=== PATIENT | male | born 1955 | race American Indian/Alaskan Native ===

== ENCOUNTER 2020-09-23 10:12 | Inpatient (IN) | payer OTHER ==
--- NOTE | 2020-09-23 12:16 | Emergency Department Report ---
- General Chief complaint: Weakness Stated complaint: WEAKNESS Time Seen by Provider: 09/23/20 11:57 Source: EMS Mode of arrival: Ambulatory Limitations: No Limitations - History of Present Illness Initial comments: 65-year-old male, history of CAD, presents to ED with generalized weakness. Patient reports on yesterday he began feeling like "my whole body just gave out." Patient reports weakness in bilateral arms and legs. Patient reports history of polio and states that his left leg has been paralyzed for quite some time. Patient states he has been unable to walk since yesterday because he is now also feeling weak in his right leg. He states his arms feel weak as well. Patient denies any neck or back pain. He denies any pain to his arms or legs. He denies any fever, nausea or vomiting, headache, loss of smell or taste, loss of appetite. He reports a mild cough and mild shortness of breath. Patient reports he was last normal yesterday morning. Spoke w/ patient's daughter over the phone, who states that patient has been dropping items. Unsure if with left or right hand. Patient states he has not yet received his COVID-19 vaccine. Complaint: generalized weakness -: days(s) (1) Location: generalized Severity: moderate Consistency: constant Improves with: none Worsens with: none Associated Symptoms: shortness of breath. denies: chest pain, fever/chills, headaches, loss of appetite, nausea/vomiting - Related Data Home Medications Medication Instructions Recorded Confirmed Last Taken AtorvaSTATin [Lipitor] 40 mg PO QHS 09/23/20 09/23/20 Unknown Diclofenac Sodium 75 mg PO QDAY 09/23/20 09/23/20 Unknown HYDROcodone/ACETAMINOPHEN 1 each PO Q6HR PRN 09/23/20 09/23/20 Unknown [Hydrocodone-Acetamin 5-300 mg] Metformin HCl [metFORMIN] 1,000 mg PO QDAY 09/23/20 09/23/20 Unknown glipiZIDE [Glucotrol] 5 mg PO QDAY 09/23/20 09/23/20 Unknown Allergies Allergy/AdvReac Type Severity Reaction Status Date / Time No Known Allergies Allergy Verified 09/24/20 01:16 ED Review of Systems ROS: Stated complaint: WEAKNESS Other details as noted in HPI Comment: All other systems reviewed and negative Constitutional: denies: chills, fever Respiratory: cough, shortness of breath Gastrointestinal: denies: abdominal pain, nausea, vomiting, diarrhea Musculoskeletal: denies: back pain Neurological: weakness. denies: headache, numbness ED Past Medical Hx - Medications Home Medications: Home Medications Medication Instructions Recorded Confirmed Last Taken Type AtorvaSTATin [Lipitor] 40 mg PO QHS 09/23/20 09/23/20 Unknown History Diclofenac Sodium 75 mg PO QDAY 09/23/20 09/23/20 Unknown History HYDROcodone/ACETAMINOPHEN 1 each PO Q6HR PRN 09/23/20 09/23/20 Unknown History [Hydrocodone-Acetamin 5-300 mg] Metformin HCl [metFORMIN] 1,000 mg PO QDAY 09/23/20 09/23/20 Unknown History glipiZIDE [Glucotrol] 5 mg PO QDAY 09/23/20 09/23/20 Unknown History ED Physical Exam - General Limitations: No Limitations General appearance: alert, in no apparent distress - Head Head exam: Present: atraumatic, normocephalic - Eye Eye exam: Present: normal appearance, EOMI - ENT ENT exam: Present: mucous membranes moist - Neck Neck exam: Present: normal inspection, full ROM. Absent: tenderness - Respiratory Respiratory exam: Present: normal lung sounds bilaterally. Absent: respiratory distress - Cardiovascular Cardiovascular Exam: Present: regular rate, normal rhythm - GI/Abdominal GI/Abdominal exam: Present: soft. Absent: distended, tenderness - Extremities Exam Extremities exam: Present: normal inspection - Back Exam Back exam: Present: normal inspection. Absent: tenderness, CVA tenderness (R), CVA tenderness (L), vertebral tenderness - Neurological Exam Neurological exam: Present: alert, oriented X3, CN II-XII intact, motor sensory deficit (baseline left leg weakness; RLE strength 3/5; BUE strength 5/5 but division plant engineer strength seems diminished; sensation intact) ED Course Vital Signs 09/23/20 09/23/20 09/23/20 13:08 13:13 13:15 Temperature 98.2 F Pulse Rate 100 H 94 H Respiratory 13 16 Rate Blood Pressure 145/84 Blood Pressure 145/84 [Left] O2 Sat by Pulse 98 98 98 Oximetry 09/23/20 09/23/20 09/23/20 13:45 14:31 15:01 Temperature Pulse Rate 90 87 89 Respiratory 13 16 15 Rate Blood Pressure 145/84 123/76 147/86 Blood Pressure [Left] O2 Sat by Pulse Oximetry 09/23/20 09/23/20 09/23/20 15:45 16:01 17:01 Temperature Pulse Rate 85 82 81 Respiratory 17 12 17 Rate Blood Pressure 147/86 128/78 125/72 Blood Pressure [Left] O2 Sat by Pulse Oximetry 09/23/20 09/23/20 17:42 17:56 Temperature Pulse Rate 89 83 Respiratory 20 Rate Blood Pressure 143/81 Blood Pressure [Left] O2 Sat by Pulse 100 Oximetry ED Medical Decision Making - Lab Data Result diagrams: 09/23/20 12:11 09/23/20 12:11 - EKG Data -: EKG Interpreted by Me EKG shows normal: sinus rhythm, axis, intervals, QRS complexes Rate: normal - EKG Data Interpretation: nonspecific ST-T wave gavino - Radiology Data Radiology results: report reviewed, image reviewed - Medical Decision Making 65-year-old male presents to ED with complaint of generalized weakness. Last known well time greater than 24 hours ago. On exam patient does have some obvious weakness to the right leg. States his left leg weakness is baseline. No significant weakness of the upper extremities, however it is reported that patient has been dropping objects. He does appear to have some decreased division plant engineer strength. CT head shows possible subacute infarcts in the left basal ganglia. Patient not a candidate for TPA or interventional due to last known well time being greater than 24 hours. Remainder work-up is unremarkable. Patient will be admitted by hospitalist, Dr. Pickard, for further management. - Differential Diagnosis CVA, UTI, electrolyte abnormality Critical care attestation.: If time is entered above; I have spent that time in minutes in the direct care of this critically ill patient, excluding procedure time. ED Disposition Clinical Impression: CVA (cerebral vascular accident) Disposition: [id number] OP ADMIT IP TO THIS HOSP Is pt being admited?: Yes Condition: Stable Time of Disposition: 13:29
[2020-09-23 12:33] LABS: Basophils % (Auto) 0.5 % (0.0-1.8); Eosinophils # (Auto) 0.1 K/mm3 (0.0-0.4); Eosinophils % (Auto) 1.7 % (0.0-4.3); Hematocrit 41.2 % (35.5-45.6); Hemoglobin 13.9 gm/dl (11.8-15.2); Lymphocytes % (Auto) 15.2 % (13.4-35.0); Mean Corpuscular HGB Conc 34 % (32-34); Mean Corpuscular Volume 88 fl (84-94); Monocytes # (Auto) 0.7 K/mm3 (0.0-0.8); Platelet Count 271 K/mm3 (140-440); Red Blood Count 4.68 M/mm3 (3.65-5.03); Red Cell Distribution Width 13.9 % (13.2-15.2)
--- NOTE | 2020-09-23 12:37 | XRay Report ---
CHEST 1 VIEW INDICATION: weakness COMPARISON: FINDINGS: SUPPORT DEVICES: None. HEART / MEDIASTINUM: No significant abnormality. LUNGS / PLEURA: No significant pulmonary or pleural abnormality. No pneumothorax. ADDITIONAL FINDINGS: IMPRESSION: 1. No acute cardiopulmonary disease Signer Name: Lamonte Horan MD Signed: 09/23/2020 12:33 PM Workstation Name: [id number]
[2020-09-23 12:44] LABS: BUN/Creatinine Ratio 19; Blood Urea Nitrogen 15 mg/dL (9-20); Calcium 10.2 mg/dL (8.4-10.2); Hemolysis Index 4
--- NOTE | 2020-09-23 12:55 | Cat Scan Report ---
NONENHANCED CT SCAN OF THE HEAD: INDICATION / CLINICAL INFORMATION: 65 years Male; weakness. TECHNIQUE: Routine CT head without contrast. All CT scans at this location are performed using CT dos e reduction for ALARA by means of automated exposure control. COMPARISON: None. FINDINGS: BRAIN / INTRACRANIAL CONTENTS: No acute hemorrhage, mass effect, midline shift, hydrocephalus, or acu te, large territorial infarct. Lacunar infarction seen in the left thalamus and left globus pallidus; it is difficult to determine the age of these lacunae; since CT attenuation is slightly higher than CSF, these appear to be subacute. Low-attenuation in the left temporal; this appears to be due to vol ume loss rather than hypoplasia. No bony remodeling of the middle fossa skull base. CRANIOCERVICAL JUNCTION: No significant abnormality. ORBITS: No significant abnormality of visualized orbits. SINUSES / MASTOIDS: No significant abnormality of the visualized paranasal sinuses or mastoid air yazmin ls. ADDITIONAL FINDINGS: None. IMPRESSION: Left basal ganglia lacunae; these may be more recent Low attenuation areas in the left temporal lobe tip Encephalomalacia Signer Name: Sedrick Wall MD Signed: 09/23/2020 12:50 PM Workstation Name: [id number]
[2020-09-23 13:13] LABS: Bilirubin,Urine NEG (Negative); Blood,Urine NEG (Negative); Color,Urine Yellow (Yellow); Mucus,Urine FEW /HPF
[2020-09-23 13:49] LABS: Alanine Aminotransferase 23 units/L (7-56); Albumin 4.5 g/dL (3.9-5)
[2020-09-23] MEDS ORDERED: ASPIRIN 325 MG TAB PO ONE (13:52)
[2020-09-23 13:54] LABS: Bilirubin,Direct < 0.2 mg/dL (0-0.2)
[2020-09-24] MEDS ORDERED: HYDROcodone/ACETAMINOPHEN 5-325 MG TAB PO PRN (00:38)
--- NOTE | 2020-09-24 00:45 | History and Physical Report ---
History of Present Illness Date of examination: 09/23/20 Date of admission: 09/23/20 16:06 Chief complaint: Right lower extremity for 1 day History of present illness: 65-year-old -Thai male with history of left lower extremity weakness secondary to polio comes in for right lower extremity weakness and right upper extremity weakness of 1 day duration. Patient says there is also weak on the left upper extremity which is also new. Patient reports that his last normal was yesterday. Past History Past Medical History: diabetes, hypertension, hyperlipidemia, other (Left lower extremity weakness secondary to polio in childhood) Past Surgical History: No surgical history Social history: lives with family, full code Family history: hypertension Medications and Allergies Allergies Allergy/AdvReac Type Severity Reaction Status Date / Time No Known Allergies Allergy Unverified 09/23/20 13:39 Home Medications Medication Instructions Recorded Confirmed Last Taken Type AtorvaSTATin [Lipitor] 40 mg PO QHS 09/23/20 09/23/20 Unknown History Diclofenac Sodium 75 mg PO QDAY 09/23/20 09/23/20 Unknown History HYDROcodone/ACETAMINOPHEN 1 each PO Q6HR PRN 09/23/20 09/23/20 Unknown History [Hydrocodone-Acetamin 5-300 mg] Metformin HCl [metFORMIN] 1,000 mg PO QDAY 09/23/20 09/23/20 Unknown History glipiZIDE [Glucotrol] 5 mg PO QDAY 09/23/20 09/23/20 Unknown History Active Meds: Active Medications Atorvastatin Calcium (Atorvastatin 40 Mg Tab) 40 mg PO QHS [facility] Diclofenac Sodium (Diclofenac Dr 75 Mg Tab) 75 mg PO QDAY [facility] Glipizide (Glipizide 5 Mg Tab) 5 mg PO QDAY [facility] Miscellaneous Medication (Hydrocodone/Acetaminophen [Hydrocodone-Acetamin 5-300 Mg]) 1 each PO Q6HR PRN PRN Reason: Pain , Severe (7-10) Miscellaneous Medication (Metformin Hcl [Metformin]) 1,000 mg PO QDAY [facility] Review of Systems All systems: negative Neurological: paralysis (Mild left lower extremity weakness and new right lower extremity weakness) Exam - Constitutional Vitals: Temp Pulse Resp BP Pulse Ox 98.7 F 91 H 18 137/84 99 09/23/20 23:45 09/23/20 23:45 09/23/20 23:45 09/23/20 23:45 09/23/20 23:45 General appearance: Present: no acute distress, well-nourished - EENT Eyes: Present: PERRL ENT: hearing intact, clear oral mucosa - Neck Neck: Present: supple, normal ROM - Respiratory Respiratory effort: normal Respiratory: bilateral: CTA - Cardiovascular Heart rate: 78 Rhythm: regular Heart Sounds: Present: S1 & S2. Absent: rub, click - Extremities Extremities: pulses symmetrical, No edema Peripheral Pulses: within normal limits - Abdominal General gastrointestinal: Present: soft, non-tender, non-distended, normal bowel sounds Male genitourinary: Present: normal - Integumentary Integumentary: Present: clear, warm, dry - Musculoskeletal Musculoskeletal: right sided weakness (Right lower extremity weakness is new also has right upper extremity weakness), left sided weakness (. Left lower extremity weakness resolved from polio) - Psychiatric Psychiatric: appropriate mood/affect, intact judgment & insight - Neurologic Neurologic: CNII-XII intact, focal deficits (Right lower extremity weakness and right upper extremity weakness which is new), moves all extremities HEART Score - HEART Score Troponin: Troponin T 0.025 ng/mL (0.00-0.029) 09/23/20 12:11 Results - Labs CBC & Chem 7: 09/23/20 12:11 09/23/20 12:11 Labs: Laboratory Last Values WBC 6.8 K/mm3 (4.5-11.0) 09/23/20 12:11 RBC 4.68 M/mm3 (3.65-5.03) 09/23/20 12:11 Hgb 13.9 gm/dl (11.8-15.2) 09/23/20 12:11 Hct 41.2 % (35.5-45.6) 09/23/20 12:11 MCV 88 fl (84-94) 09/23/20 12:11 MCH 30 pg (28-32) 09/23/20 12:11 MCHC 34 % (32-34) 09/23/20 12:11 RDW 13.9 % (13.2-15.2) 09/23/20 12:11 Plt Count 271 K/mm3 (140-440) 09/23/20 12:11 Lymph % (Auto) 15.2 % (13.4-35.0) 09/23/20 12:11 [place] % (Auto) 10.0 % (0.0-7.3) H 09/23/20 12:11 Eos % (Auto) 1.7 % (0.0-4.3) 09/23/20 12:11 Baso % (Auto) 0.5 % (0.0-1.8) 09/23/20 12:11 Lymph # (Auto) 1.0 K/mm3 (1.2-5.4) L 09/23/20 12:11 [place] # (Auto) 0.7 K/mm3 (0.0-0.8) 09/23/20 12:11 Eos # (Auto) 0.1 K/mm3 (0.0-0.4) 09/23/20 12:11 Baso # (Auto) 0.0 K/mm3 (0.0-0.1) 09/23/20 12:11 Seg Neutrophils % 72.6 % (40.0-70.0) H 09/23/20 12:11 Seg Neutrophils # 4.9 K/mm3 (1.8-7.7) 09/23/20 12:11 Sodium 139 mmol/L (137-145) 09/23/20 12:11 Potassium 3.8 mmol/L (3.6-5.0) 09/23/20 12:11 Chloride 99.9 mmol/L (98-107) 09/23/20 12:11 Carbon Dioxide 24 mmol/L (22-30) 09/23/20 12:11 Anion Gap 19 mmol/L 09/23/20 12:11 BUN 15 mg/dL (9-20) 09/23/20 12:11 Creatinine 0.8 mg/dL (0.8-1.3) 09/23/20 12:11 Estimated GFR > 60 ml/min 09/23/20 12:11 BUN/Creatinine Ratio 19 % 09/23/20 12:11 Glucose 148 mg/dL (75-100) H 09/23/20 12:11 POC Glucose 132 mg/dL (70-105) H 09/23/20 17:38 Calcium 10.2 mg/dL (8.4-10.2) 09/23/20 12:11 Total Bilirubin 0.50 mg/dL (0.1-1.2) 09/23/20 12:11 Direct Bilirubin < 0.2 mg/dL (0-0.2) 09/23/20 12:11 Indirect Bilirubin 0.3 mg/dL 09/23/20 12:11 AST 21 units/L (5-40) 09/23/20 12:11 ALT 23 units/L (7-56) 09/23/20 12:11 Alkaline Phosphatase 77 units/L (35-129) 09/23/20 12:11 Troponin T 0.025 ng/mL (0.00-0.029) 09/23/20 12:11 Total Protein 7.0 g/dL (6.3-8.2) 09/23/20 12:11 Albumin 4.5 g/dL (3.9-5) 09/23/20 12:11 Albumin/Globulin Ratio 1.8 % 09/23/20 12:11 Urine Color Yellow (Yellow) 09/23/20 12:14 Urine Turbidity Clear (Clear) 09/23/20 12:14 Urine pH 6.0 (5.0-7.0) 09/23/20 12:14 Ur Specific [place] 1.020 (1.003-1.030) 09/23/20 12:14 Urine Protein 30 mg/dl mg/dL (Negative) 09/23/20 12:14 Urine Glucose (UA) Neg mg/dL (Negative) 09/23/20 12:14 Urine Ketones Neg mg/dL (Negative) 09/23/20 12:14 Urine Blood Neg (Negative) 09/23/20 12:14 Urine Nitrite Neg (Negative) 09/23/20 12:14 Urine Bilirubin Neg (Negative) 09/23/20 12:14 Urine Urobilinogen 4.0 mg/dL (<2.0) 09/23/20 12:14 Ur Leukocyte Esterase Neg (Negative) 09/23/20 12:14 Urine WBC (Auto) 1.0 /HPF (0.0-6.0) 09/23/20 12:14 Urine RBC (Auto) 3.0 /HPF (0.0-6.0) 09/23/20 12:14 U Epithel Cells (Auto) < 1.0 /HPF (0-13.0) 09/23/20 12:14 Urine Mucus Few /HPF 09/23/20 12:14 Short CBC 09/23/20 Range/Units 12:11 WBC 6.8 (4.5-11.0) K/mm3 Hgb 13.9 (11.8-15.2) gm/dl Hct 41.2 (35.5-45.6) % Plt Count 271 (140-440) K/mm3 BMP 09/23/20 12:11 Sodium 139 Potassium 3.8 Chloride 99.9 Carbon Dioxide 24 BUN 15 Creatinine 0.8 Glucose 148 H Calcium 10.2 Cardiac Enzymes 09/23/20 Range/Units 12:11 Troponin T 0.025 (0.00-0.029) ng/mL Liver Function 09/23/20 Range/Units 12:11 Total Bilirubin 0.50 (0.1-1.2) mg/dL Direct Bilirubin < 0.2 (0-0.2) mg/dL AST 21 (5-40) units/L ALT 23 (7-56) units/L Alkaline Phosphatase 77 (35-129) units/L Albumin 4.5 (3.9-5) g/dL Urine 09/23/20 Range/Units 12:14 Urine Color Yellow (Yellow) Urine pH 6.0 (5.0-7.0) Ur Specific [place] 1.020 (1.003-1.030) Urine Protein 30 mg/dl (Negative) mg/dL Urine Glucose (UA) Neg (Negative) mg/dL - Imaging and Cardiology EKG: report reviewed (Sinus rhythm no acute ST-T wave changes) CT Scan - head: report reviewed (Lack infarct on the left side) Imaging and Cardiology: CT head Left basal ganglia lacunar this may be more recent Low-attenuation areas in the left temporal area tip and encephalomalacia Riley/IV: Voiding Method Condom Catheter Assessment and Plan Advance Directives: Yes (Full code) VTE prophylaxis?: Chemical Plan of care discussed with patient/family: Yes - Patient Problems (1) Acute CVA (cerebrovascular accident) Current Visit: Yes Status: Acute Plan to address problem: Patient has right lower extremity weakness and right upper extremity weakness Neurological findings consistent with left-sided infarct which is seen on the CT head Patient to get MRI brain and carotid duplex scan and echocardiogram. Neurology consult. Aspirin and Plavix. PT OT initiated. 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
[2020-09-24] MEDS ORDERED: ONDANSETRON 4 MG/2 ML INJ IV PRN (00:53)
[2020-09-24] MEDS ORDERED: METOCLOPRAMIDE 10 MG/2 ML INJ IV PRN (00:53)
[2020-09-24] MEDS ORDERED: IBUPROFEN 600 MG TAB PO PRN (00:53)
[2020-09-24] MEDS: SODIUM CHLORIDE 0.9% 1000 ML 1,000 ML IV SCH (02:22)
--- NOTE | 2020-09-24 07:43 | Consultation ---
History of Present Illness Consult date: 09/24/20 Reason for Consult: New onset right side weakness ,Hx of Polio left LE History of present illness: Right side weakness noted since yesterday with walking difficulty History of present illness: 65-year-old -Citizen Of [place] male with history of left lower extremity weakness secondary to polio comes in for right side weakness noted since yesterday he could not walk with walker any more , denied numbness or facial weakness or speech difficulty Ct brain is suggestive of left lacunar infarct BG Past History Past Medical History: diabetes, hypertension, hyperlipidemia, other (Left lower extremity weakness secondary to polio in childhood) Past Surgical History: No surgical history Social history: lives with family, full code Family history: hypertension Medications and Allergies Allergies Allergy/AdvReac Type Severity Reaction Status Date / Time No Known Allergies Allergy Unverified 09/23/20 13:39 Home Medications Medication Instructions Recorded Confirmed Last Taken Type AtorvaSTATin [Lipitor] 40 mg PO QHS 09/23/20 09/23/20 Unknown History Diclofenac Sodium 75 mg PO QDAY 09/23/20 09/23/20 Unknown History HYDROcodone/ACETAMINOPHEN 1 each PO Q6HR PRN 09/23/20 09/23/20 Unknown History [Hydrocodone-Acetamin 5-300 mg] Metformin HCl [metFORMIN] 1,000 mg PO QDAY 09/23/20 09/23/20 Unknown History glipiZIDE [Glucotrol] 5 mg PO QDAY 09/23/20 09/23/20 Unknown History Active Meds: Active Medications Atorvastatin Calcium (Atorvastatin 40 Mg Tab) 40 mg PO QHS [facility] Diclofenac Sodium (Diclofenac Dr 75 Mg Tab) 75 mg PO QDAY [facility] Glipizide (Glipizide 5 Mg Tab) 5 mg PO QDAY [facility] Miscellaneous Medication (Hydrocodone/Acetaminophen [Hydrocodone-Acetamin 5-300 Mg]) 1 each PO Q6HR PRN PRN Reason: Pain , Severe (7-10) Miscellaneous Medication (Metformin Hcl [Metformin]) 1,000 mg PO QDAY [facility] Review of Systems All systems: negative Neurological: paralysis (Mild left lower extremity weakness and new right lower extremity weakness) Past History Past Medical History: diabetes, hypertension, hyperlipidemia, other (Left lower extremity weakness secondary to polio in childhood) Past Surgical History: No surgical history Social history: lives with family, full code Family history: hypertension Medications and Allergies Allergies Allergy/AdvReac Type Severity Reaction Status Date / Time No Known Allergies Allergy Verified 09/24/20 01:16 Home Medications Medication Instructions Recorded Confirmed Last Taken Type AtorvaSTATin [Lipitor] 40 mg PO QHS 09/23/20 09/23/20 Unknown History Diclofenac Sodium 75 mg PO QDAY 09/23/20 09/23/20 Unknown History HYDROcodone/ACETAMINOPHEN 1 each PO Q6HR PRN 09/23/20 09/23/20 Unknown History [Hydrocodone-Acetamin 5-300 mg] Metformin HCl [metFORMIN] 1,000 mg PO QDAY 09/23/20 09/23/20 Unknown History glipiZIDE [Glucotrol] 5 mg PO QDAY 09/23/20 09/23/20 Unknown History Active Meds: Active Medications Hydrocodone Bitart/Acetaminophen (Hydrocodone/Acetaminophen 5-325 Mg Tab) 1 each PO Q6HR PRN PRN Reason: Pain , Severe (7-10) Aspirin (Aspirin 325 Mg Tab) 325 mg PO QDAY [facility] Atorvastatin Calcium (Atorvastatin 40 Mg Tab) 40 mg PO QHS [facility] Diclofenac Sodium (Diclofenac Dr 75 Mg Tab) 75 mg PO QDAY [facility] Famotidine (Famotidine 20 Mg/2 Ml Inj) 20 mg IV BID [facility] Glipizide (Glipizide 5 Mg Tab) 5 mg PO QDAY [facility] Hydromorphone HCl (Hydromorphone 1 Mg/1 Ml Inj) 0.5 mg IV Q3H PRN PRN Reason: Pain , Severe (7-10) Sodium Chloride (Nacl 0.9% 1000 Ml) 1,000 mls @ 42 mls/hr IV DIRECT [facility] Last Admin: 09/24/20 02:22 Dose: 42 mls/hr Documented by: Ibuprofen (Ibuprofen 600 Mg Tab) 600 mg PO Q6H PRN PRN Reason: Pain, Mild (1-3) Metformin HCl (Metformin 500 Mg Tab) 1,000 mg PO QDAY [facility] Metoclopramide HCl (Metoclopramide 10 Mg/2 Ml Inj) 10 mg IV Q6H PRN PRN Reason: Nausea And Vomiting Ondansetron HCl (Ondansetron 4 Mg/2 Ml Inj) 4 mg IV Q8H PRN PRN Reason: Nausea And Vomiting Oxycodone/Acetaminophen (Oxycodone /Acetaminophen 5-325mg Tab) 1 tab PO Q6H PRN PRN Reason: Pain, Moderate (4-6) Pravastatin Sodium (Pravastatin 40 Mg Tab) 40 mg PO QHS [facility] Sodium Chloride (Sodium Chloride 0.9% 10 Ml Flush Syringe) 10 ml IV BID [facility] Sodium Chloride (Sodium Chloride 0.9% 10 Ml Flush Syringe) 10 ml IV PRN PRN PRN Reason: LINE FLUSH Physical Examination - Vital Signs Vital Signs: Vital Signs Pulse Ox 98 09/23/20 13:08 - Constitutional General appearance: comfortable - EENT EENT: Present: PERRL, mucous membranes moist - Respiratory Respiratory: Present: lungs clear, rhonchi - Cardiovascular Cardiovascular: Present: regular rate, normal S1, normal S2 Extremities: Present: no peripheral edema bilatateraly, no clubbing, cyanosis - Gastrointestinal Gastrointestinal: Present: normoactive bowel sounds - Integumentary Integumentary: Present: normal - Neurologic Cranial nerve examination: PERRL, EOMI, intact Speech examination: intact Sensorimotor examination: other (speech intact no facial asymmetry , he is with pronator drift right upper with right lower is 4-/5 , left side is 1-2 /5 , no sensory deficit , reflexes 1+, gait unable to do) Results - Laboratory Findings CBC and BMP: 09/23/20 12:11 09/23/20 12:11 Abnormal Lab Findings: Abnormal Labs 09/23/20 09/23/20 09/23/20 12:11 12:11 17:38 [place] % (Auto) 10.0 H Lymph # (Auto) 1.0 L Seg Neutrophils % 72.6 H Glucose 148 H POC Glucose 132 H Hemoglobin A1c 09/24/20 05:49 [place] % (Auto) Lymph # (Auto) Seg Neutrophils % Glucose POC Glucose Hemoglobin A1c 7.6 H Assessment and Plan # Acute CVA (cerebrovascular accident) -New onset righ side weakness upper and lower with no significant cranial N. abnormality - left BG infarct is seen on the CT head - MRI brain is pending - CTA brain and neck -ASA 325 mg and Lipitor # 40 mg -A1C#7.6 -LDL is pending -Echo is pending -BP control < 150/80 ,and DM control<7 -PT OT initiated. # Hypertension - allow for permissive HTN X 24 hours -then nromalize to <150/80 # T2DM (type 2 diabetes mellitus) -Continue oral hypoglycemics - hemoglobin A1c#7.6 Accu-Cheks before meals and at bedtime Insulin coverage with moderate dose sliding scale # Osteoarthritis - Left knee surgery -Weakness left side due to Polio -Patient on diclofenac -Use walker for ambulation # DVT prophylaxis -On heparin and GI prophylaxis PLAN 1- MRI brain 2- cardiac telemetry 3- LDL 4- ASA 325 mg and lipitor 40 mg 5- Echo 6- Pt/ST 7- CTA brain and neck 8- better control of BP and suger will follow as needed
--- NOTE | 2020-09-24 09:58 | Progress Note ---
Assessment and Plan Assessment and plan: Acute ischemoc stroke Patient has right lower extremity weakness and right upper extremity weakness Neurological findings consistent with left-sided infarct which is seen on the CT head Patient to get MRI brain and carotid duplex scan and echocardiogram. Neurology consult. Aspirin and Plavix. PT OT initiated. Hypertension Continue antihypertensives and adjust medications Diabetes mellitus type 2 Continue oral hypoglycemics Accu-Cheks before meals and at bedtime Insulin coverage with moderate dose sliding scale Osteoarthritis Patient on diclofenac DVT prophylaxis On heparin and GI Full code status 09/24/20 Patient is 65 yo presented with right sided weakness. CT Head revealed infarct left basal ganglia. He was admitted with acute stroke. Patient started on Aspirin, Lipitor. MRI ordered, not done yet. Neurology consulted. F/U MRI Brain, CT Angio Head, CT Angio Neck History Interval history: Right sided weakness Hospitalist Physical - Physical exam Narrative exam: Gen: Not in acute distress, obese, lying in bed HEENT: Normochephalic, atraumatic Neck:supple, No JVD Lungs:Clear to auscultation bilaterally, no rales, no wheeze Heart:S1 and S2 reg, no murmurs, rubs or gallop Abd: soft, non tender, non distended, normal bowel sounds Ext: No edema, no clubbing, no cyanosis Neuro:Awake,alert,oriented X 3, right sided weakness, left lower ext polio - Constitutional Vitals: Temp Pulse Resp BP Pulse Ox 97.4 F L 81 15 135/94 99 09/24/20 09:40 09/24/20 03:51 09/24/20 09:40 09/24/20 09:40 09/24/20 09:40 General appearance: Present: no acute distress, well-nourished HEART Score - HEART Score Troponin: Troponin T 0.025 ng/mL (0.00-0.029) 09/23/20 12:11 Results - Labs CBC & Chem 7: 09/23/20 12:11 09/23/20 12:11 Labs: Laboratory Last Values WBC 6.8 K/mm3 (4.5-11.0) 09/23/20 12:11 RBC 4.68 M/mm3 (3.65-5.03) 09/23/20 12:11 Hgb 13.9 gm/dl (11.8-15.2) 09/23/20 12:11 Hct 41.2 % (35.5-45.6) 09/23/20 12:11 MCV 88 fl (84-94) 09/23/20 12:11 MCH 30 pg (28-32) 09/23/20 12:11 MCHC 34 % (32-34) 09/23/20 12:11 RDW 13.9 % (13.2-15.2) 09/23/20 12:11 Plt Count 271 K/mm3 (140-440) 09/23/20 12:11 Lymph % (Auto) 15.2 % (13.4-35.0) 09/23/20 12:11 [place] % (Auto) 10.0 % (0.0-7.3) H 09/23/20 12:11 Eos % (Auto) 1.7 % (0.0-4.3) 09/23/20 12:11 Baso % (Auto) 0.5 % (0.0-1.8) 09/23/20 12:11 Lymph # (Auto) 1.0 K/mm3 (1.2-5.4) L 09/23/20 12:11 [place] # (Auto) 0.7 K/mm3 (0.0-0.8) 09/23/20 12:11 Eos # (Auto) 0.1 K/mm3 (0.0-0.4) 09/23/20 12:11 Baso # (Auto) 0.0 K/mm3 (0.0-0.1) 09/23/20 12:11 Seg Neutrophils % 72.6 % (40.0-70.0) H 09/23/20 12:11 Seg Neutrophils # 4.9 K/mm3 (1.8-7.7) 09/23/20 12:11 Sodium 139 mmol/L (137-145) 09/23/20 12:11 Potassium 3.8 mmol/L (3.6-5.0) 09/23/20 12:11 Chloride 99.9 mmol/L (98-107) 09/23/20 12:11 Carbon Dioxide 24 mmol/L (22-30) 09/23/20 12:11 Anion Gap 19 mmol/L 09/23/20 12:11 BUN 15 mg/dL (9-20) 09/23/20 12:11 Creatinine 0.8 mg/dL (0.8-1.3) 09/23/20 12:11 Estimated GFR > 60 ml/min 09/23/20 12:11 BUN/Creatinine Ratio 19 % 09/23/20 12:11 Glucose 148 mg/dL (75-100) H 09/23/20 12:11 POC Glucose 132 mg/dL (70-105) H 09/23/20 17:38 Hemoglobin A1c 7.6 % (4-6) H 09/24/20 05:49 Calcium 10.2 mg/dL (8.4-10.2) 09/23/20 12:11 Total Bilirubin 0.50 mg/dL (0.1-1.2) 09/23/20 12:11 Direct Bilirubin < 0.2 mg/dL (0-0.2) 09/23/20 12:11 Indirect Bilirubin 0.3 mg/dL 09/23/20 12:11 AST 21 units/L (5-40) 09/23/20 12:11 ALT 23 units/L (7-56) 09/23/20 12:11 Alkaline Phosphatase 77 units/L (35-129) 09/23/20 12:11 Troponin T 0.025 ng/mL (0.00-0.029) 09/23/20 12:11 Total Protein 7.0 g/dL (6.3-8.2) 09/23/20 12:11 Albumin 4.5 g/dL (3.9-5) 09/23/20 12:11 Albumin/Globulin Ratio 1.8 % 09/23/20 12:11 Urine Color Yellow (Yellow) 09/23/20 12:14 Urine Turbidity Clear (Clear) 09/23/20 12:14 Urine pH 6.0 (5.0-7.0) 09/23/20 12:14 Ur Specific [place] 1.020 (1.003-1.030) 09/23/20 12:14 Urine Protein 30 mg/dl mg/dL (Negative) 09/23/20 12:14 Urine Glucose (UA) Neg mg/dL (Negative) 09/23/20 12:14 Urine Ketones Neg mg/dL (Negative) 09/23/20 12:14 Urine Blood Neg (Negative) 09/23/20 12:14 Urine Nitrite Neg (Negative) 09/23/20 12:14 Urine Bilirubin Neg (Negative) 09/23/20 12:14 Urine Urobilinogen 4.0 mg/dL (<2.0) 09/23/20 12:14 Ur Leukocyte Esterase Neg (Negative) 09/23/20 12:14 Urine WBC (Auto) 1.0 /HPF (0.0-6.0) 09/23/20 12:14 Urine RBC (Auto) 3.0 /HPF (0.0-6.0) 09/23/20 12:14 U Epithel Cells (Auto) < 1.0 /HPF (0-13.0) 09/23/20 12:14 Urine Mucus Few /HPF 09/23/20 12:14 Riley/IV: Voiding Method Condom Catheter Active Medications - Current Medications Current Medications: Generic Name Dose Route Start Last Admin Trade Name Freq PRN Reason Stop Dose Admin Hydrocodone Bitart/Acetaminophen 1 each 09/24/20 00:38 Hydrocodone/Acetaminophen 5-325 Mg Tab PO Q6HR PRN Pain , Severe (7-10) Aspirin 325 mg 09/24/20 10:00 Aspirin 325 Mg Tab PO QDAY [facility] Atorvastatin Calcium 40 mg 09/24/20 22:00 Atorvastatin 40 Mg Tab PO QHS [facility] Diclofenac Sodium 75 mg 09/24/20 10:[address] 75 Mg Tab PO QDAY [facility] Famotidine 20 mg 09/24/20 10:00 Famotidine 20 Mg/2 Ml Inj IV BID [facility] Glipizide 5 mg 09/24/20 10:00 Glipizide 5 Mg Tab PO QDAY [facility] Hydromorphone HCl 0.5 mg 09/24/20 00:53 Hydromorphone 1 Mg/1 Ml Inj IV Q3H PRN Pain , Severe (7-10) Sodium Chloride 1,000 mls @ 42 mls/hr 09/24/20 01:00 09/24/20 02:22 Nacl 0.9% 1000 Ml IV 42 mls/hr DIRECT FLAQUITO Administration Ibuprofen 600 mg 09/24/20 00:53 Ibuprofen 600 Mg Tab PO Q6H PRN Pain, Mild (1-3) Metformin HCl 1,000 mg 09/24/20 10:00 Metformin 500 Mg Tab PO QDAY [facility] Metoclopramide HCl 10 mg 09/24/20 00:53 Metoclopramide 10 Mg/2 Ml Inj IV Q6H PRN Nausea And Vomiting Ondansetron HCl 4 mg 09/24/20 00:53 Ondansetron 4 Mg/2 Ml Inj IV Q8H PRN Nausea And Vomiting Oxycodone/Acetaminophen 1 tab 09/24/20 00:53 Oxycodone /Acetaminophen 5-325mg Tab PO Q6H PRN Pain, Moderate (4-6) Pravastatin Sodium 40 mg 09/24/20 22:00 Pravastatin 40 Mg Tab PO QHS [facility]O Sodium Chloride 10 ml 09/24/20 10:00 Sodium Chloride 0.9% 10 Ml Flush Syringe IV BID FLAQUITO Sodium Chloride 10 ml 09/24/20 00:53 Sodium Chloride 0.9% 10 Ml Flush Syringe IV PRN PRN LINE FLUSH
[2020-09-24] MEDS: DICLOFENAC DR 75 MG TAB PO SCH (11:04)
[2020-09-24] MEDS: glipiZIDE 5 MG TAB PO SCH (11:05)
[2020-09-24] MEDS: metFORMIN 500 MG TAB PO SCH (11:05)
[2020-09-24] MEDS: ASPIRIN 325 MG TAB PO SCH (11:05)
[2020-09-24] MEDS: FAMOTIDINE 20 MG/2 ML INJ IV SCH ×2 (11:05→21:45)
[2020-09-24] MEDS: PRAVASTATIN 40 MG TAB PO SCH (21:45)
[2020-09-25 06:02] LABS: Basophils % (Auto) 0.5 % (0.0-1.8); Eosinophils # (Auto) 0.2 K/mm3 (0.0-0.4); Eosinophils % (Auto) 3.5 % (0.0-4.3); Hematocrit 38.3 % (35.5-45.6); Hemoglobin 12.8 gm/dl (11.8-15.2); Lymphocytes # (Auto) 1.6 K/mm3 (1.2-5.4); Lymphocytes % (Auto) 31.5 % (13.4-35.0); Mean Corpuscular HGB Conc 34 % (32-34); Mean Corpuscular Volume 88 fl (84-94); Monocytes # (Auto) 0.6 K/mm3 (0.0-0.8); Monocytes % (Auto) 12.7 % (0.0-7.3); Platelet Count 241 K/mm3 (140-440); Red Blood Count 4.35 M/mm3 (3.65-5.03); Red Cell Distribution Width 14.1 % (13.2-15.2)
[2020-09-25 06:10] LABS: Alanine Aminotransferase 18 units/L (7-56); BUN/Creatinine Ratio 19; Blood Urea Nitrogen 17 mg/dL (9-20); Calcium 9.3 mg/dL (8.4-10.2); Chol/HDL Ratio 3.54 %; HDL Cholesterol 50 mg/dL (40-59); Hemolysis Index 27; LDL Cholesterol,Direct 126 mg/dL (50-130)
--- NOTE | 2020-09-25 09:12 | Progress Note ---
Assessment and Plan Assessment and plan: Acute ischemoc stroke Patient has right lower extremity weakness and right upper extremity weakness Neurological findings consistent with left-sided infarct which is seen on the CT head F/U MRI brain and carotid duplex scan and echocardiogram. Neurology following Aspirin and Plavix. PT/OT Hypertension Continue antihypertensives and adjust medications Diabetes mellitus type 2 Continue oral hypoglycemics Accu-Cheks before meals and at bedtime Insulin coverage with moderate dose sliding scale Osteoarthritis Patient on diclofenac DVT prophylaxis On heparin and GI Full code status 09/24/20 Patient is 65 yo presented with right sided weakness. CT Head revealed infarct left basal ganglia. He was admitted with acute stroke. Patient started on Aspirin, Lipitor. MRI ordered, not done yet. Neurology consulted. F/U MRI Brain, CT Angio Head, CT Angio Neck 09/25/20. F/U CTA head and neck. PT/OT History Interval history: No new issues Hospitalist Physical - Constitutional Vitals: Temp Pulse Resp BP Pulse Ox 98.1 F 80 16 144/82 100 09/25/20 03:55 09/25/20 03:55 09/25/20 03:55 09/25/20 03:55 09/25/20 03:55 General appearance: Present: no acute distress, well-nourished - EENT Eyes: Present: PERRL, EOM intact ENT: hearing intact, clear oral mucosa, dentition normal - Neck Neck: Present: supple, normal ROM - Respiratory Respiratory effort: normal Respiratory: bilateral: CTA - Cardiovascular Rhythm: regular Heart Sounds: Present: S1 & S2. Absent: gallop, rub - Extremities Extremities: no ischemia, No edema, Full ROM - Abdominal General gastrointestinal: soft, non-tender, non-distended, normal bowel sounds - Integumentary Integumentary: Present: clear, warm, dry - Neurologic Neurologic: CNII-XII intact, moves all extremities HEART Score - HEART Score Troponin: Troponin T 0.025 ng/mL (0.00-0.029) 09/23/20 12:11 Results - Labs CBC & Chem 7: 09/25/20 04:49 09/25/20 04:49 Labs: Laboratory Last Values WBC 4.9 K/mm3 (4.5-11.0) 09/25/20 04:49 RBC 4.35 M/mm3 (3.65-5.03) 09/25/20 04:49 Hgb 12.8 gm/dl (11.8-15.2) 09/25/20 04:49 Hct 38.3 % (35.5-45.6) 09/25/20 04:49 MCV 88 fl (84-94) 09/25/20 04:49 MCH 30 pg (28-32) 09/25/20 04:49 MCHC 34 % (32-34) 09/25/20 04:49 RDW 14.1 % (13.2-15.2) 09/25/20 04:49 Plt Count 241 K/mm3 (140-440) 09/25/20 04:49 Lymph % (Auto) 31.5 % (13.4-35.0) 09/25/20 04:49 [place] % (Auto) 12.7 % (0.0-7.3) H 09/25/20 04:49 Eos % (Auto) 3.5 % (0.0-4.3) 09/25/20 04:49 Baso % (Auto) 0.5 % (0.0-1.8) 09/25/20 04:49 Lymph # (Auto) 1.6 K/mm3 (1.2-5.4) 09/25/20 04:49 [place] # (Auto) 0.6 K/mm3 (0.0-0.8) 09/25/20 04:49 Eos # (Auto) 0.2 K/mm3 (0.0-0.4) 09/25/20 04:49 Baso # (Auto) 0.0 K/mm3 (0.0-0.1) 09/25/20 04:49 Seg Neutrophils % 51.8 % (40.0-70.0) 09/25/20 04:49 Seg Neutrophils # 2.6 K/mm3 (1.8-7.7) 09/25/20 04:49 Sodium 139 mmol/L (137-145) 09/25/20 04:49 Potassium 4.4 mmol/L (3.6-5.0) 09/25/20 04:49 Chloride 102.9 mmol/L (98-107) 09/25/20 04:49 Carbon Dioxide 26 mmol/L (22-30) 09/25/20 04:49 Anion Gap 15 mmol/L 09/25/20 04:49 BUN 17 mg/dL (9-20) 09/25/20 04:49 Creatinine 0.9 mg/dL (0.8-1.3) 09/25/20 04:49 Estimated GFR > 60 ml/min 09/25/20 04:49 BUN/Creatinine Ratio 19 % 09/25/20 04:49 Glucose 118 mg/dL (75-100) H 09/25/20 04:49 POC Glucose 132 mg/dL (70-105) H 09/23/20 17:38 Hemoglobin A1c 7.6 % (4-6) H 09/24/20 05:49 Calcium 9.3 mg/dL (8.4-10.2) 09/25/20 04:49 Total Bilirubin 0.50 mg/dL (0.1-1.2) 09/25/20 04:49 Direct Bilirubin < 0.2 mg/dL (0-0.2) 09/23/20 12:11 Indirect Bilirubin 0.3 mg/dL 09/23/20 12:11 AST 17 units/L (5-40) 09/25/20 04:49 ALT 18 units/L (7-56) 09/25/20 04:49 Alkaline Phosphatase 61 units/L (35-129) 09/25/20 04:49 Troponin T 0.025 ng/mL (0.00-0.029) 09/23/20 12:11 Total Protein 6.5 g/dL (6.3-8.2) 09/25/20 04:49 Albumin 4.0 g/dL (3.9-5) 09/25/20 04:49 Albumin/Globulin Ratio 1.6 % 09/25/20 04:49 Triglycerides 83 mg/dL (2-149) 09/25/20 04:49 Cholesterol 177 mg/dL (50-199) 09/25/20 04:49 LDL Cholesterol Direct 126 mg/dL (50-130) 09/25/20 04:49 HDL Cholesterol 50 mg/dL (40-59) 09/25/20 04:49 Cholesterol/HDL Ratio 3.54 % 09/25/20 04:49 Urine Color Yellow (Yellow) 09/23/20 12:14 Urine Turbidity Clear (Clear) 09/23/20 12:14 Urine pH 6.0 (5.0-7.0) 09/23/20 12:14 Ur Specific [place] 1.020 (1.003-1.030) 09/23/20 12:14 Urine Protein 30 mg/dl mg/dL (Negative) 09/23/20 12:14 Urine Glucose (UA) Neg mg/dL (Negative) 09/23/20 12:14 Urine Ketones Neg mg/dL (Negative) 09/23/20 12:14 Urine Blood Neg (Negative) 09/23/20 12:14 Urine Nitrite Neg (Negative) 09/23/20 12:14 Urine Bilirubin Neg (Negative) 09/23/20 12:14 Urine Urobilinogen 4.0 mg/dL (<2.0) 09/23/20 12:14 Ur Leukocyte Esterase Neg (Negative) 09/23/20 12:14 Urine WBC (Auto) 1.0 /HPF (0.0-6.0) 09/23/20 12:14 Urine RBC (Auto) 3.0 /HPF (0.0-6.0) 09/23/20 12:14 U Epithel Cells (Auto) < 1.0 /HPF (0-13.0) 09/23/20 12:14 Urine Mucus Few /HPF 09/23/20 12:14 Riley/IV: Voiding Method Incontinent Active Medications - Current Medications Current Medications: Generic Name Dose Route Start Last Admin Trade Name Freq PRN Reason Stop Dose Admin Hydrocodone Bitart/Acetaminophen 1 each 09/24/20 00:38 Hydrocodone/Acetaminophen 5-325 Mg Tab PO Q6HR PRN Pain , Severe (7-10) Aspirin 325 mg 09/24/20 10:00 09/24/20 11:05 Aspirin 325 Mg Tab PO 325 mg QDAY [facility]O Administration Atorvastatin Calcium 40 mg 09/24/20 22:00 09/24/20 21:45 Atorvastatin 40 Mg Tab PO 40 mg QHS [facility]O Administration Diclofenac Sodium 75 mg 09/24/20 10:00 09/24/20 11:[address] 75 Mg Tab PO 75 mg QDAY [facility] Administration Famotidine 20 mg 09/25/20 10:00 Famotidine 20 Mg Tab PO BID [facility] Glipizide 5 mg 09/24/20 10:00 09/24/20 11:05 Glipizide 5 Mg Tab PO 5 mg QDAY FLAQUTIO Administration Hydromorphone HCl 0.5 mg 09/24/20 00:53 Hydromorphone 1 Mg/1 Ml Inj IV Q3H PRN Pain , Severe (7-10) Sodium Chloride 1,000 mls @ 42 mls/hr 09/24/20 01:00 09/24/20 02:22 Nacl 0.9% 1000 Ml IV 42 mls/hr DIRECT FLAQUITO Administration Ibuprofen 600 mg 09/24/20 00:53 Ibuprofen 600 Mg Tab PO Q6H PRN Pain, Mild (1-3) Metformin HCl 1,000 mg 09/24/20 10:00 09/24/20 11:05 Metformin 500 Mg Tab PO 1,000 mg QDAY [facility] Administration Metoclopramide HCl 10 mg 09/24/20 00:53 Metoclopramide 10 Mg/2 Ml Inj IV Q6H PRN Nausea And Vomiting Ondansetron HCl 4 mg 09/24/20 00:53 Ondansetron 4 Mg/2 Ml Inj IV Q8H PRN Nausea And Vomiting Oxycodone/Acetaminophen 1 tab 09/24/20 00:53 Oxycodone /Acetaminophen 5-325mg Tab PO Q6H PRN Pain, Moderate (4-6) Pravastatin Sodium 40 mg 09/24/20 22:00 09/24/20 21:45 Pravastatin 40 Mg Tab PO 40 mg QHS [facility]O Administration Sodium Chloride 10 ml 09/24/20 10:00 09/24/20 21:46 Sodium Chloride 0.9% 10 Ml Flush Syringe IV 10 ml BID F[facility]QUITO Administration Sodium Chloride 10 ml 09/24/20 00:53 Sodium Chloride 0.9% 10 Ml Flush Syringe IV PRN PRN LINE FLUSH
--- NOTE | 2020-09-25 09:34 | Cat Scan Report ---
CTA NECK WITH CONTRAST 09/25/2020 INDICATION / CLINICAL INFORMATION: CVA OMNI 350 100 ML. COMPARISON: None. TECHNIQUE: Routine CTA of the neck is performed. 3-D/MIP reformats were postprocessed. Percentage st enosis is determined by direct quantitative measurements of diseased internal carotid artery diameter compared with normal distal internal carotid artery reference segments or by criteria similar to LASHANDA CET where applicable. All CT scans at this location are performed using CT dose reduction for ALARA b y means of automated exposure control. CONTRAST: 100 ml of Omnipaque 350 FINDINGS: Carotid bifurcations: There is no evidence of carotid bifurcation stenosis. Carotid arteries: No significant abnormality. Cervical vertebral arteries: No significant abnormality. Aortic arch: Not included on this exam. None. IMPRESSION: No significant abnormality. Signer Name: Modesto Quijano MD Signed: 09/25/2020 9:29 AM Workstation Name: [id number]
--- NOTE | 2020-09-25 09:43 | Cat Scan Report ---
CTA HEAD WITH CONTRAST 09/25/2020 HISTORY: CVA OMNI 350 100 ML. COMPARISON: None. TECHNIQUE: All CT scans at this location are performed using CT dose reduction for ALARA by means of automated exposure control.. 3-D/MIP reformats postprocessed. Percentage stenosis is determined by d irect quantitative measurements of diseased internal carotid artery diameter compared with normal dis brian internal carotid artery reference segments or by criteria similar to NASCET where applicable. CONTRAST: 100 ml of Omnipaque 350 FINDINGS: Diffuse intracranial atherosclerotic changes are present as detailed below. CTA HEAD: Intracranial vertebral arteries: There is atherosclerotic calcifications associated with the distal v ertebral arteries bilaterally, more prominently on the left. The left distal vertebral artery appears to be hypoplastic and occluded at the level of the foramen magnum. Basilar artery: Minimal atherosclerotic irregularity Posterior cerebral arteries: No significant abnormality. Intracranial internal carotid arteries: On the left, there is significant atherosclerotic atheroscler otic change and calcification associated with high-grade segmental stenoses at the level of the shayy nous sinuses. On the right, there is similar pattern, although this stenotic changes are less pronoun faisal. Anterior cerebral arteries: No significant abnormality. Middle cerebral arteries: The left M1 segment is occluded, and there appear to be cortical collateral s, with opacification of left MCA territory vessels. Partial visualization and left MCA territory sug gests these vessels are hypoplastic or slow flow because they are relatively small in size as compare d to the right. Prominent atherosclerotic irregularity is seen along the course of the right middle c erebral artery and its proximal branches. Dural venous sinuses:Not optimally opacified. No significant abnormality. Additional findings: None. IMPRESSION: 1. Occluded left MCA M1 segment, with evidence of cortical collateralization. 2. Significant atherosclerotic changes in distal internal carotid arteries, left greater than right. Signer Name: Modesto Quijano MD Signed: 09/25/2020 9:38 AM Workstation Name: [id number]
--- NOTE | 2020-09-25 10:37 | Magnetic Resonance Report ---
MRI BRAIN 09/25/2020 INDICATION / CLINICAL INFORMATION: stroke, BILAT. LEG WEAKNESS. TECHNIQUE: Multiplanar, multisequence MR images of the brain were obtained. COMPARISON: None available. FINDINGS: BRAIN / INTRACRANIAL CONTENTS: Unenhanced MR images of the brain demonstrate no evidence of acute abn ormality. Ventricles and sulci are normal in size and shape for a patient of this age. There is some chronic encephalomalacia of the anterior left temporal lobe, consistent with remote isc hemic injury. There is no evidence of acute ischemic injury, hemorrhage, or mass. Minimal chronic white matter T2 w eighted hyperintensities are present in the periventricular and deep white matter of cerebral hemisph eres. EXTRACRANIAL: Unremarkable CRANIOCERVICAL JUNCTION: No significant abnormality. VASCULAR FLOW-VOIDS: Limited flow signal in the left MCA. CT angiogram was also performed and is repo rted separately. IMPRESSION: No acute abnormality. Signer Name: Modesto Quijano MD Signed: 09/25/2020 10:32 AM Workstation Name: [id number]
--- NOTE | 2020-09-25 12:38 | Vascular Lab Report ---
DUPLEX DOPPLER ULTRASOUND CAROTID, BILATERAL INDICATION / CLINICAL INFORMATION: Stroke. COMPARISON: None available. FINDINGS: RIGHT CAROTID: Mild calcified atherosclerotic plaque is noted within the CCA, bulb, and proximal ICA. - PLAQUE ESTIMATE (%): < 50% - CCA velocity: 68 cm/sec. - ICA peak systolic velocity: 70 cm/sec. - ICA/CCA PSV Ratio: Less than 2. Right Vertebral Artery: Antegrade flow. LEFT CAROTID: Mild calcified atherosclerotic plaque is present within the CCA, bulb, and proximal ICA . - PLAQUE ESTIMATE (%): < 50% - CCA velocity: 44 cm/sec. - ICA peak systolic velocity: 53 cm/sec. - ICA/CCA PSV Ratio: Less than 2. Left Vertebral Artery: Antegrade flow. IMPRESSION: 1. Right Internal Carotid Artery: Less than 50% diameter stenosis. 2. Left Internal Carotid Artery: Less than 50% diameter stenosis. Velocity criteria are extrapolated from diameter data as defined by the Society of Radiologists in Ul trasound Consensus Conference, Radiology 2003; 229;340-346. NO STENOSIS (NORMAL) - Plaque = none; ICA PSV < 125 cm/sec; ICA/CCA PSV Ratio < 2.0 <50% STENOSIS - Plaque < 50%; ICA PSV < 125 cm/sec; ICA/CCA PSV Ratio < 2.0 50-69% STENOSIS - Plaque > 50%; ICA PSV = 125-230 cm/sec; ICA/CCA PSV Ratio = 2.0-4.0 >70% BUT <100% STENOSIS - Plaque > 50%; ICA PSV > 230 cm/sec; ICA/CCA PSV Ratio > 4.0 NEAR OCCLUSION - Plaque = visible lumen; ICA PSV = high/low/none; ICA/CCA PSV Ratio = variable TOTAL OCCLUSION - Plaque = no lumen; ICA PSV = none; ICA/CCA PSV Ratio = N/A Scribed by: Vira Crowell RDMS, RVT Scribed: 09/25/2020 10:40 AM I have reviewed the images, agree with this report, and edited this report as needed. Signer Name: Sedrick Chacko MD Signed: 09/25/2020 12:34 PM Workstation Name: [id number]
[2020-09-25] MEDS: metFORMIN 500 MG TAB PO SCH (14:24)
[2020-09-25] MEDS: DICLOFENAC DR 75 MG TAB PO SCH (14:24)
[2020-09-25] MEDS: ASPIRIN 325 MG TAB PO SCH (14:24)
[2020-09-25] MEDS: glipiZIDE 5 MG TAB PO SCH (14:25)
[2020-09-25] MEDS: FAMOTIDINE 20 MG TAB PO SCH ×2 (14:25→21:09)
[2020-09-25] MEDS: PRAVASTATIN 40 MG TAB PO SCH (21:09)
--- NOTE | 2020-09-26 14:10 | Progress Note ---
Assessment and Plan Assessment and plan: Acute ischemoc stroke Patient has right lower extremity weakness and right upper extremity weakness Neurological findings consistent with left-sided infarct which is seen on the CT head F/U MRI brain and carotid duplex scan and echocardiogram. Neurology following Aspirin and Plavix. PT/OT Hypertension Continue antihypertensives and adjust medications Diabetes mellitus type 2 Continue oral hypoglycemics Accu-Cheks before meals and at bedtime Insulin coverage with moderate dose sliding scale Osteoarthritis Patient on diclofenac DVT prophylaxis On heparin and GI Full code status 09/24/20 Patient is 65 yo presented with right sided weakness. CT Head revealed infarct left basal ganglia. He was admitted with acute stroke. Patient started on Aspirin, Lipitor. MRI ordered, not done yet. Neurology consulted. F/U MRI Brain, CT Angio Head, CT Angio Neck 09/25/20. F/U CTA head and neck. PT/OT 09/26/20. MRI of brain negative. CT head and neck reveals occluded Left MCA M1 segment with collateralization. F/U ECHO. Cont. ASA and lipitor. PT recommends acute rehab History Interval history: No new issues Hospitalist Physical - Constitutional Vitals: Temp Pulse Resp BP Pulse Ox 97.7 F 72 19 122/76 99 09/26/20 08:01 09/26/20 09:00 09/26/20 08:01 09/26/20 08:01 09/26/20 08:01 General appearance: Present: no acute distress, well-nourished - EENT Eyes: Present: PERRL, EOM intact ENT: hearing intact, clear oral mucosa, dentition normal - Neck Neck: Present: supple, normal ROM - Respiratory Respiratory effort: normal Respiratory: bilateral: CTA - Cardiovascular Rhythm: regular Heart Sounds: Present: S1 & S2. Absent: gallop, rub - Extremities Extremities: no ischemia, No edema, Full ROM - Abdominal General gastrointestinal: soft, non-tender, non-distended, normal bowel sounds - Integumentary Integumentary: Present: clear, warm, dry - Neurologic Neurologic: CNII-XII intact, moves all extremities HEART Score - HEART Score Troponin: Troponin T 0.025 ng/mL (0.00-0.029) 09/23/20 12:11 Results - Labs CBC & Chem 7: 09/25/20 04:49 09/25/20 04:49 Labs: Laboratory Last Values WBC 4.9 K/mm3 (4.5-11.0) 09/25/20 04:49 RBC 4.35 M/mm3 (3.65-5.03) 09/25/20 04:49 Hgb 12.8 gm/dl (11.8-15.2) 09/25/20 04:49 Hct 38.3 % (35.5-45.6) 09/25/20 04:49 MCV 88 fl (84-94) 09/25/20 04:49 MCH 30 pg (28-32) 09/25/20 04:49 MCHC 34 % (32-34) 09/25/20 04:49 RDW 14.1 % (13.2-15.2) 09/25/20 04:49 Plt Count 241 K/mm3 (140-440) 09/25/20 04:49 Lymph % (Auto) 31.5 % (13.4-35.0) 09/25/20 04:49 [place] % (Auto) 12.7 % (0.0-7.3) H 09/25/20 04:49 Eos % (Auto) 3.5 % (0.0-4.3) 09/25/20 04:49 Baso % (Auto) 0.5 % (0.0-1.8) 09/25/20 04:49 Lymph # (Auto) 1.6 K/mm3 (1.2-5.4) 09/25/20 04:49 [place] # (Auto) 0.6 K/mm3 (0.0-0.8) 09/25/20 04:49 Eos # (Auto) 0.2 K/mm3 (0.0-0.4) 09/25/20 04:49 Baso # (Auto) 0.0 K/mm3 (0.0-0.1) 09/25/20 04:49 Seg Neutrophils % 51.8 % (40.0-70.0) 09/25/20 04:49 Seg Neutrophils # 2.6 K/mm3 (1.8-7.7) 09/25/20 04:49 Sodium 139 mmol/L (137-145) 09/25/20 04:49 Potassium 4.4 mmol/L (3.6-5.0) 09/25/20 04:49 Chloride 102.9 mmol/L (98-107) 09/25/20 04:49 Carbon Dioxide 26 mmol/L (22-30) 09/25/20 04:49 Anion Gap 15 mmol/L 09/25/20 04:49 BUN 17 mg/dL (9-20) 09/25/20 04:49 Creatinine 0.9 mg/dL (0.8-1.3) 09/25/20 04:49 Estimated GFR > 60 ml/min 09/25/20 04:49 BUN/Creatinine Ratio 19 % 09/25/20 04:49 Glucose 118 mg/dL (75-100) H 09/25/20 04:49 POC Glucose 117 mg/dL (70-105) H 09/26/20 08:02 Hemoglobin A1c 7.6 % (4-6) H 09/24/20 05:49 Calcium 9.3 mg/dL (8.4-10.2) 09/25/20 04:49 Total Bilirubin 0.50 mg/dL (0.1-1.2) 09/25/20 04:49 Direct Bilirubin < 0.2 mg/dL (0-0.2) 09/23/20 12:11 Indirect Bilirubin 0.3 mg/dL 09/23/20 12:11 AST 17 units/L (5-40) 09/25/20 04:49 ALT 18 units/L (7-56) 09/25/20 04:49 Alkaline Phosphatase 61 units/L (35-129) 09/25/20 04:49 Troponin T 0.025 ng/mL (0.00-0.029) 09/23/20 12:11 Total Protein 6.5 g/dL (6.3-8.2) 09/25/20 04:49 Albumin 4.0 g/dL (3.9-5) 09/25/20 04:49 Albumin/Globulin Ratio 1.6 % 09/25/20 04:49 Triglycerides 83 mg/dL (2-149) 09/25/20 04:49 Cholesterol 177 mg/dL (50-199) 09/25/20 04:49 LDL Cholesterol Direct 126 mg/dL (50-130) 09/25/20 04:49 HDL Cholesterol 50 mg/dL (40-59) 09/25/20 04:49 Cholesterol/HDL Ratio 3.54 % 09/25/20 04:49 Urine Color Yellow (Yellow) 09/23/20 12:14 Urine Turbidity Clear (Clear) 09/23/20 12:14 Urine pH 6.0 (5.0-7.0) 09/23/20 12:14 Ur Specific [place] 1.020 (1.003-1.030) 09/23/20 12:14 Urine Protein 30 mg/dl mg/dL (Negative) 09/23/20 12:14 Urine Glucose (UA) Neg mg/dL (Negative) 09/23/20 12:14 Urine Ketones Neg mg/dL (Negative) 09/23/20 12:14 Urine Blood Neg (Negative) 09/23/20 12:14 Urine Nitrite Neg (Negative) 09/23/20 12:14 Urine Bilirubin Neg (Negative) 09/23/20 12:14 Urine Urobilinogen 4.0 mg/dL (<2.0) 09/23/20 12:14 Ur Leukocyte Esterase Neg (Negative) 09/23/20 12:14 Urine WBC (Auto) 1.0 /HPF (0.0-6.0) 09/23/20 12:14 Urine RBC (Auto) 3.0 /HPF (0.0-6.0) 09/23/20 12:14 U Epithel Cells (Auto) < 1.0 /HPF (0-13.0) 09/23/20 12:14 Urine Mucus Few /HPF 09/23/20 12:14 Riley/IV: Voiding Method Bedpan Active Medications - Current Medications Current Medications: Generic Name Dose Route Start Last Admin Trade Name Freq PRN Reason Stop Dose Admin Hydrocodone Bitart/Acetaminophen 1 each 09/24/20 00:38 Hydrocodone/Acetaminophen 5-325 Mg Tab PO Q6HR PRN Pain , Severe (7-10) Aspirin 325 mg 09/24/20 10:00 09/25/20 14:24 Aspirin 325 Mg Tab PO 325 mg QDAY FLAQUITO Administration Atorvastatin Calcium 40 mg 09/24/20 22:00 09/25/20 21:09 Atorvastatin 40 Mg Tab PO 40 mg QHS FLAQUITO Administration Diclofenac Sodium 75 mg 09/24/20 10:00 09/25/20 14:[address] 75 Mg Tab PO 75 mg QDAY FLAQUITO Administration Famotidine 20 mg 09/25/20 10:00 09/25/20 21:09 Famotidine 20 Mg Tab PO 20 mg BID FLAQUITO Administration Glipizide 5 mg 09/24/20 10:00 09/25/20 14:25 Glipizide 5 Mg Tab PO 5 mg QDAY FLAQUITO Administration Hydromorphone HCl 0.5 mg 09/24/20 00:53 Hydromorphone 1 Mg/1 Ml Inj IV Q3H PRN Pain , Severe (7-10) Sodium Chloride 1,000 mls @ 42 mls/hr 09/24/20 01:00 09/24/20 02:22 Nacl 0.9% 1000 Ml IV 42 mls/hr DIRECT FLAQUITO Administration Ibuprofen 600 mg 09/24/20 00:53 Ibuprofen 600 Mg Tab PO Q6H PRN Pain, Mild (1-3) Metformin HCl 1,000 mg 09/24/20 10:00 09/25/20 14:24 Metformin 500 Mg Tab PO 1,000 mg QDAY FLAQUITO Administration Metoclopramide HCl 10 mg 09/24/20 00:53 Metoclopramide 10 Mg/2 Ml Inj IV Q6H PRN Nausea And Vomiting Ondansetron HCl 4 mg 09/24/20 00:53 Ondansetron 4 Mg/2 Ml Inj IV Q8H PRN Nausea And Vomiting Oxycodone/Acetaminophen 1 tab 09/24/20 00:53 Oxycodone /Acetaminophen 5-325mg Tab PO Q6H PRN Pain, Moderate (4-6) Pravastatin Sodium 40 mg 09/24/20 22:00 09/25/20 21:09 Pravastatin 40 Mg Tab PO 40 mg QHS FLAQUITO Administration Sodium Chloride 10 ml 09/24/20 10:00 09/25/20 14:26 Sodium Chloride 0.9% 10 Ml Flush Syringe IV Not Given BID FALQUITO Sodium Chloride 10 ml 09/24/20 00:53 Sodium Chloride 0.9% 10 Ml Flush Syringe IV PRN PRN LINE FLUSH
[2020-09-26] MEDS: FAMOTIDINE 20 MG TAB PO SCH ×2 (16:27→21:42)
[2020-09-26] MEDS: DICLOFENAC DR 75 MG TAB PO SCH (16:27)
[2020-09-26] MEDS: metFORMIN 500 MG TAB PO SCH (16:28)
[2020-09-26] MEDS: glipiZIDE 5 MG TAB PO SCH (16:29)
[2020-09-26] MEDS: ASPIRIN 325 MG TAB PO SCH (16:29)
[2020-09-26] MEDS: PRAVASTATIN 40 MG TAB PO SCH (21:42)
[2020-09-27] MEDS: oxyCODONE /ACETAMINOPHEN 5-325MG TAB PO PRN (00:25)
[2020-09-27] MEDS: SODIUM CHLORIDE 0.9% 1000 ML 1,000 ML IV SCH (05:00)
--- NOTE | 2020-09-27 09:04 | Progress Note ---
Assessment and Plan Assessment and plan: Acute ischemoc stroke Patient has right lower extremity weakness and right upper extremity weakness Neurological findings consistent with left-sided infarct which is seen on the CT head F/U MRI brain and carotid duplex scan and echocardiogram. Neurology following Aspirin and Plavix. PT/OT Hypertension Continue antihypertensives and adjust medications Diabetes mellitus type 2 Continue oral hypoglycemics Accu-Cheks before meals and at bedtime Insulin coverage with moderate dose sliding scale Osteoarthritis Patient on diclofenac DVT prophylaxis On heparin and GI Full code status 09/24/20 Patient is 65 yo presented with right sided weakness. CT Head revealed infarct left basal ganglia. He was admitted with acute stroke. Patient started on Aspirin, Lipitor. MRI ordered, not done yet. Neurology consulted. F/U MRI Brain, CT Angio Head, CT Angio Neck 09/25/20. F/U CTA head and neck. PT/OT 09/26/20. MRI of brain negative. CT head and neck reveals occluded Left MCA M1 segment with collateralization. F/U ECHO. Cont. ASA and lipitor. PT recommends acute rehab 09/27/2020. Left ventricle mildly dilated. Left ventricular systolic function is moderately decreased. LVEF is 35 to 40%. Mild to moderate concentric left ventricular hypertrophy. Mild aortic stenosis. Carotid ultrasound negative. Await rehab placement. History Interval history: No new issues Hospitalist Physical - Constitutional Vitals: Temp Pulse Resp BP Pulse Ox 97.9 F 72 16 149/86 100 09/27/20 03:43 09/27/20 03:43 09/27/20 03:43 09/27/20 03:43 09/27/20 03:43 General appearance: Present: no acute distress, well-nourished - EENT Eyes: Present: PERRL, EOM intact ENT: hearing intact, clear oral mucosa, dentition normal - Neck Neck: Present: supple, normal ROM - Respiratory Respiratory effort: normal Respiratory: bilateral: CTA - Cardiovascular Rhythm: regular Heart Sounds: Present: S1 & S2. Absent: gallop, rub - Extremities Extremities: no ischemia, No edema, Full ROM - Abdominal General gastrointestinal: soft, non-tender, non-distended, normal bowel sounds - Integumentary Integumentary: Present: clear, warm, dry - Neurologic Neurologic: CNII-XII intact, moves all extremities HEART Score - HEART Score Troponin: Troponin T 0.025 ng/mL (0.00-0.029) 09/23/20 12:11 Results - Labs CBC & Chem 7: 09/25/20 04:49 09/25/20 04:49 Labs: Laboratory Last Values WBC 4.9 K/mm3 (4.5-11.0) 09/25/20 04:49 RBC 4.35 M/mm3 (3.65-5.03) 09/25/20 04:49 Hgb 12.8 gm/dl (11.8-15.2) 09/25/20 04:49 Hct 38.3 % (35.5-45.6) 09/25/20 04:49 MCV 88 fl (84-94) 09/25/20 04:49 MCH 30 pg (28-32) 09/25/20 04:49 MCHC 34 % (32-34) 09/25/20 04:49 RDW 14.1 % (13.2-15.2) 09/25/20 04:49 Plt Count 241 K/mm3 (140-440) 09/25/20 04:49 Lymph % (Auto) 31.5 % (13.4-35.0) 09/25/20 04:49 [place] % (Auto) 12.7 % (0.0-7.3) H 09/25/20 04:49 Eos % (Auto) 3.5 % (0.0-4.3) 09/25/20 04:49 Baso % (Auto) 0.5 % (0.0-1.8) 09/25/20 04:49 Lymph # (Auto) 1.6 K/mm3 (1.2-5.4) 09/25/20 04:49 [place] # (Auto) 0.6 K/mm3 (0.0-0.8) 09/25/20 04:49 Eos # (Auto) 0.2 K/mm3 (0.0-0.4) 09/25/20 04:49 Baso # (Auto) 0.0 K/mm3 (0.0-0.1) 09/25/20 04:49 Seg Neutrophils % 51.8 % (40.0-70.0) 09/25/20 04:49 Seg Neutrophils # 2.6 K/mm3 (1.8-7.7) 09/25/20 04:49 Sodium 139 mmol/L (137-145) 09/25/20 04:49 Potassium 4.4 mmol/L (3.6-5.0) 09/25/20 04:49 Chloride 102.9 mmol/L (98-107) 09/25/20 04:49 Carbon Dioxide 26 mmol/L (22-30) 09/25/20 04:49 Anion Gap 15 mmol/L 09/25/20 04:49 BUN 17 mg/dL (9-20) 09/25/20 04:49 Creatinine 0.9 mg/dL (0.8-1.3) 09/25/20 04:49 Estimated GFR > 60 ml/min 09/25/20 04:49 BUN/Creatinine Ratio 19 % 09/25/20 04:49 Glucose 118 mg/dL (75-100) H 09/25/20 04:49 POC Glucose 173 mg/dL (70-105) H 09/26/20 22:35 Hemoglobin A1c 7.6 % (4-6) H 09/24/20 05:49 Calcium 9.3 mg/dL (8.4-10.2) 09/25/20 04:49 Total Bilirubin 0.50 mg/dL (0.1-1.2) 09/25/20 04:49 Direct Bilirubin < 0.2 mg/dL (0-0.2) 09/23/20 12:11 Indirect Bilirubin 0.3 mg/dL 09/23/20 12:11 AST 17 units/L (5-40) 09/25/20 04:49 ALT 18 units/L (7-56) 09/25/20 04:49 Alkaline Phosphatase 61 units/L (35-129) 09/25/20 04:49 Troponin T 0.025 ng/mL (0.00-0.029) 09/23/20 12:11 Total Protein 6.5 g/dL (6.3-8.2) 09/25/20 04:49 Albumin 4.0 g/dL (3.9-5) 09/25/20 04:49 Albumin/Globulin Ratio 1.6 % 09/25/20 04:49 Triglycerides 83 mg/dL (2-149) 09/25/20 04:49 Cholesterol 177 mg/dL (50-199) 09/25/20 04:49 LDL Cholesterol Direct 126 mg/dL (50-130) 09/25/20 04:49 HDL Cholesterol 50 mg/dL (40-59) 09/25/20 04:49 Cholesterol/HDL Ratio 3.54 % 09/25/20 04:49 Urine Color Yellow (Yellow) 09/23/20 12:14 Urine Turbidity Clear (Clear) 09/23/20 12:14 Urine pH 6.0 (5.0-7.0) 09/23/20 12:14 Ur Specific [place] 1.020 (1.003-1.030) 09/23/20 12:14 Urine Protein 30 mg/dl mg/dL (Negative) 09/23/20 12:14 Urine Glucose (UA) Neg mg/dL (Negative) 09/23/20 12:14 Urine Ketones Neg mg/dL (Negative) 09/23/20 12:14 Urine Blood Neg (Negative) 09/23/20 12:14 Urine Nitrite Neg (Negative) 09/23/20 12:14 Urine Bilirubin Neg (Negative) 09/23/20 12:14 Urine Urobilinogen 4.0 mg/dL (<2.0) 09/23/20 12:14 Ur Leukocyte Esterase Neg (Negative) 09/23/20 12:14 Urine WBC (Auto) 1.0 /HPF (0.0-6.0) 09/23/20 12:14 Urine RBC (Auto) 3.0 /HPF (0.0-6.0) 09/23/20 12:14 U Epithel Cells (Auto) < 1.0 /HPF (0-13.0) 09/23/20 12:14 Urine Mucus Few /HPF 09/23/20 12:14 Coronavirus (PCR) Negative (Negative) 09/25/20 Unknown Riley/IV: Voiding Method Bedside Commode Active Medications - Current Medications Current Medications: Generic Name Dose Route Start Last Admin Trade Name Freq PRN Reason Stop Dose Admin Hydrocodone Bitart/Acetaminophen 1 each 09/24/20 00:38 Hydrocodone/Acetaminophen 5-325 Mg Tab PO Q6HR PRN Pain , Severe (7-10) Aspirin 325 mg 09/24/20 10:00 09/26/20 16:29 Aspirin 325 Mg Tab PO 325 mg QDAY FLAQUITO Administration Atorvastatin Calcium 40 mg 09/24/20 22:00 09/26/20 21:42 Atorvastatin 40 Mg Tab PO 40 mg QHS FLAQUITO Administration Diclofenac Sodium 75 mg 09/24/20 10:00 09/26/20 16:[address] 75 Mg Tab PO 75 mg QDAY FLAQUITO Administration Famotidine 20 mg 09/25/20 10:00 09/26/20 21:42 Famotidine 20 Mg Tab PO 20 mg BID FLAQUITO Administration Glipizide 5 mg 09/24/20 10:00 09/26/20 16:29 Glipizide 5 Mg Tab PO 5 mg QDAY FLAQUITO Administration Hydromorphone HCl 0.5 mg 09/24/20 00:53 Hydromorphone 1 Mg/1 Ml Inj IV Q3H PRN Pain , Severe (7-10) Sodium Chloride 1,000 mls @ 42 mls/hr 09/24/20 01:00 09/27/20 05:00 Nacl 0.9% 1000 Ml IV 42 mls/hr DIRECT FLAQUITO Administration Ibuprofen 600 mg 09/24/20 00:53 Ibuprofen 600 Mg Tab PO Q6H PRN Pain, Mild (1-3) Metformin HCl 1,000 mg 09/24/20 10:00 09/26/20 16:28 Metformin 500 Mg Tab PO 1,000 mg QDAY FLAQUITO Administration Metoclopramide HCl 10 mg 09/24/20 00:53 Metoclopramide 10 Mg/2 Ml Inj IV Q6H PRN Nausea And Vomiting Ondansetron HCl 4 mg 09/24/20 00:53 Ondansetron 4 Mg/2 Ml Inj IV Q8H PRN Nausea And Vomiting Oxycodone/Acetaminophen 1 tab 09/24/20 00:53 09/27/20 00:25 Oxycodone /Acetaminophen 5-325mg Tab PO 1 tab Q6H PRN Administration Pain, Moderate (4-6) Pravastatin Sodium 40 mg 09/24/20 22:00 09/26/20 21:42 Pravastatin 40 Mg Tab PO 40 mg QHS FLAQUITO Administration Sodium Chloride 10 ml 09/24/20 10:00 09/26/20 21:43 Sodium Chloride 0.9% 10 Ml Flush Syringe IV 10 ml BID FLAQUITO Administration Sodium Chloride 10 ml 09/24/20 00:53 Sodium Chloride 0.9% 10 Ml Flush Syringe IV PRN PRN LINE FLUSH
--- NOTE | 2020-09-27 09:17 | Consultation ---
History of Present Illness Consult date: 09/27/20 Reason for Consult: CVA Past History Past Medical History: diabetes, hypertension, hyperlipidemia, other (Left lower extremity weakness secondary to polio in childhood) Past Surgical History: No surgical history Social history: lives with family, full code Family history: hypertension Medications and Allergies Allergies Allergy/AdvReac Type Severity Reaction Status Date / Time No Known Allergies Allergy Verified 09/24/20 01:16 Home Medications Medication Instructions Recorded Confirmed Last Taken Type AtorvaSTATin [Lipitor] 40 mg PO QHS 09/23/20 09/23/20 Unknown History Diclofenac Sodium 75 mg PO QDAY 09/23/20 09/23/20 Unknown History HYDROcodone/ACETAMINOPHEN 1 each PO Q6HR PRN 09/23/20 09/23/20 Unknown History [Hydrocodone-Acetamin 5-300 mg] Metformin HCl [metFORMIN] 1,000 mg PO QDAY 09/23/20 09/23/20 Unknown History glipiZIDE [Glucotrol] 5 mg PO QDAY 09/23/20 09/23/20 Unknown History Active Meds: Active Medications Hydrocodone Bitart/Acetaminophen (Hydrocodone/Acetaminophen 5-325 Mg Tab) 1 each PO Q6HR PRN PRN Reason: Pain , Severe (7-10) Aspirin (Aspirin 325 Mg Tab) 325 mg PO QDAY [facility] Last Admin: 09/26/20 16:29 Dose: 325 mg Documented by: Atorvastatin Calcium (Atorvastatin 40 Mg Tab) 40 mg PO QHS [facility] Last Admin: 09/26/20 21:42 Dose: 40 mg Documented by: Diclofenac Sodium (Diclofenac Dr 75 Mg Tab) 75 mg PO QDAY [facility] Last Admin: 09/26/20 16:27 Dose: 75 mg Documented by: Famotidine (Famotidine 20 Mg Tab) 20 mg PO BID [facility] Last Admin: 09/26/20 21:42 Dose: 20 mg Documented by: Glipizide (Glipizide 5 Mg Tab) 5 mg PO QDAY [facility] Last Admin: 09/26/20 16:29 Dose: 5 mg Documented by: Hydromorphone HCl (Hydromorphone 1 Mg/1 Ml Inj) 0.5 mg IV Q3H PRN PRN Reason: Pain , Severe (7-10) Sodium Chloride (Nacl 0.9% 1000 Ml) 1,000 mls @ 42 mls/hr IV DIRECT [facility] Last Admin: 09/27/20 05:00 Dose: 42 mls/hr Documented by: Ibuprofen (Ibuprofen 600 Mg Tab) 600 mg PO Q6H PRN PRN Reason: Pain, Mild (1-3) Metformin HCl (Metformin 500 Mg Tab) 1,000 mg PO QDAY [facility] Last Admin: 09/26/20 16:28 Dose: 1,000 mg Documented by: Metoclopramide HCl (Metoclopramide 10 Mg/2 Ml Inj) 10 mg IV Q6H PRN PRN Reason: Nausea And Vomiting Ondansetron HCl (Ondansetron 4 Mg/2 Ml Inj) 4 mg IV Q8H PRN PRN Reason: Nausea And Vomiting Oxycodone/Acetaminophen (Oxycodone /Acetaminophen 5-325mg Tab) 1 tab PO Q6H PRN PRN Reason: Pain, Moderate (4-6) Last Admin: 09/27/20 00:25 Dose: 1 tab Documented by: Pravastatin Sodium (Pravastatin 40 Mg Tab) 40 mg PO QHS [facility] Last Admin: 09/26/20 21:42 Dose: 40 mg Documented by: Sodium Chloride (Sodium Chloride 0.9% 10 Ml Flush Syringe) 10 ml IV BID [facility] Last Admin: 09/26/20 21:43 Dose: 10 ml Documented by: Sodium Chloride (Sodium Chloride 0.9% 10 Ml Flush Syringe) 10 ml IV PRN PRN PRN Reason: LINE FLUSH Physical Examination - Vital Signs Vital Signs: Vital Signs Pulse Ox 98 09/23/20 13:08 Results - Laboratory Findings CBC and BMP: 09/25/20 04:49 09/25/20 04:49 Abnormal Lab Findings: Abnormal Labs 09/23/20 09/23/20 09/23/20 12:11 12:11 17:38 [place] % (Auto) 10.0 H Lymph # (Auto) 1.0 L Seg Neutrophils % 72.6 H Glucose 148 H POC Glucose 132 H Hemoglobin A1c 09/24/20 09/25/20 09/25/20 05:49 04:49 04:49 [place] % (Auto) 12.7 H Lymph # (Auto) Seg Neutrophils % Glucose 118 H POC Glucose Hemoglobin A1c 7.6 H 09/25/20 09/26/20 09/26/20 20:38 08:02 12:17 [place] % (Auto) Lymph # (Auto) Seg Neutrophils % Glucose POC Glucose 133 H 117 H 168 H Hemoglobin A1c 09/26/20 09/26/20 16:16 22:35 [place] % (Auto) Lymph # (Auto) Seg Neutrophils % Glucose POC Glucose 163 H 173 H Hemoglobin A1c
--- NOTE | 2020-09-27 09:25 | Progress Note ---
Assessment and Plan 65 yo male, right-handed, with htn, dm, polio (childhood; residual LLE weakness), presents with right > left arm weakness with right leg weakness w/ hx of LLE weakness secondary to polio. MR Brain w/o contrast and CTA Neck are unremarkable. CTA Head reveals significant atherosclerotic disease in bilateral distal ICA and L M1 chronic occlusion. Patient also notes tingling sensation in bilateral distal upper extremities and "some" in distal bilateral lower extremities. 1. Quadriparesis w/ paresthesias - recommend transfer to a hospital with bedside neurology as this case is complex for teleneurology assessment; confirm b12, tsh, rpr, ck, esr, crp, mri cervical spine w/ wo contrast; pt/ot evaluation/monitoring. 2. HTN - aim for normotension. 3. DM - maintain euglcymeia. Jaden John MD Neurology Subjective Date of service: 09/27/20 Principal diagnosis: Weakness Interval history: 65 yo male, right-handed, with htn, dm, polio (childhood; residual LLE weakness), presents with right > left arm weakness with right leg weakness w/ hx of LLE weakness secondary to polio. MR Brain w/o contrast and CTA Neck are unremarkable. CTA Head reveals significant atherosclerotic disease in bilateral distal ICA and L M1 chronic occlusion. Patient notes that his symptoms began last Friday or Friday when he noticed acute waekness of his right arm/leg, along with bilatearl arm>leg numbness/tingling. He uses a walker at baseline and the event occurred while he was ambulating with the walker to the bathroom. Currently, he notes no improvement in his strength and continus to note bilateral arm numbness/tingling at the tips of his fingers. He denies any neck pain or trauma. Notes he is compliant with his medications. Objective - Exam Narrative Exam: Gen: nad, well-nourished; Head: normocephalic; Eyes: no gaze deviation; no ptosis; ENT: normal vocalization; CVS: warm and well-perfused; Pulm: no respiratory distress; GI: appears non-distended, protuberant; Ext: no cyanosis at distal extremities; Skin: no acute rash at distal extremities; Heme: no pathologic bruising at distal extremities; Neuro: alert, oriented to name, age, month, year, surroundings, [facility], no dysarthria, no aphasia, CN 2 - PERRL, visual garay grossly intact, CN 3, 4, 6 - EOMI, CN 5 - facial sensation symmetric to light touch, CN 7 - facial movement symmetric, CN 8 - hearing grossly intact, CN 9, 10 - uvula midline, CN 11 - shrug symmetric, CN 12 - tongue midline; Motor - at least 4/5 at BUEs and at least 3-/5 proximal BLEs and at least 4+/5 at distal BLEs; atrophy at LLE noted; ; Sensory - light touch symmetric, Cerebellar - fnf intact with hts difficulty secondary to weakness, Gait - deferred secondary to fall risk; - Vital Sign Vital Signs - 12hr 09/26/20 09/27/20 21:23 03:43 Temperature 98.1 F 97.9 F Pulse Rate 72 72 Respiratory 16 16 Rate Blood Pressure 143/77 149/86 O2 Sat by Pulse 96 100 Oximetry - Laboratory Findings CBC and BMP: 09/25/20 04:49 09/25/20 04:49 Abnormal Lab Findings: Abnormal Labs 09/23/20 09/23/20 09/23/20 12:11 12:11 17:38 [place] % (Auto) 10.0 H Lymph # (Auto) 1.0 L Seg Neutrophils % 72.6 H Glucose 148 H POC Glucose 132 H Hemoglobin A1c 09/24/20 09/25/20 09/25/20 05:49 04:49 04:49 [place] % (Auto) 12.7 H Lymph # (Auto) Seg Neutrophils % Glucose 118 H POC Glucose Hemoglobin A1c 7.6 H 09/25/20 09/26/20 09/26/20 20:38 08:02 12:17 [place] % (Auto) Lymph # (Auto) Seg Neutrophils % Glucose POC Glucose 133 H 117 H 168 H Hemoglobin A1c 09/26/20 09/26/20 16:16 22:35 [place] % (Auto) Lymph # (Auto) Seg Neutrophils % Glucose POC Glucose 163 H 173 H Hemoglobin A1c
[2020-09-27] MEDS: FAMOTIDINE 20 MG TAB PO SCH ×2 (10:11→21:24)
[2020-09-27] MEDS: ASPIRIN 325 MG TAB PO SCH (10:11)
[2020-09-27] MEDS: metFORMIN 500 MG TAB PO SCH (10:11)
[2020-09-27] MEDS: glipiZIDE 5 MG TAB PO SCH (10:11)
[2020-09-27] MEDS: DICLOFENAC DR 75 MG TAB PO SCH (10:50)
[2020-09-27] MEDS: PRAVASTATIN 40 MG TAB PO SCH (21:24)
[2020-09-28] MEDS: SODIUM CHLORIDE 0.9% 1000 ML 1,000 ML IV SCH (05:15)
--- NOTE | 2020-09-28 08:33 | Progress Note ---
Assessment and Plan Assessment and plan: Acute ischemoc stroke Patient has right lower extremity weakness and right upper extremity weakness Neurological findings consistent with left-sided infarct which is seen on the CT head F/U MRI brain and carotid duplex scan and echocardiogram. Neurology following Aspirin and Plavix. PT/OT Hypertension Continue antihypertensives and adjust medications Diabetes mellitus type 2 Continue oral hypoglycemics Accu-Cheks before meals and at bedtime Insulin coverage with moderate dose sliding scale Osteoarthritis Patient on diclofenac DVT prophylaxis On heparin and GI Full code status 09/24/20 Patient is 65 yo presented with right sided weakness. CT Head revealed infarct left basal ganglia. He was admitted with acute stroke. Patient started on Aspirin, Lipitor. MRI ordered, not done yet. Neurology consulted. F/U MRI Brain, CT Angio Head, CT Angio Neck 09/25/20. F/U CTA head and neck. PT/OT 09/26/20. MRI of brain negative. CT head and neck reveals occluded Left MCA M1 segment with collateralization. F/U ECHO. Cont. ASA and lipitor. PT recommends acute rehab 09/27/2020. Left ventricle mildly dilated. Left ventricular systolic function is moderately decreased. LVEF is 35 to 40%. Mild to moderate concentric left ventricular hypertrophy. Mild aortic stenosis. Carotid ultrasound negative. Await rehab placement. 09/28/2020. Neurology recommends b12, tsh, rpr, ck, esr, crp, mri cervical spine w/ wo contrast. Consider transfer to hospital with bedside neurology History Interval history: No new issues Hospitalist Physical - Constitutional Vitals: Temp Pulse Resp BP Pulse Ox 98.2 F 72 20 132/73 96 09/28/20 07:35 09/28/20 07:35 09/28/20 07:35 09/28/20 07:35 09/28/20 07:35 General appearance: Present: no acute distress, well-nourished - EENT Eyes: Present: PERRL, EOM intact ENT: hearing intact, clear oral mucosa, dentition normal - Neck Neck: Present: supple, normal ROM - Respiratory Respiratory effort: normal Respiratory: bilateral: CTA - Cardiovascular Rhythm: regular Heart Sounds: Present: S1 & S2. Absent: gallop, rub - Extremities Extremities: no ischemia, No edema, Full ROM - Abdominal General gastrointestinal: soft, non-tender, non-distended, normal bowel sounds - Integumentary Integumentary: Present: clear, warm, dry - Neurologic Neurologic: CNII-XII intact, moves all extremities HEART Score - HEART Score Troponin: Troponin T 0.025 ng/mL (0.00-0.029) 09/23/20 12:11 Results - Labs CBC & Chem 7: 09/25/20 04:49 09/25/20 04:49 Labs: Laboratory Last Values WBC 4.9 K/mm3 (4.5-11.0) 09/25/20 04:49 RBC 4.35 M/mm3 (3.65-5.03) 09/25/20 04:49 Hgb 12.8 gm/dl (11.8-15.2) 09/25/20 04:49 Hct 38.3 % (35.5-45.6) 09/25/20 04:49 MCV 88 fl (84-94) 09/25/20 04:49 MCH 30 pg (28-32) 09/25/20 04:49 MCHC 34 % (32-34) 09/25/20 04:49 RDW 14.1 % (13.2-15.2) 09/25/20 04:49 Plt Count 241 K/mm3 (140-440) 09/25/20 04:49 Lymph % (Auto) 31.5 % (13.4-35.0) 09/25/20 04:49 [place] % (Auto) 12.7 % (0.0-7.3) H 09/25/20 04:49 Eos % (Auto) 3.5 % (0.0-4.3) 09/25/20 04:49 Baso % (Auto) 0.5 % (0.0-1.8) 09/25/20 04:49 Lymph # (Auto) 1.6 K/mm3 (1.2-5.4) 09/25/20 04:49 [place] # (Auto) 0.6 K/mm3 (0.0-0.8) 09/25/20 04:49 Eos # (Auto) 0.2 K/mm3 (0.0-0.4) 09/25/20 04:49 Baso # (Auto) 0.0 K/mm3 (0.0-0.1) 09/25/20 04:49 Seg Neutrophils % 51.8 % (40.0-70.0) 09/25/20 04:49 Seg Neutrophils # 2.6 K/mm3 (1.8-7.7) 09/25/20 04:49 Sodium 139 mmol/L (137-145) 09/25/20 04:49 Potassium 4.4 mmol/L (3.6-5.0) 09/25/20 04:49 Chloride 102.9 mmol/L (98-107) 09/25/20 04:49 Carbon Dioxide 26 mmol/L (22-30) 09/25/20 04:49 Anion Gap 15 mmol/L 09/25/20 04:49 BUN 17 mg/dL (9-20) 09/25/20 04:49 Creatinine 0.9 mg/dL (0.8-1.3) 09/25/20 04:49 Estimated GFR > 60 ml/min 09/25/20 04:49 BUN/Creatinine Ratio 19 % 09/25/20 04:49 Glucose 118 mg/dL (75-100) H 09/25/20 04:49 POC Glucose 137 mg/dL (70-105) H 09/28/20 07:38 Hemoglobin A1c 7.6 % (4-6) H 09/24/20 05:49 Calcium 9.3 mg/dL (8.4-10.2) 09/25/20 04:49 Total Bilirubin 0.50 mg/dL (0.1-1.2) 09/25/20 04:49 Direct Bilirubin < 0.2 mg/dL (0-0.2) 09/23/20 12:11 Indirect Bilirubin 0.3 mg/dL 09/23/20 12:11 AST 17 units/L (5-40) 09/25/20 04:49 ALT 18 units/L (7-56) 09/25/20 04:49 Alkaline Phosphatase 61 units/L (35-129) 09/25/20 04:49 Troponin T 0.025 ng/mL (0.00-0.029) 09/23/20 12:11 Total Protein 6.5 g/dL (6.3-8.2) 09/25/20 04:49 Albumin 4.0 g/dL (3.9-5) 09/25/20 04:49 Albumin/Globulin Ratio 1.6 % 09/25/20 04:49 Triglycerides 83 mg/dL (2-149) 09/25/20 04:49 Cholesterol 177 mg/dL (50-199) 09/25/20 04:49 LDL Cholesterol Direct 126 mg/dL (50-130) 09/25/20 04:49 HDL Cholesterol 50 mg/dL (40-59) 09/25/20 04:49 Cholesterol/HDL Ratio 3.54 % 09/25/20 04:49 Urine Color Yellow (Yellow) 09/23/20 12:14 Urine Turbidity Clear (Clear) 09/23/20 12:14 Urine pH 6.0 (5.0-7.0) 09/23/20 12:14 Ur Specific [place] 1.020 (1.003-1.030) 09/23/20 12:14 Urine Protein 30 mg/dl mg/dL (Negative) 09/23/20 12:14 Urine Glucose (UA) Neg mg/dL (Negative) 09/23/20 12:14 Urine Ketones Neg mg/dL (Negative) 09/23/20 12:14 Urine Blood Neg (Negative) 09/23/20 12:14 Urine Nitrite Neg (Negative) 09/23/20 12:14 Urine Bilirubin Neg (Negative) 09/23/20 12:14 Urine Urobilinogen 4.0 mg/dL (<2.0) 09/23/20 12:14 Ur Leukocyte Esterase Neg (Negative) 09/23/20 12:14 Urine WBC (Auto) 1.0 /HPF (0.0-6.0) 09/23/20 12:14 Urine RBC (Auto) 3.0 /HPF (0.0-6.0) 09/23/20 12:14 U Epithel Cells (Auto) < 1.0 /HPF (0-13.0) 09/23/20 12:14 Urine Mucus Few /HPF 09/23/20 12:14 Coronavirus (PCR) Negative (Negative) 09/25/20 Unknown Riley/IV: Voiding Method Urinal Active Medications - Current Medications Current Medications: Generic Name Dose Route Start Last Admin Trade Name Freq PRN Reason Stop Dose Admin Hydrocodone Bitart/Acetaminophen 1 each 09/24/20 00:38 Hydrocodone/Acetaminophen 5-325 Mg Tab PO Q6HR PRN Pain , Severe (7-10) Aspirin 325 mg 09/24/20 10:00 09/27/20 10:11 Aspirin 325 Mg Tab PO 325 mg QDAY FLAQUITO Administration Atorvastatin Calcium 40 mg 09/24/20 22:00 09/27/20 21:24 Atorvastatin 40 Mg Tab PO 40 mg QHS FLAQUITO Administration Diclofenac Sodium 75 mg 09/24/20 10:00 09/27/20 10:[address] 75 Mg Tab PO 75 mg QDAY FLAQUITO Administration Famotidine 20 mg 09/25/20 10:00 09/27/20 21:24 Famotidine 20 Mg Tab PO 20 mg BID FLAQUITO Administration Glipizide 5 mg 09/24/20 10:00 09/27/20 10:11 Glipizide 5 Mg Tab PO 5 mg QDAY FLAQUITO Administration Hydromorphone HCl 0.5 mg 09/24/20 00:53 Hydromorphone 1 Mg/1 Ml Inj IV Q3H PRN Pain , Severe (7-10) Sodium Chloride 1,000 mls @ 42 mls/hr 09/24/20 01:00 09/28/20 05:15 Nacl 0.9% 1000 Ml IV 42 mls/hr DIRECT FLAQUITO Administration Ibuprofen 600 mg 09/24/20 00:53 Ibuprofen 600 Mg Tab PO Q6H PRN Pain, Mild (1-3) Metformin HCl 1,000 mg 09/24/20 10:00 09/27/20 10:11 Metformin 500 Mg Tab PO 1,000 mg QDAY FLAQUITO Administration Metoclopramide HCl 10 mg 09/24/20 00:53 Metoclopramide 10 Mg/2 Ml Inj IV Q6H PRN Nausea And Vomiting Ondansetron HCl 4 mg 09/24/20 00:53 Ondansetron 4 Mg/2 Ml Inj IV Q8H PRN Nausea And Vomiting Oxycodone/Acetaminophen 1 tab 09/24/20 00:53 09/27/20 00:25 Oxycodone /Acetaminophen 5-325mg Tab PO 1 tab Q6H PRN Administration Pain, Moderate (4-6) Pravastatin Sodium 40 mg 09/24/20 22:00 09/27/20 21:24 Pravastatin 40 Mg Tab PO 40 mg QHS FLAQUITO Administration Sodium Chloride 10 ml 09/24/20 10:00 09/27/20 21:24 Sodium Chloride 0.9% 10 Ml Flush Syringe IV 10 ml BID FLAQUITO Administration Sodium Chloride 10 ml 09/24/20 00:53 Sodium Chloride 0.9% 10 Ml Flush Syringe IV PRN PRN LINE FLUSH
[2020-09-28 09:32] LABS: C-Reactive Protein 2.4 mg/dL (0.00-1.30)
[2020-09-28] MEDS: ASPIRIN 325 MG TAB PO SCH (09:35)
[2020-09-28] MEDS: FAMOTIDINE 20 MG TAB PO SCH ×2 (09:35→21:56)
[2020-09-28] MEDS: glipiZIDE 5 MG TAB PO SCH (09:36)
[2020-09-28] MEDS: DICLOFENAC DR 75 MG TAB PO SCH (09:36)
[2020-09-28] MEDS: metFORMIN 500 MG TAB PO SCH (09:36)
--- NOTE | 2020-09-28 09:39 | Electrocardiograph Report ---
[facility] Test Date: 2020-09-23 Test Time: 12:59:13 Pat Name: BERYL SALGADO Department: Room: A478 1 Gender: M Arrt Technologist: ROSIBEL : 1955 Requested By: JEOVANNY GILMORE Order Number: [id number] Reading MD: Parag Olmos Measurements Intervals Rives Rate: 92 P: 68 AL: 193 QRS: 30 QRSD: 110 T: 210 QT: 360 QTc: 447 Interpretive Statements Sinus rhythm Anterior infarct, old Nonspecific T abnormalities, lateral leads No previous ECG available for comparison Electronically Signed On 09-28-2020 9:39:10 EDT by Parag Olmos
--- NOTE | 2020-09-28 13:55 | Magnetic Resonance Report ---
MR cervical spine wo/w con INDICATION / CLINICAL INFORMATION: 65 years Male; quadriparesis. TECHNIQUE: Multisequence, multiplanar images of the cervical spine were obtained. COMPARISON: None available. FINDINGS: CRANIOCERVICAL JUNCTION:No significant abnormality. ALIGNMENT: No significant abnormality. VERTEBRAE:Grossly normal marrow signal and vertebral body height for age. VISUALIZED SPINAL CORD: See below. INTERVERTEBRAL DISCS: Multilevel disc desiccation noted. [id number] ANALYSIS: C2-3: Moderate foraminal narrowing on the right from uncinate and mild facet hypertrophy. C3-4: Moderate disc bulge and posterior ligamentum flavum hypertrophy. Mild, asymmetrically prominent left lateral recess disc protrusion as well. There is encroachment upon and flattening of the cervic al cord. Mild cord edema suggested as well. Moderate to marked foraminal narrowing on the right moder ate on the left from uncinate hypertrophy. Findings certainly could affect the right C4 nerve. C4-5: Mild disc bulge. Right paracentral/lateral recess disc extrusion, disc material extending to th e pedicular level of C4-findings encroach upon and flattening the right anterior hemicord. Moderate t o marked foraminal narrowing bilaterally which may affect C5 nerves. C5-6: Mild disc bulge. Moderate to marked foraminal narrowing bilaterally from uncinate and mild face t hypertrophy. Findings could affect C6 nerves. C6-7: Minimal disc bulge. Mild foraminal narrowing bilaterally from uncinate hypertrophy. C7-T1: Facet hypertrophy noted bilaterally, without significant sequela. PARASPINAL SOFT TISSUES: No significant abnormality. ADDITIONAL FINDINGS: None. IMPRESSION: 1. Significant degenerative changes of the cervical spine as described above from C3-4 through C5-6. Most marked findings appear to be at C3-4, where there is associated cord impingement. Signer Name: Akil Chavez MD, III Signed: 09/28/2020 1:50 PM Workstation Name: [id number]
[2020-09-28] MEDS: PRAVASTATIN 40 MG TAB PO SCH (21:55)
[2020-09-29] MEDS: SODIUM CHLORIDE 0.9% 1000 ML 1,000 ML IV SCH (07:12)
--- NOTE | 2020-09-29 09:04 | Progress Note ---
Assessment and Plan Assessment and plan: Acute ischemoc stroke Patient has right lower extremity weakness and right upper extremity weakness Neurological findings consistent with left-sided infarct which is seen on the CT head F/U MRI brain and carotid duplex scan and echocardiogram. Neurology following Aspirin and Plavix. PT/OT Hypertension Continue antihypertensives and adjust medications Diabetes mellitus type 2 Continue oral hypoglycemics Accu-Cheks before meals and at bedtime Insulin coverage with moderate dose sliding scale Osteoarthritis Patient on diclofenac DVT prophylaxis On heparin and GI Full code status 09/24/20 Patient is 65 yo presented with right sided weakness. CT Head revealed infarct left basal ganglia. He was admitted with acute stroke. Patient started on Aspirin, Lipitor. MRI ordered, not done yet. Neurology consulted. F/U MRI Brain, CT Angio Head, CT Angio Neck 09/25/20. F/U CTA head and neck. PT/OT 09/26/20. MRI of brain negative. CT head and neck reveals occluded Left MCA M1 segment with collateralization. F/U ECHO. Cont. ASA and lipitor. PT recommends acute rehab 09/27/2020. Left ventricle mildly dilated. Left ventricular systolic function is moderately decreased. LVEF is 35 to 40%. Mild to moderate concentric left ventricular hypertrophy. Mild aortic stenosis. Carotid ultrasound negative. Await rehab placement. 09/28/2020. Neurology recommends b12, tsh, rpr, ck, esr, crp, mri cervical spine w/ wo contrast. Consider transfer to hospital with bedside neurology 09/29/2020. MRI cervical spine reveals significant degenerative changes of the cervical spine involving C3-C4 through C5-C6. There appears to be cord impingement at C3-C4. History Interval history: No new issues Hospitalist Physical - Constitutional Vitals: Temp Pulse Resp BP Pulse Ox 98.2 F 75 18 136/80 96 09/29/20 07:38 09/29/20 07:38 09/29/20 07:38 09/29/20 07:38 09/29/20 07:38 General appearance: Present: no acute distress, well-nourished - EENT Eyes: Present: PERRL, EOM intact ENT: hearing intact, clear oral mucosa, dentition normal - Neck Neck: Present: supple, normal ROM - Respiratory Respiratory effort: normal Respiratory: bilateral: CTA - Cardiovascular Rhythm: regular Heart Sounds: Present: S1 & S2. Absent: gallop, rub - Extremities Extremities: no ischemia, No edema, Full ROM - Abdominal General gastrointestinal: soft, non-tender, non-distended, normal bowel sounds - Integumentary Integumentary: Present: clear, warm, dry - Neurologic Neurologic: CNII-XII intact, moves all extremities HEART Score - HEART Score Troponin: Troponin T 0.025 ng/mL (0.00-0.029) 09/23/20 12:11 Results - Labs CBC & Chem 7: 09/25/20 04:49 09/25/20 04:49 Labs: Laboratory Last Values WBC 4.9 K/mm3 (4.5-11.0) 09/25/20 04:49 RBC 4.35 M/mm3 (3.65-5.03) 09/25/20 04:49 Hgb 12.8 gm/dl (11.8-15.2) 09/25/20 04:49 Hct 38.3 % (35.5-45.6) 09/25/20 04:49 MCV 88 fl (84-94) 09/25/20 04:49 MCH 30 pg (28-32) 09/25/20 04:49 MCHC 34 % (32-34) 09/25/20 04:49 RDW 14.1 % (13.2-15.2) 09/25/20 04:49 Plt Count 241 K/mm3 (140-440) 09/25/20 04:49 Lymph % (Auto) 31.5 % (13.4-35.0) 09/25/20 04:49 [place] % (Auto) 12.7 % (0.0-7.3) H 09/25/20 04:49 Eos % (Auto) 3.5 % (0.0-4.3) 09/25/20 04:49 Baso % (Auto) 0.5 % (0.0-1.8) 09/25/20 04:49 Lymph # (Auto) 1.6 K/mm3 (1.2-5.4) 09/25/20 04:49 [place] # (Auto) 0.6 K/mm3 (0.0-0.8) 09/25/20 04:49 Eos # (Auto) 0.2 K/mm3 (0.0-0.4) 09/25/20 04:49 Baso # (Auto) 0.0 K/mm3 (0.0-0.1) 09/25/20 04:49 Seg Neutrophils % 51.8 % (40.0-70.0) 09/25/20 04:49 Seg Neutrophils # 2.6 K/mm3 (1.8-7.7) 09/25/20 04:49 Sodium 139 mmol/L (137-145) 09/25/20 04:49 Potassium 4.4 mmol/L (3.6-5.0) 09/25/20 04:49 Chloride 102.9 mmol/L (98-107) 09/25/20 04:49 Carbon Dioxide 26 mmol/L (22-30) 09/25/20 04:49 Anion Gap 15 mmol/L 09/25/20 04:49 BUN 17 mg/dL (9-20) 09/25/20 04:49 Creatinine 0.9 mg/dL (0.8-1.3) 09/25/20 04:49 Estimated GFR > 60 ml/min 09/25/20 04:49 BUN/Creatinine Ratio 19 % 09/25/20 04:49 Glucose 118 mg/dL (75-100) H 09/25/20 04:49 POC Glucose 137 mg/dL (70-105) H 09/29/20 07:36 Hemoglobin A1c 7.6 % (4-6) H 09/24/20 05:49 Calcium 9.3 mg/dL (8.4-10.2) 09/25/20 04:49 Total Bilirubin 0.50 mg/dL (0.1-1.2) 09/25/20 04:49 Direct Bilirubin < 0.2 mg/dL (0-0.2) 09/23/20 12:11 Indirect Bilirubin 0.3 mg/dL 09/23/20 12:11 AST 17 units/L (5-40) 09/25/20 04:49 ALT 18 units/L (7-56) 09/25/20 04:49 Alkaline Phosphatase 61 units/L (35-129) 09/25/20 04:49 Total Creatine Kinase 2477 units/L (55-170) H 09/28/20 08:42 Troponin T 0.025 ng/mL (0.00-0.029) 09/23/20 12:11 C-Reactive Protein 2.40 mg/dL (0.00-1.30) H 09/28/20 08:42 Total Protein 6.5 g/dL (6.3-8.2) 09/25/20 04:49 Albumin 4.0 g/dL (3.9-5) 09/25/20 04:49 Albumin/Globulin Ratio 1.6 % 09/25/20 04:49 Triglycerides 83 mg/dL (2-149) 09/25/20 04:49 Cholesterol 177 mg/dL (50-199) 09/25/20 04:49 LDL Cholesterol Direct 126 mg/dL (50-130) 09/25/20 04:49 HDL Cholesterol 50 mg/dL (40-59) 09/25/20 04:49 Cholesterol/HDL Ratio 3.54 % 09/25/20 04:49 Vitamin B12 400.3 pg/mL (211-911) 09/28/20 08:42 TSH 1.380 mlU/mL (0.270-4.200) 09/28/20 08:42 Urine Color Yellow (Yellow) 09/23/20 12:14 Urine Turbidity Clear (Clear) 09/23/20 12:14 Urine pH 6.0 (5.0-7.0) 09/23/20 12:14 Ur Specific [place] 1.020 (1.003-1.030) 09/23/20 12:14 Urine Protein 30 mg/dl mg/dL (Negative) 09/23/20 12:14 Urine Glucose (UA) Neg mg/dL (Negative) 09/23/20 12:14 Urine Ketones Neg mg/dL (Negative) 09/23/20 12:14 Urine Blood Neg (Negative) 09/23/20 12:14 Urine Nitrite Neg (Negative) 09/23/20 12:14 Urine Bilirubin Neg (Negative) 09/23/20 12:14 Urine Urobilinogen 4.0 mg/dL (<2.0) 09/23/20 12:14 Ur Leukocyte Esterase Neg (Negative) 09/23/20 12:14 Urine WBC (Auto) 1.0 /HPF (0.0-6.0) 09/23/20 12:14 Urine RBC (Auto) 3.0 /HPF (0.0-6.0) 09/23/20 12:14 U Epithel Cells (Auto) < 1.0 /HPF (0-13.0) 09/23/20 12:14 Urine Mucus Few /HPF 09/23/20 12:14 Coronavirus (PCR) Negative (Negative) 09/25/20 Unknown Riley/IV: Voiding Method Urinal Active Medications - Current Medications Current Medications: Generic Name Dose Route Start Last Admin Trade Name Freq PRN Reason Stop Dose Admin Hydrocodone Bitart/Acetaminophen 1 each 09/24/20 00:38 Hydrocodone/Acetaminophen 5-325 Mg Tab PO Q6HR PRN Pain , Severe (7-10) Aspirin 325 mg 09/24/20 10:00 09/28/20 09:35 Aspirin 325 Mg Tab PO 325 mg QDAY FLAQUITO Administration Atorvastatin Calcium 40 mg 09/24/20 22:00 09/28/20 21:56 Atorvastatin 40 Mg Tab PO 40 mg QHS FLAQUITO Administration Diclofenac Sodium 75 mg 09/24/20 10:00 09/28/20 09:[address] 75 Mg Tab PO 75 mg QDAY FLAQUITO Administration Famotidine 20 mg 09/25/20 10:00 09/28/20 21:56 Famotidine 20 Mg Tab PO 20 mg BID FLAQUITO Administration Glipizide 5 mg 09/24/20 10:00 09/28/20 09:36 Glipizide 5 Mg Tab PO 5 mg QDAY FLAQUITO Administration Hydromorphone HCl 0.5 mg 09/24/20 00:53 Hydromorphone 1 Mg/1 Ml Inj IV Q3H PRN Pain , Severe (7-10) Sodium Chloride 1,000 mls @ 42 mls/hr 09/24/20 01:00 09/29/20 07:12 Nacl 0.9% 1000 Ml IV 42 mls/hr DIRECT FLAQUITO Administration Ibuprofen 600 mg 09/24/20 00:53 Ibuprofen 600 Mg Tab PO Q6H PRN Pain, Mild (1-3) Metformin HCl 1,000 mg 09/24/20 10:00 09/28/20 09:36 Metformin 500 Mg Tab PO 1,000 mg QDAY FLAQUITO Administration Metoclopramide HCl 10 mg 09/24/20 00:53 Metoclopramide 10 Mg/2 Ml Inj IV Q6H PRN Nausea And Vomiting Ondansetron HCl 4 mg 09/24/20 00:53 Ondansetron 4 Mg/2 Ml Inj IV Q8H PRN Nausea And Vomiting Oxycodone/Acetaminophen 1 tab 09/24/20 00:53 09/27/20 00:25 Oxycodone /Acetaminophen 5-325mg Tab PO 1 tab Q6H PRN Administration Pain, Moderate (4-6) Pravastatin Sodium 40 mg 09/24/20 22:00 09/28/20 21:55 Pravastatin 40 Mg Tab PO 40 mg QHS FLAQUITO Administration Sodium Chloride 10 ml 09/24/20 10:00 09/28/20 21:55 Sodium Chloride 0.9% 10 Ml Flush Syringe IV 10 ml BID FLAQUITO Administration Sodium Chloride 10 ml 09/24/20 00:53 Sodium Chloride 0.9% 10 Ml Flush Syringe IV PRN PRN LINE FLUSH
[2020-09-29] MEDS: DICLOFENAC DR 75 MG TAB PO SCH (09:10)
[2020-09-29] MEDS: ASPIRIN 325 MG TAB PO SCH (09:11)
[2020-09-29] MEDS: metFORMIN 500 MG TAB PO SCH (09:11)
[2020-09-29] MEDS: FAMOTIDINE 20 MG TAB PO SCH ×2 (09:11→22:16)
[2020-09-29] MEDS: glipiZIDE 5 MG TAB PO SCH (09:11)
--- NOTE | 2020-09-29 11:03 | Progress Note ---
Assessment and Plan 65 yo male, right-handed, with htn, dm, polio (childhood; residual LLE weakness), presents with right > left arm weakness with right leg weakness w/ hx of LLE weakness secondary to polio. MR Brain w/o contrast and CTA Neck are unremarkable. CTA Head reveals significant atherosclerotic disease in bilateral distal ICA and L M1 chronic occlusion. Patient also notes tingling sensation in bilateral distal upper extremities and "some" in distal bilateral lower extremities. 1. Cervical Myelopathy - MRI C Spine notes severe c-spine stenosis especially at C3-4 level with mild cord edema; recommend neurosurgery evaluation; decadron 4 mg iv q6 ordered. 2. Quadriparesis w/ paresthesias - recommend transfer to a hospital with bedside neurology as this case is complex for teleneurology assessment; confirm b12, tsh, rpr, ck, esr, crp, mri cervical spine w/ wo contrast; pt/ot evaluation/monitoring. 3. HTN - aim for normotension. 4. DM - maintain euglcyemia. Jaden John MD Neurology Subjective Date of service: 09/29/20 Principal diagnosis: Weakness Interval history: 65 yo male, right-handed, with htn, dm, polio (childhood; residual LLE weakness), presents with right > left arm weakness with right leg weakness w/ hx of LLE weakness secondary to polio. MR Brain w/o contrast and CTA Neck are unremarkable. CTA Head reveals significant atherosclerotic disease in bilateral distal ICA and L M1 chronic occlusion. Patient notes that his symptoms began last Friday or Friday when he noticed acute weakness of his right arm/leg, along with bilatearl arm>leg numbness/tingling. He uses a walker at baseline and the event occurred while he was ambulating with the walker to the bathroom. Currently, he notes no improvement in his strength and continus to note bilateral arm numbness/tingling at the tips of his fingers. He denies any neck pain or trauma. Notes he is compliant with his medications. Objective - Vital Sign Vital Signs - 12hr 09/28/20 09/29/20 09/29/20 23:19 03:44 07:38 Temperature 98.5 F 98.5 F 98.2 F Pulse Rate 93 H 77 75 Respiratory 16 18 18 Rate Blood Pressure 145/80 146/80 136/80 O2 Sat by Pulse 99 100 96 Oximetry - Laboratory Findings CBC and BMP: 09/25/20 04:49 09/25/20 04:49 Abnormal Lab Findings: Abnormal Labs 09/23/20 09/23/20 09/23/20 12:11 12:11 17:38 [place] % (Auto) 10.0 H Lymph # (Auto) 1.0 L Seg Neutrophils % 72.6 H Glucose 148 H POC Glucose 132 H Hemoglobin A1c Total Creatine Kinase C-Reactive Protein 09/24/20 09/25/20 09/25/20 05:49 04:49 04:49 [place] % (Auto) 12.7 H Lymph # (Auto) Seg Neutrophils % Glucose 118 H POC Glucose Hemoglobin A1c 7.6 H Total Creatine Kinase C-Reactive Protein 09/25/20 09/26/20 09/26/20 20:38 08:02 12:17 [place] % (Auto) Lymph # (Auto) Seg Neutrophils % Glucose POC Glucose 133 H 117 H 168 H Hemoglobin A1c Total Creatine Kinase C-Reactive Protein 09/26/20 09/26/20 09/27/20 16:16 22:35 08:08 [place] % (Auto) Lymph # (Auto) Seg Neutrophils % Glucose POC Glucose 163 H 173 H 124 H Hemoglobin A1c Total Creatine Kinase C-Reactive Protein 09/27/20 09/27/20 09/27/20 11:49 17:02 20:42 [place] % (Auto) Lymph # (Auto) Seg Neutrophils % Glucose POC Glucose 182 H 124 H 141 H Hemoglobin A1c Total Creatine Kinase C-Reactive Protein 09/28/20 09/28/20 09/28/20 07:38 08:42 11:10 [place] % (Auto) Lymph # (Auto) Seg Neutrophils % Glucose POC Glucose 137 H 198 H Hemoglobin A1c Total Creatine Kinase 2477 H C-Reactive Protein 2.40 H 09/28/20 09/29/20 21:06 07:36 [place] % (Auto) Lymph # (Auto) Seg Neutrophils % Glucose POC Glucose 190 H 137 H Hemoglobin A1c Total Creatine Kinase C-Reactive Protein
[2020-09-29] MEDS: dexAMETHasone 4 MG/ML VIAL IV SCH ×2 (12:21→17:56)
[2020-09-29] MEDS: PRAVASTATIN 40 MG TAB PO SCH (22:16)
[2020-09-30] MEDS: dexAMETHasone 4 MG/ML VIAL IV SCH ×4 (00:15→17:25)
[2020-09-30] MEDS: SODIUM CHLORIDE 0.9% 1000 ML 1,000 ML IV SCH (05:42)
--- NOTE | 2020-09-30 09:14 | Progress Note ---
Assessment and Plan Assessment and plan: Cervical myelopathy Quadriparesis with paresthesias Hypertension Diabetes mellitus type 2 Osteoarthritis Patient on diclofenac DVT prophylaxis Full code status 09/24/20 Patient is 65 yo presented with right sided weakness. CT Head revealed infarct left basal ganglia. He was admitted with acute stroke. Patient started on Aspirin, Lipitor. MRI ordered, not done yet. Neurology consulted. F/U MRI Brain, CT Angio Head, CT Angio Neck 09/25/20. F/U CTA head and neck. PT/OT 09/26/20. MRI of brain negative. CT head and neck reveals occluded Left MCA M1 segment with collateralization. F/U ECHO. Cont. ASA and lipitor. PT recommends acute rehab 09/27/2020. Left ventricle mildly dilated. Left ventricular systolic function is moderately decreased. LVEF is 35 to 40%. Mild to moderate concentric left ventricular hypertrophy. Mild aortic stenosis. Carotid ultrasound negative. Await rehab placement. 09/28/2020. Neurology recommends b12, tsh, rpr, ck, esr, crp, mri cervical spine w/ wo contrast. Consider transfer to hospital with bedside neurology 09/29/2020. MRI cervical spine reveals significant degenerative changes of the cervical spine involving C3-C4 through C5-C6. There appears to be cord impingement at C3-C4. 09/30/2020. MRI C-spine no severe C-spine stenosis especially at C3-C4 level with mild cord edema. Continue Decadron 4 mg IV every 6 hours. Neurosurgery consultation. Patient with elevated BG given the addition of steroids. We will start Lantus 8 units at bedtime. SSRI and Accu-Cheks History Interval history: No new issues Hospitalist Physical - Constitutional Vitals: Temp Pulse Resp BP Pulse Ox 98.0 F 78 18 132/77 91 09/30/20 07:45 09/30/20 07:45 09/30/20 07:45 09/30/20 07:45 09/30/20 07:45 General appearance: Present: no acute distress, well-nourished - EENT Eyes: Present: PERRL, EOM intact ENT: hearing intact, clear oral mucosa, dentition normal - Neck Neck: Present: supple, normal ROM - Respiratory Respiratory effort: normal Respiratory: bilateral: CTA - Cardiovascular Rhythm: regular Heart Sounds: Present: S1 & S2. Absent: gallop, rub - Extremities Extremities: no ischemia, No edema, Full ROM - Abdominal General gastrointestinal: soft, non-tender, non-distended, normal bowel sounds - Integumentary Integumentary: Present: clear, warm, dry - Neurologic Neurologic: CNII-XII intact, moves all extremities HEART Score - HEART Score Troponin: Troponin T 0.025 ng/mL (0.00-0.029) 09/23/20 12:11 Results - Labs CBC & Chem 7: 09/25/20 04:49 09/25/20 04:49 Labs: Laboratory Last Values WBC 4.9 K/mm3 (4.5-11.0) 09/25/20 04:49 RBC 4.35 M/mm3 (3.65-5.03) 09/25/20 04:49 Hgb 12.8 gm/dl (11.8-15.2) 09/25/20 04:49 Hct 38.3 % (35.5-45.6) 09/25/20 04:49 MCV 88 fl (84-94) 09/25/20 04:49 MCH 30 pg (28-32) 09/25/20 04:49 MCHC 34 % (32-34) 09/25/20 04:49 RDW 14.1 % (13.2-15.2) 09/25/20 04:49 Plt Count 241 K/mm3 (140-440) 09/25/20 04:49 Lymph % (Auto) 31.5 % (13.4-35.0) 09/25/20 04:49 Foster % (Auto) 12.7 % (0.0-7.3) H 09/25/20 04:49 Eos % (Auto) 3.5 % (0.0-4.3) 09/25/20 04:49 Baso % (Auto) 0.5 % (0.0-1.8) 09/25/20 04:49 Lymph # (Auto) 1.6 K/mm3 (1.2-5.4) 09/25/20 04:49 Foster # (Auto) 0.6 K/mm3 (0.0-0.8) 09/25/20 04:49 Eos # (Auto) 0.2 K/mm3 (0.0-0.4) 09/25/20 04:49 Baso # (Auto) 0.0 K/mm3 (0.0-0.1) 09/25/20 04:49 Seg Neutrophils % 51.8 % (40.0-70.0) 09/25/20 04:49 Seg Neutrophils # 2.6 K/mm3 (1.8-7.7) 09/25/20 04:49 Sodium 139 mmol/L (137-145) 09/25/20 04:49 Potassium 4.4 mmol/L (3.6-5.0) 09/25/20 04:49 Chloride 102.9 mmol/L (98-107) 09/25/20 04:49 Carbon Dioxide 26 mmol/L (22-30) 09/25/20 04:49 Anion Gap 15 mmol/L 09/25/20 04:49 BUN 17 mg/dL (9-20) 09/25/20 04:49 Creatinine 0.9 mg/dL (0.8-1.3) 09/25/20 04:49 Estimated GFR > 60 ml/min 09/25/20 04:49 BUN/Creatinine Ratio 19 % 09/25/20 04:49 Glucose 118 mg/dL (75-100) H 09/25/20 04:49 POC Glucose 257 mg/dL (70-105) H 09/30/20 07:43 Hemoglobin A1c 7.6 % (4-6) H 09/24/20 05:49 Calcium 9.3 mg/dL (8.4-10.2) 09/25/20 04:49 Total Bilirubin 0.50 mg/dL (0.1-1.2) 09/25/20 04:49 Direct Bilirubin < 0.2 mg/dL (0-0.2) 09/23/20 12:11 Indirect Bilirubin 0.3 mg/dL 09/23/20 12:11 AST 17 units/L (5-40) 09/25/20 04:49 ALT 18 units/L (7-56) 09/25/20 04:49 Alkaline Phosphatase 61 units/L (35-129) 09/25/20 04:49 Total Creatine Kinase 2477 units/L (55-170) H 09/28/20 08:42 Troponin T 0.025 ng/mL (0.00-0.029) 09/23/20 12:11 C-Reactive Protein 2.40 mg/dL (0.00-1.30) H 09/28/20 08:42 Total Protein 6.5 g/dL (6.3-8.2) 09/25/20 04:49 Albumin 4.0 g/dL (3.9-5) 09/25/20 04:49 Albumin/Globulin Ratio 1.6 % 09/25/20 04:49 Triglycerides 83 mg/dL (2-149) 09/25/20 04:49 Cholesterol 177 mg/dL (50-199) 09/25/20 04:49 LDL Cholesterol Direct 126 mg/dL (50-130) 09/25/20 04:49 HDL Cholesterol 50 mg/dL (40-59) 09/25/20 04:49 Cholesterol/HDL Ratio 3.54 % 09/25/20 04:49 Vitamin B12 400.3 pg/mL (211-911) 09/28/20 08:42 TSH 1.380 mlU/mL (0.270-4.200) 09/28/20 08:42 Urine Color Yellow (Yellow) 09/23/20 12:14 Urine Turbidity Clear (Clear) 09/23/20 12:14 Urine pH 6.0 (5.0-7.0) 09/23/20 12:14 Ur Specific [place] 1.020 (1.003-1.030) 09/23/20 12:14 Urine Protein 30 mg/dl mg/dL (Negative) 09/23/20 12:14 Urine Glucose (UA) Neg mg/dL (Negative) 09/23/20 12:14 Urine Ketones Neg mg/dL (Negative) 09/23/20 12:14 Urine Blood Neg (Negative) 09/23/20 12:14 Urine Nitrite Neg (Negative) 09/23/20 12:14 Urine Bilirubin Neg (Negative) 09/23/20 12:14 Urine Urobilinogen 4.0 mg/dL (<2.0) 09/23/20 12:14 Ur Leukocyte Esterase Neg (Negative) 09/23/20 12:14 Urine WBC (Auto) 1.0 /HPF (0.0-6.0) 09/23/20 12:14 Urine RBC (Auto) 3.0 /HPF (0.0-6.0) 09/23/20 12:14 U Epithel Cells (Auto) < 1.0 /HPF (0-13.0) 09/23/20 12:14 Urine Mucus Few /HPF 09/23/20 12:14 Coronavirus (PCR) Negative (Negative) 09/25/20 Unknown Riley/IV: Voiding Method Urinal Active Medications - Current Medications Current Medications: Generic Name Dose Route Start Last Admin Trade Name Freq PRN Reason Stop Dose Admin Hydrocodone Bitart/Acetaminophen 1 each 09/24/20 00:38 Hydrocodone/Acetaminophen 5-325 Mg Tab PO Q6HR PRN Pain , Severe (7-10) Aspirin 325 mg 09/24/20 10:00 09/29/20 09:11 Aspirin 325 Mg Tab PO 325 mg QDAY FLAQUITO Administration Atorvastatin Calcium 40 mg 09/24/20 22:00 09/29/20 22:16 Atorvastatin 40 Mg Tab PO 40 mg QHS FLAQUITO Administration Dexamethasone 4 mg 09/29/20 12:00 09/30/20 05:42 Dexamethasone 4 Mg/Ml Vial IV 4 mg Q6HR FLAQUITO Administration Diclofenac Sodium 75 mg 09/24/20 10:00 09/29/20 09:[address] 75 Mg Tab PO 75 mg QDAY FLAQUITO Administration Famotidine 20 mg 09/25/20 10:00 09/29/20 22:16 Famotidine 20 Mg Tab PO 20 mg BID FLAQUITO Administration Glipizide 5 mg 09/24/20 10:00 09/29/20 09:11 Glipizide 5 Mg Tab PO 5 mg QDAY FLAQUITO Administration Hydromorphone HCl 0.5 mg 09/24/20 00:53 Hydromorphone 1 Mg/1 Ml Inj IV Q3H PRN Pain , Severe (7-10) Sodium Chloride 1,000 mls @ 42 mls/hr 09/24/20 01:00 09/30/20 05:42 Nacl 0.9% 1000 Ml IV 42 mls/hr DIRECT FLAQUITO Administration Ibuprofen 600 mg 09/24/20 00:53 Ibuprofen 600 Mg Tab PO Q6H PRN Pain, Mild (1-3) Metformin HCl 1,000 mg 09/24/20 10:00 09/29/20 09:11 Metformin 500 Mg Tab PO 1,000 mg QDAY FLAQUITO Administration Metoclopramide HCl 10 mg 09/24/20 00:53 Metoclopramide 10 Mg/2 Ml Inj IV Q6H PRN Nausea And Vomiting Ondansetron HCl 4 mg 09/24/20 00:53 Ondansetron 4 Mg/2 Ml Inj IV Q8H PRN Nausea And Vomiting Oxycodone/Acetaminophen 1 tab 09/24/20 00:53 09/27/20 00:25 Oxycodone /Acetaminophen 5-325mg Tab PO 1 tab Q6H PRN Administration Pain, Moderate (4-6) Pravastatin Sodium 40 mg 09/24/20 22:00 09/29/20 22:16 Pravastatin 40 Mg Tab PO 40 mg QHS FLAQUITO Administration Sodium Chloride 10 ml 09/24/20 10:00 09/29/20 22:16 Sodium Chloride 0.9% 10 Ml Flush Syringe IV 10 ml BID FLAQUITO Administration Sodium Chloride 10 ml 09/24/20 00:53 Sodium Chloride 0.9% 10 Ml Flush Syringe IV PRN PRN LINE FLUSH Nutrition/Malnutrition Assess - Dietary Evaluation Nutrition/Malnutrition Findings: Nutrition Notes Start: 09/29/20 12:29 Freq: Status: Active Protocol: Document 09/29/20 12:29 LM (Rec: 09/29/20 12:30 LM [id number]) Nutrition Notes Need for Assessment generated from: LOS Initial or Follow up Brief Note Subjective/Other Information Screen for LOS. Pt with 100% intakes per EMR. Nutrition Intervention Revisit per MD consult or patient Sign Off request:
[2020-09-30] MEDS: metFORMIN 500 MG TAB PO SCH (09:23)
[2020-09-30] MEDS: DICLOFENAC DR 75 MG TAB PO SCH (09:23)
[2020-09-30] MEDS: glipiZIDE 5 MG TAB PO SCH (09:23)
[2020-09-30] MEDS: FAMOTIDINE 20 MG TAB PO SCH ×2 (09:23→22:23)
[2020-09-30] MEDS: ASPIRIN 325 MG TAB PO SCH (09:23)
[2020-09-30] MEDS ORDERED: DEXTROSE 50% IN WATER (25GM) 50 ML SYRINGE IV PRN (10:26)
[2020-09-30] MEDS: INSULIN REGULAR, HUMAN 100 UNITS/1 ML SUB-Q SCH ×3 (12:45→22:24)
--- NOTE | 2020-09-30 13:46 | Consultation ---
History of Present Illness Consult date: 09/30/20 Requesting physician: ESE URIOSTEGUI Reason for Consult: Cervical cord compression Chief complaint: arm and leg weakness History of present illness: Luis Alvarez is a 65 y/o Male that presented to [facility] 1 week ago with complaints of acute onset arm and leg weakness. He has chronic left hemiparesis due to polio, but was ambulatory with a walker. He reports weakness, which equally affected both arms and legs since last Friday night. Upon arrival, a CT was performed, which was negative for acute changes. He was started on ASA and Plavix due to concern for CVA. MRI was negative for acute changes. Neurology was consulted, recommended MRI Cervical spine. It was performed 2 days ago, re vealing severe cord compression at C3-4 due to broad based disc osteophyte formation and thickened ligamentum flavum. There is focal T2 hyperintensity in the substance of the spinal cord at C3-4. Presently, he denies significant improvement in his symptoms. He is not presently able to walk. He denies significant pain, but does endorse numnbess involving both hands. Past History Past Medical History: diabetes, hypertension, hyperlipidemia, other (Left lower extremity weakness secondary to polio in childhood) Past Surgical History: No surgical history Social history: lives with family, full code Family history: hypertension Medications and Allergies Allergies Allergy/AdvReac Type Severity Reaction Status Date / Time No Known Allergies Allergy Verified 09/24/20 01:16 Home Medications Medication Instructions Recorded Confirmed Last Taken Type AtorvaSTATin [Lipitor] 40 mg PO QHS 09/23/20 09/23/20 Unknown History Diclofenac Sodium 75 mg PO QDAY 09/23/20 09/23/20 Unknown History HYDROcodone/ACETAMINOPHEN 1 each PO Q6HR PRN 09/23/20 09/23/20 Unknown History [Hydrocodone-Acetamin 5-300 mg] Metformin HCl [metFORMIN] 1,000 mg PO QDAY 09/23/20 09/23/20 Unknown History glipiZIDE [Glucotrol] 5 mg PO QDAY 09/23/20 09/23/20 Unknown History Active Meds: Active Medications Hydrocodone Bitart/Acetaminophen (Hydrocodone/Acetaminophen 5-325 Mg Tab) 1 each PO Q6HR PRN PRN Reason: Pain , Severe (7-10) Aspirin (Aspirin 325 Mg Tab) 325 mg PO QDAY FLAQUITO Last Admin: 09/30/20 09:23 Dose: 325 mg Documented by: Atorvastatin Calcium (Atorvastatin 40 Mg Tab) 40 mg PO QHS [facility] Last Admin: 09/29/20 22:16 Dose: 40 mg Documented by: Dexamethasone (Dexamethasone 4 Mg/Ml Vial) 4 mg IV Q6HR [facility] Last Admin: 09/30/20 12:45 Dose: 4 mg Documented by: Dextrose (Dextrose 50% In Water (25gm) 50 Ml Syringe) 50 ml IV Q30MIN PRN; Protocol PRN Reason: Hypoglycemia Diclofenac Sodium (Diclofenac Dr 75 Mg Tab) 75 mg PO QDAY [facility] Last Admin: 09/30/20 09:23 Dose: 75 mg Documented by: Famotidine (Famotidine 20 Mg Tab) 20 mg PO BID [facility] Last Admin: 09/30/20 09:23 Dose: 20 mg Documented by: Glipizide (Glipizide 5 Mg Tab) 5 mg PO QDAY [facility] Last Admin: 09/30/20 09:23 Dose: 5 mg Documented by: Hydromorphone HCl (Hydromorphone 1 Mg/1 Ml Inj) 0.5 mg IV Q3H PRN PRN Reason: Pain , Severe (7-10) Sodium Chloride (Nacl 0.9% 1000 Ml) 1,000 mls @ 42 mls/hr IV DIRECT [facility] Last Admin: 09/30/20 05:42 Dose: 42 mls/hr Documented by: Ibuprofen (Ibuprofen 600 Mg Tab) 600 mg PO Q6H PRN PRN Reason: Pain, Mild (1-3) Insulin Glargine (Insulin Glargine 100 Units/Ml) 8 units SUB-Q [facility]HS [facility] Insulin Human Regular (Insulin Regular, Human 100 Units/1 Ml) 0 units SUB-Q [facility]; Protocol Last Admin: 09/30/20 12:45 Dose: 4 units Documented by: Metformin HCl (Metformin 500 Mg Tab) 1,000 mg PO QDAY [facility] Last Admin: 09/30/20 09:23 Dose: 1,000 mg Documented by: Metoclopramide HCl (Metoclopramide 10 Mg/2 Ml Inj) 10 mg IV Q6H PRN PRN Reason: Nausea And Vomiting Ondansetron HCl (Ondansetron 4 Mg/2 Ml Inj) 4 mg IV Q8H PRN PRN Reason: Nausea And Vomiting Oxycodone/Acetaminophen (Oxycodone /Acetaminophen 5-325mg Tab) 1 tab PO Q6H PRN PRN Reason: Pain, Moderate (4-6) Last Admin: 09/27/20 00:25 Dose: 1 tab Documented by: Pravastatin Sodium (Pravastatin 40 Mg Tab) 40 mg PO QHS [facility] Last Admin: 09/29/20 22:16 Dose: 40 mg Documented by: Sodium Chloride (Sodium Chloride 0.9% 10 Ml Flush Syringe) 10 ml IV BID [facility] Last Admin: 09/30/20 09:23 Dose: 10 ml Documented by: Sodium Chloride (Sodium Chloride 0.9% 10 Ml Flush Syringe) 10 ml IV PRN PRN PRN Reason: LINE FLUSH Review of Systems All systems: negative (what is specified in HPI) Physical Examination - Vital Signs Vital Signs: Vital Signs Pulse Ox 98 09/23/20 13:08 - Physical Exam Narrative exam: seen and examined NC/AT RRR breathing non-labored abdomen soft no cyanosis or clubbling A&Ox3 CNII-XII intact motor strengt exam RUE 4/5 delt, 4+/5 biceps, triceps, 4/5 HI LUE 4/5 throughout RLE 4+/5 throughout LLE 2/5 HF, 4-/5 KF/KE, 4/5 DF/PF sensation intact to light touch Aguiar's (-) b/l UE Results - Laboratory Findings CBC and BMP: 09/25/20 04:49 09/25/20 04:49 Abnormal Lab Findings: Abnormal Labs 09/23/20 09/23/20 09/23/20 12:11 12:11 17:38 Walsh % (Auto) 10.0 H Lymph # (Auto) 1.0 L Seg Neutrophils % 72.6 H Glucose 148 H POC Glucose 132 H Hemoglobin A1c Total Creatine Kinase C-Reactive Protein 09/24/20 09/25/20 09/25/20 05:49 04:49 04:49 [place] % (Auto) 12.7 H Lymph # (Auto) Seg Neutrophils % Glucose 118 H POC Glucose Hemoglobin A1c 7.6 H Total Creatine Kinase C-Reactive Protein 09/25/20 09/26/20 09/26/20 20:38 08:02 12:17 [place] % (Auto) Lymph # (Auto) Seg Neutrophils % Glucose POC Glucose 133 H 117 H 168 H Hemoglobin A1c Total Creatine Kinase C-Reactive Protein 09/26/20 09/26/20 09/27/20 16:16 22:35 08:08 Walsh % (Auto) Lymph # (Auto) Seg Neutrophils % Glucose POC Glucose 163 H 173 H 124 H Hemoglobin A1c Total Creatine Kinase C-Reactive Protein 09/27/20 09/27/20 09/27/20 11:49 17:02 20:42 [place] % (Auto) Lymph # (Auto) Seg Neutrophils % Glucose POC Glucose 182 H 124 H 141 H Hemoglobin A1c Total Creatine Kinase C-Reactive Protein 09/28/20 09/28/20 09/28/20 07:38 08:42 11:10 Walsh % (Auto) Lymph # (Auto) Seg Neutrophils % Glucose POC Glucose 137 H 198 H Hemoglobin A1c Total Creatine Kinase 2477 H C-Reactive Protein 2.40 H 09/28/20 09/29/20 09/29/20 21:06 07:36 11:25 Walsh % (Auto) Lymph # (Auto) Seg Neutrophils % Glucose POC Glucose 190 H 137 H 145 H Hemoglobin A1c Total Creatine Kinase C-Reactive Protein 09/29/20 09/29/20 09/30/20 15:45 21:26 07:43 [place] % (Auto) Lymph # (Auto) Seg Neutrophils % Glucose POC Glucose 199 H 311 H 257 H Hemoglobin A1c Total Creatine Kinase C-Reactive Protein 09/30/20 11:36 Walsh % (Auto) Lymph # (Auto) Seg Neutrophils % Glucose POC Glucose 296 H Hemoglobin A1c Total Creatine Kinase C-Reactive Protein Assessment and Plan 65 y/o M w/ 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
[2020-09-30] MEDS: PRAVASTATIN 40 MG TAB PO SCH (22:23)
[2020-09-30] MEDS: INSULIN GLARGINE 100 UNITS/ML SUB-Q SCH (22:24)
[2020-10-01] MEDS: dexAMETHasone 4 MG/ML VIAL IV SCH ×5 (00:01→23:49)
[2020-10-01] MEDS: SODIUM CHLORIDE 0.9% 1000 ML 1,000 ML IV SCH (05:33)
[2020-10-01] MEDS: INSULIN REGULAR, HUMAN 100 UNITS/1 ML SUB-Q SCH ×4 (08:00→22:18)
--- NOTE | 2020-10-01 09:13 | Progress Note ---
Assessment and Plan Assessment and plan: Cervical myelopathy Quadriparesis with paresthesias Hypertension Diabetes mellitus type 2 Osteoarthritis Patient on diclofenac DVT prophylaxis Full code status 09/24/20 Patient is 65 yo presented with right sided weakness. CT Head revealed infarct left basal ganglia. He was admitted with acute stroke. Patient started on Aspirin, Lipitor. MRI ordered, not done yet. Neurology consulted. F/U MRI Brain, CT Angio Head, CT Angio Neck 09/25/20. F/U CTA head and neck. PT/OT 09/26/20. MRI of brain negative. CT head and neck reveals occluded Left MCA M1 segment with collateralization. F/U ECHO. Cont. ASA and lipitor. PT recommends acute rehab 09/27/2020. Left ventricle mildly dilated. Left ventricular systolic function is moderately decreased. LVEF is 35 to 40%. Mild to moderate concentric left ventricular hypertrophy. Mild aortic stenosis. Carotid ultrasound negative. Await rehab placement. 09/28/2020. Neurology recommends b12, tsh, rpr, ck, esr, crp, mri cervical spine w/ wo contrast. Consider transfer to hospital with bedside neurology 09/29/2020. MRI cervical spine reveals significant degenerative changes of the cervical spine involving C3-C4 through C5-C6. There appears to be cord impingement at C3-C4. 09/30/2020. MRI C-spine no severe C-spine stenosis especially at C3-C4 level with mild cord edema. Continue Decadron 4 mg IV every 6 hours. Neurosurgery consultation. Patient with elevated BG given the addition of steroids. We will start Lantus 8 units at bedtime. SSRI and Accu-Cheks 10/01/2020. MRI of thoracic and lumbar spine without contrast pending per surgery recommendations. Continue to hold aspirin. Cardiology consultation for cardiac clearance prior to surgery. History Interval history: No new issues Hospitalist Physical - Constitutional Vitals: Temp Pulse Resp BP Pulse Ox 97.3 F L 55 L 19 134/70 99 10/01/20 07:47 10/01/20 07:47 10/01/20 07:47 10/01/20 07:47 10/01/20 07:47 General appearance: Present: no acute distress, well-nourished - EENT Eyes: Present: PERRL, EOM intact ENT: hearing intact, clear oral mucosa, dentition normal - Neck Neck: Present: supple, normal ROM - Respiratory Respiratory effort: normal Respiratory: bilateral: CTA - Cardiovascular Rhythm: regular Heart Sounds: Present: S1 & S2. Absent: gallop, rub - Extremities Extremities: no ischemia, No edema, Full ROM - Abdominal General gastrointestinal: soft, non-tender, non-distended, normal bowel sounds - Integumentary Integumentary: Present: clear, warm, dry - Neurologic Neurologic: CNII-XII intact, moves all extremities HEART Score - HEART Score Troponin: Troponin T 0.025 ng/mL (0.00-0.029) 09/23/20 12:11 Results - Labs CBC & Chem 7: 09/25/20 04:49 09/25/20 04:49 Labs: Laboratory Last Values WBC 4.9 K/mm3 (4.5-11.0) 09/25/20 04:49 RBC 4.35 M/mm3 (3.65-5.03) 09/25/20 04:49 Hgb 12.8 gm/dl (11.8-15.2) 09/25/20 04:49 Hct 38.3 % (35.5-45.6) 09/25/20 04:49 MCV 88 fl (84-94) 09/25/20 04:49 MCH 30 pg (28-32) 09/25/20 04:49 MCHC 34 % (32-34) 09/25/20 04:49 RDW 14.1 % (13.2-15.2) 09/25/20 04:49 Plt Count 241 K/mm3 (140-440) 09/25/20 04:49 Lymph % (Auto) 31.5 % (13.4-35.0) 09/25/20 04:49 [place] % (Auto) 12.7 % (0.0-7.3) H 09/25/20 04:49 Eos % (Auto) 3.5 % (0.0-4.3) 09/25/20 04:49 Baso % (Auto) 0.5 % (0.0-1.8) 09/25/20 04:49 Lymph # (Auto) 1.6 K/mm3 (1.2-5.4) 09/25/20 04:49 [place] # (Auto) 0.6 K/mm3 (0.0-0.8) 09/25/20 04:49 Eos # (Auto) 0.2 K/mm3 (0.0-0.4) 09/25/20 04:49 Baso # (Auto) 0.0 K/mm3 (0.0-0.1) 09/25/20 04:49 Seg Neutrophils % 51.8 % (40.0-70.0) 09/25/20 04:49 Seg Neutrophils # 2.6 K/mm3 (1.8-7.7) 09/25/20 04:49 Sodium 139 mmol/L (137-145) 09/25/20 04:49 Potassium 4.4 mmol/L (3.6-5.0) 09/25/20 04:49 Chloride 102.9 mmol/L (98-107) 09/25/20 04:49 Carbon Dioxide 26 mmol/L (22-30) 09/25/20 04:49 Anion Gap 15 mmol/L 09/25/20 04:49 BUN 17 mg/dL (9-20) 09/25/20 04:49 Creatinine 0.9 mg/dL (0.8-1.3) 09/25/20 04:49 Estimated GFR > 60 ml/min 09/25/20 04:49 BUN/Creatinine Ratio 19 % 09/25/20 04:49 Glucose 118 mg/dL (75-100) H 09/25/20 04:49 POC Glucose 197 mg/dL (70-105) H 10/01/20 07:46 Hemoglobin A1c 7.6 % (4-6) H 09/24/20 05:49 Calcium 9.3 mg/dL (8.4-10.2) 09/25/20 04:49 Total Bilirubin 0.50 mg/dL (0.1-1.2) 09/25/20 04:49 Direct Bilirubin < 0.2 mg/dL (0-0.2) 09/23/20 12:11 Indirect Bilirubin 0.3 mg/dL 09/23/20 12:11 AST 17 units/L (5-40) 09/25/20 04:49 ALT 18 units/L (7-56) 09/25/20 04:49 Alkaline Phosphatase 61 units/L (35-129) 09/25/20 04:49 Total Creatine Kinase 2477 units/L (55-170) H 09/28/20 08:42 Troponin T 0.025 ng/mL (0.00-0.029) 09/23/20 12:11 C-Reactive Protein 2.40 mg/dL (0.00-1.30) H 09/28/20 08:42 Total Protein 6.5 g/dL (6.3-8.2) 09/25/20 04:49 Albumin 4.0 g/dL (3.9-5) 09/25/20 04:49 Albumin/Globulin Ratio 1.6 % 09/25/20 04:49 Triglycerides 83 mg/dL (2-149) 09/25/20 04:49 Cholesterol 177 mg/dL (50-199) 09/25/20 04:49 LDL Cholesterol Direct 126 mg/dL (50-130) 09/25/20 04:49 HDL Cholesterol 50 mg/dL (40-59) 09/25/20 04:49 Cholesterol/HDL Ratio 3.54 % 09/25/20 04:49 Vitamin B12 400.3 pg/mL (211-911) 09/28/20 08:42 TSH 1.380 mlU/mL (0.270-4.200) 09/28/20 08:42 Urine Color Yellow (Yellow) 09/23/20 12:14 Urine Turbidity Clear (Clear) 09/23/20 12:14 Urine pH 6.0 (5.0-7.0) 09/23/20 12:14 Ur Specific [place] 1.020 (1.003-1.030) 09/23/20 12:14 Urine Protein 30 mg/dl mg/dL (Negative) 09/23/20 12:14 Urine Glucose (UA) Neg mg/dL (Negative) 09/23/20 12:14 Urine Ketones Neg mg/dL (Negative) 09/23/20 12:14 Urine Blood Neg (Negative) 09/23/20 12:14 Urine Nitrite Neg (Negative) 09/23/20 12:14 Urine Bilirubin Neg (Negative) 09/23/20 12:14 Urine Urobilinogen 4.0 mg/dL (<2.0) 09/23/20 12:14 Ur Leukocyte Esterase Neg (Negative) 09/23/20 12:14 Urine WBC (Auto) 1.0 /HPF (0.0-6.0) 09/23/20 12:14 Urine RBC (Auto) 3.0 /HPF (0.0-6.0) 09/23/20 12:14 U Epithel Cells (Auto) < 1.0 /HPF (0-13.0) 09/23/20 12:14 Urine Mucus Few /HPF 09/23/20 12:14 Coronavirus (PCR) Negative (Negative) 09/25/20 Unknown [place]/IV: Voiding Method Urinal Active Medications - Current Medications Current Medications: Generic Name Dose Route Start Last Admin Trade Name Freq PRN Reason Stop Dose Admin Hydrocodone Bitart/Acetaminophen 1 each 09/24/20 00:38 Hydrocodone/Acetaminophen 5-325 Mg Tab PO Q6HR PRN Pain , Severe (7-10) Atorvastatin Calcium 40 mg 09/24/20 22:00 09/30/20 22:23 Atorvastatin 40 Mg Tab PO 40 mg QHS FLAQUITO Administration Dexamethasone 4 mg 09/29/20 12:00 10/01/20 05:33 Dexamethasone 4 Mg/Ml Vial IV 4 mg Q6HR FLAQUITO Administration Dextrose 50 ml 09/30/20 10:26 Dextrose 50% In Water (25gm) 50 Ml Syringe IV Q30MIN PRN Hypoglycemia Protocol Diclofenac Sodium 75 mg 09/24/20 10:00 09/30/20 09:[address] 75 Mg Tab PO 75 mg QDAY FLAQUITO Administration Famotidine 20 mg 09/25/20 10:00 09/30/20 22:23 Famotidine 20 Mg Tab PO 20 mg BID FLAQUITO Administration Glipizide 5 mg 09/24/20 10:00 09/30/20 09:23 Glipizide 5 Mg Tab PO 5 mg QDAY FLAQUITO Administration Hydromorphone HCl 0.5 mg 09/24/20 00:53 Hydromorphone 1 Mg/1 Ml Inj IV Q3H PRN Pain , Severe (7-10) Sodium Chloride 1,000 mls @ 42 mls/hr 09/24/20 01:00 10/01/20 05:33 Nacl 0.9% 1000 Ml IV 42 mls/hr DIRECT FLAQUITO Administration Ibuprofen 600 mg 09/24/20 00:53 Ibuprofen 600 Mg Tab PO Q6H PRN Pain, Mild (1-3) Insulin Glargine 8 units 09/30/20 22:00 09/30/20 22:24 Insulin Glargine 100 Units/Ml SUB-Q 8 units QHS FLAQUITO Administration Insulin Human Regular 0 units 09/30/20 11:30 09/30/20 22:24 Insulin Regular, Human 100 Units/1 Ml SUB-Q 6 units ACHS FLAQUITO Administration Protocol Metformin HCl 1,000 mg 09/24/20 10:00 09/30/20 09:23 Metformin 500 Mg Tab PO 1,000 mg QDAY FLAQUITO Administration Metoclopramide HCl 10 mg 09/24/20 00:53 Metoclopramide 10 Mg/2 Ml Inj IV Q6H PRN Nausea And Vomiting Ondansetron HCl 4 mg 09/24/20 00:53 Ondansetron 4 Mg/2 Ml Inj IV Q8H PRN Nausea And Vomiting Oxycodone/Acetaminophen 1 tab 09/24/20 00:53 09/27/20 00:25 Oxycodone /Acetaminophen 5-325mg Tab PO 1 tab Q6H PRN Administration Pain, Moderate (4-6) Pravastatin Sodium 40 mg 09/24/20 22:00 09/30/20 22:23 Pravastatin 40 Mg Tab PO 40 mg QHS FLAQUITO Administration Sodium Chloride 10 ml 09/24/20 10:00 09/30/20 22:24 Sodium Chloride 0.9% 10 Ml Flush Syringe IV 10 ml BID FLAQUITO Administration Sodium Chloride 10 ml 09/24/20 00:53 Sodium Chloride 0.9% 10 Ml Flush Syringe IV PRN PRN LINE FLUSH Nutrition/Malnutrition Assess - Dietary Evaluation Nutrition/Malnutrition Findings: Nutrition Notes Start: 09/29/20 12:29 Freq: Status: Active Protocol: Document 09/29/20 12:29 LM (Rec: 09/29/20 12:30 LM [id number]) Nutrition Notes Need for Assessment generated from: LOS Initial or Follow up Brief Note Subjective/Other Information Screen for LOS. Pt with 100% intakes per EMR. Nutrition Intervention Revisit per MD consult or patient Sign Off request:
[2020-10-01] MEDS: DICLOFENAC DR 75 MG TAB PO SCH (11:54)
[2020-10-01] MEDS: glipiZIDE 5 MG TAB PO SCH (11:55)
[2020-10-01] MEDS: metFORMIN 500 MG TAB PO SCH (11:55)
[2020-10-01] MEDS: FAMOTIDINE 20 MG TAB PO SCH ×2 (11:56→22:18)
[2020-10-01] MEDS: PRAVASTATIN 40 MG TAB PO SCH (22:18)
[2020-10-01] MEDS: INSULIN GLARGINE 100 UNITS/ML SUB-Q SCH (22:18)
[2020-10-02] MEDS: dexAMETHasone 4 MG/ML VIAL IV SCH ×3 (05:14→19:40)
[2020-10-02] MEDS: SODIUM CHLORIDE 0.9% 1000 ML 1,000 ML IV SCH (05:15)
[2020-10-02] MEDS: INSULIN REGULAR, HUMAN 100 UNITS/1 ML SUB-Q SCH ×4 (08:00→22:18)
--- NOTE | 2020-10-02 08:19 | Progress Note ---
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 CT Head revealed infarct left basal ganglia. He was admitted with acute stroke. Patient started on Aspirin, Lipitor. MRI ordered, not done yet. Neurology consulted. F/U MRI Brain, CT Angio Head, CT Angio Neck 09/25/20. F/U CTA head and neck. PT/OT 09/26/20. MRI of brain negative. CT head and neck reveals occluded Left MCA M1 segment with collateralization. F/U ECHO. Cont. ASA and lipitor. PT recommends acute rehab 09/27/2020. Left ventricle mildly dilated. Left ventricular systolic function is moderately decreased. LVEF is 35 to 40%. Mild to moderate concentric left ventricular hypertrophy. Mild aortic stenosis. Carotid ultrasound negative. Await rehab placement. 09/28/2020. Neurology recommends b12, tsh, rpr, ck, esr, crp, mri cervical spine w/ wo contrast. Consider transfer to hospital with bedside neurology 09/29/2020. MRI cervical spine reveals significant degenerative changes of the cervical spine involving C3-C4 through C5-C6. There appears to be cord impingement at C3-C4. 09/30/2020. MRI C-spine no severe C-spine stenosis especially at C3-C4 level with mild cord edema. Continue Decadron 4 mg IV every 6 hours. Neurosurgery consultation. Patient with elevated BG given the addition of steroids. We will start Lantus 8 units at bedtime. SSRI and Accu-Cheks 10/01/2020. MRI of thoracic and lumbar spine without contrast pending per surgery recommendations. Continue to hold aspirin. Cardiology consultation for cardiac clearance prior to surgery. 09/24/2020. Follow-up MRI of thoracic and lumbar spine without contrast. Continue to hold aspirin. Cardiology consultation for cardiac clearance prior to surgery. Neurosurgery following and plans for surgical intervention later this week. Continue Decadron. History Interval history: No new issues Hospitalist Physical - Constitutional Vitals: Temp Pulse Resp BP Pulse Ox 98.0 F 55 L 16 140/71 94 10/02/20 04:11 10/02/20 04:11 10/02/20 04:11 10/02/20 04:11 10/02/20 04:11 General appearance: Present: no acute distress, well-nourished - EENT Eyes: Present: PERRL, EOM intact ENT: hearing intact, clear oral mucosa, dentition normal - Neck Neck: Present: supple, normal ROM - Respiratory Respiratory effort: normal Respiratory: bilateral: CTA - Cardiovascular Rhythm: regular Heart Sounds: Present: S1 & S2. Absent: gallop, rub - Extremities Extremities: no ischemia, No edema, Full ROM - Abdominal General gastrointestinal: soft, non-tender, non-distended, normal bowel sounds - Integumentary Integumentary: Present: clear, warm, dry - Neurologic Neurologic: CNII-XII intact, moves all extremities HEART Score - HEART Score Troponin: Troponin T 0.025 ng/mL (0.00-0.029) 09/23/20 12:11 Results - Labs CBC & Chem 7: 09/25/20 04:49 09/25/20 04:49 Labs: Laboratory Last Values WBC 4.9 K/mm3 (4.5-11.0) 09/25/20 04:49 RBC 4.35 M/mm3 (3.65-5.03) 09/25/20 04:49 Hgb 12.8 gm/dl (11.8-15.2) 09/25/20 04:49 Hct 38.3 % (35.5-45.6) 09/25/20 04:49 MCV 88 fl (84-94) 09/25/20 04:49 MCH 30 pg (28-32) 09/25/20 04:49 MCHC 34 % (32-34) 09/25/20 04:49 RDW 14.1 % (13.2-15.2) 09/25/20 04:49 Plt Count 241 K/mm3 (140-440) 09/25/20 04:49 Lymph % (Auto) 31.5 % (13.4-35.0) 09/25/20 04:49 [place] % (Auto) 12.7 % (0.0-7.3) H 09/25/20 04:49 Eos % (Auto) 3.5 % (0.0-4.3) 09/25/20 04:49 Baso % (Auto) 0.5 % (0.0-1.8) 09/25/20 04:49 Lymph # (Auto) 1.6 K/mm3 (1.2-5.4) 09/25/20 04:49 [place] # (Auto) 0.6 K/mm3 (0.0-0.8) 09/25/20 04:49 Eos # (Auto) 0.2 K/mm3 (0.0-0.4) 09/25/20 04:49 Baso # (Auto) 0.0 K/mm3 (0.0-0.1) 09/25/20 04:49 Seg Neutrophils % 51.8 % (40.0-70.0) 09/25/20 04:49 Seg Neutrophils # 2.6 K/mm3 (1.8-7.7) 09/25/20 04:49 Sodium 139 mmol/L (137-145) 09/25/20 04:49 Potassium 4.4 mmol/L (3.6-5.0) 09/25/20 04:49 Chloride 102.9 mmol/L (98-107) 09/25/20 04:49 Carbon Dioxide 26 mmol/L (22-30) 09/25/20 04:49 Anion Gap 15 mmol/L 09/25/20 04:49 BUN 17 mg/dL (9-20) 09/25/20 04:49 Creatinine 0.9 mg/dL (0.8-1.3) 09/25/20 04:49 Estimated GFR > 60 ml/min 09/25/20 04:49 BUN/Creatinine Ratio 19 % 09/25/20 04:49 Glucose 118 mg/dL (75-100) H 09/25/20 04:49 POC Glucose 234 mg/dL (70-105) H 10/02/20 07:41 Hemoglobin A1c 7.6 % (4-6) H 09/24/20 05:49 Calcium 9.3 mg/dL (8.4-10.2) 09/25/20 04:49 Total Bilirubin 0.50 mg/dL (0.1-1.2) 09/25/20 04:49 Direct Bilirubin < 0.2 mg/dL (0-0.2) 09/23/20 12:11 Indirect Bilirubin 0.3 mg/dL 09/23/20 12:11 AST 17 units/L (5-40) 09/25/20 04:49 ALT 18 units/L (7-56) 09/25/20 04:49 Alkaline Phosphatase 61 units/L (35-129) 09/25/20 04:49 Total Creatine Kinase 2477 units/L (55-170) H 09/28/20 08:42 Troponin T 0.025 ng/mL (0.00-0.029) 09/23/20 12:11 C-Reactive Protein 2.40 mg/dL (0.00-1.30) H 09/28/20 08:42 Total Protein 6.5 g/dL (6.3-8.2) 09/25/20 04:49 Albumin 4.0 g/dL (3.9-5) 09/25/20 04:49 Albumin/Globulin Ratio 1.6 % 09/25/20 04:49 Triglycerides 83 mg/dL (2-149) 09/25/20 04:49 Cholesterol 177 mg/dL (50-199) 09/25/20 04:49 LDL Cholesterol Direct 126 mg/dL (50-130) 09/25/20 04:49 HDL Cholesterol 50 mg/dL (40-59) 09/25/20 04:49 Cholesterol/HDL Ratio 3.54 % 09/25/20 04:49 Vitamin B12 400.3 pg/mL (211-911) 09/28/20 08:42 TSH 1.380 mlU/mL (0.270-4.200) 09/28/20 08:42 Urine Color Yellow (Yellow) 09/23/20 12:14 Urine Turbidity Clear (Clear) 09/23/20 12:14 Urine pH 6.0 (5.0-7.0) 09/23/20 12:14 Ur Specific [place] 1.020 (1.003-1.030) 09/23/20 12:14 Urine Protein 30 mg/dl mg/dL (Negative) 09/23/20 12:14 Urine Glucose (UA) Neg mg/dL (Negative) 09/23/20 12:14 Urine Ketones Neg mg/dL (Negative) 09/23/20 12:14 Urine Blood Neg (Negative) 09/23/20 12:14 Urine Nitrite Neg (Negative) 09/23/20 12:14 Urine Bilirubin Neg (Negative) 09/23/20 12:14 Urine Urobilinogen 4.0 mg/dL (<2.0) 09/23/20 12:14 Ur Leukocyte Esterase Neg (Negative) 09/23/20 12:14 Urine WBC (Auto) 1.0 /HPF (0.0-6.0) 09/23/20 12:14 Urine RBC (Auto) 3.0 /HPF (0.0-6.0) 09/23/20 12:14 U Epithel Cells (Auto) < 1.0 /HPF (0-13.0) 09/23/20 12:14 Urine Mucus Few /HPF 09/23/20 12:14 Coronavirus (PCR) Negative (Negative) 09/25/20 Unknown [place]/IV: Voiding Method Urinal Active Medications - Current Medications Current Medications: Generic Name Dose Route Start Last Admin Trade Name Freq PRN Reason Stop Dose Admin Hydrocodone Bitart/Acetaminophen 1 each 09/24/20 00:38 Hydrocodone/Acetaminophen 5-325 Mg Tab PO Q6HR PRN Pain , Severe (7-10) Atorvastatin Calcium 40 mg 09/24/20 22:00 10/01/20 22:18 Atorvastatin 40 Mg Tab PO 40 mg QHS FLAQUITO Administration Dexamethasone 4 mg 09/29/20 12:00 10/02/20 05:14 Dexamethasone 4 Mg/Ml Vial IV 4 mg Q6HR FLAQUITO Administration Dextrose 50 ml 09/30/20 10:26 Dextrose 50% In Water (25gm) 50 Ml Syringe IV Q30MIN PRN Hypoglycemia Protocol Diclofenac Sodium 75 mg 09/24/20 10:00 10/01/20 11:[address] 75 Mg Tab PO 75 mg QDAY FLAQUITO Administration Famotidine 20 mg 09/25/20 10:00 10/01/20 22:18 Famotidine 20 Mg Tab PO 20 mg BID FLAQUITO Administration Glipizide 5 mg 09/24/20 10:00 10/01/20 11:55 Glipizide 5 Mg Tab PO 5 mg QDAY FLAQUITO Administration Hydromorphone HCl 0.5 mg 09/24/20 00:53 Hydromorphone 1 Mg/1 Ml Inj IV Q3H PRN Pain , Severe (7-10) Sodium Chloride 1,000 mls @ 42 mls/hr 09/24/20 01:00 10/02/20 05:15 Nacl 0.9% 1000 Ml IV 42 mls/hr DIRECT FLAQUITO Administration Ibuprofen 600 mg 09/24/20 00:53 Ibuprofen 600 Mg Tab PO Q6H PRN Pain, Mild (1-3) Insulin Glargine 8 units 09/30/20 22:00 10/01/20 22:18 Insulin Glargine 100 Units/Ml SUB-Q 8 units QHS FLAQUITO Administration Insulin Human Regular 0 units 09/30/20 11:30 10/01/20 22:18 Insulin Regular, Human 100 Units/1 Ml SUB-Q Not Given A[facility]S [facility] Protocol Metformin HCl 1,000 mg 09/24/20 10:00 10/01/20 11:55 Metformin 500 Mg Tab PO 1,000 mg QDAY FLAQUITO Administration Metoclopramide HCl 10 mg 09/24/20 00:53 Metoclopramide 10 Mg/2 Ml Inj IV Q6H PRN Nausea And Vomiting Ondansetron HCl 4 mg 09/24/20 00:53 Ondansetron 4 Mg/2 Ml Inj IV Q8H PRN Nausea And Vomiting Oxycodone/Acetaminophen 1 tab 09/24/20 00:53 09/27/20 00:25 Oxycodone /Acetaminophen 5-325mg Tab PO 1 tab Q6H PRN Administration Pain, Moderate (4-6) Pravastatin Sodium 40 mg 09/24/20 22:00 10/01/20 22:18 Pravastatin 40 Mg Tab PO 40 mg QHS FLAQUITO Administration Sodium Chloride 10 ml 09/24/20 10:00 10/01/20 22:18 Sodium Chloride 0.9% 10 Ml Flush Syringe IV 10 ml BID FLAQUITO Administration Sodium Chloride 10 ml 09/24/20 00:53 Sodium Chloride 0.9% 10 Ml Flush Syringe IV PRN PRN LINE FLUSH Nutrition/Malnutrition Assess - Dietary Evaluation Nutrition/Malnutrition Findings: Nutrition Notes Start: 09/29/20 12:29 Freq: Status: Active Protocol: Document 09/29/20 12:29 LM (Rec: 09/29/20 12:30 LM [id number]) Nutrition Notes Need for Assessment generated from: LOS Initial or Follow up Brief Note Subjective/Other Information Screen for LOS. Pt with 100% intakes per EMR. Nutrition Intervention Revisit per MD consult or patient Sign Off request:
--- NOTE | 2020-10-02 08:38 | Progress Note ---
Subjective Date of service: 10/02/20 Principal diagnosis: Weakness Interval history: NSGY update: pt in MRI on morning rounds. Will follow up MRI scans. Plan for C3- 4 ACDF on morning, 10/05/2020. Pt will need cardiac clearance prior to surgery. We will also need to transfuse 2 units platelets pre-op the morning of surgery and an additional 2 units post op. Please notify if questions. Objective - Vital Sign Vital Signs - 12hr 10/01/20 10/01/20 10/01/20 22:00 23:00 23:21 Temperature 97.5 F L Pulse Rate 63 52 L Respiratory 20 16 Rate Blood Pressure 131/73 O2 Sat by Pulse 99 97 Oximetry 10/02/20 10/02/20 04:11 07:30 Temperature 98.0 F 97.6 F Pulse Rate 55 L 53 L Respiratory 16 16 Rate Blood Pressure 140/71 133/73 O2 Sat by Pulse 94 96 Oximetry - Laboratory Findings CBC and BMP: 09/25/20 04:49 09/25/20 04:49 Abnormal Lab Findings: Abnormal Labs 09/23/20 09/23/20 09/23/20 12:11 12:11 17:38 [place] % (Auto) 10.0 H Lymph # (Auto) 1.0 L Seg Neutrophils % 72.6 H Glucose 148 H POC Glucose 132 H Hemoglobin A1c Total Creatine Kinase C-Reactive Protein 09/24/20 09/25/20 09/25/20 05:49 04:49 04:49 [place] % (Auto) 12.7 H Lymph # (Auto) Seg Neutrophils % Glucose 118 H POC Glucose Hemoglobin A1c 7.6 H Total Creatine Kinase C-Reactive Protein 09/25/20 09/26/20 09/26/20 20:38 08:02 12:17 [place] % (Auto) Lymph # (Auto) Seg Neutrophils % Glucose POC Glucose 133 H 117 H 168 H Hemoglobin A1c Total Creatine Kinase C-Reactive Protein 09/26/20 09/26/20 09/27/20 16:16 22:35 08:08 [place] % (Auto) Lymph # (Auto) Seg Neutrophils % Glucose POC Glucose 163 H 173 H 124 H Hemoglobin A1c Total Creatine Kinase C-Reactive Protein 09/27/20 09/27/20 09/27/20 11:49 17:02 20:42 [place] % (Auto) Lymph # (Auto) Seg Neutrophils % Glucose POC Glucose 182 H 124 H 141 H Hemoglobin A1c Total Creatine Kinase C-Reactive Protein 09/28/20 09/28/20 09/28/20 07:38 08:42 11:10 [place] % (Auto) Lymph # (Auto) Seg Neutrophils % Glucose POC Glucose 137 H 198 H Hemoglobin A1c Total Creatine Kinase 2477 H C-Reactive Protein 2.40 H 09/28/20 09/29/20 09/29/20 21:06 07:36 11:25 [place] % (Auto) Lymph # (Auto) Seg Neutrophils % Glucose POC Glucose 190 H 137 H 145 H Hemoglobin A1c Total Creatine Kinase C-Reactive Protein 09/29/20 09/29/20 09/30/20 15:45 21:26 07:43 [place] % (Auto) Lymph # (Auto) Seg Neutrophils % Glucose POC Glucose 199 H 311 H 257 H Hemoglobin A1c Total Creatine Kinase C-Reactive Protein 09/30/20 09/30/20 09/30/20 11:36 15:23 21:28 [place] % (Auto) Lymph # (Auto) Seg Neutrophils % Glucose POC Glucose 296 H 187 H 302 H Hemoglobin A1c Total Creatine Kinase C-Reactive Protein 10/01/20 10/01/20 10/01/20 07:46 10:59 16:15 [place] % (Auto) Lymph # (Auto) Seg Neutrophils % Glucose POC Glucose 197 H 304 H 126 H Hemoglobin A1c Total Creatine Kinase C-Reactive Protein 10/01/20 10/02/20 20:41 07:41 [place] % (Auto) Lymph # (Auto) Seg Neutrophils % Glucose POC Glucose 149 H 234 H Hemoglobin A1c Total Creatine Kinase C-Reactive Protein
--- NOTE | 2020-10-02 10:00 | Magnetic Resonance Report ---
MRI lumbar spine without contrast INDICATION: Right-sided weakness TECHNIQUE: Axial and sagittal images FINDINGS: Alignment appears normal. Conus appears normal. Mild heterogeneous marrow signal. L1-L2: Facet change. No spinal canal narrowing or neuroforaminal narrowing. L2-L3: Facet hypertrophy. Small disc bulge without significant neuroforaminal narrowing. L3-L4: Facet hypertrophy with small disc bulge. No significant neuroforaminal narrowing. L4-L5: Minimal anterior listhesis with disc desiccation brevis posterior disc bulge. Mild canal narro wing or lateral recess narrowing. No significant neuroforaminal narrowing. L5-S1: Small disc bulge. There is mild right lateral recess narrowing. IMPRESSION: Mild discogenic degenerative change. Please see above level by level description. Signer Name: Pedrito Ruiz MD Signed: 10/02/2020 9:56 AM Workstation Name: [email or web address]
--- NOTE | 2020-10-02 10:01 | Magnetic Resonance Report ---
MRI thoracic spine without contrast INDICATION: Right-sided weakness TECHNIQUE: Axial and sagittal images were performed. FINDINGS: Alignment appears normal. Facets are well aligned throughout. No cord signal abnormality is seen. No large disc bulge, spinal canal narrowing or neuroforaminal narrowing. No subluxation is see n. IMPRESSION: No large disc bulge, spinal canal narrowing or neuroforaminal narrowing. Signer Name: Pedrito Ruiz MD Signed: 10/02/2020 9:56 AM Workstation Name: [id number]
--- NOTE | 2020-10-02 12:56 | Progress Note ---
Assessment and Plan Cardiology is consulted for preoperative risk evaluation. Echocardiogram shows ejection fraction of 35 to 40%. We will plan for Lexiscan tomorrow morning. Initiate goal-directed medical therapy. Continue atorvastatin 40 discontinue pravastatin. Goal-directed medical therapy: No beta-bethany in setting of bradycardia. Patient has not had renal indices in approximately 1 week. We will plan to initiate lisinopril pending morning labs. Patient is on appropriate statin therapy. No aspirin pending scheduled surgical procedure on Subjective Date of service: 10/02/20 Principal diagnosis: Weakness Objective Vital Signs Temp Pulse Resp BP Pulse Ox 10/02/20 07:30 97.6 F 53 L 16 133/73 96 10/02/20 04:11 98.0 F 55 L 16 140/71 94 10/01/20 23:21 97.5 F L 52 L 16 131/73 97 10/01/20 23:00 63 10/01/20 22:00 20 99 10/01/20 18:47 98.3 F 56 L 16 117/61 95 10/01/20 16:15 97.5 F L 53 L 19 117/74 97 - Imaging and Cardiology EKG: report reviewed (Sinus rhythm no acute ST-T wave changes)
[2020-10-02] MEDS: metFORMIN 500 MG TAB PO SCH (13:41)
[2020-10-02] MEDS: DICLOFENAC DR 75 MG TAB PO SCH (13:41)
[2020-10-02] MEDS: FAMOTIDINE 20 MG TAB PO SCH ×2 (13:41→22:17)
[2020-10-02] MEDS: glipiZIDE 5 MG TAB PO SCH (13:43)
--- NOTE | 2020-10-02 15:00 | Consultation ---
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 He is previously unknown to our practice. Patient presents to [facility] ER with bilateral upper extremity weakness and right lower extremity weakness x1 day. Neurology was consulted and patient was ultimately found to have severe C3-4 cord compression and cervical spondylotic myelopathy. Patient is to undergo ACDF surgery to C3-4 on . Cardiology is consulted for preoperative risk assessment. At time of interview patient denies any dizziness, chest pain, shortness of breath, abdominal pain, N/V/D, recent illness or known exposures. Past History Past Medical History: diabetes, hypertension, hyperlipidemia, other (Left lower extremity weakness secondary to polio in childhood, see HPI) Past Surgical History: CABG, Other (Aortic valve bioprosthetic see HPI) Social history: lives with family, full code Family history: hypertension Medications and Allergies Allergies Allergy/AdvReac Type Severity Reaction Status Date / Time No Known Allergies Allergy Verified 09/24/20 01:16 Home Medications Medication Instructions Recorded Confirmed Last Taken Type AtorvaSTATin [Lipitor] 40 mg PO QHS 09/23/20 09/23/20 Unknown History Diclofenac Sodium 75 mg PO QDAY 09/23/20 09/23/20 Unknown History HYDROcodone/ACETAMINOPHEN 1 each PO Q6HR PRN 09/23/20 09/23/20 Unknown History [Hydrocodone-Acetamin 5-300 mg] Metformin HCl [metFORMIN] 1,000 mg PO QDAY 09/23/20 09/23/20 Unknown History glipiZIDE [Glucotrol] 5 mg PO QDAY 09/23/20 09/23/20 Unknown History Active Meds: Active Medications Hydrocodone Bitart/Acetaminophen (Hydrocodone/Acetaminophen 5-325 Mg Tab) 1 eac h PO Q6HR PRN PRN Reason: Pain , Severe (7-10) Last Admin: 10/02/20 13:42 Dose: 1 each Documented by: Atorvastatin Calcium (Atorvastatin 40 Mg Tab) 40 mg PO QHS [facility] Last Admin: 10/01/20 22:18 Dose: 40 mg Documented by: Dexamethasone (Dexamethasone 4 Mg/Ml Vial) 4 mg IV Q6HR [facility] Last Admin: 10/02/20 13:41 Dose: 4 mg Documented by: Dextrose (Dextrose 50% In Water (25gm) 50 Ml Syringe) 50 ml IV Q30MIN PRN; Protocol PRN Reason: Hypoglycemia Diclofenac Sodium (Diclofenac Dr 75 Mg Tab) 75 mg PO QDAY [facility] Last Admin: 10/02/20 13:41 Dose: 75 mg Documented by: Famotidine (Famotidine 20 Mg Tab) 20 mg PO BID [facility] Last Admin: 10/02/20 13:41 Dose: 20 mg Documented by: Glipizide (Glipizide 5 Mg Tab) 5 mg PO QDAY [facility] Last Admin: 10/02/20 13:43 Dose: 5 mg Documented by: Hydromorphone HCl (Hydromorphone 1 Mg/1 Ml Inj) 0.5 mg IV Q3H PRN PRN Reason: Pain , Severe (7-10) Sodium Chloride (Nacl 0.9% 1000 Ml) 1,000 mls @ 42 mls/hr IV DIRECT [facility] Last Admin: 10/02/20 05:15 Dose: 42 mls/hr Documented by: Ibuprofen (Ibuprofen 600 Mg Tab) 600 mg PO Q6H PRN PRN Reason: Pain, Mild (1-3) Insulin Glargine (Insulin Glargine 100 Units/Ml) 8 units SUB-Q QHS [facility] Last Admin: 10/01/20 22:18 Dose: 8 units Documented by: Insulin Human Regular (Insulin Regular, Human 100 Units/1 Ml) 0 units SUB-Q [facility]; Protocol Last Admin: 10/02/20 13:38 Dose: 1 units Documented by: Metformin HCl (Metformin 500 Mg Tab) 1,000 mg PO QDDIAB [facility] Last Admin: 10/02/20 13:41 Dose: 1,000 mg Documented by: Metoclopramide HCl (Metoclopramide 10 Mg/2 Ml Inj) 10 mg IV Q6H PRN PRN Reason: Nausea And Vomiting Ondansetron HCl (Ondansetron 4 Mg/2 Ml Inj) 4 mg IV Q8H PRN PRN Reason: Nausea And Vomiting Oxycodone/Acetaminophen (Oxycodone /Acetaminophen 5-325mg Tab) 1 tab PO Q6H PRN PRN Reason: Pain, Moderate (4-6) Last Admin: 09/27/20 00:25 Dose: 1 tab Documented by: Sodium Chloride (Sodium Chloride 0.9% 10 Ml Flush Syringe) 10 ml IV BID [facility] Last Admin: 10/02/20 13:43 Dose: 10 ml Documented by: Sodium Chloride (Sodium Chloride 0.9% 10 Ml Flush Syringe) 10 ml IV PRN PRN PRN Reason: LINE FLUSH Review of Systems Constitutional: no weight loss, no weight gain, no fever, no chills, no sweats Ears, nose, mouth and throat: no ear pain, no ear discharge, no nasal congestion, no nasal discharge, no sinus pressure Cardiovascular: high blood pressure, no chest pain, no orthopnea, no palpitations, no rapid/irregular heart beat, no edema, no syncope, no lightheadedness, no shortness of breath, no dyspnea on exertion, no paroxysmal nocturnal dyspnea, no claudication, no phlebitis, no leg edema, no decreased exercise tolerance Respiratory: no cough, no hemoptysis, no shortness of breath, no dyspnea on exertion Gastrointestinal: no abdominal pain, no nausea, no vomiting, no diarrhea Genitourinary Male: no flank pain Musculoskeletal: arm numbness/tingling, leg numbness/tingling, no neck stiffness, no neck pain, no shooting arm pain, no low back pain, no shooting leg pain Integumentary: no rash, no pruritis, no redness, no sores, no wounds Neurological: weakness, parathesias, numbness, no head injury, no paralysis, no tingling, no seizures, no syncope Psychiatric: no anxiety Endocrine: no cold intolerance, no heat intolerance Hematologic/Lymphatic: no easy bruising, no easy bleeding Allergic/Immunologic: no urticaria Physical Examination Last Vital Signs Temp 97.6 F 10/02/20 07:30 Pulse 54 L 10/02/20 11:00 Resp 16 10/02/20 07:30 BP 133/73 10/02/20 07:30 Pulse Ox 96 10/02/20 07:30 General appearance: no acute distress HEENT: Positive: PERRL, Normocephaly, Mucus Membranes Moist Neck: Positive: neck supple, trachea midline Cardiac: Positive: Reg Rate and Rhythm, S1/S2 Lungs: Positive: clear to auscultation, Normal Breath Sounds Neuro: Positive: Other (See HPI) Abdomen: Positive: Unremarkable, Soft Skin: Negative: Rash, Wound Musculoskeletal: No Pain Extremities: Present: upper extr. pulses, lower extr. pulses. Absent: edema Results 09/25/20 04:49 09/25/20 04:49 - Imaging and Cardiology Echo: report reviewed (Echocardiogram reviewed (09/24/2020): LVEF is 35 to 40%. LV is mildly dilated. LV SF is moderately decreased. Moderate LVH. Right ventricle is hypokinetic and mildly dilated. Left atrium is mildly dilated. Right atrium is mildly dilated. Mild aortic stenosis with mean transaortic gradient of 9) EKG: report reviewed, image reviewed EKG interpretations - Telemetry EKG Rhythm: Sinus Rhythm - EKG Sinus rhythms and dysrhythmias: sinus rhythm Assessment and Plan Cardiology is consulted for preoperative risk evaluation. Echocardiogram shows ejection fraction of 35 to 40%. We will plan for Lexiscan tomorrow morning. Initiate goal-directed medical therapy. Continue atorvastatin 40 discontinue pravastatin. CAD s/p CABG (SVG to RCA) in setting of severe cardiomyopathy * Patient is currently chest pain-free with no cardiac complaints. Troponin is pending. 12 Lead ECG shows no acute ischemic changes. * Echocardiogram reviewed (09/24/2020): LVEF is 35 to 40%. LV is mildly dilated. LV SF is moderately decreased. Moderate LVH. Right ventricle is hypokinetic and mildly dilated. Left atrium is mildly dilated. Right atrium is mildly dilated. Bioprosthetic Aortic Valve in place. Mild aortic stenosis with mean transaortic gradient of 9.8. Trace AR. Mild TR. * Recommend GDMT as tolerated. No aspirin pending planned procedure . Continue atorvastatin 40. No beta-bethany in setting of bradycardia. We will plan to initiate lisinopril tomorrow pending renal indices. * Lexiscan MPI stress test in a.m. N.p.o. after midnight. Hx of Severe Aortic Stenosis s/p Julius-Coronado Magna Valve repair * Aortic gradient is normal for bioprosthetic valve per echocardiogram. Severe Spinal Cord Compression * C3-4 ACDF planned for 10/04/20 per neurosx. DVT prophylaxis * Mgmt per primary team Lexiscan MPI stress test in a.m. N.p.o. after midnight. We will follow Patient should follow-up with Dr Sanon, [facility] specialists within 1 to 2 weeks of discharge. #[id number] This patient was seen in conjunction with Dr Sanon who agrees with this assessment and plan of care
[2020-10-02] MEDS: INSULIN GLARGINE 100 UNITS/ML SUB-Q SCH (22:16)
[2020-10-03] MEDS: dexAMETHasone 4 MG/ML VIAL IV SCH ×4 (00:02→17:28)
[2020-10-03 05:52] LABS: Basophils % (Auto) 0.1 % (0.0-1.8); Hematocrit 37.8 % (35.5-45.6); Hemoglobin 12.6 gm/dl (11.8-15.2); Lymphocytes # (Auto) 0.8 K/mm3 (1.2-5.4); Lymphocytes % (Auto) 9.5 % (13.4-35.0); Mean Corpuscular HGB Conc 33 % (32-34); Mean Corpuscular Volume 86 fl (84-94); Monocytes # (Auto) 0.6 K/mm3 (0.0-0.8); Monocytes % (Auto) 7.8 % (0.0-7.3); Platelet Count 325 K/mm3 (140-440); Red Blood Count 4.39 M/mm3 (3.65-5.03)
[2020-10-03 06:17] LABS: Alanine Aminotransferase 24 units/L (7-56); Albumin 3.3 g/dL (3.9-5); BUN/Creatinine Ratio 31; Blood Urea Nitrogen 22 mg/dL (9-20); Calcium 9.1 mg/dL (8.4-10.2); Hemolysis Index 3
[2020-10-03] MEDS ORDERED: REGADENOSON 0.4 MG/5 ML INJ IV ONE ×2 (07:13→11:26)
[2020-10-03] MEDS: INSULIN REGULAR, HUMAN 100 UNITS/1 ML SUB-Q SCH ×4 (07:59→21:30)
--- NOTE | 2020-10-03 09:28 | Nuclear Medicine Report ---
APPROVED REPORT Exam: Nuclear Stress Test Indication: Chest pain BMI: 0 Stress Test Details Stress Test: Pharmacologic stress testing performed using 0.4 mg of regadenoson per 5 mL given IV over 10 seconds. HR Resting HR: 69 bpm Max HR Achieved: 74 bpm Max Heart Rate (APMHR): 154 bpm Target HR (85% APMHR): 130 bpm % of APMHR: 48 Recovery HR: 82 bpm HR response to stress: Normal HR response to stress BP Resting BP: 122/69 mmHg Max BP: 131/88 mmHg Recovery BP: 124/66 mmHg BP response to stress: Normal blood pressure response to stress. ECG Resting ECG: Sinus Rhythm Stress ECG: Sinus Rhythm Clinical Reason for Termination: Completed protocol NM EXAM: Myocardial Perfusion REST/STRESS Imaging Protocol: Rest Tc-99m/Stress Tc-99m 1 day Resting Data Rest SPECT myocardial perfusion imaging was performed in supine position 45 minutes following the intravenous injection of 10 mCi of Tc-99m Myoview. Time of rest injection: 0640 Pharmacologic Stress Pharmacologic stress test was performed by injecting Regadenoson 0.4 mg IV push followed by the intravenous injection of 28 mCi of Tc-99m Myoview. Time of stress injection: 0812 Gated Stress SPECT was performed 30 minutes after stress injection. The images were gated to evaluate regional wall motion and calculate left ventricular ejection fraction. Study Quality Study: excellent Lung Uptake: Normal Study Data TID = 0.95. Perfusion Wall Motion The rest and stress images show normal left ventricular wall motion. Nuclear Conclusion ECG Findings: negative for ischemia Clinical Findings: negative for ischemia Nuclear Findings: negative for ischemia Exercise Capacity: not assessed Left Ventricular Function: normal Normal study. No scintigraphic evidence for myocardial ischemia or scar. Normal left ventricular size and function with no regional wall motion abnormalities.
[2020-10-03] MEDS: metFORMIN 500 MG TAB PO SCH (09:30)
[2020-10-03] MEDS: FAMOTIDINE 20 MG TAB PO SCH ×2 (10:22→21:31)
[2020-10-03] MEDS: glipiZIDE 5 MG TAB PO SCH (10:22)
[2020-10-03] MEDS: DICLOFENAC DR 75 MG TAB PO SCH (10:22)
--- NOTE | 2020-10-03 12:16 | Progress Note ---
Assessment and Plan Assessment and plan: 65 y/o Male patient presented to [facility] 1 week ago with complaints of acute onset arm and leg weakness. He has chronic left hemiparesis due to polio, but was ambulatory with a walker. He reports weakness, which equally affected both arms and legs since last Friday night. Upon arrival, a CT was performed, which was negative for acute changes. He was started on ASA and Plavix due to concern for CVA. MRI was negative for acute changes. Neurology was consulted, recommended MRI Cervical spine. Which was was performed 09/28/2020, revealing severe cord compression at C3-4 due to broad based disc osteophyte formation and thickened ligamentum flavum. There is focal T2 hyperintensity in the substance of the spinal cord at C3-4. Presently, he denies significant improvement in his symptoms. He is not presently able to walk. Possible C3-C4 ACDF on 10/05/2020. Cardiology cleared the patient for neurosurgical procedure, stress test done today is negative for reversible ischemia and preserved LV function. Assessment; --Negative stress test: Cleared by cardiology --Cervical spondylotic myelopathy --C3-4 cord compression --Quadriparesis with paresthesias --Hypertension --Diabetes mellitus type 2 --Osteoarthritis --DVT prophylaxis --obesity, BMI 32.7 --Full code status Plan; Neurology and neurosurgery evaluated the patient, --C3-C4 ACDF-[Anterior Cervical Discectomy and Fusion] on 10/05/2020 --Cardiology cleared for the procedure --N.p.o. midnight of 10/05/2020 --2 units platelet transfusion prior to the neurosurgical procedure --2 units platelet transfusion post neurosurgical procedure Type and cross, resolved 4 units of platelets. Check coag profile prior to surgical procedure --Pain management --IV fluids and supportive care --Diet as tolerated --Fall precautions/bedrest We will closely monitor the patient and adjust the management as needed Plan of care reviewed with the patient, family member at the bedside and his nurse I discussed with neurosurgeon Dr. Myers Brief history and daily hospital course: 65 y/o Male patient presented to [facility] 1 week ago with complaints of acute onset arm and leg weakness. He has chronic left hemiparesis due to polio, but was ambulatory with a walker. He reports weakness, which equally affected both arms and legs since last Friday night. Upon arrival, a CT was performed, which was negative for acute changes. He was started on ASA and Plavix due to concern for CVA. MRI was negative for acute changes. Neurology was consulted, recommended MRI Cervical spine. Which was was performed 09/28/2020, revealing severe cord compression at C3-4 due to broad based disc osteophyte formation and thickened ligamentum flavum. There is focal T2 hyperintensity in the substance of the spinal cord at C3-4. Presently, he denies significant improvement in his symptoms. He is not presently able to walk. He denies significant pain, but does endorse numnbess involving both hands. 09/24/20 Patient is 65 yo presented with right sided weakness. CT Head revealed infarct left basal ganglia. He was admitted with acute stroke. Patient started on Aspirin, Lipitor. MRI ordered, not done yet. Neurology consulted. F/U MRI Brain, CT Angio Head, CT Angio Neck 09/25/20. F/U CTA head and neck. PT/OT 09/26/20. MRI of brain negative. CT head and neck reveals occluded Left MCA M1 segment with collateralization. F/U ECHO. Cont. ASA and lipitor. PT recommends acute rehab 09/27/2020. Left ventricle mildly dilated. Left ventricular systolic function is moderately decreased. LVEF is 35 to 40%. Mild to moderate concentric left ventricular hypertrophy. Mild aortic stenosis. Carotid ultrasound negative. Await rehab placement. 09/28/2020. Neurology recommends b12, tsh, rpr, ck, esr, crp, mri cervical spine w/ wo contrast. Consider transfer to hospital with bedside neurology 09/29/2020. MRI cervical spine reveals significant degenerative changes of the cervical spine involving C3-C4 through C5-C6. There appears to be cord impingement at C3-C4. 09/30/2020. MRI C-spine no severe C-spine stenosis especially at C3-C4 level with mild cord edema. Continue Decadron 4 mg IV every 6 hours. Neurosurgery consultation. Patient with elevated BG given the addition of steroids. We will start Lantus 8 units at bedtime. SSRI and Accu-Cheks 10/01/2020. MRI of thoracic and lumbar spine without contrast pending per surg harini recommendations. Continue to hold aspirin. Cardiology consultation for cardiac clearance prior to surgery. 10/02/2020. Follow-up MRI of thoracic and lumbar spine without contrast. Continue to hold aspirin. Cardiology consultation for cardiac clearance prior to surgery. Neurosurgery following and plans for surgical intervention later this week. Continue Decadron. 10/03/2020; neurosurgery scheduled for C3-C4 Anterior Cervical Discectomy and Fusion [C3-C4 ACDF] on 10/05/2020, arrangements made for 2 units of platelet transfusion prior to surgery on 10/05/2020, and 2 units platelet transfusion post surgery.Patient will be n.p.o. midnight 10/05/2020, will check coags on the day of surgery Plan of care reviewed with the patient, family member at the bedside and his nurse. I discussed with neurosurgeon Dr. Myers History Interval history: I have seen and examined the patient at the bedside Patient's chart and medications reviewed Patient complains of some pain in the neck Complains of generalized weakness, mild distress Schedule for anterior cervical discectomy and fusion C3-C4 on 10/05/2020 Platelet transfusion prior to and after surgery on 10/05/2020. Closely monitor the patient and adjust management as needed Hospitalist Physical - Constitutional Vitals: Temp Pulse Resp BP Pulse Ox 98.3 F 78 17 131/75 98 10/03/20 03:11 10/03/20 10:00 10/03/20 10:00 10/03/20 08:20 10/03/20 10:00 General appearance: Present: mild distress, well-nourished, obese, other (feels slightly better, still has pain in the neck) - EENT Eyes: Present: PERRL, EOM intact - Neck Neck: Present: supple, other (Some pain) - Respiratory Respiratory effort: normal Respiratory: bilateral: diminished, negative: rales, rhonchi, wheezing - Cardiovascular Rhythm: regular Heart Sounds: Present: S1 & S2 - Extremities Extremities: no ischemia, No edema - Abdominal General gastrointestinal: soft, non-tender, non-distended, normal bowel sounds - Integumentary Integumentary: Present: clear, warm - Psychiatric Psychiatric: appropriate mood/affect, cooperative - Neurologic Neurologic: moves all extremities HEART Score - HEART Score Troponin: Troponin T < 0.010 ng/mL (0.00-0.029) 10/03/20 04:42 Results - Labs CBC & Chem 7: 10/03/20 04:42 10/03/20 04:42 Labs: Laboratory Last Values WBC 8.0 K/mm3 (4.5-11.0) 10/03/20 04:42 RBC 4.39 M/mm3 (3.65-5.03) 10/03/20 04:42 Hgb 12.6 gm/dl (11.8-15.2) 10/03/20 04:42 Hct 37.8 % (35.5-45.6) 10/03/20 04:42 MCV 86 fl (84-94) 10/03/20 04:42 MCH 29 pg (28-32) 10/03/20 04:42 MCHC 33 % (32-34) 10/03/20 04:42 RDW 14.0 % (13.2-15.2) 10/03/20 04:42 Plt Count 325 K/mm3 (140-440) 10/03/20 04:42 Lymph % (Auto) 9.5 % (13.4-35.0) L 10/03/20 04:42 [place] % (Auto) 7.8 % (0.0-7.3) H 10/03/20 04:42 Eos % (Auto) 0.0 % (0.0-4.3) 10/03/20 04:42 Baso % (Auto) 0.1 % (0.0-1.8) 10/03/20 04:42 Lymph # (Auto) 0.8 K/mm3 (1.2-5.4) L 10/03/20 04:42 [place] # (Auto) 0.6 K/mm3 (0.0-0.8) 10/03/20 04:42 Eos # (Auto) 0.0 K/mm3 (0.0-0.4) 10/03/20 04:42 Baso # (Auto) 0.0 K/mm3 (0.0-0.1) 10/03/20 04:42 Seg Neutrophils % 82.6 % (40.0-70.0) H 10/03/20 04:42 Seg Neutrophils # 6.6 K/mm3 (1.8-7.7) 10/03/20 04:42 Sodium 134 mmol/L (137-145) L 10/03/20 04:42 Potassium 4.0 mmol/L (3.6-5.0) 10/03/20 04:42 Chloride 99.1 mmol/L (98-107) 10/03/20 04:42 Carbon Dioxide 24 mmol/L (22-30) 10/03/20 04:42 Anion Gap 15 mmol/L 10/03/20 04:42 BUN 22 mg/dL (9-20) H 10/03/20 04:42 Creatinine 0.7 mg/dL (0.8-1.3) L 10/03/20 04:42 Estimated GFR > 60 ml/min 10/03/20 04:42 BUN/Creatinine Ratio 31 % 10/03/20 04:42 Glucose 165 mg/dL (75-100) H 10/03/20 04:42 POC Glucose 276 mg/dL (70-105) H 10/03/20 11:55 Hemoglobin A1c 7.6 % (4-6) H 09/24/20 05:49 Calcium 9.1 mg/dL (8.4-10.2) 10/03/20 04:42 Total Bilirubin 0.30 mg/dL (0.1-1.2) 10/03/20 04:42 Direct Bilirubin < 0.2 mg/dL (0-0.2) 09/23/20 12:11 Indirect Bilirubin 0.3 mg/dL 09/23/20 12:11 AST 17 units/L (5-40) 10/03/20 04:42 ALT 24 units/L (7-56) 10/03/20 04:42 Alkaline Phosphatase 65 units/L (35-129) 10/03/20 04:42 Total Creatine Kinase 2477 units/L (55-170) H 09/28/20 08:42 Troponin T < 0.010 ng/mL (0.00-0.029) 10/03/20 04:42 C-Reactive Protein 2.40 mg/dL (0.00-1.30) H 09/28/20 08:42 Total Protein 6.4 g/dL (6.3-8.2) 10/03/20 04:42 Albumin 3.3 g/dL (3.9-5) L 10/03/20 04:42 Albumin/Globulin Ratio 1.1 % 10/03/20 04:42 Triglycerides 83 mg/dL (2-149) 09/25/20 04:49 Cholesterol 177 mg/dL (50-199) 09/25/20 04:49 LDL Cholesterol Direct 126 mg/dL (50-130) 09/25/20 04:49 HDL Cholesterol 50 mg/dL (40-59) 09/25/20 04:49 Cholesterol/HDL Ratio 3.54 % 09/25/20 04:49 Vitamin B12 400.3 pg/mL (211-911) 09/28/20 08:42 TSH 1.380 mlU/mL (0.270-4.200) 09/28/20 08:42 Urine Color Yellow (Yellow) 09/23/20 12:14 Urine Turbidity Clear (Clear) 09/23/20 12:14 Urine pH 6.0 (5.0-7.0) 09/23/20 12:14 Ur Specific [place] 1.020 (1.003-1.030) 09/23/20 12:14 Urine Protein 30 mg/dl mg/dL (Negative) 09/23/20 12:14 Urine Glucose (UA) Neg mg/dL (Negative) 09/23/20 12:14 Urine Ketones Neg mg/dL (Negative) 09/23/20 12:14 Urine Blood Neg (Negative) 09/23/20 12:14 Urine Nitrite Neg (Negative) 09/23/20 12:14 Urine Bilirubin Neg (Negative) 09/23/20 12:14 Urine Urobilinogen 4.0 mg/dL (<2.0) 09/23/20 12:14 Ur Leukocyte Esterase Neg (Negative) 09/23/20 12:14 Urine WBC (Auto) 1.0 /HPF (0.0-6.0) 09/23/20 12:14 Urine RBC (Auto) 3.0 /HPF (0.0-6.0) 09/23/20 12:14 U Epithel Cells (Auto) < 1.0 /HPF (0-13.0) 09/23/20 12:14 Urine Mucus Few /HPF 09/23/20 12:14 Coronavirus (PCR) Negative (Negative) 09/25/20 Unknown Riley/IV: Voiding Method Urinal Active Medications - Current Medications Current Medications: Generic Name Dose Route Start Last Admin Trade Name Freq PRN Reason Stop Dose Admin Hydrocodone Bitart/Acetaminophen 1 each 09/24/20 00:38 10/02/20 13:42 Hydrocodone/Acetaminophen 5-325 Mg Tab PO 1 each Q6HR PRN Administration Pain , Severe (7-10) Atorvastatin Calcium 40 mg 09/24/20 22:00 10/02/20 22:17 Atorvastatin 40 Mg Tab PO 40 mg QHS FLAQUITO Administration Dexamethasone 4 mg 09/29/20 12:00 10/03/20 06:24 Dexamethasone 4 Mg/Ml Vial IV 4 mg Q6HR FLAQUITO Administration Dextrose 50 ml 09/30/20 10:26 Dextrose 50% In Water (25gm) 50 Ml Syringe IV Q30MIN PRN Hypoglycemia Protocol Diclofenac Sodium 75 mg 09/24/20 10:00 10/03/20 10:[address] 75 Mg Tab PO 75 mg QDAY FLAQUITO Administration Famotidine 20 mg 09/25/20 10:00 10/03/20 10:22 Famotidine 20 Mg Tab PO 20 mg BID FLAQUITO Administration Glipizide 5 mg 10/04/20 08:00 Glipizide 5 Mg Tab PO QDDIAB [facility]O Hydromorphone HCl 0.5 mg 09/24/20 00:53 Hydromorphone 1 Mg/1 Ml Inj IV Q3H PRN Pain , Severe (7-10) Sodium Chloride 1,000 mls @ 42 mls/hr 09/24/20 01:00 10/02/20 05:15 Nacl 0.9% 1000 Ml IV 42 mls/hr DIRECT F[facility]QUITO Administration Ibuprofen 600 mg 09/24/20 00:53 Ibuprofen 600 Mg Tab PO Q6H PRN Pain, Mild (1-3) Insulin Glargine 8 units 09/30/20 22:00 10/02/20 22:16 Insulin Glargine 100 Units/Ml SUB-Q 8 units QHS [facility]O Administration Insulin Human Regular 0 units 09/30/20 11:30 10/03/20 07:59 Insulin Regular, Human 100 Units/1 Ml SUB-Q Not Given ACHS [facility] Protocol Metformin HCl 1,000 mg 10/02/20 11:30 10/03/20 09:30 Metformin 500 Mg Tab PO 1,000 mg QDDIAB F[facility]QU[facility]O Administration Metoclopramide HCl 10 mg 09/24/20 00:53 Metoclopramide 10 Mg/2 Ml Inj IV Q6H PRN Nausea And Vomiting Metoprolol Tartrate 12.5 mg 10/03/20 12:00 Metoprolol Tartrate 25 Mg Tab PO BID FLAQUITO Ondansetron HCl 4 mg 09/24/20 00:53 Ondansetron 4 Mg/2 Ml Inj IV Q8H PRN Nausea And Vomiting Oxycodone/Acetaminophen 1 tab 09/24/20 00:53 09/27/20 00:25 Oxycodone /Acetaminophen 5-325mg Tab PO 1 tab Q6H PRN Administration Pain, Moderate (4-6) Sodium Chloride 10 ml 09/24/20 10:00 10/03/20 10:23 Sodium Chloride 0.9% 10 Ml Flush Syringe IV 10 ml BID FLAQUITO Administration Sodium Chloride 10 ml 09/24/20 00:53 10/03/20 06:24 Sodium Chloride 0.9% 10 Ml Flush Syringe IV 10 ml PRN PRN Administration LINE FLUSH Nutrition/Malnutrition Assess - Dietary Evaluation Nutrition/Malnutrition Findings: Nutrition Notes Start: 09/29/20 12:29 Freq: Status: Active Protocol: Document 09/29/20 12:29 LM (Rec: 09/29/20 12:30 LM [id number]) Nutrition Notes Need for Assessment generated from: LOS Initial or Follow up Brief Note Subjective/Other Information Screen for LOS. Pt with 100% intakes per EMR. Nutrition Intervention Revisit per MD consult or patient Sign Off request:
[2020-10-03] MEDS: METOPROLOL TARTRATE 25 MG TAB PO SCH ×2 (12:30→21:30)
--- NOTE | 2020-10-03 12:56 | Progress Note ---
Assessment and Plan CAD s/p CABG (SVG to RCA) in setting of severe cardiomyopathy * Patient is currently chest pain-free with no cardiac complaints. 12 Lead ECG shows no acute ischemic changes. Troponin is negativ x 3. AMI is ruled out. * Echocardiogram reviewed (09/24/2020): LVEF is 35 to 40%. LV is mildly dilated. LVSF is moderately decreased. Moderate LVH. Right ventricle is hypokinetic and mildly dilated. Left atrium is mildly dilated. Right atrium is mildly dilated. Bioprosthetic Aortic Valve in place. Mild aortic stenosis with mean transaortic gradient of 9.8. Trace AR. Mild TR. * Recommend GDMT as tolerated. No aspirin pending planned procedure . Continue atorvastatin 40. Initiate metoprolol XL 12.5 mg daily. Initiate lisinopril 2.5 mg daily. * Lexiscan MPI stress test is negative for reversible ischemia Hx of Severe Aortic Stenosis s/p Julius-[place]on[place] Magna Valve repair * Aortic gradient is normal for bioprosthetic valve per echocardiogram. Severe Spinal Cord Compression * C3-4 ACDF planned for 10/04/20 per neurosx. DVT prophylaxis * Mgmt per primary team Surgical risk was assessed using Revised Cardiac Risk Index. Due to history of Congestive Heart Failure and preoperative treatment with insulin, patient is considered a class III surgical risk which represents a 10.1% 30-day risk of , [place], cardiac arrest. Patient should follow-up with Dr Sanon, [facility] heart specialists within 1 to 2 weeks of discharge. #[id number] This patient was seen in conjunction with Dr Sanon who agrees with this assessment and plan of care Subjective Date of service: 10/03/20 Principal diagnosis: Weakness Interval history: Patient resting comfortably in bed. No chest pain or shortness of breath overnight. Telemetry reviewed: Sinus rhythm 95. No events Objective Last Vital Signs Temp 98.3 F 10/03/20 11:56 Pulse 81 10/03/20 12:30 Resp 18 10/03/20 11:56 BP 132/83 10/03/20 12:30 Pulse Ox 96 10/03/20 11:56 - Physical Examination General: No Apparent Distress HEENT: Positive: PERRL, Normocephaly, Mucus Membranes Moist Neck: Positive: neck supple, trachea midline Cardiac: Positive: Reg Rate and Rhythm, S1/S2 Lungs: Positive: Normal Breath Sounds Neuro: Positive: Other (See HPI) Abdomen: Positive: Unremarkable, Soft Skin: Negative: Rash, Wound Musculoskeletal: No Pain Extremities: Present: upper extr. pulses, lower extr. pulses. Absent: edema - Labs and Meds Cardiac Enzymes 10/03/20 Range/Units 04:42 AST 17 (5-40) units/L CBC 10/03/20 Range/Units 04:42 WBC 8.0 (4.5-11.0) K/mm3 RBC 4.39 (3.65-5.03) M/mm3 Hgb 12.6 (11.8-15.2) gm/dl Hct 37.8 (35.5-45.6) % Plt Count 325 (140-440) K/mm3 Lymph # (Auto) 0.8 L (1.2-5.4) K/mm3 [place] # (Auto) 0.6 (0.0-0.8) K/mm3 Eos # (Auto) 0.0 (0.0-0.4) K/mm3 Baso # (Auto) 0.0 (0.0-0.1) K/mm3 Comprehensive Metabolic Panel 10/03/20 Range/Units 04:42 Sodium 134 L (137-145) mmol/L Potassium 4.0 (3.6-5.0) mmol/L Chloride 99.1 (98-107) mmol/L Carbon Dioxide 24 (22-30) mmol/L BUN 22 H (9-20) mg/dL Creatinine 0.7 L (0.8-1.3) mg/dL Glucose 165 H (75-100) mg/dL Calcium 9.1 (8.4-10.2) mg/dL AST 17 (5-40) units/L ALT 24 (7-56) units/L Alkaline Phosphatase 65 (35-129) units/L Total Protein 6.4 (6.3-8.2) g/dL Albumin 3.3 L (3.9-5) g/dL - Imaging and Cardiology EKG: report reviewed, image reviewed Pharmacologic stress test: report reviewed (Lexiscan MPI stress test (10/03/2020): Negative for reversible ischemia) Echo: report reviewed (Echocardiogram reviewed (09/24/2020): LVEF is 35 to 40%. LV is mildly dilated. LV SF is moderately decreased. Moderate LVH. Right ventricle is hypokinetic and mildly dilated. Left atrium is mildly dilated. Right atrium is mildly dilated. Mild aortic stenosis with mean transaortic gradient of 9) - Telemetry EKG Rhythm: Sinus Rhythm - EKG Sinus rhythms and dysrhythmias: sinus rhythm
[2020-10-03] MEDS ORDERED: SODIUM CHLORIDE 0.9% 500 ML 500 ML IV NR (15:22)
[2020-10-03] MEDS: INSULIN GLARGINE 100 UNITS/ML SUB-Q SCH (21:35)
[2020-10-04] MEDS: dexAMETHasone 4 MG/ML VIAL IV SCH ×4 (00:25→17:46)
[2020-10-04 03:52] LABS: INR 0.94 (0.87-1.13)
[2020-10-04 03:53] LABS: Partial Thromboplastin Time 29.9 Sec. (24.2-36.6)
[2020-10-04 03:57] LABS: Basophils % (Auto) 0.1 % (0.0-1.8); Eosinophils % (Auto) 0.1 % (0.0-4.3); Hematocrit 38.3 % (35.5-45.6); Lymphocytes # (Auto) 0.9 K/mm3 (1.2-5.4); Lymphocytes % (Auto) 10.8 % (13.4-35.0); Mean Corpuscular HGB Conc 34 % (32-34); Mean Corpuscular Volume 87 fl (84-94); Monocytes # (Auto) 0.7 K/mm3 (0.0-0.8); Monocytes % (Auto) 7.5 % (0.0-7.3); Platelet Count 318 K/mm3 (140-440); Red Blood Count 4.41 M/mm3 (3.65-5.03); Red Cell Distribution Width 13.7 % (13.2-15.2)
[2020-10-04 04:00] LABS: BUN/Creatinine Ratio 29; Blood Urea Nitrogen 23 mg/dL (9-20); Calcium 8.6 mg/dL (8.4-10.2); Hemolysis Index 6
[2020-10-04] MEDS: INSULIN REGULAR, HUMAN 100 UNITS/1 ML SUB-Q SCH ×4 (07:10→21:54)
--- NOTE | 2020-10-04 07:13 | Anesthesia Day of Surgery ---
Anesthesia Day of Surgery - Day of Surgery Patient Examined: Yes Patient H&P Reviewed: Yes Patient is NPO: Yes
--- NOTE | 2020-10-04 07:16 | Anesthesia Consultation ---
Anesthesia Consult and Med Hx Date of service: 10/04/20 - Airway Anesthetic Teeth Evaluation: Edentulous ROM Head & Neck: Adequate Mental/Hyoid Distance: Adequate Mallampati Class: Class II Intubation Access Assessment: Good - Pre-Operative Health Status ASA Pre-Surgery Classification: ASA3 Proposed Anesthetic Plan: General - Cardiovascular System Hx Hypertension: Yes (+Cardiac clearance) Hx Coronary Artery Disease: Yes - Central Nervous System Hx Neuromuscular Disorder: Yes ([place]) CVA: Yes - Endocrine Hx Non-Insulin Dependent Diabetes: Yes - Hematic Hx Sickle Cell Disease: No - Other Systems Hx Cancer: No Hx Obesity: Yes - Additional Comments Anesthesia Medical History Comments: From wagon person: "CAD s/p CABG (SVG to RCA) in setting of severe cardiomyopathy. Patient is currently chest pain-free with no cardiac complaints. 12 Lead ECG shows no acute ischemic changes. Troponin is negativ x 3. AMI is ruled out. Echocardiogram reviewed (09/24/2020): LVEF is 35 to 40%. LV is mildly dilated. LVSF is moderately decreased. Moderate LVH. Right ventricle is hypokinetic and mildly dilated. Left atrium is mildly dilated. Right atrium is mildly dilated. Bioprosthetic Aortic Valve in place. Mild aortic stenosis with mean transaortic gradient of 9.8. Trace AR. Mild TR. Recommend GDMT as tolerated. No aspirin pending planned procedure . Continue atorvastatin 40. Initiate metoprolol XL 12.5 mg daily. I nitiate lisinopril 2.5 mg daily. Lexiscan MPI stress test is negative for reversible ischemia. Hx of Severe Aortic Stenosis s/p Julius-[place] Magna Valve repair. Aortic gradient is normal for bioprosthetic valve per echocardiogram. Severe Spinal Cord Compression. C3-4 ACDF planned for 10/04/20 per neurosx. DVT prophylaxis. Mgmt per primary team. Surgical risk was assessed using Revised Cardiac Risk Index. Due to history of Congestive Heart Failure and preoperative treatment with insulin, patient is considered a class III surgical risk which represents a 10.1% 30-day risk of , [place], cardiac arrest. Patient should follow-up with Dr Sanon, [facility] heart specialists within 1 to 2 weeks of discharge. "
[2020-10-04] MEDS ORDERED: MAGNESIUM SULFATE 4 GM/100 ML BAG IV ONE (07:20)
[2020-10-04] MEDS ORDERED: PHENYLEPHRINE/NS 1,000 MCG/10 ML SYRINGE (OR USE) IV ONE (07:30)
[2020-10-04] MEDS ORDERED: ROCURONIUM 50 MG/5 ML INJ IV ONE (07:30)
[2020-10-04] MEDS ORDERED: LIDOCAINE PF 100 MG/5 ML (CARDIAC SYRINGE) IV ONE (07:30)
[2020-10-04] MEDS ORDERED: ONDANSETRON 4 MG/2 ML INJ IV PRN (07:30)
[2020-10-04] MEDS ORDERED: SUCCINYLCHOLINE CHLORIDE 200 MG/10 ML INJ MDV ONE (07:30)
[2020-10-04] MEDS ORDERED: ACETAMINOPHEN 325 MG TAB ONE ×2 (07:30)
[2020-10-04] MEDS ORDERED: ACETAMINOPHEN 325 MG TAB PO SCH (07:30)
[2020-10-04] MEDS ORDERED: ONDANSETRON 4 MG/2 ML INJ ONE (07:30)
[2020-10-04] MEDS ORDERED: GLYCOPYRROLATE 0.4 MG/2 ML INJ ONE (07:30)
[2020-10-04] MEDS ORDERED: HYDROmorphone 1 MG/1 ML INJ IV PRN ×2 (07:30)
[2020-10-04] MEDS ORDERED: NEOSTIGMINE 10MG/10 ML INJ MDV ONE (07:30)
[2020-10-04] MEDS ORDERED: BUPIVACAINE/PF (0.5%) 5 MG/1 ML 10 ML VIAL INFILTRATI ONE (07:30)
[2020-10-04] MEDS ORDERED: KETAMINE/STERILE WATER 50 MG/ML SYRINGE ONE (07:30)
[2020-10-04] MEDS ORDERED: LIDOCAINE 1%/EPINEPHRINE 1:100,000 VIAL (20 ML) INFILTRATI ONE ×2 (07:30→09:09)
[2020-10-04] MEDS ORDERED: ceFAZolin/Water 2 GM/20 ML 2 GM/20 ML SYRINGE IV ONE (07:54)
[2020-10-04] MEDS ORDERED: CARISOPRODOL 350 MG TAB PO SCH ×2 (08:00→10:00)
[2020-10-04] MEDS: glipiZIDE 5 MG TAB PO SCH (08:20)
[2020-10-04] MEDS ORDERED: ceFAZolin/STERILE WATER 2 GM/20 ML SYRINGE IV NR (08:30)
[2020-10-04] MEDS ORDERED: ceFAZolin 1 GM VIAL IV ONE ×2 (09:22)
[2020-10-04] MEDS ORDERED: SODIUM CHLORIDE 0.9% IRR 1,500 ML BOTTLE IR ONE ×2 (09:22)
[2020-10-04] MEDS ORDERED: THROMBIN (RECOMBINANT) 5,000 UNIT VIAL TP ONE (09:50)
[2020-10-04] MEDS ORDERED: GELATIN SPONGE SIZE 100 TP ONE ×2 (09:50)
[2020-10-04] MEDS ORDERED: BUPIVACAINE/PF (0.5%) 5 MG/1 ML 30 ML VIAL INFILTRATI ONE ×2 (10:31)
--- NOTE | 2020-10-04 10:49 | Post Operative Note ---
Pre-op diagnosis: Cervical myelopathy Post-op diagnosis: same Findings: C3-4 subligamentous disc herniation Procedure: C3-4 ACDF Anesthesia: GETA Surgeon: OSMANY BUTCHER II Estimated blood loss: minimal Pathology: none Specimen disposition: discarded Condition: stable Disposition: PACU
[2020-10-04] MEDS: FAMOTIDINE 20 MG TAB PO SCH ×2 (11:00→21:52)
[2020-10-04] MEDS: DICLOFENAC DR 75 MG TAB PO SCH (11:00)
[2020-10-04] MEDS: LISINOPRIL 5 MG TAB PO SCH (11:00)
[2020-10-04] MEDS: METOPROLOL TARTRATE 25 MG TAB PO SCH ×2 (11:00→21:53)
[2020-10-04] MEDS ORDERED: ceFAZolin/Water 2 GM/20 ML 2 GM/20 ML SYRINGE IV SCH (12:15)
[2020-10-04] MEDS ORDERED: SODIUM CHLORIDE 0.9% 500 ML 500 ML IV NR (12:30)
--- NOTE | 2020-10-04 12:51 | Progress Note ---
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 Physical therapy occupational therapy per instructions. Patient received 2 units platelets prior to surgery We will try to transfuse 2 units of platelets post surgery As recommended by neurosurgeon Dr. Myers --Hypertension; moderate control Continue current antihypertensives --Type 2 diabetes mellitus; Accu-Chek sliding scale coverage ADA diet Insulin as needed --DVT prophylaxis; SCD No pharmacologic anticoagulation at this point Postop state --Obesity BMI 32.7 patient may need weight reduction when medically stable Closely monitor the patient and adjust the management as needed Plan of care reviewed with patient's nurse, I discussed with the family member at the bedside. Physical therapy occupational therapy Brief history and daily hospital course: 65 y/o Male [facility] with complaints of acute onset arm and leg weakness. He has chronic left hemiparesis due to polio, but was ambulatory with a walker. He reports weakness, which equally affected both arms and legs since last Friday night. Upon arrival, a CT was performed, which was negative for acute changes. He was started on ASA and Plavix due to concern for CVA. MRI was negative for acute changes. Neurology was consulted, recommended MRI Cervical spine. Which was was performed 09/28/2020, revealing severe cord compression at C3-4 due to broad based disc osteophyte formation and thickened ligamentum flavum. There is focal T2 hyperintensity in the substance of the spinal cord at C3-4. Presently, he denies significant improvement in his symptoms. He is not presently able to walk. Neurosurgeon evaluated s/p C3-C4 ACDF on 10/04/2020. Patient tolerated the procedure well. Postop care per neurosurgery 09/24/20 Patient is 65 yo presented with right sided weakness. CT Head revealed infarct left basal ganglia. He was admitted with acute stroke. Patient started on Aspirin, Lipitor. MRI ordered, not done yet. Neurology consulted. F/U MRI Brain, CT Angio Head, CT Angio Neck 09/25/20. F/U CTA head and neck. PT/OT 09/26/20. MRI of brain negative. CT head and neck reveals occluded Left MCA M1 segment with collateralization. F/U ECHO. Cont. ASA and lipitor. PT recommends acute rehab 09/27/2020. Left ventricle mildly dilated. Left ventricular systolic function is moderately decreased. LVEF is 35 to 40%. Mild to moderate concentric left ventricular hypertrophy. Mild aortic stenosis. Carotid ultrasound negative. Await rehab placement. 09/28/2020. Neurology recommends b12, tsh, rpr, ck, esr, crp, mri cervical spine w/ wo contrast. Consider transfer to hospital with bedside neurology 09/29/2020. MRI cervical spine reveals significant degenerative changes of the cervical spine involving C3-C4 through C5-C6. There appears to be cord impingement at C3-C4. 09/30/2020. MRI C-spine no severe C-spine stenosis especially at C3-C4 level with mild cord edema. Continue Decadron 4 mg IV every 6 hours. Neurosurgery consultation. Patient with elevated BG given the addition of steroids. We will start Lantus 8 units at bedtime. SSRI and Accu-Cheks 10/01/2020. MRI of thoracic and lumbar spine without contrast pending per surgery recommendations. Continue to hold aspirin. Cardiology consultation for cardiac clearance prior to surgery. 10/02/2020. Follow-up MRI of thoracic and lumbar spine without contrast. Continue to hold aspirin. Cardiology consultation for cardiac clearance prior to surgery. Neurosurgery following and plans for surgical intervention later this week. Continue Decadron. 10/03/2020; neurosurgery scheduled for C3-C4 Anterior Cervical Discectomy and Fusion [C3-C4 ACDF] on 10/05/2020, arrangements made for 2 units of platelet transfusion prior to surgery on 10/05/2020, and 2 units platelet trans fusion post surgery.Patient will be n.p.o. midnight 10/05/2020, will check coags on the day of surgery Plan of care reviewed with the patient, family member at the bedside and his nurse. I discussed with neurosurgeon Dr. Myers 10/04/2020; patient underwent C3-C4 ACDF surgery today. Tolerated the procedure well, postop care per neurosurgery History Interval history: I have seen and examined the patient at the bedside, patient's at the bedside Patient's chart and medications reviewed Patient had cervical spondylotic myelopathy/C3-C4 cord compression with quadriparesis, neurosurgeon evaluated the patient, patient had C3-C4 ACDF surgical procedure today Received 2 units of platelets prior to surgery to reduce the antiplatelet effect of aspirin which patient received a few days prior to surgery. Patient has cervical collar Complains of some pain at the surgical site and back Vital signs noted Hospitalist Physical - Constitutional Vitals: Temp Pulse Resp BP Pulse Ox 97.3 F L 52 L 17 115/63 99 10/04/20 10:52 10/04/20 12:00 10/04/20 12:00 10/04/20 12:00 10/04/20 12:00 General appearance: Present: mild distress, well-nourished, obese, other (feels slightly better, still has pain in the neck) - EENT Eyes: Present: PERRL, EOM intact - Neck Neck: Present: other (Cervical collar in place) - Respiratory Respiratory effort: normal, pursed lips Respiratory: bilateral: diminished, negative: rales, rhonchi, wheezing - Cardiovascular Rhythm: regular Heart Sounds: Present: S1 & S2 - Extremities Extremities: no ischemia, No edema - Abdominal General gastrointestinal: soft, non-tender, non-distended, normal bowel sounds - Integumentary Integumentary: Present: clear, warm - Psychiatric Psychiatric: appropriate mood/affect, cooperative - Neurologic Neurologic: moves all extremities HEART Score - HEART Score Troponin: Troponin T < 0.010 ng/mL (0.00-0.029) 10/03/20 04:42 Results - Labs CBC & Chem 7: 10/04/20 03:07 10/04/20 03:07 Labs: Laboratory Last Values WBC 8.7 K/mm3 (4.5-11.0) 10/04/20 03:07 RBC 4.41 M/mm3 (3.65-5.03) 10/04/20 03:07 Hgb 13.0 gm/dl (11.8-15.2) 10/04/20 03:07 Hct 38.3 % (35.5-45.6) 10/04/20 03:07 MCV 87 fl (84-94) 10/04/20 03:07 MCH 29 pg (28-32) 10/04/20 03:07 MCHC 34 % (32-34) 10/04/20 03:07 RDW 13.7 % (13.2-15.2) 10/04/20 03:07 Plt Count 318 K/mm3 (140-440) 10/04/20 03:07 Lymph % (Auto) 10.8 % (13.4-35.0) L 10/04/20 03:07 [place] % (Auto) 7.5 % (0.0-7.3) H 10/04/20 03:07 Eos % (Auto) 0.1 % (0.0-4.3) 10/04/20 03:07 Baso % (Auto) 0.1 % (0.0-1.8) 10/04/20 03:07 Lymph # (Auto) 0.9 K/mm3 (1.2-5.4) L 10/04/20 03:07 [place] # (Auto) 0.7 K/mm3 (0.0-0.8) 10/04/20 03:07 Eos # (Auto) 0.0 K/mm3 (0.0-0.4) 10/04/20 03:07 Baso # (Auto) 0.0 K/mm3 (0.0-0.1) 10/04/20 03:07 Seg Neutrophils % 81.5 % (40.0-70.0) H 10/04/20 03:07 Seg Neutrophils # 7.1 K/mm3 (1.8-7.7) 10/04/20 03:07 PT 13.2 Sec. (12.2-14.9) 10/04/20 03:07 INR 0.94 (0.87-1.13) 10/04/20 03:07 APTT 29.9 Sec. (24.2-36.6) 10/04/20 03:07 Sodium 131 mmol/L (137-145) L 10/04/20 03:07 Potassium 3.9 mmol/L (3.6-5.0) 10/04/20 03:07 Chloride 98.1 mmol/L (98-107) 10/04/20 03:07 Carbon Dioxide 25 mmol/L (22-30) 10/04/20 03:07 Anion Gap 12 mmol/L 10/04/20 03:07 BUN 23 mg/dL (9-20) H 10/04/20 03:07 Creatinine 0.8 mg/dL (0.8-1.3) 10/04/20 03:07 Estimated GFR > 60 ml/min 10/04/20 03:07 BUN/Creatinine Ratio 29 % 10/04/20 03:07 Glucose 173 mg/dL (75-100) H 10/04/20 03:07 POC Glucose 138 mg/dL (70-105) H 10/04/20 11:20 Hemoglobin A1c 7.6 % (4-6) H 09/24/20 05:49 Calcium 8.6 mg/dL (8.4-10.2) 10/04/20 03:07 Phosphorus 2.60 mg/dL (2.5-4.5) 10/04/20 03:07 Magnesium 1.80 mg/dL (1.7-2.3) 10/04/20 03:07 Total Bilirubin 0.30 mg/dL (0.1-1.2) 10/03/20 04:42 Direct Bilirubin < 0.2 mg/dL (0-0.2) 09/23/20 12:11 Indirect Bilirubin 0.3 mg/dL 09/23/20 12:11 AST 17 units/L (5-40) 10/03/20 04:42 ALT 24 units/L (7-56) 10/03/20 04:42 Alkaline Phosphatase 65 units/L (35-129) 10/03/20 04:42 Total Creatine Kinase 2477 units/L (55-170) H 09/28/20 08:42 Troponin T < 0.010 ng/mL (0.00-0.029) 10/03/20 04:42 C-Reactive Protein 2.40 mg/dL (0.00-1.30) H 09/28/20 08:42 Total Protein 6.4 g/dL (6.3-8.2) 10/03/20 04:42 Albumin 3.3 g/dL (3.9-5) L 10/03/20 04:42 Albumin/Globulin Ratio 1.1 % 10/03/20 04:42 Triglycerides 83 mg/dL (2-149) 09/25/20 04:49 Cholesterol 177 mg/dL (50-199) 09/25/20 04:49 LDL Cholesterol Direct 126 mg/dL (50-130) 09/25/20 04:49 HDL Cholesterol 50 mg/dL (40-59) 09/25/20 04:49 Cholesterol/HDL Ratio 3.54 % 09/25/20 04:49 Vitamin B12 400.3 pg/mL (211-911) 09/28/20 08:42 TSH 1.380 mlU/mL (0.270-4.200) 09/28/20 08:42 Urine Color Yellow (Yellow) 09/23/20 12:14 Urine Turbidity Clear (Clear) 09/23/20 12:14 Urine pH 6.0 (5.0-7.0) 09/23/20 12:14 Ur Specific [place] 1.020 (1.003-1.030) 09/23/20 12:14 Urine Protein 30 mg/dl mg/dL (Negative) 09/23/20 12:14 Urine Glucose (UA) Neg mg/dL (Negative) 09/23/20 12:14 Urine Ketones Neg mg/dL (Negative) 09/23/20 12:14 Urine Blood Neg (Negative) 09/23/20 12:14 Urine Nitrite Neg (Negative) 09/23/20 12:14 Urine Bilirubin Neg (Negative) 09/23/20 12:14 Urine Urobilinogen 4.0 mg/dL (<2.0) 09/23/20 12:14 Ur Leukocyte Esterase Neg (Negative) 09/23/20 12:14 Urine WBC (Auto) 1.0 /HPF (0.0-6.0) 09/23/20 12:14 Urine RBC (Auto) 3.0 /HPF (0.0-6.0) 09/23/20 12:14 U Epithel Cells (Auto) < 1.0 /HPF (0-13.0) 09/23/20 12:14 Urine Mucus Few /HPF 09/23/20 12:14 Coronavirus (PCR) Negative (Negative) 09/25/20 Unknown Blood Type AB POSITIVE 10/03/20 18:00 Antibody Screen Negative 10/03/20 18:00 Riley/IV: Voiding Method Urinal Active Medications - Current Medications Current Medications: Generic Name Dose Route Start Last Admin Trade Name Freq PRN Reason Stop Dose Admin Acetaminophen 650 mg 10/04/20 07:30 10/04/20 07:31 Acetaminophen 325 Mg Tab PO 10/04/20 21:00 650 mg ONCE FLAQUITO Administration Hydrocodone Bitart/Acetaminophen 1 each 09/24/20 00:38 10/02/20 13:42 Hydrocodone/Acetaminophen 5-325 Mg Tab PO 1 each Q6HR PRN Administration Pain , Severe (7-10) Atorvastatin Calcium 40 mg 09/24/20 22:00 10/03/20 21:31 Atorvastatin 40 Mg Tab PO 40 mg QHS FLAQUITO Administration Carisoprodol 350 mg 10/04/20 08:00 10/04/20 07:31 Carisoprodol 350 Mg Tab PO 10/04/20 21:00 350 mg PREOP FLAQUITO Administration Dexamethasone 4 mg 09/29/20 12:00 10/04/20 06:23 Dexamethasone 4 Mg/Ml Vial IV 4 mg Q6HR FLAQUITO Administration Dextrose 50 ml 09/30/20 10:26 Dextrose 50% In Water (25gm) 50 Ml Syringe IV Q30MIN PRN Hypoglycemia Protocol Diclofenac Sodium 75 mg 09/24/20 10:00 10/03/20 10:[address] 75 Mg Tab PO 75 mg QDAY FLAQUITO Administration Famotidine 20 mg 09/25/20 10:00 10/03/20 21:31 Famotidine 20 Mg Tab PO 20 mg BID FLAQUITO Administration Glipizide 5 mg 10/04/20 08:00 10/04/20 08:20 Glipizide 5 Mg Tab PO Not Given QDDIAB FLAQUITO Hydromorphone HCl 0.5 mg 09/24/20 00:53 Hydromorphone 1 Mg/1 Ml Inj IV Q3H PRN Pain , Severe (7-10) Hydromorphone HCl 0.25 mg 10/04/20 07:30 Hydromorphone 1 Mg/1 Ml Inj IV 10/04/20 17:00 Q10MIN PRN Pain, Moderate (4-6) Hydromorphone HCl 0.5 mg 10/04/20 07:30 Hydromorphone 1 Mg/1 Ml Inj IV 10/04/20 17:00 Q10MIN PRN Pain , Severe (7-10) Sodium Chloride 1,000 mls @ 42 mls/hr 09/24/20 01:00 10/02/20 05:15 Nacl 0.9% 1000 Ml IV 42 mls/hr DIRECT FLAQUITO Administration Cefazolin Sodium 2 gm/ Sodium 100 mls @ 200 mls/hr 10/04/20 18:30 Chloride IV 10/05/20 18:59 Q8H FLAQUITO Sodium Chloride 500 mls @ 0 mls/hr 10/04/20 12:30 Nacl 0.9% 500 Ml IV 10/04/20 13:30 ONCE NR As Directed Insulin Glargine 10 units 10/03/20 22:00 10/03/20 21:35 Insulin Glargine 100 Units/Ml SUB-Q 10 units QHS [facility] Administration Insulin Human Regular 0 units 09/30/20 11:30 10/04/20 07:10 Insulin Regular, Human 100 Units/1 Ml SUB-Q Not Given ACHS [facility] Protocol Lisinopril 2.5 mg 10/04/20 10:00 Lisinopril 5 Mg Tab PO QDAY [facility] Metoclopramide HCl 10 mg 09/24/20 00:53 Metoclopramide 10 Mg/2 Ml Inj IV Q6H PRN Nausea And Vomiting Metoprolol Tartrate 12.5 mg 10/03/20 12:00 10/03/20 21:30 Metoprolol Tartrate 25 Mg Tab PO 12.5 mg BID [facility] Administration Ondansetron HCl 4 mg 09/24/20 00:53 Ondansetron 4 Mg/2 Ml Inj IV Q8H PRN Nausea And Vomiting Ondansetron HCl 4 mg 10/04/20 07:30 Ondansetron 4 Mg/2 Ml Inj IV 10/04/20 18:00 ONCE PRN Nausea And Vomiting Oxycodone/Acetaminophen 1 tab 09/24/20 00:53 09/27/20 00:25 Oxycodone /Acetaminophen 5-325mg Tab PO 1 tab Q6H PRN Administration Pain, Moderate (4-6) Sodium Chloride 10 ml 09/24/20 10:00 10/03/20 21:31 Sodium Chloride 0.9% 10 Ml Flush Syringe IV 10 ml BID FLAQUITO Administration Sodium Chloride 10 ml 09/24/20 00:53 10/03/20 06:24 Sodium Chloride 0.9% 10 Ml Flush Syringe IV 10 ml PRN PRN Administration LINE FLUSH Nutrition/Malnutrition Assess - Dietary Evaluation Nutrition/Malnutrition Findings: Nutrition Notes Start: 09/29/20 12:29 Freq: Status: Active Protocol: Document 09/29/20 12:29 LM (Rec: 09/29/20 12:30 LM [email or web address]) Nutrition Notes Need for Assessment generated from: LOS Initial or Follow up Brief Note Subjective/Other Information Screen for LOS. Pt with 100% intakes per EMR. Nutrition Intervention Revisit per MD consult or patient Sign Off request:
[2020-10-04] MEDS: SODIUM CHLORIDE 0.9% 1000 ML 1,000 ML IV SCH (13:26)
--- NOTE | 2020-10-04 14:19 | XRay Report ---
CERVICAL SPINE 2 VIEWS [id number] INDICATION: SPINAL CORD COMPRESSION C3-4, intraoperative COMPARISON: MR cervical spine 09/28/2020 FINDINGS: 2 intraoperative C-arm views show anterior cervical fusion at C3-4 with no subluxation is s een. Lower cervical spine is not visualized. Fluoroscopy time: 0.4 minutes Signer Name: Joshua Buckley MD Signed: 10/04/2020 2:14 PM Workstation Name: [id number]
[2020-10-04] MEDS ORDERED: SODIUM CHLORIDE 0.9% 500 ML 500 ML ONE (16:16)
--- NOTE | 2020-10-04 18:30 | Post Anesthesia Evaluation ---
- Post Anesthesia Evaluation Patient Participated: Yes Airway Patent: Yes Stable Respiratory Function: Yes Nausea/Vomiting: No Temp > 96.8F: Yes Pain Manageable: Yes Adequeate Hydration: Yes Anesthesia Complications: No Block Receding Appropriately: Not Applicable Patient on Ventilator: No
[2020-10-04] MEDS: INSULIN GLARGINE 100 UNITS/ML SUB-Q SCH (21:52)
[2020-10-05] MEDS: dexAMETHasone 4 MG/ML VIAL IV SCH ×5 (00:16→23:10)
--- NOTE | 2020-10-05 04:14 | Operative Report ---
DATE OF SURGERY: 10/04/2020 PREOPERATIVE DIAGNOSIS: Cervical spondylotic myelopathy POSTOPERATIVE DIAGNOSIS: Cervical spondylotic myelopathy PROCEDURE PERFORMED: 1. C3-C4 anterior cervical diskectomy. 2. Placement of intervertebral biomechanical device at C3-C4 (Globus Colonial TPS spacer). 3. Application of C3-4 anterior cervical plate (15 mm Globus VIP plate). 4. Use of intraoperative neuromonitoring. 5. Use of intraoperative microscope. 6. Application of [place] collar. SURGEON: Patricio Myers MD. DIGITAL COMPUTER OPERATOR: None. ANESTHESIA: General endotracheal anesthesia. BLOOD LOSS: Minimal. FINDINGS: Severe stenosis at C3-C4 secondary to broad-based disk herniation, which was subligamentous. COMPLICATIONS: None apparent. DISPOSITION: Stable, extubated to PACU. INDICATIONS FOR PROCEDURE: Luis Alvarez is a 65-year-old male with a history of polio and chronic left hemiparesis. He presented to [facility] with complaints of progressive weakness involving his right hemibody. Imaging studies were performed, which revealed severe cervical stenosis at C3-C4 secondary to C3-C4 disc herniation. There was focal T2 intramedullary hyperintensity, consistent with myelomalacia. Based on the imaging studies and his presentation, I recommended anterior cervical diskectomy at C3-C4 to prevent further neurologic deterioration. I reviewed all pertinent risks, benefits, potential complications of the operation. The patient and his both agreed to proceed. DETAILS OF THE PROCEDURE: The patient was taken to the operating theater by anesthesia. He was intubated without difficulty. He was positioned supine on the flat table. Please note that all pressure points were padded to prevent peripheral nerve injury. The eyes were lubricated and taped shut to prevent corneal abrasion. A shoulder roll was placed below the shoulders to facilitate neck extension and cervical lordosis. The location of the incision was determined with the use of lateral fluoroscopy. The area was prepped and draped in the usual sterile fashion. The skin was infiltrated with 1% lidocaine with epinephrine. The skin was opened with a #10 scalpel blade. Further dissection was performed with the electrosurgical generator of Jorge Russell. The platysma was opened in parallel with the incision, perpendicular to its fibers. A dissection plane was developed medially to the sternocleidomastoid to gain access to the prevertebral space. The carotid sheath was retracted laterally while the trachea and esophagus were retracted medially. The location of the C3-C4 disk space was determined with the use of lateral fluoroscopy. Self-retaining retractors were utilized to maintain the exposure. Next 14 mm [place] pins were inserted into the vertebral bodies at C3 and C4 on the lateral fluoroscopy. These pins were used to distract open the disc space. Next, the disc was incised with a #15 scalpel blade. Further removal of disk material was performed with pituitary rongeurs. The anterior osteophytes were removed with 3-0 Kerrison rongeurs. Next, the microscope was brought into the field of view. Using a 3 mm high speed matchstick drill, the dorsal osteophytes were removed in preparation to decompress the spinal cord. Once the annulus and posterior longitudinal ligament were visualized, a small nerve hook was utilized to carefully dissect the posterior longitudinal ligament to access the anterior epidural space. Next, 2-0 Kerrison rongeurs were used to remove the posterior longitudinal ligament. The spinal cord and bilateral neural foramen were decompressed. Next, an upgoing 3 mm curette was used to strip the endplates of the cartilaginous attachments. Next, various trials were inserted into the C3-C4 disc space. Ultimately, a 16 x 14 x 7 mm Globus Colonial TPS 7- degree cage was inserted into the C3-C4 disc space under lateral fluoroscopy. Next, a 15 mm plate was secured with self-drilling, 14 mm screws. The screws were final tightened. Next, the exposure was copiously irrigated with bacitracin infused saline. Meticulous hemostasis was achieved with the bipolar forceps of Asif Zavaleta and Robyn. The [place] pins were removed. Next, a small Hemovac drain was tunneled through the skin and placed overlying the anterior cervical hardware. Next, attention was directed to closure. The platysma was closed with 3-0 polyglactin synthetic absorbable suture. The dermis was closed with 3-0 polyglactin synthetic absorbable suture in an inverted fashion. The skin was reapproximated with Dermabond. Please note that all needle counts, sponge counts and instrument counts were correct at the end of the case x2. There were no neuromonitoring changes throughout the duration of the operation. The patient appeared to tolerate the operation well. He was returned to anesthesia where he was extubated without delay. He was transferred to the recovery unit in stable condition. TID: [id number] RECEIPT: [id number] DEVORAH/LUIS CAMPBELL
[2020-10-05 06:12] LABS: Hematocrit 37.9 % (35.5-45.6); Hemoglobin 13.1 gm/dl (11.8-15.2)
[2020-10-05 06:33] LABS: Alanine Aminotransferase 19 units/L (7-56); Albumin 3.2 g/dL (3.9-5); BUN/Creatinine Ratio 21; Blood Urea Nitrogen 17 mg/dL (9-20); Calcium 8.2 mg/dL (8.4-10.2); Hemolysis Index 4
--- NOTE | 2020-10-05 08:25 | Progress Note ---
Assessment and Plan 65 y/o M POD1 s/p C3-4 ACDF -cont drain to suction -PT/OT, wear aspen collar when out of bed -resp protocol for cough assist -mobilize as tolerated Subjective Date of service: 10/05/20 Principal diagnosis: Weakness Interval history: NAEON; pt reports improvement in his LE strength. He has persistent numbness in his hands, which is improving Objective - Exam Narrative Exam: seen and examined no acute distress A&Ox3 R hemibody 4/5 LUE 4-/5 LLE 2/5 HF, 3/5 KF/KE, wiggles toes - Vital Sign Vital Signs - 12hr 10/04/20 10/04/20 10/05/20 20:45 23:55 03:47 Temperature 97.8 F 99.0 F Pulse Rate 71 70 68 Respiratory 18 18 Rate Blood Pressure 131/68 137/70 O2 Sat by Pulse 98 97 Oximetry - Laboratory Findings CBC and BMP: 10/05/20 05:42 10/05/20 05:42 Abnormal Lab Findings: Abnormal Labs 09/23/20 09/23/20 09/23/20 12:11 12:11 17:38 Lymph % (Auto) [place] % (Auto) 10.0 H Lymph # (Auto) 1.0 L Seg Neutrophils % 72.6 H Sodium BUN Creatinine Glucose 148 H POC Glucose 132 H Hemoglobin A1c Calcium Total Creatine Kinase C-Reactive Protein Total Protein Albumin 09/24/20 09/25/20 09/25/20 05:49 04:49 04:49 Lymph % (Auto) [place] % (Auto) 12.7 H Lymph # (Auto) Seg Neutrophils % Sodium BUN Creatinine Glucose 118 H POC Glucose Hemoglobin A1c 7.6 H Calcium Total Creatine Kinase C-Reactive Protein Total Protein Albumin 09/25/20 09/26/20 09/26/20 20:38 08:02 12:17 Lymph % (Auto) [place] % (Auto) Lymph # (Auto) Seg Neutrophils % Sodium BUN Creatinine Glucose POC Glucose 133 H 117 H 168 H Hemoglobin A1c Calcium Total Creatine Kinase C-Reactive Protein Total Protein Albumin 09/26/20 09/26/20 09/27/20 16:16 22:35 08:08 Lymph % (Auto) [place] % (Auto) Lymph # (Auto) Seg Neutrophils % Sodium BUN Creatinine Glucose POC Glucose 163 H 173 H 124 H Hemoglobin A1c Calcium Total Creatine Kinase C-Reactive Protein Total Protein Albumin 09/27/20 09/27/20 09/27/20 11:49 17:02 20:42 Lymph % (Auto) [place] % (Auto) Lymph # (Auto) Seg Neutrophils % Sodium BUN Creatinine Glucose POC Glucose 182 H 124 H 141 H Hemoglobin A1c Calcium Total Creatine Kinase C-Reactive Protein Total Protein Albumin 09/28/20 09/28/20 09/28/20 07:38 08:42 11:10 Lymph % (Auto) [place] % (Auto) Lymph # (Auto) Seg Neutrophils % Sodium BUN Creatinine Glucose POC Glucose 137 H 198 H Hemoglobin A1c Calcium Total Creatine Kinase 2477 H C-Reactive Protein 2.40 H Total Protein Albumin 09/28/20 09/29/20 09/29/20 21:06 07:36 11:25 Lymph % (Auto) [place] % (Auto) Lymph # (Auto) Seg Neutrophils % Sodium BUN Creatinine Glucose POC Glucose 190 H 137 H 145 H Hemoglobin A1c Calcium Total Creatine Kinase C-Reactive Protein Total Protein Albumin 09/29/20 09/29/20 09/30/20 15:45 21:26 07:43 Lymph % (Auto) [place] % (Auto) Lymph # (Auto) Seg Neutrophils % Sodium BUN Creatinine Glucose POC Glucose 199 H 311 H 257 H Hemoglobin A1c Calcium Total Creatine Kinase C-Reactive Protein Total Protein Albumin 09/30/20 09/30/20 09/30/20 11:36 15:23 21:28 Lymph % (Auto) [place] % (Auto) Lymph # (Auto) Seg Neutrophils % Sodium BUN Creatinine Glucose POC Glucose 296 H 187 H 302 H Hemoglobin A1c Calcium Total Creatine Kinase C-Reactive Protein Total Protein Albumin 10/01/20 10/01/20 10/01/20 07:46 10:59 16:15 Lymph % (Auto) [place] % (Auto) Lymph # (Auto) Seg Neutrophils % Sodium BUN Creatinine Glucose POC Glucose 197 H 304 H 126 H Hemoglobin A1c Calcium Total Creatine Kinase C-Reactive Protein Total Protein Albumin 10/01/20 10/02/20 10/02/20 20:41 07:41 11:45 Lymph % (Auto) [place] % (Auto) Lymph # (Auto) Seg Neutrophils % Sodium BUN Creatinine Glucose POC Glucose 149 H 234 H 237 H Hemoglobin A1c Calcium Total Creatine Kinase C-Reactive Protein Total Protein Albumin 10/02/20 10/02/20 10/03/20 15:39 20:53 04:42 Lymph % (Auto) 9.5 L [place] % (Auto) 7.8 H Lymph # (Auto) 0.8 L Seg Neutrophils % 82.6 H Sodium BUN Creatinine Glucose POC Glucose 248 H 272 H Hemoglobin A1c Calcium Total Creatine Kinase C-Reactive Protein Total Protein Albumin 10/03/20 10/03/20 10/03/20 04:42 09:13 11:55 Lymph % (Auto) [place] % (Auto) Lymph # (Auto) Seg Neutrophils % Sodium 134 L BUN 22 H Creatinine 0.7 L Glucose 165 H POC Glucose 208 H 276 H Hemoglobin A1c Calcium Total Creatine Kinase C-Reactive Protein Total Protein Albumin 3.3 L 10/03/20 10/03/20 10/04/20 16:48 20:58 03:07 Lymph % (Auto) [place] % (Auto) Lymph # (Auto) Seg Neutrophils % Sodium 131 L BUN 23 H Creatinine Glucose 173 H POC Glucose 192 H 294 H Hemoglobin A1c Calcium Total Creatine Kinase C-Reactive Protein Total Protein Albumin 10/04/20 10/04/20 10/04/20 03:07 06:57 11:20 Lymph % (Auto) 10.8 L [place] % (Auto) 7.5 H Lymph # (Auto) 0.9 L Seg Neutrophils % 81.5 H Sodium BUN Creatinine Glucose POC Glucose 128 H 138 H Hemoglobin A1c Calcium Total Creatine Kinase C-Reactive Protein Total Protein Albumin 10/04/20 10/04/20 10/05/20 16:27 21:25 05:42 Lymph % (Auto) [place] % (Auto) Lymph # (Auto) Seg Neutrophils % Sodium 134 L BUN Creatinine Glucose 203 H POC Glucose 122 H 158 H Hemoglobin A1c Calcium 8.2 L Total Creatine Kinase C-Reactive Protein Total Protein 6.2 L Albumin 3.2 L
[2020-10-05] MEDS: INSULIN REGULAR, HUMAN 100 UNITS/1 ML SUB-Q SCH ×4 (08:57→23:07)
[2020-10-05] MEDS: glipiZIDE 5 MG TAB PO SCH (08:58)
[2020-10-05] MEDS: FAMOTIDINE 20 MG TAB PO SCH ×2 (08:59→23:08)
[2020-10-05] MEDS: METOPROLOL TARTRATE 25 MG TAB PO SCH ×2 (09:00→23:09)
[2020-10-05] MEDS: LISINOPRIL 5 MG TAB PO SCH (09:00)
[2020-10-05] MEDS: DICLOFENAC DR 75 MG TAB PO SCH (09:01)
--- NOTE | 2020-10-05 13:11 | Progress Note ---
Assessment and Plan Resume ASA when ok from a Neurosurg standpoint. Increase beta bethany as BP permits. Otherwise stable cardiac status. Follow-up with Dr. Sanon on 10/30/2020 @ 11am ([phone]). Pt seen in conjunction with Dr. Sanon, who agrees with the assessment and plan of care. - Patient Problems (1) Cervical spinal cord compression Current Visit: Yes Status: Acute (2) S/P aortic valve repair Current Visit: Yes Status: Chronic (3) Cardiomyopathy Current Visit: Yes Status: Chronic (4) NSVT (nonsustained ventricular tachycardia) Current Visit: Yes Status: Chronic (5) CAD (coronary artery disease) Current Visit: Yes Status: Chronic (6) S/P CABG x 1 Current Visit: Yes Status: Chronic (7) Hypertension Current Visit: Yes Status: Chronic Qualifiers: Hypertension type: primary hypertension Qualified Code(s): I10 - Essential (primary) hypertension (8) T2DM (type 2 diabetes mellitus) Current Visit: Yes Status: Chronic Subjective Date of service: 10/05/20 Principal diagnosis: C3-4 Cord Compression Interval history: S/p C3-4 ACDF yesterday. Pt tolerated well. No cardiac complaints this AM. Tele reviewed - SR 70s, intermittent 3-4 beat runs of NSVT noted. Objective Last Vital Signs Temp 98.5 F 10/05/20 08:21 Pulse 60 10/05/20 10:00 Resp 18 10/05/20 10:00 BP 151/81 10/05/20 09:00 Pulse Ox 98 10/05/20 10:00 - Physical Examination General: No Apparent Distress HEENT: Positive: EOMI, Normocephaly, Mucus Membranes Moist Neck: Positive: neck supple, trachea midline Cardiac: Positive: Reg Rate and Rhythm, S1/S2 Lungs: Positive: clear to auscultation Abdomen: Positive: Soft. Negative: Tender Skin: Negative: Rash Musculoskeletal: No Pain Extremities: Present: upper extr. pulses, lower extr. pulses. Absent: edema - Labs and Meds Cardiac Enzymes 10/05/20 Range/Units 05:42 AST 17 (5-40) units/L CBC 10/05/20 Range/Units 05:42 Hgb 13.1 (11.8-15.2) gm/dl Hct 37.9 (35.5-45.6) % Comprehensive Metabolic Panel 10/05/20 Range/Units 05:42 Sodium 134 L (137-145) mmol/L Potassium 4.1 (3.6-5.0) mmol/L Chloride 99.8 (98-107) mmol/L Carbon Dioxide 23 (22-30) mmol/L BUN 17 (9-20) mg/dL Creatinine 0.8 (0.8-1.3) mg/dL Glucose 203 H (75-100) mg/dL Calcium 8.2 L (8.4-10.2) mg/dL AST 17 (5-40) units/L ALT 19 (7-56) units/L Alkaline Phosphatase 69 (35-129) units/L Total Protein 6.2 L (6.3-8.2) g/dL Albumin 3.2 L (3.9-5) g/dL - Imaging and Cardiology EKG: report reviewed, image reviewed Echo: report reviewed (09/24/2020 - EF 35-40%, LV mildly dilated, mod LVH, RV hypokinetic and mildly dilated, LA mildly dilated, RA mildly dilated, mild with mean transaortic gradient of 9.8mmHg) Cardiac cath: report reviewed (02/2018 - LM angiographically normal, LAD moderate non-obstructive disease, RCA 90%, 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
[2020-10-05] MEDS: SODIUM CHLORIDE 0.9% 1000 ML 1,000 ML IV SCH (18:01)
--- NOTE | 2020-10-05 19:11 | Progress Note ---
Assessment and Plan Assessment and plan: Discussed with neurosurgeon Dr. 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 Physical therapy occupational therapy per instructions. Patient received 2 units platelets prior to surgery We will try to transfuse 2 units of platelets post surgery As recommended by neurosurgeon Dr. Myers --Hypertension; moderate control Continue current antihypertensives --Type 2 diabetes mellitus; Accu-Chek sliding scale coverage ADA diet Insulin as needed --DVT prophylaxis; SCD No pharmacologic anticoagulation at this point Postop state --Obesity BMI 32.7 patient may need weight reduction when medically stable Closely monitor the patient and adjust the management as needed Plan of care reviewed with patient's nurse, I discussed with the family member at the bedside. Physical therapy occupational therapy Brief history and daily hospital course: 65 y/o Male patient presented to [facility] 1 week ago with complaints of acute onset arm and leg weakness. He has chronic left hemiparesis due to polio, but was ambulatory with a walker. He reports weakness, which equally affected both arms and legs since last Friday night. Upon arrival, a CT was performed, which was n egative for acute changes. He was started on ASA and Plavix due to concern for CVA. MRI was negative for acute changes. Neurology was consulted, recommended MRI Cervical spine. Which was was performed 09/28/2020, revealing severe cord compression at C3-4 due to broad based disc osteophyte formation and thickened ligamentum flavum. There is focal T2 hyperintensity in the substance of the spinal cord at C3-4. Presently, he denies significant improvement in his symptoms. He is not presently able to walk. Neurosurgeon evaluated s/p C3-C4 ACDF on 10/04/2020. Patient tolerated the procedure well. Postop care per neurosurgery 09/24/20 Patient is 65 yo presented with right sided weakness. CT Head revealed infarct left basal ganglia. He was admitted with acute stroke. Patient started on Aspirin, Lipitor. MRI ordered, not done yet. Neurology consulted. F/U MRI Brain, CT Angio Head, CT Angio Neck 09/25/20. F/U CTA head and neck. PT/OT 09/26/20. MRI of brain negative. CT head and neck reveals occluded Left MCA M1 segment with collateralization. F/U ECHO. Cont. ASA and lipitor. PT recommends acute rehab 09/27/2020. Left ventricle mildly dilated. Left ventricular systolic function is moderately decreased. LVEF is 35 to 40%. Mild to moderate concentric left ventricular hypertrophy. Mild aortic stenosis. Carotid ultrasound negative. Await rehab placement. 09/28/2020. Neurology recommends b12, tsh, rpr, ck, esr, crp, mri cervical spine w/ wo contrast. Consider transfer to hospital with bedside neurology 09/29/2020. MRI cervical spine reveals significant degenerative changes of the cervical spine involving C3-C4 through C5-C6. There appears to be cord impingement at C3-C4. 09/30/2020. MRI C-spine no severe C-spine stenosis especially at C3-C4 level with mild cord edema. Continue Decadron 4 mg IV every 6 hours. Neurosurgery consultation. Patient with elevated BG given the addition of steroids. We will start Lantus 8 units at bedtime. SSRI and Accu-Cheks 10/01/2020. MRI of thoracic and lumbar spine without contrast pending per gil almaraz recommendations. Continue to hold aspirin. Cardiology consultation for cardiac clearance prior to surgery. 10/02/2020. Follow-up MRI of thoracic and lumbar spine without contrast. Continue to hold aspirin. Cardiology consultation for cardiac clearance prior to surgery. Neurosurgery following and plans for surgical intervention later this week. Continue Decadron. 10/03/2020; neurosurgery scheduled for C3-C4 Anterior Cervical Discectomy and Fusion [C3-C4 ACDF] on 10/05/2020, arrangements made for 2 units of platelet transfusion prior to surgery on 10/05/2020, and 2 units platelet transfusion post surgery.Patient will be n.p.o. midnight 10/05/2020, will check coags on the day of surgery Plan of care reviewed with the patient, family member at the bedside and his nurse. I discussed with neurosurgeon Dr. Myers 10/04/2020; patient underwent C3-C4 ACDF surgery today. Tolerated the procedure well, postop care per neurosurgery 10/05/2020; follow PT and OT recommendations Swallow eval if needed Continue current management History Interval history: I have seen and examined the patient at the bedside this morning during rounds Patient's chart and medications reviewed No new overnight events reported by the nursing Patient complains of some neck pain And difficulty swallowing Some numbness in the upper extremities Vital signs noted Hospitalist Physical - Constitutional Vitals: Temp Pulse Resp BP Pulse Ox 98.3 F 52 L 19 124/72 91 10/05/20 16:30 10/05/20 16:30 10/05/20 16:30 10/05/20 16:30 10/05/20 16:30 General appearance: Present: mild distress, well-nourished, obese, other (Some neck and back pain) - EENT Eyes: Present: PERRL, EOM intact - Neck Neck: Present: supple, other (Collar in place) - Respiratory Respiratory effort: normal Respiratory: bilateral: diminished, rales, negative: rhonchi, wheezing - Cardiovascular Rhythm: regular Heart Sounds: Present: S1 & S2 - Extremities Extremities: no ischemia, No edema - Abdominal General gastrointestinal: soft, non-tender, non-distended, normal bowel sounds - Integumentary Integumentary: Present: clear, warm - Psychiatric Psychiatric: appropriate mood/affect, cooperative - Neurologic Neurologic: CNII-XII intact, moves all extremities HEART Score - HEART Score Troponin: Troponin T < 0.010 ng/mL (0.00-0.029) 10/03/20 04:42 Results - Labs CBC & Chem 7: 10/06/20 04:37 10/06/20 04:37 Labs: Laboratory Last Values WBC 8.7 K/mm3 (4.5-11.0) 10/04/20 03:07 RBC 4.41 M/mm3 (3.65-5.03) 10/04/20 03:07 Hgb 13.1 gm/dl (11.8-15.2) 10/05/20 05:42 Hct 37.9 % (35.5-45.6) 10/05/20 05:42 MCV 87 fl (84-94) 10/04/20 03:07 MCH 29 pg (28-32) 10/04/20 03:07 MCHC 34 % (32-34) 10/04/20 03:07 RDW 13.7 % (13.2-15.2) 10/04/20 03:07 Plt Count 318 K/mm3 (140-440) 10/04/20 03:07 Lymph % (Auto) 10.8 % (13.4-35.0) L 10/04/20 03:07 [place] % (Auto) 7.5 % (0.0-7.3) H 10/04/20 03:07 Eos % (Auto) 0.1 % (0.0-4.3) 10/04/20 03:07 Baso % (Auto) 0.1 % (0.0-1.8) 10/04/20 03:07 Lymph # (Auto) 0.9 K/mm3 (1.2-5.4) L 10/04/20 03:07 [place] # (Auto) 0.7 K/mm3 (0.0-0.8) 10/04/20 03:07 Eos # (Auto) 0.0 K/mm3 (0.0-0.4) 10/04/20 03:07 Baso # (Auto) 0.0 K/mm3 (0.0-0.1) 10/04/20 03:07 Seg Neutrophils % 81.5 % (40.0-70.0) H 10/04/20 03:07 Seg Neutrophils # 7.1 K/mm3 (1.8-7.7) 10/04/20 03:07 PT 13.2 Sec. (12.2-14.9) 10/04/20 03:07 INR 0.94 (0.87-1.13) 10/04/20 03:07 APTT 29.9 Sec. (24.2-36.6) 10/04/20 03:07 Sodium 134 mmol/L (137-145) L 10/05/20 05:42 Potassium 4.1 mmol/L (3.6-5.0) 10/05/20 05:42 Chloride 99.8 mmol/L (98-107) 10/05/20 05:42 Carbon Dioxide 23 mmol/L (22-30) 10/05/20 05:42 Anion Gap 15 mmol/L 10/05/20 05:42 BUN 17 mg/dL (9-20) 10/05/20 05:42 Creatinine 0.8 mg/dL (0.8-1.3) 10/05/20 05:42 Estimated GFR > 60 ml/min 10/05/20 05:42 BUN/Creatinine Ratio 21 % 10/05/20 05:42 Glucose 203 mg/dL (75-100) H 10/05/20 05:42 POC Glucose 116 mg/dL (70-105) H 10/05/20 16:30 Hemoglobin A1c 7.6 % (4-6) H 09/24/20 05:49 Calcium 8.2 mg/dL (8.4-10.2) L 10/05/20 05:42 Phosphorus 3.40 mg/dL (2.5-4.5) D 10/05/20 05:42 Magnesium 2.10 mg/dL (1.7-2.3) 10/05/20 05:42 Total Bilirubin 0.60 mg/dL (0.1-1.2) 10/05/20 05:42 Direct Bilirubin < 0.2 mg/dL (0-0.2) 09/23/20 12:11 Indirect Bilirubin 0.3 mg/dL 09/23/20 12:11 AST 17 units/L (5-40) 10/05/20 05:42 ALT 19 units/L (7-56) 10/05/20 05:42 Alkaline Phosphatase 69 units/L (35-129) 10/05/20 05:42 Total Creatine Kinase 2477 units/L (55-170) H 09/28/20 08:42 Troponin T < 0.010 ng/mL (0.00-0.029) 10/03/20 04:42 C-Reactive Protein 2.40 mg/dL (0.00-1.30) H 09/28/20 08:42 Total Protein 6.2 g/dL (6.3-8.2) L 10/05/20 05:42 Albumin 3.2 g/dL (3.9-5) L 10/05/20 05:42 Albumin/Globulin Ratio 1.1 % 10/05/20 05:42 Triglycerides 83 mg/dL (2-149) 09/25/20 04:49 Cholesterol 177 mg/dL (50-199) 09/25/20 04:49 LDL Cholesterol Direct 126 mg/dL (50-130) 09/25/20 04:49 HDL Cholesterol 50 mg/dL (40-59) 09/25/20 04:49 Cholesterol/HDL Ratio 3.54 % 09/25/20 04:49 Vitamin B12 400.3 pg/mL (211-911) 09/28/20 08:42 TSH 1.380 mlU/mL (0.270-4.200) 09/28/20 08:42 Urine Color Yellow (Yellow) 09/23/20 12:14 Urine Turbidity Clear (Clear) 09/23/20 12:14 Urine pH 6.0 (5.0-7.0) 09/23/20 12:14 Ur Specific [place] 1.020 (1.003-1.030) 09/23/20 12:14 Urine Protein 30 mg/dl mg/dL (Negative) 09/23/20 12:14 Urine Glucose (UA) Neg mg/dL (Negative) 09/23/20 12:14 Urine Ketones Neg mg/dL (Negative) 09/23/20 12:14 Urine Blood Neg (Negative) 09/23/20 12:14 Urine Nitrite Neg (Negative) 09/23/20 12:14 Urine Bilirubin Neg (Negative) 09/23/20 12:14 Urine Urobilinogen 4.0 mg/dL (<2.0) 09/23/20 12:14 Ur Leukocyte Esterase Neg (Negative) 09/23/20 12:14 Urine WBC (Auto) 1.0 /HPF (0.0-6.0) 09/23/20 12:14 Urine RBC (Auto) 3.0 /HPF (0.0-6.0) 09/23/20 12:14 U Epithel Cells (Auto) < 1.0 /HPF (0-13.0) 09/23/20 12:14 Urine Mucus Few /HPF 09/23/20 12:14 Coronavirus (PCR) Negative (Negative) 09/25/20 Unknown Blood Type AB POSITIVE 10/03/20 18:00 Antibody Screen Negative 10/03/20 18:00 Riley/IV: Voiding Method Condom Catheter Active Medications - Current Medications Current Medications: Generic Name Dose Route Start Last Admin Trade Name Freq PRN Reason Stop Dose Admin Hydrocodone Bitart/Acetaminophen 1 each 09/24/20 00:38 10/02/20 13:42 Hydrocodone/Acetaminophen 5-325 Mg Tab PO 1 each Q6HR PRN Administration Pain , Severe (7-10) Atorvastatin Calcium 40 mg 09/24/20 22:00 10/04/20 21:51 Atorvastatin 40 Mg Tab PO 40 mg QHS FLAQUITO Administration Dexamethasone 4 mg 09/29/20 12:00 10/05/20 17:56 Dexamethasone 4 Mg/Ml Vial IV 4 mg Q6HR FLAQUITO Administration Dextrose 50 ml 09/30/20 10:26 Dextrose 50% In Water (25gm) 50 Ml Syringe IV Q30MIN PRN Hypoglycemia Protocol Diclofenac Sodium 75 mg 09/24/20 10:00 10/05/20 09:[address] 75 Mg Tab PO 75 mg QDAY FLAQUITO Administration Famotidine 20 mg 09/25/20 10:00 10/05/20 08:59 Famotidine 20 Mg Tab PO 20 mg BID FLAQUITO Administration Glipizide 5 mg 10/04/20 08:00 10/05/20 08:58 Glipizide 5 Mg Tab PO 5 mg QDDIAB FLAQUITO Administration Hydromorphone HCl 0.5 mg 09/24/20 00:53 Hydromorphone 1 Mg/1 Ml Inj IV Q3H PRN Pain , Severe (7-10) Sodium Chloride 1,000 mls @ 42 mls/hr 09/24/20 01:00 10/05/20 18:01 Nacl 0.9% 1000 Ml IV 42 mls/hr DIRECT FLAQUITO Administration Insulin Glargine 10 units 10/03/20 22:00 10/04/20 21:52 Insulin Glargine 100 Units/Ml SUB-Q Not Given QHS [facility] Insulin Human Regular 0 units 09/30/20 11:30 10/05/20 17:33 Insulin Regular, Human 100 Units/1 Ml SUB-Q Not Given ACHS [facility] Protocol Lisinopril 2.5 mg 10/04/20 10:00 10/05/20 09:00 Lisinopril 5 Mg Tab PO 2.5 mg QDAY FLAQUITO Administration Metoclopramide HCl 10 mg 09/24/20 00:53 Metoclopramide 10 Mg/2 Ml Inj IV Q6H PRN Nausea And Vomiting Metoprolol Tartrate 12.5 mg 10/03/20 12:00 10/05/20 09:00 Metoprolol Tartrate 25 Mg Tab PO 12.5 mg BID FLAQUITO Administration Ondansetron HCl 4 mg 09/24/20 00:53 Ondansetron 4 Mg/2 Ml Inj IV Q8H PRN Nausea And Vomiting Oxycodone/Acetaminophen 1 tab 09/24/20 00:53 09/27/20 00:25 Oxycodone /Acetaminophen 5-325mg Tab PO 1 tab Q6H PRN Administration Pain, Moderate (4-6) Sodium Chloride 10 ml 09/24/20 10:00 10/05/20 09:00 Sodium Chloride 0.9% 10 Ml Flush Syringe IV 10 ml BID FLAQUITO Administration Sodium Chloride 10 ml 09/24/20 00:53 10/03/20 06:24 Sodium Chloride 0.9% 10 Ml Flush Syringe IV 10 ml PRN PRN Administration LINE FLUSH Nutrition/Malnutrition Assess - Dietary Evaluation Nutrition/Malnutrition Findings: Nutrition Notes Start: 09/29/20 12:29 Freq: Status: Active Protocol: Document 09/29/20 12:29 LM (Rec: 09/29/20 12:30 LM [id number]) Nutrition Notes Need for Assessment generated from: LOS Initial or Follow up Brief Note Subjective/Other Information Screen for LOS. Pt with 100% intakes per EMR. Nutrition Intervention Revisit per MD consult or patient Sign Off request:
[2020-10-05] MEDS: INSULIN GLARGINE 100 UNITS/ML SUB-Q SCH (23:08)
[2020-10-06 05:19] LABS: Basophils % (Auto) 0.2 % (0.0-1.8); Hematocrit 37.4 % (35.5-45.6); Hemoglobin 12.7 gm/dl (11.8-15.2); Lymphocytes # (Auto) 0.6 K/mm3 (1.2-5.4); Lymphocytes % (Auto) 6.8 % (13.4-35.0); Mean Corpuscular HGB Conc 34 % (32-34); Mean Corpuscular Volume 87 fl (84-94); Monocytes # (Auto) 0.7 K/mm3 (0.0-0.8); Monocytes % (Auto) 7.6 % (0.0-7.3); Platelet Count 316 K/mm3 (140-440); Red Blood Count 4.32 M/mm3 (3.65-5.03); Red Cell Distribution Width 13.6 % (13.2-15.2)
[2020-10-06] MEDS: dexAMETHasone 4 MG/ML VIAL IV SCH ×3 (05:28→18:30)
[2020-10-06 05:55] LABS: Blood Urea Nitrogen 19 mg/dL (9-20); Calcium 8.7 mg/dL (8.4-10.2); Hemolysis Index 8
[2020-10-06 06:00] LABS: BUN/Creatinine Ratio 27
[2020-10-06] MEDS: INSULIN REGULAR, HUMAN 100 UNITS/1 ML SUB-Q SCH ×4 (08:27→22:41)
[2020-10-06] MEDS: glipiZIDE 5 MG TAB PO SCH (08:51)
--- NOTE | 2020-10-06 10:07 | Progress Note ---
Assessment and Plan Resume ASA when ok from a Neurosurg standpoint. Otherwise stable cardiac status. Will see on an as-needed basis. Follow-up with Dr. Sanon on 10/30/2020 @ 11am ([phone]). Pt seen in conjunction with Dr. Sanon, who agrees with the assessment and plan of care. - Patient Problems (1) Cervical spinal cord compression Current Visit: Yes Status: Acute (2) S/P aortic valve repair Current Visit: Yes Status: Chronic (3) Cardiomyopathy Current Visit: Yes Status: Chronic (4) CAD (coronary artery disease) Current Visit: Yes Status: Chronic (5) S/P CABG x 1 Current Visit: Yes Status: Chronic (6) Hypertension Current Visit: Yes Status: Chronic Qualifiers: Hypertension type: primary hypertension Qualified Code(s): I10 - Essential (primary) hypertension (7) T2DM (type 2 diabetes mellitus) Current Visit: Yes Status: Chronic Subjective Date of service: 10/06/20 Principal diagnosis: C3-4 Cord Compression Interval history: Pt states he is feeling great this morning. Ate all of his breakfast. No cardiac complaints this AM. Tele reviewed - SR 60-70s, no events overnight. Objective Last Vital Signs Temp 98.7 F 10/06/20 07:50 Pulse 64 10/06/20 07:50 Resp 19 10/06/20 07:50 BP 148/84 10/06/20 07:50 Pulse Ox 89 10/06/20 07:50 - Physical Examination General: No Apparent Distress HEENT: Positive: EOMI, Normocephaly, Mucus Membranes Moist Neck: Positive: neck supple, trachea midline Cardiac: Positive: Reg Rate and Rhythm, S1/S2 Lungs: Positive: clear to auscultation Neuro: Positive: Weakness (BLE - improving) Abdomen: Positive: Soft. Negative: Tender Skin: Negative: Rash Musculoskeletal: No Pain Extremities: Present: upper extr. pulses, lower extr. pulses. Absent: edema - Labs and Meds CBC 10/06/20 Range/Units 04:37 WBC 9.4 (4.5-11.0) K/mm3 RBC 4.32 (3.65-5.03) M/mm3 Hgb 12.7 (11.8-15.2) gm/dl Hct 37.4 (35.5-45.6) % Plt Count 316 (140-440) K/mm3 Lymph # (Auto) 0.6 L (1.2-5.4) K/mm3 [place] # (Auto) 0.7 (0.0-0.8) K/mm3 Eos # (Auto) 0.0 (0.0-0.4) K/mm3 Baso # (Auto) 0.0 (0.0-0.1) K/mm3 Comprehensive Metabolic Panel 10/06/20 Range/Units 04:37 Sodium 134 L (137-145) mmol/L Potassium 4.2 (3.6-5.0) mmol/L Chloride 97.7 L (98-107) mmol/L Carbon Dioxide 25 (22-30) mmol/L BUN 19 (9-20) mg/dL Creatinine 0.7 L (0.8-1.3) mg/dL Glucose 162 H (75-100) mg/dL Calcium 8.7 (8.4-10.2) mg/dL - Imaging and Cardiology EKG: report reviewed, image reviewed Echo: report reviewed (09/24/2020 - EF 35-40%, LV mildly dilated, mod LVH, RV hypokinetic and mildly dilated, LA mildly dilated, RA mildly dilated, mild with mean transaortic gradient of 9.8mmHg) Cardiac cath: report reviewed (02/2018 - LM angiographically normal, LAD moderate non-obstructive disease, RCA 90%, [employer] of small LCx) - Telemetry EKG Rhythm: Sinus Rhythm - EKG Sinus rhythms and dysrhythmias: sinus rhythm
[2020-10-06] MEDS: METOPROLOL TARTRATE 25 MG TAB PO SCH ×2 (10:13→22:37)
[2020-10-06] MEDS: LISINOPRIL 5 MG TAB PO SCH (10:14)
[2020-10-06] MEDS: FAMOTIDINE 20 MG TAB PO SCH ×2 (10:14→22:37)
[2020-10-06] MEDS: DICLOFENAC DR 75 MG TAB PO SCH (10:14)
--- NOTE | 2020-10-06 13:15 | Progress Note ---
Assessment and Plan 65 y/o M POD2 s/p C3-4 ACDF -cont current care -will continue abx due to concern for purulent drainage around drain site -cont PT/OT -regular diet -aggressive pulm toilet -please notify if questions Subjective Date of service: 10/06/20 Principal diagnosis: C3-4 Cord Compression Interval history: doing well, pt reports improved strength in his left leg Objective - Exam Narrative Exam: seen and examined no acute distress NC/AT A&Ox3 CNII-XII intact motor strength grossly 4+/5 R hemibody LUE 4/5 LLE 2/5 L ant cervical incision c/d/i - Vital Sign Vital Signs - 12hr 10/06/20 10/06/20 10/06/20 04:00 07:50 10:13 Temperature 98.5 F 98.7 F Pulse Rate 75 64 64 Respiratory 20 19 Rate Blood Pressure 148/84 148/84 Blood Pressure 162/97 [Left] O2 Sat by Pulse 89 Oximetry 10/06/20 10:14 Temperature Pulse Rate 64 Respiratory Rate Blood Pressure 148/84 Blood Pressure [Left] O2 Sat by Pulse Oximetry - Laboratory Findings CBC and BMP: 10/06/20 04:37 10/06/20 04:37 Abnormal Lab Findings: Abnormal Labs 09/23/20 09/23/20 09/23/20 12:11 12:11 17:38 Lymph % (Auto) [place] % (Auto) 10.0 H Lymph # (Auto) 1.0 L Seg Neutrophils % 72.6 H Seg Neutrophils # Sodium Chloride BUN Creatinine Glucose 148 H POC Glucose 132 H Hemoglobin A1c Calcium Total Creatine Kinase C-Reactive Protein Total Protein Albumin 09/24/20 09/25/20 09/25/20 05:49 04:49 04:49 Lymph % (Auto) [place] % (Auto) 12.7 H Lymph # (Auto) Seg Neutrophils % Seg Neutrophils # Sodium Chloride BUN Creatinine Glucose 118 H POC Glucose Hemoglobin A1c 7.6 H Calcium Total Creatine Kinase C-Reactive Protein Total Protein Albumin 09/25/20 09/26/20 09/26/20 20:38 08:02 12:17 Lymph % (Auto) [place] % (Auto) Lymph # (Auto) Seg Neutrophils % Seg Neutrophils # Sodium Chloride BUN Creatinine Glucose POC Glucose 133 H 117 H 168 H Hemoglobin A1c Calcium Total Creatine Kinase C-Reactive Protein Total Protein Albumin 09/26/20 09/26/20 09/27/20 16:16 22:35 08:08 Lymph % (Auto) [place] % (Auto) Lymph # (Auto) Seg Neutrophils % Seg Neutrophils # Sodium Chloride BUN Creatinine Glucose POC Glucose 163 H 173 H 124 H Hemoglobin A1c Calcium Total Creatine Kinase C-Reactive Protein Total Protein Albumin 09/27/20 09/27/20 09/27/20 11:49 17:02 20:42 Lymph % (Auto) [place] % (Auto) Lymph # (Auto) Seg Neutrophils % Seg Neutrophils # Sodium Chloride BUN Creatinine Glucose POC Glucose 182 H 124 H 141 H Hemoglobin A1c Calcium Total Creatine Kinase C-Reactive Protein Total Protein Albumin 09/28/20 09/28/20 09/28/20 07:38 08:42 11:10 Lymph % (Auto) [place] % (Auto) Lymph # (Auto) Seg Neutrophils % Seg Neutrophils # Sodium Chloride BUN Creatinine Glucose POC Glucose 137 H 198 H Hemoglobin A1c Calcium Total Creatine Kinase 2477 H C-Reactive Protein 2.40 H Total Protein Albumin 09/28/20 09/29/20 09/29/20 21:06 07:36 11:25 Lymph % (Auto) [place] % (Auto) Lymph # (Auto) Seg Neutrophils % Seg Neutrophils # Sodium Chloride BUN Creatinine Glucose POC Glucose 190 H 137 H 145 H Hemoglobin A1c Calcium Total Creatine Kinase C-Reactive Protein Total Protein Albumin 09/29/20 09/29/20 09/30/20 15:45 21:26 07:43 Lymph % (Auto) [place] % (Auto) Lymph # (Auto) Seg Neutrophils % Seg Neutrophils # Sodium Chloride BUN Creatinine Glucose POC Glucose 199 H 311 H 257 H Hemoglobin A1c Calcium Total Creatine Kinase C-Reactive Protein Total Protein Albumin 09/30/20 09/30/20 09/30/20 11:36 15:23 21:28 Lymph % (Auto) [place] % (Auto) Lymph # (Auto) Seg Neutrophils % Seg Neutrophils # Sodium Chloride BUN Creatinine Glucose POC Glucose 296 H 187 H 302 H Hemoglobin A1c Calcium Total Creatine Kinase C-Reactive Protein Total Protein Albumin 10/01/20 10/01/20 10/01/20 07:46 10:59 16:15 Lymph % (Auto) [place] % (Auto) Lymph # (Auto) Seg Neutrophils % Seg Neutrophils # Sodium Chloride BUN Creatinine Glucose POC Glucose 197 H 304 H 126 H Hemoglobin A1c Calcium Total Creatine Kinase C-Reactive Protein Total Protein Albumin 10/01/20 10/02/20 10/02/20 20:41 07:41 11:45 Lymph % (Auto) [place] % (Auto) Lymph # (Auto) Seg Neutrophils % Seg Neutrophils # Sodium Chloride BUN Creatinine Glucose POC Glucose 149 H 234 H 237 H Hemoglobin A1c Calcium Total Creatine Kinase C-Reactive Protein Total Protein Albumin 10/02/20 10/02/20 10/03/20 15:39 20:53 04:42 Lymph % (Auto) 9.5 L [place] % (Auto) 7.8 H Lymph # (Auto) 0.8 L Seg Neutrophils % 82.6 H Seg Neutrophils # Sodium Chloride BUN Creatinine Glucose POC Glucose 248 H 272 H Hemoglobin A1c Calcium Total Creatine Kinase C-Reactive Protein Total Protein Albumin 10/03/20 10/03/20 10/03/20 04:42 09:13 11:55 Lymph % (Auto) [place] % (Auto) Lymph # (Auto) Seg Neutrophils % Seg Neutrophils # Sodium 134 L Chloride BUN 22 H Creatinine 0.7 L Glucose 165 H POC Glucose 208 H 276 H Hemoglobin A1c Calcium Total Creatine Kinase C-Reactive Protein Total Protein Albumin 3.3 L 10/03/20 10/03/20 10/04/20 16:48 20:58 03:07 Lymph % (Auto) [place] % (Auto) Lymph # (Auto) Seg Neutrophils % Seg Neutrophils # Sodium 131 L Chloride BUN 23 H Creatinine Glucose 173 H POC Glucose 192 H 294 H Hemoglobin A1c Calcium Total Creatine Kinase C-Reactive Protein Total Protein Albumin 10/04/20 10/04/20 10/04/20 03:07 06:57 11:20 Lymph % (Auto) 10.8 L [place] % (Auto) 7.5 H Lymph # (Auto) 0.9 L Seg Neutrophils % 81.5 H Seg Neutrophils # Sodium Chloride BUN Creatinine Glucose POC Glucose 128 H 138 H Hemoglobin A1c Calcium Total Creatine Kinase C-Reactive Protein Total Protein Albumin 10/04/20 10/04/20 10/05/20 16:27 21:25 05:42 Lymph % (Auto) [place] % (Auto) Lymph # (Auto) Seg Neutrophils % Seg Neutrophils # Sodium 134 L Chloride BUN Creatinine Glucose 203 H POC Glucose 122 H 158 H Hemoglobin A1c Calcium 8.2 L Total Creatine Kinase C-Reactive Protein Total Protein 6.2 L Albumin 3.2 L 10/05/20 10/05/20 10/05/20 08:19 11:49 16:30 Lymph % (Auto) [place] % (Auto) Lymph # (Auto) Seg Neutrophils % Seg Neutrophils # Sodium Chloride BUN Creatinine Glucose POC Glucose 208 H 151 H 116 H Hemoglobin A1c Calcium Total Creatine Kinase C-Reactive Protein Total Protein Albumin 10/05/20 10/06/20 10/06/20 21:15 04:37 04:37 Lymph % (Auto) 6.8 L [place] % (Auto) 7.6 H Lymph # (Auto) 0.6 L Seg Neutrophils % 85.4 H Seg Neutrophils # 8.0 H Sodium 134 L Chloride 97.7 L BUN Creatinine 0.7 L Glucose 162 H POC Glucose 173 H Hemoglobin A1c Calcium Total Creatine Kinase C-Reactive Protein Total Protein Albumin 10/06/20 10/06/20 07:50 11:36 Lymph % (Auto) [place] % (Auto) Lymph # (Auto) Seg Neutrophils % Seg Neutrophils # Sodium Chloride BUN Creatinine Glucose POC Glucose 163 H 205 H Hemoglobin A1c Calcium Total Creatine Kinase C-Reactive Protein Total Protein Albumin
[2020-10-06] MEDS: SODIUM CHLORIDE 0.9% 1000 ML 1,000 ML IV SCH (18:34)
--- NOTE | 2020-10-06 19:30 | Progress Note ---
Assessment and Plan Assessment and plan: Discussed with neurosurgeon Dr. 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 Physical therapy occupational therapy acute inpatient rehabilitation Patient received 2 units platelets prior to surgery We will try to transfuse 2 units of platelets post surgery As recommended by neurosurgeon Dr. Myers --Concern about purulent drainage around the drain site We will continue Ancef per neurosurgery recommendations --Hypertension; moderate control Continue current antihypertensives --Type 2 diabetes mellitus; Accu-Chek sliding scale coverage ADA diet Insulin as needed --DVT prophylaxis; SCD No pharmacologic anticoagulation at this point Postop state --Obesity BMI 32.7 patient may need weight reduction when medically stable Closely monitor the patient and adjust the management as needed Plan of care reviewed with patient's nurse, I discussed with the family member at the bedside. Physical therapy occupational therapy IRU placement when patient is stable. And when bed is available Brief history and daily hospital course: 65 y/o Male patient presented to [facility] 1 week ago with complaints of acute onset arm and leg weakness. He has chronic left hemiparesis due to polio, but was ambulatory with a walker. He reports weakness, which equally affected both arms and legs since last Friday night. Upon arrival, a CT was performed, which was negative for acute changes. He was started on ASA and Plavix due to concern for CVA. MRI was negative for acute changes. Neurology was consulted, recommended MRI Cervical spine. Which was was performed 09/28/2020, revealing severe cord compression at C3-4 due to broad based disc osteophyte formation and thickened ligamentum flavum. There is focal T2 hyperintensity in the substance of the spinal cord at C3-4. Presently, he denies significant improvement in his symptoms. He is not presently able to walk. Neurosurgeon evaluated s/p C3-C4 ACDF on 10/04/2020. Patient tolerated the procedure well. Postop care per neurosurgery 09/24/20 Patient is 65 yo presented with right sided weakness. CT Head revealed infarct left basal ganglia. He was admitted with acute stroke. Patient started on Aspirin, Lipitor. MRI ordered, not done yet. Neurology consulted. F/U MRI Brain, CT Angio Head, CT Angio Neck 09/25/20. F/U CTA head and neck. PT/OT 09/26/20. MRI of brain negative. CT head and neck reveals occluded Left MCA M1 segment with collateralization. F/U ECHO. Cont. ASA and lipitor. PT recommends acute rehab 09/27/2020. Left ventricle mildly dilated. Left ventricular systolic function is moderately decreased. LVEF is 35 to 40%. Mild to moderate concentric left ventricular hypertrophy. Mild aortic stenosis. Carotid ultrasound negative. Await rehab placement. 09/28/2020. Neurology recommends b12, tsh, rpr, ck, esr, crp, mri cervical spine w/ wo contrast. Consider transfer to hospital with bedside neurology 09/29/2020. MRI cervical spine reveals significant degenerative changes of the cervical spine involving C3-C4 through C5-C6. There appears to be cord impingement at C3-C4. 09/30/2020. MRI C-spine no severe C-spine stenosis especially at C3-C4 level with mild cord edema. Continue Decadron 4 mg IV every 6 hours. Neurosurgery consultation. Patient with elevated BG given the addition of steroids. We will start Lantus 8 units at bedtime. SSRI and Accu-Cheks 10/01/2020. MRI of thoracic and lumbar spine without contrast pending per surgery recommendations. Continue to hold aspirin. Cardiology consultation for cardiac clearance prior to surgery. 10/02/2020. Follow-up MRI of thoracic and lumbar spine without contrast. Continue to hold aspirin. Cardiology consultation for cardiac clearance prior to surgery. Neurosurgery following and plans for surgical intervention later this week. Continue Decadron. 10/03/2020; neurosurgery scheduled for C3-C4 Anterior Cervical Discectomy and Fusion [C3-C4 ACDF] on 10/05/2020, arrangements made for 2 units of platelet transfusion prior to surgery on 10/05/2020, and 2 units platelet tra nsfusion post surgery.Patient will be n.p.o. midnight 10/05/2020, will check coags on the day of surgery Plan of care reviewed with the patient, family member at the bedside and his nurse. I discussed with neurosurgeon Dr. Myers 10/04/2020; patient underwent C3-C4 ACDF surgery today. Tolerated the procedure well, postop care per neurosurgery 10/05/2020; follow PT and OT recommendations Swallow eval if needed Continue current management 10/06/2020; patient is able to swallow without difficulty No evidence of dysphagia, continue Ancef per NSG Patient will be transferred to acute inpatient rehab in stable when bed is available History Interval history: Seen and examined the patient at the bedside Patient's chart and medications reviewed Patient feels slightly better , no difficulty swallowing Tolerated breakfast and lunch Vital signs noted Hospitalist Physical - Constitutional Vitals: Temp Pulse Resp BP Pulse Ox 98.4 F 66 19 131/77 99 10/06/20 16:27 10/06/20 16:27 10/06/20 16:27 10/06/20 16:27 10/06/20 16:27 General appearance: Present: mild distress, well-nourished, obese, other (Some neck and back pain) - EENT Eyes: Present: PERRL, EOM intact - Neck Neck: Present: supple - Respiratory Respiratory effort: normal Respiratory: bilateral: diminished, negative: rales, rhonchi, wheezing - Cardiovascular Rhythm: regular Heart Sounds: Present: S1 & S2 - Extremities Extremities: no ischemia, No edema - Abdominal General gastrointestinal: soft, non-tender, non-distended, normal bowel sounds - Integumentary Integumentary: Present: clear, warm - Psychiatric Psychiatric: appropriate mood/affect, cooperative - Neurologic Neurologic: moves all extremities HEART Score - HEART Score Troponin: Troponin T < 0.010 ng/mL (0.00-0.029) 10/03/20 04:42 Results - Labs CBC & Chem 7: 10/06/20 04:37 10/06/20 04:37 Labs: Laboratory Last Values WBC 9.4 K/mm3 (4.5-11.0) 10/06/20 04:37 RBC 4.32 M/mm3 (3.65-5.03) 10/06/20 04:37 Hgb 12.7 gm/dl (11.8-15.2) 10/06/20 04:37 Hct 37.4 % (35.5-45.6) 10/06/20 04:37 MCV 87 fl (84-94) 10/06/20 04:37 MCH 29 pg (28-32) 10/06/20 04:37 MCHC 34 % (32-34) 10/06/20 04:37 RDW 13.6 % (13.2-15.2) 10/06/20 04:37 Plt Count 316 K/mm3 (140-440) 10/06/20 04:37 Lymph % (Auto) 6.8 % (13.4-35.0) L 10/06/20 04:37 [place] % (Auto) 7.6 % (0.0-7.3) H 10/06/20 04:37 Eos % (Auto) 0.0 % (0.0-4.3) 10/06/20 04:37 Baso % (Auto) 0.2 % (0.0-1.8) 10/06/20 04:37 Lymph # (Auto) 0.6 K/mm3 (1.2-5.4) L 10/06/20 04:37 [place] # (Auto) 0.7 K/mm3 (0.0-0.8) 10/06/20 04:37 Eos # (Auto) 0.0 K/mm3 (0.0-0.4) 10/06/20 04:37 Baso # (Auto) 0.0 K/mm3 (0.0-0.1) 10/06/20 04:37 Seg Neutrophils % 85.4 % (40.0-70.0) H 10/06/20 04:37 Seg Neutrophils # 8.0 K/mm3 (1.8-7.7) H 10/06/20 04:37 PT 13.2 Sec. (12.2-14.9) 10/04/20 03:07 INR 0.94 (0.87-1.13) 10/04/20 03:07 APTT 29.9 Sec. (24.2-36.6) 10/04/20 03:07 Sodium 134 mmol/L (137-145) L 10/06/20 04:37 Potassium 4.2 mmol/L (3.6-5.0) 10/06/20 04:37 Chloride 97.7 mmol/L (98-107) L 10/06/20 04:37 Carbon Dioxide 25 mmol/L (22-30) 10/06/20 04:37 Anion Gap 16 mmol/L 10/06/20 04:37 BUN 19 mg/dL (9-20) 10/06/20 04:37 Creatinine 0.7 mg/dL (0.8-1.3) L 10/06/20 04:37 Estimated GFR > 60 ml/min 10/06/20 04:37 BUN/Creatinine Ratio 27 % 10/06/20 04:37 Glucose 162 mg/dL (75-100) H 10/06/20 04:37 POC Glucose 235 mg/dL (70-105) H 10/06/20 16:27 Hemoglobin A1c 7.6 % (4-6) H 09/24/20 05:49 Calcium 8.7 mg/dL (8.4-10.2) 10/06/20 04:37 Phosphorus 3.40 mg/dL (2.5-4.5) D 10/05/20 05:42 Magnesium 2.10 mg/dL (1.7-2.3) 10/05/20 05:42 Total Bilirubin 0.60 mg/dL (0.1-1.2) 10/05/20 05:42 Direct Bilirubin < 0.2 mg/dL (0-0.2) 09/23/20 12:11 Indirect Bilirubin 0.3 mg/dL 09/23/20 12:11 AST 17 units/L (5-40) 10/05/20 05:42 ALT 19 units/L (7-56) 10/05/20 05:42 Alkaline Phosphatase 69 units/L (35-129) 10/05/20 05:42 Total Creatine Kinase 2477 units/L (55-170) H 09/28/20 08:42 Troponin T < 0.010 ng/mL (0.00-0.029) 10/03/20 04:42 C-Reactive Protein 2.40 mg/dL (0.00-1.30) H 09/28/20 08:42 Total Protein 6.2 g/dL (6.3-8.2) L 10/05/20 05:42 Albumin 3.2 g/dL (3.9-5) L 10/05/20 05:42 Albumin/Globulin Ratio 1.1 % 10/05/20 05:42 Triglycerides 83 mg/dL (2-149) 09/25/20 04:49 Cholesterol 177 mg/dL (50-199) 09/25/20 04:49 LDL Cholesterol Direct 126 mg/dL (50-130) 09/25/20 04:49 HDL Cholesterol 50 mg/dL (40-59) 09/25/20 04:49 Cholesterol/HDL Ratio 3.54 % 09/25/20 04:49 Vitamin B12 400.3 pg/mL (211-911) 09/28/20 08:42 TSH 1.380 mlU/mL (0.270-4.200) 09/28/20 08:42 Urine Color Yellow (Yellow) 09/23/20 12:14 Urine Turbidity Clear (Clear) 09/23/20 12:14 Urine pH 6.0 (5.0-7.0) 09/23/20 12:14 Ur Specific [place] 1.020 (1.003-1.030) 09/23/20 12:14 Urine Protein 30 mg/dl mg/dL (Negative) 09/23/20 12:14 Urine Glucose (UA) Neg mg/dL (Negative) 09/23/20 12:14 Urine Ketones Neg mg/dL (Negative) 09/23/20 12:14 Urine Blood Neg (Negative) 09/23/20 12:14 Urine Nitrite Neg (Negative) 09/23/20 12:14 Urine Bilirubin Neg (Negative) 09/23/20 12:14 Urine Urobilinogen 4.0 mg/dL (<2.0) 09/23/20 12:14 Ur Leukocyte Esterase Neg (Negative) 09/23/20 12:14 Urine WBC (Auto) 1.0 /HPF (0.0-6.0) 09/23/20 12:14 Urine RBC (Auto) 3.0 /HPF (0.0-6.0) 09/23/20 12:14 U Epithel Cells (Auto) < 1.0 /HPF (0-13.0) 09/23/20 12:14 Urine Mucus Few /HPF 09/23/20 12:14 Coronavirus (PCR) Negative (Negative) 09/25/20 Unknown Blood Type AB POSITIVE 10/03/20 18:00 Antibody Screen Negative 10/03/20 18:00 Riley/IV: Voiding Method Condom Catheter Active Medications - Current Medications Current Medications: Generic Name Dose Route Start Last Admin Trade Name Freq PRN Reason Stop Dose Admin Hydrocodone Bitart/Acetaminophen 1 each 09/24/20 00:38 10/02/20 13:42 Hydrocodone/Acetaminophen 5-325 Mg Tab PO 1 each Q6HR PRN Administration Pain , Severe (7-10) Atorvastatin Calcium 40 mg 09/24/20 22:00 10/05/20 23:09 Atorvastatin 40 Mg Tab PO 40 mg QHS FLAQUITO Administration Dexamethasone 4 mg 09/29/20 12:00 10/06/20 18:30 Dexamethasone 4 Mg/Ml Vial IV 4 mg Q6HR FLAQUITO Administration Dextrose 50 ml 09/30/20 10:26 Dextrose 50% In Water (25gm) 50 Ml Syringe IV Q30MIN PRN Hypoglycemia Protocol Diclofenac Sodium 75 mg 09/24/20 10:00 10/06/20 10:[address] 75 Mg Tab PO 75 mg QDAY FLAQUITO Administration Famotidine 20 mg 09/25/20 10:00 10/06/20 10:14 Famotidine 20 Mg Tab PO 20 mg BID FLAQUITO Administration Glipizide 5 mg 10/04/20 08:00 10/06/20 08:51 Glipizide 5 Mg Tab PO 5 mg QDDIAB FLAQUITO Administration Hydromorphone HCl 0.5 mg 09/24/20 00:53 Hydromorphone 1 Mg/1 Ml Inj IV Q3H PRN Pain , Severe (7-10) Sodium Chloride 1,000 mls @ 42 mls/hr 09/24/20 01:00 10/06/20 18:34 Nacl 0.9% 1000 Ml IV 42 mls/hr DIRECT FLAQUITO Administration Insulin Glargine 10 units 10/03/20 22:00 10/05/20 23:08 Insulin Glargine 100 Units/Ml SUB-Q 10 units QHS FLAQUITO Administration Insulin Human Regular 0 units 09/30/20 11:30 10/06/20 18:31 Insulin Regular, Human 100 Units/1 Ml SUB-Q 3 units ACHS FLAQUITO Administration Protocol Lisinopril 2.5 mg 10/04/20 10:00 10/06/20 10:14 Lisinopril 5 Mg Tab PO 2.5 mg QDAY FLAQUITO Administration Metoclopramide HCl 10 mg 09/24/20 00:53 Metoclopramide 10 Mg/2 Ml Inj IV Q6H PRN Nausea And Vomiting Metoprolol Tartrate 12.5 mg 10/03/20 12:00 10/06/20 10:13 Metoprolol Tartrate 25 Mg Tab PO 12.5 mg BID FLAQUITO Administration Ondansetron HCl 4 mg 09/24/20 00:53 Ondansetron 4 Mg/2 Ml Inj IV Q8H PRN Nausea And Vomiting Oxycodone/Acetaminophen 1 tab 09/24/20 00:53 09/27/20 00:25 Oxycodone /Acetaminophen 5-325mg Tab PO 1 tab Q6H PRN Administration Pain, Moderate (4-6) Sodium Chloride 10 ml 09/24/20 10:00 10/06/20 10:15 Sodium Chloride 0.9% 10 Ml Flush Syringe IV 10 ml BID FLAQUITO Administration Sodium Chloride 10 ml 09/24/20 00:53 10/03/20 06:24 Sodium Chloride 0.9% 10 Ml Flush Syringe IV 10 ml PRN PRN Administration LINE FLUSH Nutrition/Malnutrition Assess - Dietary Evaluation Nutrition/Malnutrition Findings: Nutrition Notes Start: 09/29/20 12:29 Freq: Status: Active Protocol: Document 09/29/20 12:29 LM (Rec: 09/29/20 12:30 LM [id number]) Nutrition Notes Need for Assessment generated from: LOS Initial or Follow up Brief Note Subjective/Other Information Screen for LOS. Pt with 100% intakes per EMR. Nutrition Intervention Revisit per MD consult or patient Sign Off request:
[2020-10-06] MEDS: INSULIN GLARGINE 100 UNITS/ML SUB-Q SCH (22:40)
[2020-10-07] MEDS: dexAMETHasone 4 MG/ML VIAL IV SCH ×3 (00:50→15:11)
--- NOTE | 2020-10-07 07:54 | Progress Note ---
Assessment and Plan 65 y/o M POD3 s/p C3-4 ACDF for severe cervical spondylotic myelopathy, doing well -cont PT/OT -will hold off on abx as no further drainage from drain site has occurred -regular diet -may start ASA 81 POD5, ASA 325 POD 7 -clear for pharmacologic dvt prophylaxis -clear for rehab placement from my standpoint Subjective Date of service: 10/07/20 Principal diagnosis: C3-4 Cord Compression Interval history: NAEON; Mr. Alvarez reports gradual improvement of his left lower extremity strength. He is very pleased with his progress thus far. Objective - Exam Narrative Exam: seen and examined no acute distress A&Ox3 CNII-XII intact R hemibody 4/5 LUE 4-/5 LLE 2/5 HF, 3/5 KF/KE, 3/5 DF/PF incision c/d/i, no further drainage - Vital Sign Vital Signs - 12hr 10/06/20 10/06/20 10/06/20 20:35 21:00 22:37 Temperature Pulse Rate 48 L 72 Respiratory 18 Rate Blood Pressure 137/72 O2 Sat by Pulse 100 Oximetry 10/06/20 10/07/20 23:33 03:53 Temperature 98.1 F 97.5 F L Pulse Rate 69 48 L Respiratory 18 20 Rate Blood Pressure 141/72 137/70 O2 Sat by Pulse 95 97 Oximetry - Laboratory Findings CBC and BMP: 10/06/20 04:37 10/06/20 04:37 Abnormal Lab Findings: Abnormal Labs 09/23/20 09/23/20 09/23/20 12:11 12:11 17:38 Lymph % (Auto) [place] % (Auto) 10.0 H Lymph # (Auto) 1.0 L Seg Neutrophils % 72.6 H Seg Neutrophils # Sodium Chloride BUN Creatinine Glucose 148 H POC Glucose 132 H Hemoglobin A1c Calcium Total Creatine Kinase C-Reactive Protein Total Protein Albumin 09/24/20 09/25/20 09/25/20 05:49 04:49 04:49 Lymph % (Auto) [place] % (Auto) 12.7 H Lymph # (Auto) Seg Neutrophils % Seg Neutrophils # Sodium Chloride BUN Creatinine Glucose 118 H POC Glucose Hemoglobin A1c 7.6 H Calcium Total Creatine Kinase C-Reactive Protein Total Protein Albumin 09/25/20 09/26/20 09/26/20 20:38 08:02 12:17 Lymph % (Auto) [place] % (Auto) Lymph # (Auto) Seg Neutrophils % Seg Neutrophils # Sodium Chloride BUN Creatinine Glucose POC Glucose 133 H 117 H 168 H Hemoglobin A1c Calcium Total Creatine Kinase C-Reactive Protein Total Protein Albumin 09/26/20 09/26/20 09/27/20 16:16 22:35 08:08 Lymph % (Auto) [place] % (Auto) Lymph # (Auto) Seg Neutrophils % Seg Neutrophils # Sodium Chloride BUN Creatinine Glucose POC Glucose 163 H 173 H 124 H Hemoglobin A1c Calcium Total Creatine Kinase C-Reactive Protein Total Protein Albumin 09/27/20 09/27/20 09/27/20 11:49 17:02 20:42 Lymph % (Auto) [place] % (Auto) Lymph # (Auto) Seg Neutrophils % Seg Neutrophils # Sodium Chloride BUN Creatinine Glucose POC Glucose 182 H 124 H 141 H Hemoglobin A1c Calcium Total Creatine Kinase C-Reactive Protein Total Protein Albumin 09/28/20 09/28/20 09/28/20 07:38 08:42 11:10 Lymph % (Auto) [place] % (Auto) Lymph # (Auto) Seg Neutrophils % Seg Neutrophils # Sodium Chloride BUN Creatinine Glucose POC Glucose 137 H 198 H Hemoglobin A1c Calcium Total Creatine Kinase 2477 H C-Reactive Protein 2.40 H Total Protein Albumin 09/28/20 09/29/20 09/29/20 21:06 07:36 11:25 Lymph % (Auto) [place] % (Auto) Lymph # (Auto) Seg Neutrophils % Seg Neutrophils # Sodium Chloride BUN Creatinine Glucose POC Glucose 190 H 137 H 145 H Hemoglobin A1c Calcium Total Creatine Kinase C-Reactive Protein Total Protein Albumin 09/29/20 09/29/20 09/30/20 15:45 21:26 07:43 Lymph % (Auto) [place] % (Auto) Lymph # (Auto) Seg Neutrophils % Seg Neutrophils # Sodium Chloride BUN Creatinine Glucose POC Glucose 199 H 311 H 257 H Hemoglobin A1c Calcium Total Creatine Kinase C-Reactive Protein Total Protein Albumin 09/30/20 09/30/20 09/30/20 11:36 15:23 21:28 Lymph % (Auto) [place] % (Auto) Lymph # (Auto) Seg Neutrophils % Seg Neutrophils # Sodium Chloride BUN Creatinine Glucose POC Glucose 296 H 187 H 302 H Hemoglobin A1c Calcium Total Creatine Kinase C-Reactive Protein Total Protein Albumin 10/01/20 10/01/20 10/01/20 07:46 10:59 16:15 Lymph % (Auto) [place] % (Auto) Lymph # (Auto) Seg Neutrophils % Seg Neutrophils # Sodium Chloride BUN Creatinine Glucose POC Glucose 197 H 304 H 126 H Hemoglobin A1c Calcium Total Creatine Kinase C-Reactive Protein Total Protein Albumin 10/01/20 10/02/20 10/02/20 20:41 07:41 11:45 Lymph % (Auto) [place] % (Auto) Lymph # (Auto) Seg Neutrophils % Seg Neutrophils # Sodium Chloride BUN Creatinine Glucose POC Glucose 149 H 234 H 237 H Hemoglobin A1c Calcium Total Creatine Kinase C-Reactive Protein Total Protein Albumin 10/02/20 10/02/20 10/03/20 15:39 20:53 04:42 Lymph % (Auto) 9.5 L [place] % (Auto) 7.8 H Lymph # (Auto) 0.8 L Seg Neutrophils % 82.6 H Seg Neutrophils # Sodium Chloride BUN Creatinine Glucose POC Glucose 248 H 272 H Hemoglobin A1c Calcium Total Creatine Kinase C-Reactive Protein Total Protein Albumin 10/03/20 10/03/20 10/03/20 04:42 09:13 11:55 Lymph % (Auto) [place] % (Auto) Lymph # (Auto) Seg Neutrophils % Seg Neutrophils # Sodium 134 L Chloride BUN 22 H Creatinine 0.7 L Glucose 165 H POC Glucose 208 H 276 H Hemoglobin A1c Calcium Total Creatine Kinase C-Reactive Protein Total Protein Albumin 3.3 L 10/03/20 10/03/20 10/04/20 16:48 20:58 03:07 Lymph % (Auto) [place] % (Auto) Lymph # (Auto) Seg Neutrophils % Seg Neutrophils # Sodium 131 L Chloride BUN 23 H Creatinine Glucose 173 H POC Glucose 192 H 294 H Hemoglobin A1c Calcium Total Creatine Kinase C-Reactive Protein Total Protein Albumin 10/04/20 10/04/20 10/04/20 03:07 06:57 11:20 Lymph % (Auto) 10.8 L [place] % (Auto) 7.5 H Lymph # (Auto) 0.9 L Seg Neutrophils % 81.5 H Seg Neutrophils # Sodium Chloride BUN Creatinine Glucose POC Glucose 128 H 138 H Hemoglobin A1c Calcium Total Creatine Kinase C-Reactive Protein Total Protein Albumin 10/04/20 10/04/20 10/05/20 16:27 21:25 05:42 Lymph % (Auto) [place] % (Auto) Lymph # (Auto) Seg Neutrophils % Seg Neutrophils # Sodium 134 L Chloride BUN Creatinine Glucose 203 H POC Glucose 122 H 158 H Hemoglobin A1c Calcium 8.2 L Total Creatine Kinase C-Reactive Protein Total Protein 6.2 L Albumin 3.2 L 10/05/20 10/05/20 10/05/20 08:19 11:49 16:30 Lymph % (Auto) [place] % (Auto) Lymph # (Auto) Seg Neutrophils % Seg Neutrophils # Sodium Chloride BUN Creatinine Glucose POC Glucose 208 H 151 H 116 H Hemoglobin A1c Calcium Total Creatine Kinase C-Reactive Protein Total Protein Albumin 10/05/20 10/06/20 10/06/20 21:15 04:37 04:37 Lymph % (Auto) 6.8 L [place] % (Auto) 7.6 H Lymph # (Auto) 0.6 L Seg Neutrophils % 85.4 H Seg Neutrophils # 8.0 H Sodium 134 L Chloride 97.7 L BUN Creatinine 0.7 L Glucose 162 H POC Glucose 173 H Hemoglobin A1c Calcium Total Creatine Kinase C-Reactive Protein Total Protein Albumin 10/06/20 10/06/20 10/06/20 07:50 11:36 16:27 Lymph % (Auto) [place] % (Auto) Lymph # (Auto) Seg Neutrophils % Seg Neutrophils # Sodium Chloride BUN Creatinine Glucose POC Glucose 163 H 205 H 235 H Hemoglobin A1c Calcium Total Creatine Kinase C-Reactive Protein Total Protein Albumin 10/06/20 21:18 Lymph % (Auto) [place] % (Auto) Lymph # (Auto) Seg Neutrophils % Seg Neutrophils # Sodium Chloride BUN Creatinine Glucose POC Glucose 297 H Hemoglobin A1c Calcium Total Creatine Kinase C-Reactive Protein Total Protein Albumin
[2020-10-07] MEDS: INSULIN REGULAR, HUMAN 100 UNITS/1 ML SUB-Q SCH ×4 (08:30→22:26)
[2020-10-07] MEDS: DICLOFENAC DR 75 MG TAB PO SCH (09:39)
[2020-10-07] MEDS: LISINOPRIL 5 MG TAB PO SCH (09:40)
[2020-10-07] MEDS: METOPROLOL TARTRATE 25 MG TAB PO SCH ×2 (09:40→22:27)
[2020-10-07] MEDS: FAMOTIDINE 20 MG TAB PO SCH ×2 (09:40→22:27)
[2020-10-07] MEDS: glipiZIDE 5 MG TAB PO SCH (09:41)
[2020-10-07] MEDS ORDERED: INSULIN GLARGINE 100 UNITS/ML SUB-Q SCH (10:23)
--- NOTE | 2020-10-07 10:27 | Progress Note ---
Assessment and Plan Assessment and plan: Dr. Bhatia recommends to resume aspirin 81 mg daily POD 5 [10/09/2020 ]and 325 mg daily POD 7 [10/11/2020 ]from the date of surgery[10/04/2020]. 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 Physical therapy occupational therapy acute inpatient rehabilitation Patient received 2 units platelets prior to surgery We will try to transfuse 2 units of platelets post surgery As recommended by neurosurgeon Dr. Myers --Concern about purulent drainage around the drain site We will continue Ancef per neurosurgery recommendations --Hypertension; moderate control Continue current antihypertensives --Type 2 diabetes mellitus; uncontrolled Probably secondary to steroid use, increase Lantus dose to 12 units subcu Accu-Chek sliding scale coverage ADA diet, A1c 7.6 --DVT prophylaxis; SCD No pharmacologic anticoagulation at this point Postop state --Obesity BMI 32.7 patient may need weight reduction when medically stable Closely monitor the patient and adjust the management as needed Plan of care reviewed with patient's nurse, I discussed with the family member at the bedside. Physical therapy occupational therapy IRU placement when patient is stable. And when bed is available Brief history and daily hospital course: 65 y/o Male patient presented to [facility] 1 week ago with complaints of acute onset arm and leg weakness. He has chronic left hemiparesis due to polio, but was ambulatory with a walker. He reports weakness, which equally affected both arms and legs since last Friday night. Upon arrival, a CT was performed, which was negative for acute changes. He was started on ASA and Plavix due to concern for CVA. MRI was negative for acute changes. Neurology was consulted, recommended MRI Cervical spine. Which was was performed 09/28/2020, revealing severe cord compression at C3-4 due to broad based disc osteophyte formation and thickened ligamentum flavum. There is focal T2 hyperintensity in the substance of the spinal cord at C3-4. Presently, he denies significant improvement in his symptoms. He is not presently able to walk. Neurosurgeon evaluated s/p C3-C4 ACDF on 10/04/2020. Patient tolerated the procedure well. Postop care per neurosurgery 09/24/20 Patient is 65 yo presented with right sided weakness. CT Head revealed infarct left basal ganglia. He was admitted with acute stroke. Patient started on Aspirin, Lipitor. MRI ordered, not done yet. Neurology consulted. F/U MRI Brain, CT Angio Head, CT Angio Neck 09/25/20. F/U CTA head and neck. PT/OT 09/26/20. MRI of brain negative. CT head and neck reveals occluded Left MCA M1 segment with collateralization. F/U ECHO. Cont. ASA and lipitor. PT recommends acute rehab 09/27/2020. Left ventricle mildly dilated. Left ventricular systolic function is moderately decreased. LVEF is 35 to 40%. Mild to moderate concentric left ventricular hypertrophy. Mild aortic stenosis. Carotid ultrasound negative. Await rehab placement. 09/28/2020. Neurology recommends b12, tsh, rpr, ck, esr, crp, mri cervical spine w/ wo contrast. Consider transfer to hospital with bedside neurology 09/29/2020. MRI cervical spine reveals significant degenerative changes of the cervical spine involving C3-C4 through C5-C6. There appears to be cord impingement at C3-C4. 09/30/2020. MRI C-spine no severe C-spine stenosis especially at C3-C4 level with mild cord edema. Continue Decadron 4 mg IV every 6 hours. Neurosurgery consultation. Patient with elevated BG given the addition of steroids. We will start Lantus 8 units at bedtime. SSRI and Accu-Cheks 10/01/2020. MRI of thoracic and lumbar spine without contrast pending per surgery recommendations. Continue to hold aspirin. Cardiology consultation for cardiac clearance prior to surgery. 10/02/2020. Follow-up MRI of thoracic and lumbar spine without contrast. Continue to hold aspirin. Cardiology consultation for cardiac clearance prior to surgery. Neurosurgery following and plans for surgical intervention later this week. Continue Decadron. 10/03/2020; neurosurgery scheduled for C3-C4 Anterior Cervical Discectomy and Fusion [C3-C4 ACDF] on 10/05/2020, arrangements made for 2 units of platelet transfusion prior to surgery on 10/05/2020, and 2 units platelet transfusion post surgery.Patient will be n.p.o. midnight 10/05/2020, will check coags on the day of surgery Plan of care reviewed with the patient, family member at the bedside and his nurse. I discussed with neurosurgeon Dr. Myers 10/04/2020; patient underwent C3-C4 ACDF surgery today. Tolerated the procedure well, postop care per neurosurgery 10/05/2020; follow PT and OT recommendations Swallow eval if needed Continue current management 10/06/2020; patient is able to swallow without difficulty No evidence of dysphagia, continue Ancef per NSG Patient will be transferred to acute inpatient rehab in stable when bed is available 10/07/2020; patient feels better, no new complaints Lower extremity weakness significantly improved Tolerating PTOT, Awaiting inpatient rehab placement when bed is available We will resume aspirin 81 mg on postop day 5[10/09/2020] And aspirin 325 mg on postop day 7[10/11/2020] per neurosurgery History Interval history: I have seen and examined the patient at the bedside Patient's chart and medications reviewed Patient feels better, no new complaints Extremity weakness significantly improved Vital signs noted Hospitalist Physical - Constitutional Vitals: Temp Pulse Resp BP Pulse Ox 98.2 F 75 20 146/73 100 10/07/20 07:48 10/07/20 09:40 10/07/20 07:48 10/07/20 09:40 10/07/20 07:48 General appearance: Present: mild distress, well-nourished, obese - EENT Eyes: Present: PERRL, EOM intact - Neck Neck: Present: supple, normal ROM - Respiratory Respiratory effort: normal Respiratory: bilateral: diminished, negative: rales, rhonchi, wheezing - Cardiovascular Rhythm: regular Heart Sounds: Present: S1 & S2 - Extremities Extremities: no ischemia, No edema - Abdominal General gastrointestinal: soft, non-tender, non-distended, normal bowel sounds - Integumentary Integumentary: Present: clear, warm - Psychiatric Psychiatric: appropriate mood/affect, cooperative - Neurologic Neurologic: moves all extremities HEART Score - HEART Score Troponin: Troponin T < 0.010 ng/mL (0.00-0.029) 10/03/20 04:42 Results - Labs CBC & Chem 7: 10/06/20 04:37 10/06/20 04:37 Labs: Laboratory Last Values WBC 9.4 K/mm3 (4.5-11.0) 10/06/20 04:37 RBC 4.32 M/mm3 (3.65-5.03) 10/06/20 04:37 Hgb 12.7 gm/dl (11.8-15.2) 10/06/20 04:37 Hct 37.4 % (35.5-45.6) 10/06/20 04:37 MCV 87 fl (84-94) 10/06/20 04:37 MCH 29 pg (28-32) 10/06/20 04:37 MCHC 34 % (32-34) 10/06/20 04:37 RDW 13.6 % (13.2-15.2) 10/06/20 04:37 Plt Count 316 K/mm3 (140-440) 10/06/20 04:37 Lymph % (Auto) 6.8 % (13.4-35.0) L 10/06/20 04:37 Gonzales % (Auto) 7.6 % (0.0-7.3) H 10/06/20 04:37 Eos % (Auto) 0.0 % (0.0-4.3) 10/06/20 04:37 Baso % (Auto) 0.2 % (0.0-1.8) 10/06/20 04:37 Lymph # (Auto) 0.6 K/mm3 (1.2-5.4) L 10/06/20 04:37 Gonzales # (Auto) 0.7 K/mm3 (0.0-0.8) 10/06/20 04:37 Eos # (Auto) 0.0 K/mm3 (0.0-0.4) 10/06/20 04:37 Baso # (Auto) 0.0 K/mm3 (0.0-0.1) 10/06/20 04:37 Seg Neutrophils % 85.4 % (40.0-70.0) H 10/06/20 04:37 Seg Neutrophils # 8.0 K/mm3 (1.8-7.7) H 10/06/20 04:37 PT 13.2 Sec. (12.2-14.9) 10/04/20 03:07 INR 0.94 (0.87-1.13) 10/04/20 03:07 APTT 29.9 Sec. (24.2-36.6) 10/04/20 03:07 Sodium 134 mmol/L (137-145) L 10/06/20 04:37 Potassium 4.2 mmol/L (3.6-5.0) 10/06/20 04:37 Chloride 97.7 mmol/L (98-107) L 10/06/20 04:37 Carbon Dioxide 25 mmol/L (22-30) 10/06/20 04:37 Anion Gap 16 mmol/L 10/06/20 04:37 BUN 19 mg/dL (9-20) 10/06/20 04:37 Creatinine 0.7 mg/dL (0.8-1.3) L 10/06/20 04:37 Estimated GFR > 60 ml/min 10/06/20 04:37 BUN/Creatinine Ratio 27 % 10/06/20 04:37 Glucose 162 mg/dL (75-100) H 10/06/20 04:37 POC Glucose 248 mg/dL (70-105) H 10/07/20 07:51 Hemoglobin A1c 7.6 % (4-6) H 09/24/20 05:49 Calcium 8.7 mg/dL (8.4-10.2) 10/06/20 04:37 Phosphorus 3.40 mg/dL (2.5-4.5) D 10/05/20 05:42 Magnesium 2.10 mg/dL (1.7-2.3) 10/05/20 05:42 Total Bilirubin 0.60 mg/dL (0.1-1.2) 10/05/20 05:42 Direct Bilirubin < 0.2 mg/dL (0-0.2) 09/23/20 12:11 Indirect Bilirubin 0.3 mg/dL 09/23/20 12:11 AST 17 units/L (5-40) 10/05/20 05:42 ALT 19 units/L (7-56) 10/05/20 05:42 Alkaline Phosphatase 69 units/L (35-129) 10/05/20 05:42 Total Creatine Kinase 2477 units/L (55-170) H 09/28/20 08:42 Troponin T < 0.010 ng/mL (0.00-0.029) 10/03/20 04:42 C-Reactive Protein 2.40 mg/dL (0.00-1.30) H 09/28/20 08:42 Total Protein 6.2 g/dL (6.3-8.2) L 10/05/20 05:42 Albumin 3.2 g/dL (3.9-5) L 10/05/20 05:42 Albumin/Globulin Ratio 1.1 % 10/05/20 05:42 Triglycerides 83 mg/dL (2-149) 09/25/20 04:49 Cholesterol 177 mg/dL (50-199) 09/25/20 04:49 LDL Cholesterol Direct 126 mg/dL (50-130) 09/25/20 04:49 HDL Cholesterol 50 mg/dL (40-59) 09/25/20 04:49 Cholesterol/HDL Ratio 3.54 % 09/25/20 04:49 Vitamin B12 400.3 pg/mL (211-911) 09/28/20 08:42 TSH 1.380 mlU/mL (0.270-4.200) 09/28/20 08:42 Urine Color Yellow (Yellow) 09/23/20 12:14 Urine Turbidity Clear (Clear) 09/23/20 12:14 Urine pH 6.0 (5.0-7.0) 09/23/20 12:14 Ur Specific Zaleski 1.020 (1.003-1.030) 09/23/20 12:14 Urine Protein 30 mg/dl mg/dL (Negative) 09/23/20 12:14 Urine Glucose (UA) Neg mg/dL (Negative) 09/23/20 12:14 Urine Ketones Neg mg/dL (Negative) 09/23/20 12:14 Urine Blood Neg (Negative) 09/23/20 12:14 Urine Nitrite Neg (Negative) 09/23/20 12:14 Urine Bilirubin Neg (Negative) 09/23/20 12:14 Urine Urobilinogen 4.0 mg/dL (<2.0) 09/23/20 12:14 Ur Leukocyte Esterase Neg (Negative) 09/23/20 12:14 Urine WBC (Auto) 1.0 /HPF (0.0-6.0) 09/23/20 12:14 Urine RBC (Auto) 3.0 /HPF (0.0-6.0) 09/23/20 12:14 U Epithel Cells (Auto) < 1.0 /HPF (0-13.0) 09/23/20 12:14 Urine Mucus Few /HPF 09/23/20 12:14 Coronavirus (PCR) Negative (Negative) 09/25/20 Unknown Blood Type AB POSITIVE 10/03/20 18:00 Antibody Screen Negative 10/03/20 18:00 Riley/IV: Voiding Method Condom Catheter Active Medications - Current Medications Current Medications: Generic Name Dose Route Start Last Admin Trade Name Freq PRN Reason Stop Dose Admin Hydrocodone Bitart/Acetaminophen 1 each 09/24/20 00:38 10/02/20 13:42 Hydrocodone/Acetaminophen 5-325 Mg Tab PO 1 each Q6HR PRN Administration Pain , Severe (7-10) Atorvastatin Calcium 40 mg 09/24/20 22:00 10/06/20 22:40 Atorvastatin 40 Mg Tab PO 40 mg QHS FLAQUITO Administration Dexamethasone 4 mg 09/29/20 12:00 10/07/20 06:50 Dexamethasone 4 Mg/Ml Vial IV 4 mg Q6HR FLAQUITO Administration Dextrose 50 ml 09/30/20 10:26 Dextrose 50% In Water (25gm) 50 Ml Syringe IV Q30MIN PRN Hypoglycemia Protocol Diclofenac Sodium 75 mg 09/24/20 10:00 10/07/20 09:[address] 75 Mg Tab PO 75 mg QDAY FLAQUITO Administration Famotidine 20 mg 09/25/20 10:00 10/07/20 09:40 Famotidine 20 Mg Tab PO 20 mg BID FLAQUITO Administration Glipizide 5 mg 10/04/20 08:00 10/07/20 09:41 Glipizide 5 Mg Tab PO 5 mg QDDIAB FLAQUITO Administration Hydromorphone HCl 0.5 mg 09/24/20 00:53 Hydromorphone 1 Mg/1 Ml Inj IV Q3H PRN Pain , Severe (7-10) Sodium Chloride 1,000 mls @ 42 mls/hr 09/24/20 01:00 10/06/20 18:34 Nacl 0.9% 1000 Ml IV 42 mls/hr DIRECT FLAQUITO Administration Cefazolin Sodium 2 gm/ Sodium 100 mls @ 200 mls/hr 10/06/20 20:00 10/07/20 04:09 Chloride IV 10/07/20 12:29 200 mls/hr Q8H FLAQUITO Administration Insulin Glargine 12 units 10/07/20 10:23 Insulin Glargine 100 Units/Ml SUB-Q QHS FLAQUITO Insulin Human Regular 0 units 09/30/20 11:30 10/07/20 08:30 Insulin Regular, Human 100 Units/1 Ml SUB-Q 3 units ACHS FLAQUITO Administration Protocol Lisinopril 2.5 mg 10/04/20 10:00 10/07/20 09:40 Lisinopril 5 Mg Tab PO 2.5 mg QDAY FLAQUITO Administration Metoclopramide HCl 10 mg 09/24/20 00:53 Metoclopramide 10 Mg/2 Ml Inj IV Q6H PRN Nausea And Vomiting Metoprolol Tartrate 12.5 mg 10/03/20 12:00 10/07/20 09:40 Metoprolol Tartrate 25 Mg Tab PO 12.5 mg BID FLAQUITO Administration Ondansetron HCl 4 mg 09/24/20 00:53 Ondansetron 4 Mg/2 Ml Inj IV Q8H PRN Nausea And Vomiting Oxycodone/Acetaminophen 1 tab 09/24/20 00:53 09/27/20 00:25 Oxycodone /Acetaminophen 5-325mg Tab PO 1 tab Q6H PRN Administration Pain, Moderate (4-6) Sodium Chloride 10 ml 09/24/20 10:00 10/07/20 09:41 Sodium Chloride 0.9% 10 Ml Flush Syringe IV 10 ml BID FLAQUITO Administration Sodium Chloride 10 ml 09/24/20 00:53 10/03/20 06:24 Sodium Chloride 0.9% 10 Ml Flush Syringe IV 10 ml PRN PRN Administration LINE FLUSH Nutrition/Malnutrition Assess - Dietary Evaluation Nutrition/Malnutrition Findings: Nutrition Notes Start: 09/29/20 12:29 Freq: Status: Active Protocol: Document 09/29/20 12:29 LM (Rec: 09/29/20 12:30 LM [id number]) Nutrition Notes Need for Assessment generated from: LOS Initial or Follow up Brief Note Subjective/Other Information Screen for LOS. Pt with 100% intakes per EMR. Nutrition Intervention Revisit per MD consult or patient Sign Off request:
[2020-10-07] MEDS: metFORMIN 500 MG TAB PO SCH (17:25)
[2020-10-08] MEDS: dexAMETHasone 4 MG/ML VIAL IV SCH ×6 (00:12→23:52)
--- NOTE | 2020-10-08 09:12 | Progress Note ---
Assessment and Plan Assessment and plan: We will resume aspirin 81 mg daily POD 5 [10/09/2020 ]and 325 mg daily POD 7 [10/11/2020 ]from the date of surgery[10/04/2020]. 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 Physical therapy occupational therapy acute inpatient rehabilitation Patient received 2 units platelets prior to surgery We will try to transfuse 2 units of platelets post surgery As recommended by neurosurgeon Dr. Myers --Concern about purulent drainage around the drain site We will continue Ancef per neurosurgery recommendations --Hypertension; moderate control Continue current antihypertensives --Type 2 diabetes mellitus; uncontrolled Probably secondary to steroid use, increase Lantus dose to 12 units subcu Accu-Chek sliding scale coverage ADA diet, A1c 7.6 --DVT prophylaxis; SCD No pharmacologic anticoagulation at this point Postop state --Obesity BMI 32.7 patient may need weight reduction when medically stable Closely monitor the patient and adjust the management as needed Plan of care reviewed with patient's nurse, I discussed with the family member at the bedside. Physical therapy occupational therapy IRU placement when patient is stable. And when bed is available Brief history and daily hospital course: 65 y/o Male patient presented to [facility] 1 week ago with complaints of acute onset arm and leg weakness. He has chronic left hemiparesis due to polio, but was ambulatory with a walker. He reports weakness, which equally affected both arms and legs since last Friday night. Upon arrival, a CT was performed, which was negative for acute changes. He was started on ASA and Plavix due to concern for CVA. MRI was negative for acute changes. Neurology was consulted, recommended MRI Cervical spine. Which was was performed 09/28/2020, revealing severe cord compression at C3-4 due to broad based disc osteophyte formation and thickened ligamentum flavum. There is focal T2 hyperintensity in the substance of the spinal cord at C3-4. Presently, he denies significant improvement in his symptoms. He is not presently able to walk. Neurosurgeon evaluated s/p C3-C4 ACDF on 10/04/2020. Patient tolerated the procedure well. Postop care per neurosurgery 09/24/20 Patient is 65 yo presented with right sided weakness. CT Head revealed infarct left basal ganglia. He was admitted with acute stroke. Patient started on Aspirin, Lipitor. MRI ordered, not done yet. Neurology consulted. F/U MRI Brain, CT Angio Head, CT Angio Neck 09/25/20. F/U CTA head and neck. PT/OT 09/26/20. MRI of brain negative. CT head and neck reveals occluded Left MCA M1 segment with collateralization. F/U ECHO. Cont. ASA and lipitor. PT recommends acute rehab 09/27/2020. Left ventricle mildly dilated. Left ventricular systolic function is moderately decreased. LVEF is 35 to 40%. Mild to moderate concentric left ventricular hypertrophy. Mild aortic stenosis. Carotid ultrasound negative. A wait rehab placement. 09/28/2020. Neurology recommends b12, tsh, rpr, ck, esr, crp, mri cervical spine w/ wo contrast. Consider transfer to hospital with bedside neurology 09/29/2020. MRI cervical spine reveals significant degenerative changes of the cervical spine involving C3-C4 through C5-C6. There appears to be cord impingement at C3-C4. 09/30/2020. MRI C-spine no severe C-spine stenosis especially at C3-C4 level with mild cord edema. Continue Decadron 4 mg IV every 6 hours. Neurosurgery consultation. Patient with elevated BG given the addition of steroids. We will start Lantus 8 units at bedtime. SSRI and Accu-Cheks 10/01/2020. MRI of thoracic and lumbar spine without contrast pending per surgery recommendations. Continue to hold aspirin. Cardiology consultation for cardiac clearance prior to surgery. 10/02/2020. Follow-up MRI of thoracic and lumbar spine without contrast. Continue to hold aspirin. Cardiology consultation for cardiac clearance prior to surgery. Neurosurgery following and plans for surgical intervention later this week. Continue Decadron. 10/03/2020; neurosurgery scheduled for C3-C4 Anterior Cervical Discectomy and Fusion [C3-C4 ACDF] on 10/05/2020, arrangements made for 2 units of platelet transfusion prior to surgery on 10/05/2020, and 2 units platelet transfusion post surgery.Patient will be n.p.o. midnight 10/05/2020, will check c oags on the day of surgery Plan of care reviewed with the patient, family member at the bedside and his nurse. I discussed with neurosurgeon Dr. Myers 10/04/2020; patient underwent C3-C4 ACDF surgery today. Tolerated the procedure well, postop care per neurosurgery 10/05/2020; follow PT and OT recommendations Swallow eval if needed Continue current management 10/06/2020; patient is able to swallow without difficulty No evidence of dysphagia, continue Ancef per NSG Patient will be transferred to acute inpatient rehab in stable when bed is available 10/07/2020; patient feels better, no new complaints Lower extremity weakness significantly improved Tolerating PTOT, Awaiting inpatient rehab placement when bed is available We will resume aspirin 81 mg on postop day 5[10/09/2020] And aspirin 325 mg on postop day 7[10/11/2020] per neurosurgery 10/08/2020; patient feels slightly better, tolerating PT Awaiting IRU placement History Interval history: I have seen and examined the patient at the bedside Patient's chart and medications reviewed Patient feels better, No new complaints Vital signs noted Hospitalist Physical - Constitutional Vitals: Temp Pulse Resp BP Pulse Ox 98.0 F 51 L 18 127/69 100 10/08/20 03:40 10/08/20 03:40 10/08/20 03:40 10/08/20 03:40 10/08/20 03:40 General appearance: Present: no acute distress, well-nourished, obese - EENT Eyes: Present: PERRL, EOM intact - Neck Neck: Present: supple, normal ROM - Respiratory Respiratory effort: normal Respiratory: bilateral: diminished, negative: rales, rhonchi, wheezing - Cardiovascular Rhythm: regular Heart Sounds: Present: S1 & S2 - Extremities Extremities: no ischemia, No edema - Abdominal General gastrointestinal: soft, non-tender, non-distended, normal bowel sounds - Integumentary Integumentary: Present: clear, warm - Psychiatric Psychiatric: appropriate mood/affect, cooperative - Neurologic Neurologic: CNII-XII intact, moves all extremities HEART Score - HEART Score Troponin: Troponin T < 0.010 ng/mL (0.00-0.029) 10/03/20 04:42 Results - Labs CBC & Chem 7: 10/06/20 04:37 10/06/20 04:37 Labs: Laboratory Last Values WBC 9.4 K/mm3 (4.5-11.0) 10/06/20 04:37 RBC 4.32 M/mm3 (3.65-5.03) 10/06/20 04:37 Hgb 12.7 gm/dl (11.8-15.2) 10/06/20 04:37 Hct 37.4 % (35.5-45.6) 10/06/20 04:37 MCV 87 fl (84-94) 10/06/20 04:37 MCH 29 pg (28-32) 10/06/20 04:37 MCHC 34 % (32-34) 10/06/20 04:37 RDW 13.6 % (13.2-15.2) 10/06/20 04:37 Plt Count 316 K/mm3 (140-440) 10/06/20 04:37 Lymph % (Auto) 6.8 % (13.4-35.0) L 10/06/20 04:37 Snyder % (Auto) 7.6 % (0.0-7.3) H 10/06/20 04:37 Eos % (Auto) 0.0 % (0.0-4.3) 10/06/20 04:37 Baso % (Auto) 0.2 % (0.0-1.8) 10/06/20 04:37 Lymph # (Auto) 0.6 K/mm3 (1.2-5.4) L 10/06/20 04:37 Snyder # (Auto) 0.7 K/mm3 (0.0-0.8) 10/06/20 04:37 Eos # (Auto) 0.0 K/mm3 (0.0-0.4) 10/06/20 04:37 Baso # (Auto) 0.0 K/mm3 (0.0-0.1) 10/06/20 04:37 Seg Neutrophils % 85.4 % (40.0-70.0) H 10/06/20 04:37 Seg Neutrophils # 8.0 K/mm3 (1.8-7.7) H 10/06/20 04:37 PT 13.2 Sec. (12.2-14.9) 10/04/20 03:07 INR 0.94 (0.87-1.13) 10/04/20 03:07 APTT 29.9 Sec. (24.2-36.6) 10/04/20 03:07 Sodium 134 mmol/L (137-145) L 10/06/20 04:37 Potassium 4.2 mmol/L (3.6-5.0) 10/06/20 04:37 Chloride 97.7 mmol/L (98-107) L 10/06/20 04:37 Carbon Dioxide 25 mmol/L (22-30) 10/06/20 04:37 Anion Gap 16 mmol/L 10/06/20 04:37 BUN 19 mg/dL (9-20) 10/06/20 04:37 Creatinine 0.7 mg/dL (0.8-1.3) L 10/06/20 04:37 Estimated GFR > 60 ml/min 10/06/20 04:37 BUN/Creatinine Ratio 27 % 10/06/20 04:37 Glucose 162 mg/dL (75-100) H 10/06/20 04:37 POC Glucose 216 mg/dL (70-105) H 10/08/20 08:02 Hemoglobin A1c 7.6 % (4-6) H 09/24/20 05:49 Calcium 8.7 mg/dL (8.4-10.2) 10/06/20 04:37 Phosphorus 3.40 mg/dL (2.5-4.5) D 10/05/20 05:42 Magnesium 2.10 mg/dL (1.7-2.3) 10/05/20 05:42 Total Bilirubin 0.60 mg/dL (0.1-1.2) 10/05/20 05:42 Direct Bilirubin < 0.2 mg/dL (0-0.2) 09/23/20 12:11 Indirect Bilirubin 0.3 mg/dL 09/23/20 12:11 AST 17 units/L (5-40) 10/05/20 05:42 ALT 19 units/L (7-56) 10/05/20 05:42 Alkaline Phosphatase 69 units/L (35-129) 10/05/20 05:42 Total Creatine Kinase 2477 units/L (55-170) H 09/28/20 08:42 Troponin T < 0.010 ng/mL (0.00-0.029) 10/03/20 04:42 C-Reactive Protein 2.40 mg/dL (0.00-1.30) H 09/28/20 08:42 Total Protein 6.2 g/dL (6.3-8.2) L 10/05/20 05:42 Albumin 3.2 g/dL (3.9-5) L 10/05/20 05:42 Albumin/Globulin Ratio 1.1 % 10/05/20 05:42 Triglycerides 83 mg/dL (2-149) 09/25/20 04:49 Cholesterol 177 mg/dL (50-199) 09/25/20 04:49 LDL Cholesterol Direct 126 mg/dL (50-130) 09/25/20 04:49 HDL Cholesterol 50 mg/dL (40-59) 09/25/20 04:49 Cholesterol/HDL Ratio 3.54 % 09/25/20 04:49 Vitamin B12 400.3 pg/mL (211-911) 09/28/20 08:42 TSH 1.380 mlU/mL (0.270-4.200) 09/28/20 08:42 Urine Color Yellow (Yellow) 09/23/20 12:14 Urine Turbidity Clear (Clear) 09/23/20 12:14 Urine pH 6.0 (5.0-7.0) 09/23/20 12:14 Ur Specific [place] 1.020 (1.003-1.030) 09/23/20 12:14 Urine Protein 30 mg/dl mg/dL (Negative) 09/23/20 12:14 Urine Glucose (UA) Neg mg/dL (Negative) 09/23/20 12:14 Urine Ketones Neg mg/dL (Negative) 09/23/20 12:14 Urine Blood Neg (Negative) 09/23/20 12:14 Urine Nitrite Neg (Negative) 09/23/20 12:14 Urine Bilirubin Neg (Negative) 09/23/20 12:14 Urine Urobilinogen 4.0 mg/dL (<2.0) 09/23/20 12:14 Ur Leukocyte Esterase Neg (Negative) 09/23/20 12:14 Urine WBC (Auto) 1.0 /HPF (0.0-6.0) 09/23/20 12:14 Urine RBC (Auto) 3.0 /HPF (0.0-6.0) 09/23/20 12:14 U Epithel Cells (Auto) < 1.0 /HPF (0-13.0) 09/23/20 12:14 Urine Mucus Few /HPF 09/23/20 12:14 Coronavirus (PCR) Negative (Negative) 09/25/20 Unknown Blood Type AB POSITIVE 10/03/20 18:00 Antibody Screen Negative 10/03/20 18:00 Riley/IV: Voiding Method Condom Catheter Active Medications - Current Medications Current Medications: Generic Name Dose Route Start Last Admin Trade Name Freq PRN Reason Stop Dose Admin Hydrocodone Bitart/Acetaminophen 1 each 09/24/20 00:38 10/02/20 13:42 Hydrocodone/Acetaminophen 5-325 Mg Tab PO 1 each Q6HR PRN Administration Pain , Severe (7-10) Atorvastatin Calcium 40 mg 09/24/20 22:00 10/07/20 22:27 Atorvastatin 40 Mg Tab PO 40 mg QHS FLAQUITO Administration Dexamethasone 4 mg 09/29/20 12:00 10/08/20 07:40 Dexamethasone 4 Mg/Ml Vial IV Not Given Q6HR FLAQUITO Dextrose 50 ml 09/30/20 10:26 Dextrose 50% In Water (25gm) 50 Ml Syringe IV Q30MIN PRN Hypoglycemia Protocol Diclofenac Sodium 75 mg 09/24/20 10:00 10/07/20 09:[address] 75 Mg Tab PO 75 mg QDAY FLAQUITO Administration Famotidine 20 mg 09/25/20 10:00 10/07/20 22:27 Famotidine 20 Mg Tab PO 20 mg BID FLAQUITO Administration Glipizide 5 mg 10/04/20 08:00 10/07/20 09:41 Glipizide 5 Mg Tab PO 5 mg QDDIAB FLAQUITO Administration Hydromorphone HCl 0.5 mg 09/24/20 00:53 Hydromorphone 1 Mg/1 Ml Inj IV Q3H PRN Pain , Severe (7-10) Insulin Glargine 12 units 10/07/20 10:23 10/07/20 22:27 Insulin Glargine 100 Units/Ml SUB-Q 12 units QHS FLAQUITO Administration Insulin Human Regular 0 units 09/30/20 11:30 10/07/20 22:26 Insulin Regular, Human 100 Units/1 Ml SUB-Q 3 units ACHS FLAQUITO Administration Protocol Lisinopril 2.5 mg 10/04/20 10:00 10/07/20 09:40 Lisinopril 5 Mg Tab PO 2.5 mg QDAY FLAQUITO Administration Metformin HCl 500 mg 10/07/20 17:00 10/07/20 17:25 Metformin 500 Mg Tab PO 500 mg BIDDIAB FLAQUITO Administration Metoclopramide HCl 10 mg 09/24/20 00:53 Metoclopramide 10 Mg/2 Ml Inj IV Q6H PRN Nausea And Vomiting Metoprolol Tartrate 12.5 mg 10/03/20 12:00 10/07/20 22:27 Metoprolol Tartrate 25 Mg Tab PO 12.5 mg BID FLAQUITO Administration Ondansetron HCl 4 mg 09/24/20 00:53 Ondansetron 4 Mg/2 Ml Inj IV Q8H PRN Nausea And Vomiting Oxycodone/Acetaminophen 1 tab 09/24/20 00:53 09/27/20 00:25 Oxycodone /Acetaminophen 5-325mg Tab PO 1 tab Q6H PRN Administration Pain, Moderate (4-6) Sodium Chloride 10 ml 09/24/20 10:00 10/07/20 22:28 Sodium Chloride 0.9% 10 Ml Flush Syringe IV 10 ml BID FLAQUITO Administration Sodium Chloride 10 ml 09/24/20 00:53 10/03/20 06:24 Sodium Chloride 0.9% 10 Ml Flush Syringe IV 10 ml PRN PRN Administration LINE FLUSH Nutrition/Malnutrition Assess - Dietary Evaluation Nutrition/Malnutrition Findings: Nutrition Notes Start: 09/29/20 12:29 Freq: Status: Active Protocol: Document 09/29/20 12:29 LM (Rec: 09/29/20 12:30 LM [id number]) Nutrition Notes Need for Assessment generated from: LOS Initial or Follow up Brief Note Subjective/Other Information Screen for LOS. Pt with 100% intakes per EMR. Nutrition Intervention Revisit per MD consult or patient Sign Off request:
[2020-10-08] MEDS: LISINOPRIL 5 MG TAB PO SCH (10:43)
[2020-10-08] MEDS: FAMOTIDINE 20 MG TAB PO SCH ×2 (10:44→21:55)
[2020-10-08] MEDS: DICLOFENAC DR 75 MG TAB PO SCH (10:44)
[2020-10-08] MEDS: METOPROLOL TARTRATE 25 MG TAB PO SCH ×2 (10:44→21:55)
[2020-10-08] MEDS: glipiZIDE 5 MG TAB PO SCH (10:46)
[2020-10-08] MEDS: metFORMIN 500 MG TAB PO SCH ×2 (10:46→17:46)
[2020-10-08] MEDS: INSULIN REGULAR, HUMAN 100 UNITS/1 ML SUB-Q SCH ×4 (10:47→21:54)
[2020-10-08] MEDS: INSULIN GLARGINE 100 UNITS/ML SUB-Q SCH (22:40)
[2020-10-09] MEDS: dexAMETHasone 4 MG/ML VIAL IV SCH (05:32)
--- NOTE | 2020-10-09 08:38 | Progress Note ---
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 Physical therapy occupational therapy acute inpatient rehabilitation Patient received 2 units platelets prior to and after surgery as rec by NSG --Concern about purulent drainage around the drain site, now resolved Patient received 3 days of Ancef. --Hypertension; well controlled Continue current antihypertensives --Type 2 diabetes mellitus; uncontrolled Probably due to steroid use, increase Lantus dose to 12 units subcu twice daily Accu-Chek sliding scale coverage ADA diet, A1c 7.6 Will DC steroids --DVT prophylaxis; SCD We will add Lovenox subcu --Obesity BMI 32.7 patient may need weight reduction when medically stable Closely monitor the patient and adjust the management as needed Plan of care reviewed with patient's nurse, I discussed with the family member at the bedside. Physical therapy occupational therapy IRU placement when patient is stable. And when bed is available Brief history and daily hospital course: 65 y/o Male patient presented to [facility] 1 week ago with complaints of acute onset arm and leg weakness. He has chronic left hemiparesis due to polio, but was ambulatory with a walker. He reports weakness, which equally affected both arms and legs since last Friday night. Upon arrival, a CT was performed, which was negative for acute changes. He was started on ASA and Plavix due to concern for CVA. MRI was negative for acute changes. Neurology was consulted, recommended MRI Cervical spine. Which was was performed 09/28/2020, revealing severe cord compression at C3-4 due to broad based disc osteophyte formation and thickened ligamentum flavum. There is focal T2 hyperintensity in the substance of the spinal cord at C3-4. Presently, he denies significant improvement in his symptoms. He is not presently able to walk. Neurosurgeon evaluated s/p C3-C4 ACDF on 10/04/2020. Patient tolerated the procedure well. Postop care per neurosurgery 09/24/20 Patient is 65 yo presented with right sided weakness. CT Head revealed infarct left basal ganglia. He was admitted with acute stroke. Patient started on Aspirin, Lipitor. MRI ordered, not done yet. Neurology consulted. F/U MRI Brain, CT Angio Head, CT Angio Neck 09/25/20. F/U CTA head and neck. PT/OT 09/26/20. MRI of brain negative. CT head and neck reveals occluded Left MCA M1 segment with collateralization. F/U ECHO. Cont. ASA and lipitor. PT recommends acute rehab 09/27/2020. Left ventricle mildly dilated. Left ventricular systolic function is moderately decreased. LVEF is 35 to 40%. Mild to moderate concentric left ventricular hypertrophy. Mild aortic stenosis. Carotid ultrasound negative. Await rehab placement. 09/28/2020. Neurology recommends b12, tsh, rpr, ck, esr, crp, mri cervical spine w/ wo contrast. Consider transfer to hospital with bedside neurology 09/29/2020. MRI cervical spine reveals significant degenerative changes of the cervical spine involving C3-C4 through C5-C6. There appears to be cord impingement at C3-C4. 09/30/2020. MRI C-spine no severe C-spine stenosis especially at C3-C4 level with mild cord edema. Continue Decadron 4 mg IV every 6 hours. Neurosurgery consultation. Patient with elevated BG given the addition of steroids. We will start Lantus 8 units at bedtime. SSRI and Accu-Cheks 10/01/2020. MRI of thoracic and lumbar spine without contrast pending per surgery recommendations. Continue to hold aspirin. Cardiology consultation for cardiac clearance prior to surgery. 10/02/2020. Follow-up MRI of thoracic and lumbar spine without contrast. Continue to hold aspirin. Cardiology consultation for cardiac clearance prior to surgery. Neurosurgery following and plans for surgical intervention later this week. Continue Decadron. 10/03/2020; neurosurgery scheduled for C3-C4 Anterior Cervical Discectomy and Fusion [C3-C4 ACDF] on 10/05/2020, arrangements made for 2 units of p latelet transfusion prior to surgery on 10/05/2020, and 2 units platelet transfusion post surgery.Patient will be n.p.o. midnight 10/05/2020, will check coags on the day of surgery Plan of care reviewed with the patient, family member at the bedside and his nurse. I discussed with neurosurgeon Dr. Myers 10/04/2020; patient underwent C3-C4 ACDF surgery today. Tolerated the procedure well, postop care per neurosurgery 10/05/2020; follow PT and OT recommendations Swallow eval if needed Continue current management 10/06/2020; patient is able to swallow without difficulty No evidence of dysphagia, continue Ancef per NSG Patient will be transferred to acute inpatient rehab in stable when bed is available 10/07/2020; patient feels better, no new complaints Lower extremity weakness significantly improved Tolerating PTOT, Awaiting inpatient rehab placement when bed is available We will resume aspirin 81 mg on postop day 5[10/09/2020] And aspirin 325 mg on postop day 7[10/11/2020] per neurosurgery 10/08/2020; patient feels slightly better, tolerating PT Awaiting IRU placement 10/09/2020; patient is stable for discharge to IRU Pending placement History Interval history: I have seen and examined the patient at the bedside Patient status post anterior cervical spine fusion Patient feels better tolerating physical therapy alert and awake Pain slightly better, awaiting IRU placement Patient has no new complaints Vital signs noted Hospitalist Physical - Constitutional Vitals: Temp Pulse Resp BP Pulse Ox 97.8 F 51 L 18 113/66 96 10/09/20 07:32 10/09/20 07:32 10/09/20 07:32 10/09/20 07:32 10/09/20 07:32 General appearance: Present: no acute distress, well-nourished, obese - EENT Eyes: Present: PERRL, EOM intact - Neck Neck: Present: supple, normal ROM - Respiratory Respiratory effort: normal Respiratory: bilateral: diminished, negative: rales, rhonchi, wheezing - Cardiovascular Rhythm: regular Heart Sounds: Present: S1 & S2 - Extremities Extremities: no ischemia, No edema - Abdominal General gastrointestinal: soft, non-tender, non-distended - Integumentary Integumentary: Present: clear, warm - Psychiatric Psychiatric: appropriate mood/affect, cooperative - Neurologic Neurologic: CNII-XII intact, moves all extremities HEART Score - HEART Score Troponin: Troponin T < 0.010 ng/mL (0.00-0.029) 10/03/20 04:42 Results - Labs CBC & Chem 7: 10/06/20 04:37 10/06/20 04:37 Labs: Laboratory Last Values WBC 9.4 K/mm3 (4.5-11.0) 10/06/20 04:37 RBC 4.32 M/mm3 (3.65-5.03) 10/06/20 04:37 Hgb 12.7 gm/dl (11.8-15.2) 10/06/20 04:37 Hct 37.4 % (35.5-45.6) 10/06/20 04:37 MCV 87 fl (84-94) 10/06/20 04:37 MCH 29 pg (28-32) 10/06/20 04:37 MCHC 34 % (32-34) 10/06/20 04:37 RDW 13.6 % (13.2-15.2) 10/06/20 04:37 Plt Count 316 K/mm3 (140-440) 10/06/20 04:37 Lymph % (Auto) 6.8 % (13.4-35.0) L 10/06/20 04:37 [place] % (Auto) 7.6 % (0.0-7.3) H 10/06/20 04:37 Eos % (Auto) 0.0 % (0.0-4.3) 10/06/20 04:37 Baso % (Auto) 0.2 % (0.0-1.8) 10/06/20 04:37 Lymph # (Auto) 0.6 K/mm3 (1.2-5.4) L 10/06/20 04:37 [place] # (Auto) 0.7 K/mm3 (0.0-0.8) 10/06/20 04:37 Eos # (Auto) 0.0 K/mm3 (0.0-0.4) 10/06/20 04:37 Baso # (Auto) 0.0 K/mm3 (0.0-0.1) 10/06/20 04:37 Seg Neutrophils % 85.4 % (40.0-70.0) H 10/06/20 04:37 Seg Neutrophils # 8.0 K/mm3 (1.8-7.7) H 10/06/20 04:37 PT 13.2 Sec. (12.2-14.9) 10/04/20 03:07 INR 0.94 (0.87-1.13) 10/04/20 03:07 APTT 29.9 Sec. (24.2-36.6) 10/04/20 03:07 Sodium 134 mmol/L (137-145) L 10/06/20 04:37 Potassium 4.2 mmol/L (3.6-5.0) 10/06/20 04:37 Chloride 97.7 mmol/L (98-107) L 10/06/20 04:37 Carbon Dioxide 25 mmol/L (22-30) 10/06/20 04:37 Anion Gap 16 mmol/L 10/06/20 04:37 BUN 19 mg/dL (9-20) 10/06/20 04:37 Creatinine 0.7 mg/dL (0.8-1.3) L 10/06/20 04:37 Estimated GFR > 60 ml/min 10/06/20 04:37 BUN/Creatinine Ratio 27 % 10/06/20 04:37 Glucose 162 mg/dL (75-100) H 10/06/20 04:37 POC Glucose 247 mg/dL (70-105) H 10/09/20 07:30 Hemoglobin A1c 7.6 % (4-6) H 09/24/20 05:49 Calcium 8.7 mg/dL (8.4-10.2) 10/06/20 04:37 Phosphorus 3.40 mg/dL (2.5-4.5) D 10/05/20 05:42 Magnesium 2.10 mg/dL (1.7-2.3) 10/05/20 05:42 Total Bilirubin 0.60 mg/dL (0.1-1.2) 10/05/20 05:42 Direct Bilirubin < 0.2 mg/dL (0-0.2) 09/23/20 12:11 Indirect Bilirubin 0.3 mg/dL 09/23/20 12:11 AST 17 units/L (5-40) 10/05/20 05:42 ALT 19 units/L (7-56) 10/05/20 05:42 Alkaline Phosphatase 69 units/L (35-129) 10/05/20 05:42 Total Creatine Kinase 2477 units/L (55-170) H 09/28/20 08:42 Troponin T < 0.010 ng/mL (0.00-0.029) 10/03/20 04:42 C-Reactive Protein 2.40 mg/dL (0.00-1.30) H 09/28/20 08:42 Total Protein 6.2 g/dL (6.3-8.2) L 10/05/20 05:42 Albumin 3.2 g/dL (3.9-5) L 10/05/20 05:42 Albumin/Globulin Ratio 1.1 % 10/05/20 05:42 Triglycerides 83 mg/dL (2-149) 09/25/20 04:49 Cholesterol 177 mg/dL (50-199) 09/25/20 04:49 LDL Cholesterol Direct 126 mg/dL (50-130) 09/25/20 04:49 HDL Cholesterol 50 mg/dL (40-59) 09/25/20 04:49 Cholesterol/HDL Ratio 3.54 % 09/25/20 04:49 Vitamin B12 400.3 pg/mL (211-911) 09/28/20 08:42 TSH 1.380 mlU/mL (0.270-4.200) 09/28/20 08:42 Urine Color Yellow (Yellow) 09/23/20 12:14 Urine Turbidity Clear (Clear) 09/23/20 12:14 Urine pH 6.0 (5.0-7.0) 09/23/20 12:14 Ur Specific Roy 1.020 (1.003-1.030) 09/23/20 12:14 Urine Protein 30 mg/dl mg/dL (Negative) 09/23/20 12:14 Urine Glucose (UA) Neg mg/dL (Negative) 09/23/20 12:14 Urine Ketones Neg mg/dL (Negative) 09/23/20 12:14 Urine Blood Neg (Negative) 09/23/20 12:14 Urine Nitrite Neg (Negative) 09/23/20 12:14 Urine Bilirubin Neg (Negative) 09/23/20 12:14 Urine Urobilinogen 4.0 mg/dL (<2.0) 09/23/20 12:14 Ur Leukocyte Esterase Neg (Negative) 09/23/20 12:14 Urine WBC (Auto) 1.0 /HPF (0.0-6.0) 09/23/20 12:14 Urine RBC (Auto) 3.0 /HPF (0.0-6.0) 09/23/20 12:14 U Epithel Cells (Auto) < 1.0 /HPF (0-13.0) 09/23/20 12:14 Urine Mucus Few /HPF 09/23/20 12:14 Coronavirus (PCR) Negative (Negative) 09/25/20 Unknown Blood Type AB POSITIVE 10/03/20 18:00 Antibody Screen Negative 10/03/20 18:00 Riley/IV: Voiding Method Condom Catheter Active Medications - Current Medications Current Medications: Generic Name Dose Route Start Last Admin Trade Name Freq PRN Reason Stop Dose Admin Hydrocodone Bitart/Acetaminophen 1 each 09/24/20 00:38 10/02/20 13:42 Hydrocodone/Acetaminophen 5-325 Mg Tab PO 1 each Q6HR PRN Administration Pain , Severe (7-10) Aspirin 81 mg 10/09/20 10:00 Aspirin Ec 81 Mg Tab PO 10/10/20 10:01 QDAY FLAQUITO Aspirin 325 mg 10/11/20 10:00 Aspirin Ec 325 Mg Tab PO QDAY FLAQUITO Atorvastatin Calcium 40 mg 09/24/20 22:00 10/08/20 21:55 Atorvastatin 40 Mg Tab PO 40 mg QHS FLAQUITO Administration Dexamethasone 4 mg 09/29/20 12:00 10/09/20 05:32 Dexamethasone 4 Mg/Ml Vial IV 4 mg Q6HR FLAQUITO Administration Dextrose 50 ml 09/30/20 10:26 Dextrose 50% In Water (25gm) 50 Ml Syringe IV Q30MIN PRN Hypoglycemia Protocol Famotidine 20 mg 09/25/20 10:00 10/08/20 21:55 Famotidine 20 Mg Tab PO 20 mg BID FLAQUITO Administration Glipizide 5 mg 10/04/20 08:00 10/08/20 10:46 Glipizide 5 Mg Tab PO 5 mg QDDIAB FLAQUITO Administration Hydromorphone HCl 0.5 mg 09/24/20 00:53 Hydromorphone 1 Mg/1 Ml Inj IV Q3H PRN Pain , Severe (7-10) Insulin Glargine 12 units 10/08/20 22:00 10/08/20 22:40 Insulin Glargine 100 Units/Ml SUB-Q 12 units BID FLAQUITO Administration Insulin Human Regular 0 units 09/30/20 11:30 10/08/20 21:54 Insulin Regular, Human 100 Units/1 Ml SUB-Q 4 units ACHS FLAQUITO Administration Protocol Lisinopril 2.5 mg 10/04/20 10:00 10/08/20 10:43 Lisinopril 5 Mg Tab PO 2.5 mg QDAY FLAQUITO Administration Metformin HCl 500 mg 10/07/20 17:00 10/08/20 17:46 Metformin 500 Mg Tab PO 500 mg BIDDIAB FLAQUITO Administration Metoclopramide HCl 10 mg 09/24/20 00:53 Metoclopramide 10 Mg/2 Ml Inj IV Q6H PRN Nausea And Vomiting Metoprolol Tartrate 12.5 mg 10/03/20 12:00 10/08/20 21:55 Metoprolol Tartrate 25 Mg Tab PO 12.5 mg BID FLAQUITO Administration Ondansetron HCl 4 mg 09/24/20 00:53 Ondansetron 4 Mg/2 Ml Inj IV Q8H PRN Nausea And Vomiting Oxycodone/Acetaminophen 1 tab 09/24/20 00:53 09/27/20 00:25 Oxycodone /Acetaminophen 5-325mg Tab PO 1 tab Q6H PRN Administration Pain, Moderate (4-6) Sodium Chloride 10 ml 09/24/20 10:00 10/08/20 21:56 Sodium Chloride 0.9% 10 Ml Flush Syringe IV 10 ml BID FLAQUITO Administration Sodium Chloride 10 ml 09/24/20 00:53 10/03/20 06:24 Sodium Chloride 0.9% 10 Ml Flush Syringe IV 10 ml PRN PRN Administration LINE FLUSH Nutrition/Malnutrition Assess - Dietary Evaluation Nutrition/Malnutrition Findings: Nutrition Notes Start: 09/29/20 12:29 Freq: Status: Active Protocol: Document 09/29/20 12:29 LM (Rec: 09/29/20 12:30 LM [id number]) Nutrition Notes Need for Assessment generated from: LOS Initial or Follow up Brief Note Subjective/Other Information Screen for LOS. Pt with 100% intakes per EMR. Nutrition Intervention Revisit per MD consult or patient Sign Off request:
[2020-10-09] MEDS: ASPIRIN EC 81 MG TAB PO SCH (09:10)
[2020-10-09] MEDS: metFORMIN 500 MG TAB PO SCH ×2 (09:10→17:30)
[2020-10-09] MEDS: glipiZIDE 5 MG TAB PO SCH (09:11)
[2020-10-09] MEDS: METOPROLOL TARTRATE 25 MG TAB PO SCH ×2 (09:11→21:52)
[2020-10-09] MEDS: LISINOPRIL 5 MG TAB PO SCH (09:11)
[2020-10-09] MEDS: INSULIN GLARGINE 100 UNITS/ML SUB-Q SCH ×2 (09:11→21:57)
[2020-10-09] MEDS: FAMOTIDINE 20 MG TAB PO SCH ×2 (09:12→21:50)
[2020-10-09] MEDS: INSULIN REGULAR, HUMAN 100 UNITS/1 ML SUB-Q SCH ×3 (09:12→17:29)
--- NOTE | 2020-10-09 10:08 | Operative Report ---
DATE OF SURGERY: 10/04/2020 PREOPERATIVE DIAGNOSIS: Cervical spondylotic myelopathy. POSTOPERATIVE DIAGNOSIS: Cervical spondylotic myelopathy. PROCEDURES PERFORMED: 1. C3-C4 anterior cervical diskectomy. 2. Placement of C3-4 intervertebral biomechanical device (Globus Colonial spacer) 3. Application of anterior cervical plate (Globus VIP plate). 4. Use of intraoperative monitoring. 5. Use of intraoperative microscope. 6. Application of [place] collar. SURGEON: Patricio Myers II, MD BUS DRIVER: None. ANESTHESIA: General endotracheal anesthesia. BLOOD LOSS: Minimal. COMPLICATIONS: None apparent. DISPOSITION: Stable, extubated to PACU. BRIEF HISTORY: Luis Alvarez is a 65-year-old male with a history of coronary artery disease that [facility] with complaints of worsening right-sided weakness. MRI was performed, which revealed severe cervical stenosis at C3-C4 with associated T2 signal change. Based on these findings, surgery was recommended via C3-C4 anterior cervical diskectomy and fusion. All pertinent risks, benefits, and potential complications of the operation were reviewed. Mr. Alvarez and his agreed to proceed. DESCRIPTION OF PROCEDURE: He was taken to the operating theater by Anesthesia. He was intubated without difficulty. He was positioned supine on a flat top table. Please note that all pressure points were padded to prevent peripheral nerve injury. The eyes were lubricated and taped shut to prevent corneal abrasion. A shoulder roll was placed underneath the shoulder to facilitate cervical lordosis. The location of the skin incision was determined with the use of lateral fluoroscopy. The area was prepped and draped in the usual sterile fashion. The skin was infiltrated with 1% lidocaine with epinephrine. The skin incision was opened with #10 scalpel blade. Further dissection was performed with the electrosurgical generator of Jorge Russell. The platysma was opened in parallel with the incision, perpendicular to its fibers. A plane medial to the sternocleidomastoid was developed. A Handheld retractor was utilized to aid exposure. The location of the C3-C4 disk space was determined with the use of a bent spinal needle and lateral fluoroscopy. Self-retaining retractors were placed, retracting the carotid sheath laterally and the trachea and esophagus medially. The C3-C4 disk space was opened with a #15 blade. Further disk material was removed with pituitary rongeurs. The cartilaginous attachments to the inferior C3 and superior C4 endplates were removed with a 3 mm upgoing curette. Next, using a high speed matchstick drill, the dorsal osteophytes were removed to make the endplates more parallel. Once the posterior longitudinal ligament was encountered, a small micro nerve hook was carefully used to dissect the ligament and create an entrance to the anterior epidural space. The ligament was removed with 2-0 [place] rongeurs to decompress the spinal cord. The Decompression was extended laterally into each foramen. Once the decompression was deemed satisfactory, the exposure was irrigated with bacitracin-infused saline. Meticulous hemostasis was achieved with the bipolar forceps Asif Malis as well as Surgiflo. Various trials were placed into the C3-C4 disk space to obtain the appropriate configuration. Ultimately, a Globus Colonial TPS 7 mm cage was placed into the C3-C4 disk space under the lateral fluoroscopy. Next, A 15 mm Globus VIP plate was secured to the C3 and C4 bodies with two 4.6 x 14 mm screws. There was good fixation achieved via each screw. The screws were locked in place. Next, the exposure was again copiously irrigated with bacitracin infused saline. Meticulous hemostasis was achieved with the bipolar forceps Asif Malis A drain was tunneled through the skin and placed overlying the anterior cervical plate. Next, attention was directed to closure. The platysma was closed with 3-0 polyglactin synthetic absorbable suture. The dermis was closed with 3-0 polyglactin synthetic absorbable suture in an inverted fashion. The skin was reapproximated with Dermabond. Please note that all sponge counts, needle counts and instrument counts were correct at the end of the case x 2. The patient appeared to tolerate the operation well and was returned to anesthesia for extubation. He was extubated without delay. He was transferred to the recovery unit in stable condition. There were no immediate complications apparent. There were no neuromonitoring changes throughout the duration of the operation. TID: [id number] RECEIPT: [id number] DEVORAH/VIVI/WILNER CAMPBELL
[2020-10-09] MEDS: oxyCODONE /ACETAMINOPHEN 5-325MG TAB PO PRN (21:50)
[2020-10-10] MEDS: INSULIN REGULAR, HUMAN 100 UNITS/1 ML SUB-Q SCH ×5 (05:53→22:00)
[2020-10-10] MEDS: metFORMIN 500 MG TAB PO SCH ×2 (08:22→17:14)
[2020-10-10] MEDS: glipiZIDE 5 MG TAB PO SCH (08:22)
[2020-10-10] MEDS: FAMOTIDINE 20 MG TAB PO SCH ×2 (09:08→21:25)
[2020-10-10] MEDS: ASPIRIN EC 81 MG TAB PO SCH (09:08)
[2020-10-10] MEDS: METOPROLOL TARTRATE 25 MG TAB PO SCH ×2 (09:09→21:24)
[2020-10-10] MEDS: LISINOPRIL 5 MG TAB PO SCH (09:10)
[2020-10-10] MEDS: INSULIN GLARGINE 100 UNITS/ML SUB-Q SCH ×2 (09:11→21:25)
--- NOTE | 2020-10-10 09:58 | Progress Note ---
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 Physical therapy occupational therapy acute inpatient rehabilitation Patient received 2 units platelets prior to and after surgery as rec by NSG --Concern about purulent drainage around the drain site, now resolved Patient received 3 days of Ancef. --Hypertension; well controlled Continue current antihypertensives --Type 2 diabetes mellitus; uncontrolled Probably due to steroid use, increase Lantus dose to 12 units subcu twice daily Accu-Chek sliding scale coverage ADA diet, A1c 7.6 Will DC steroids --DVT prophylaxis; SCD We will add Lovenox subcu --Obesity BMI 32.7 patient may need weight reduction when medically stable Closely monitor the patient and adjust the management as needed Plan of care reviewed with patient's nurse, I discussed with the family member at the bedside. Physical therapy occupational therapy IRU placement when patient is stable. And when bed is available Brief history and daily hospital course: 65 y/o Male patient presented to [facility] 1 week ago with complaints of acute onset arm and leg weakness. He has chronic left hemiparesis due to polio, but was ambulatory with a walker. He reports weakness, which equally affected both arms and legs since last Friday night. Upon arrival, a CT was performed, which was negative for acute changes. He was started on ASA and Plavix due to concern for CVA. MRI was negative for acute changes. Neurology was consulted, recommended MRI Cervical spine. Which was was performed 09/28/2020, revealing severe cord compression at C3-4 due to broad based disc osteophyte formation and thickened ligamentum flavum. There is focal T2 hyperintensity in the substance of the spinal cord at C3-4. Presently, he denies significant improvement in his symptoms. He is not presently able to walk. Neurosurgeon evaluated s/p C3-C4 ACDF on 10/04/2020. Patient tolerated the procedure well. Postop care per neurosurgery 09/24/20 Patient is 65 yo presented with right sided weakness. CT Head revealed infarct left basal ganglia. He was admitted with acute stroke. Patient started on Aspirin, Lipitor. MRI ordered, not done yet. Neurology consulted. F/U MRI Brain, CT Angio Head, CT Angio Neck 09/25/20. F/U CTA head and neck. PT/OT 09/26/20. MRI of brain negative. CT head and neck reveals occluded Left MCA M1 segment with collateralization. F/U ECHO. Cont. ASA and lipitor. PT recommends acute rehab 09/27/2020. Left ventricle mildly dilated. Left ventricular systolic function is moderately decreased. LVEF is 35 to 40%. Mild to moderate concentric left ventricular hypertrophy. Mild aortic stenosis. Carotid ultrasound negative. Await rehab placement. 09/28/2020. Neurology recommends b12, tsh, rpr, ck, esr, crp, mri cervical spine w/ wo contrast. Consider transfer to hospital with bedside neurology 09/29/2020. MRI cervical spine reveals significant degenerative changes of the cervical spine involving C3-C4 through C5-C6. There appears to be cord impingement at C3-C4. 09/30/2020. MRI C-spine no severe C-spine stenosis especially at C3-C4 level with mild cord edema. Continue Decadron 4 mg IV every 6 hours. Neurosurgery consultation. Patient with elevated BG given the addition of steroids. We will start Lantus 8 units at bedtime. SSRI and Accu-Cheks 10/01/2020. MRI of thoracic and lumbar spine without contrast pending per surgery recommendations. Continue to hold aspirin. Cardiology consultation for cardiac clearance prior to surgery. 10/02/2020. Follow-up MRI of thoracic and lumbar spine without contrast. Continue to hold aspirin. Cardiology consultation for cardiac clearance prior to surgery. Neurosurgery following and plans for surgical intervention later this week. Continue Decadron. 10/03/2020; neurosurgery scheduled for C3-C4 Anterior Cervical Discectomy and Fusion [C3-C4 ACDF] on 10/05/2020, arrangements made for 2 units of platelet transfusion prior to surgery on 10/05/2020, and 2 units platelet transfusion post surgery.Patient will be n.p.o. midnight 10/05/2020, will check coags on the day of surgery Plan of care reviewed with the patient, family member at the bedside and his nurse. I discussed with neurosurgeon Dr. Myers 10/04/2020; patient underwent C3-C4 ACDF surgery today. Tolerated the procedure well, postop care per neurosurgery 10/05/2020; follow PT and OT recommendations Swallow eval if needed Continue current management 10/06/2020; patient is able to swallow without difficulty No evidence of dysphagia, continue Ancef per NSG Patient will be transferred to acute inpatient rehab in stable when bed is available 10/07/2020; patient feels better, no new complaints Lower extremity weakness significantly improved Tolerating PTOT, Awaiting inpatient rehab placement when bed is available We will resume aspirin 81 mg on postop day 5[10/09/2020] And aspirin 325 mg on postop day 7[10/11/2020] per neurosurgery 10/08/2020; patient feels slightly better, tolerating PT Awaiting IRU placement 10/09/2020; patient is stable for discharge to IRU Pending placement 10/10/2020; awaiting IRU placement DC planning per case management History Interval history: I have seen and examined the patient at the bedside this morning Patient's chart and medications reviewed Patient is tolerating physical therapy Awaiting inpatient rehab admission No rehab beds available in our facility Case management checking at other places Patient has no new complaints Vital signs reviewed Hospitalist Physical - Constitutional Vitals: Temp Pulse Resp BP Pulse Ox 98.0 F 95 H 18 106/63 95 10/10/20 07:59 10/10/20 09:10 10/10/20 07:59 10/10/20 09:10 10/10/20 07:59 General appearance: Present: no acute distress, well-nourished, obese - EENT Eyes: Present: PERRL, EOM intact - Neck Neck: Present: supple, normal ROM - Respiratory Respiratory effort: normal Respiratory: bilateral: diminished, negative: rales, rhonchi, wheezing - Cardiovascular Rhythm: regular Heart Sounds: Present: S1 & S2 - Extremities Extremities: no ischemia, No edema - Abdominal General gastrointestinal: soft, non-tender, non-distended, normal bowel sounds - Integumentary Integumentary: Present: clear, warm - Psychiatric Psychiatric: appropriate mood/affect, cooperative - Neurologic Neurologic: CNII-XII intact, moves all extremities HEART Score - HEART Score Troponin: Troponin T < 0.010 ng/mL (0.00-0.029) 10/03/20 04:42 Results - Labs CBC & Chem 7: 10/06/20 04:37 10/06/20 04:37 Labs: Laboratory Last Values WBC 9.4 K/mm3 (4.5-11.0) 10/06/20 04:37 RBC 4.32 M/mm3 (3.65-5.03) 10/06/20 04:37 Hgb 12.7 gm/dl (11.8-15.2) 10/06/20 04:37 Hct 37.4 % (35.5-45.6) 10/06/20 04:37 MCV 87 fl (84-94) 10/06/20 04:37 MCH 29 pg (28-32) 10/06/20 04:37 MCHC 34 % (32-34) 10/06/20 04:37 RDW 13.6 % (13.2-15.2) 10/06/20 04:37 Plt Count 316 K/mm3 (140-440) 10/06/20 04:37 Lymph % (Auto) 6.8 % (13.4-35.0) L 10/06/20 04:37 [place] % (Auto) 7.6 % (0.0-7.3) H 10/06/20 04:37 Eos % (Auto) 0.0 % (0.0-4.3) 10/06/20 04:37 Baso % (Auto) 0.2 % (0.0-1.8) 10/06/20 04:37 Lymph # (Auto) 0.6 K/mm3 (1.2-5.4) L 10/06/20 04:37 [place] # (Auto) 0.7 K/mm3 (0.0-0.8) 10/06/20 04:37 Eos # (Auto) 0.0 K/mm3 (0.0-0.4) 10/06/20 04:37 Baso # (Auto) 0.0 K/mm3 (0.0-0.1) 10/06/20 04:37 Seg Neutrophils % 85.4 % (40.0-70.0) H 10/06/20 04:37 Seg Neutrophils # 8.0 K/mm3 (1.8-7.7) H 10/06/20 04:37 PT 13.2 Sec. (12.2-14.9) 10/04/20 03:07 INR 0.94 (0.87-1.13) 10/04/20 03:07 APTT 29.9 Sec. (24.2-36.6) 10/04/20 03:07 Sodium 134 mmol/L (137-145) L 10/06/20 04:37 Potassium 4.2 mmol/L (3.6-5.0) 10/06/20 04:37 Chloride 97.7 mmol/L (98-107) L 10/06/20 04:37 Carbon Dioxide 25 mmol/L (22-30) 10/06/20 04:37 Anion Gap 16 mmol/L 10/06/20 04:37 BUN 19 mg/dL (9-20) 10/06/20 04:37 Creatinine 0.7 mg/dL (0.8-1.3) L 10/06/20 04:37 Estimated GFR > 60 ml/min 10/06/20 04:37 BUN/Creatinine Ratio 27 % 10/06/20 04:37 Glucose 162 mg/dL (75-100) H 10/06/20 04:37 POC Glucose 124 mg/dL (70-105) H 10/10/20 07:57 Hemoglobin A1c 7.6 % (4-6) H 09/24/20 05:49 Calcium 8.7 mg/dL (8.4-10.2) 10/06/20 04:37 Phosphorus 3.40 mg/dL (2.5-4.5) D 10/05/20 05:42 Magnesium 2.10 mg/dL (1.7-2.3) 10/05/20 05:42 Total Bilirubin 0.60 mg/dL (0.1-1.2) 10/05/20 05:42 Direct Bilirubin < 0.2 mg/dL (0-0.2) 09/23/20 12:11 Indirect Bilirubin 0.3 mg/dL 09/23/20 12:11 AST 17 units/L (5-40) 10/05/20 05:42 ALT 19 units/L (7-56) 10/05/20 05:42 Alkaline Phosphatase 69 units/L (35-129) 10/05/20 05:42 Total Creatine Kinase 2477 units/L (55-170) H 09/28/20 08:42 Troponin T < 0.010 ng/mL (0.00-0.029) 10/03/20 04:42 C-Reactive Protein 2.40 mg/dL (0.00-1.30) H 09/28/20 08:42 Total Protein 6.2 g/dL (6.3-8.2) L 10/05/20 05:42 Albumin 3.2 g/dL (3.9-5) L 10/05/20 05:42 Albumin/Globulin Ratio 1.1 % 10/05/20 05:42 Triglycerides 83 mg/dL (2-149) 09/25/20 04:49 Cholesterol 177 mg/dL (50-199) 09/25/20 04:49 LDL Cholesterol Direct 126 mg/dL (50-130) 09/25/20 04:49 HDL Cholesterol 50 mg/dL (40-59) 09/25/20 04:49 Cholesterol/HDL Ratio 3.54 % 09/25/20 04:49 Vitamin B12 400.3 pg/mL (211-911) 09/28/20 08:42 TSH 1.380 mlU/mL (0.270-4.200) 09/28/20 08:42 Urine Color Yellow (Yellow) 09/23/20 12:14 Urine Turbidity Clear (Clear) 09/23/20 12:14 Urine pH 6.0 (5.0-7.0) 09/23/20 12:14 Ur Specific [place] 1.020 (1.003-1.030) 09/23/20 12:14 Urine Protein 30 mg/dl mg/dL (Negative) 09/23/20 12:14 Urine Glucose (UA) Neg mg/dL (Negative) 09/23/20 12:14 Urine Ketones Neg mg/dL (Negative) 09/23/20 12:14 Urine Blood Neg (Negative) 09/23/20 12:14 Urine Nitrite Neg (Negative) 09/23/20 12:14 Urine Bilirubin Neg (Negative) 09/23/20 12:14 Urine Urobilinogen 4.0 mg/dL (<2.0) 09/23/20 12:14 Ur Leukocyte Esterase Neg (Negative) 09/23/20 12:14 Urine WBC (Auto) 1.0 /HPF (0.0-6.0) 09/23/20 12:14 Urine RBC (Auto) 3.0 /HPF (0.0-6.0) 09/23/20 12:14 U Epithel Cells (Auto) < 1.0 /HPF (0-13.0) 09/23/20 12:14 Urine Mucus Few /HPF 09/23/20 12:14 Coronavirus (PCR) Negative (Negative) 09/25/20 Unknown Blood Type AB POSITIVE 10/03/20 18:00 Antibody Screen Negative 10/03/20 18:00 Riley/IV: Voiding Method Condom Catheter Active Medications - Current Medications Current Medications: Generic Name Dose Route Start Last Admin Trade Name Freq PRN Reason Stop Dose Admin Hydrocodone Bitart/Acetaminophen 1 each 09/24/20 00:38 10/02/20 13:42 Hydrocodone/Acetaminophen 5-325 Mg Tab PO 1 each Q6HR PRN Administration Pain , Severe (7-10) Aspirin 81 mg 10/09/20 10:00 10/10/20 09:08 Aspirin Ec 81 Mg Tab PO 10/10/20 10:01 81 mg QDAY FLAQUITO Administration Aspirin 325 mg 10/11/20 10:00 Aspirin Ec 325 Mg Tab PO QDAY FLAQUITO Atorvastatin Calcium 40 mg 09/24/20 22:00 10/09/20 21:50 Atorvastatin 40 Mg Tab PO 40 mg QHS FLAQUITO Administration Dextrose 50 ml 09/30/20 10:26 Dextrose 50% In Water (25gm) 50 Ml Syringe IV Q30MIN PRN Hypoglycemia Protocol Famotidine 20 mg 09/25/20 10:00 10/10/20 09:08 Famotidine 20 Mg Tab PO 20 mg BID FLAQUITO Administration Glipizide 5 mg 10/04/20 08:00 10/10/20 08:22 Glipizide 5 Mg Tab PO 5 mg QDDIAB FLAQUITO Administration Hydromorphone HCl 0.5 mg 09/24/20 00:53 Hydromorphone 1 Mg/1 Ml Inj IV Q3H PRN Pain , Severe (7-10) Insulin Glargine 12 units 10/08/20 22:00 10/10/20 09:11 Insulin Glargine 100 Units/Ml SUB-Q 12 units BID FLAQUITO Administration Insulin Human Regular 0 units 09/30/20 11:30 10/10/20 08:20 Insulin Regular, Human 100 Units/1 Ml SUB-Q Not Given ACHS FLAQUITO Protocol Lisinopril 2.5 mg 10/04/20 10:00 10/10/20 09:10 Lisinopril 5 Mg Tab PO Not Given QDAY FLAQUITO Metformin HCl 500 mg 10/07/20 17:00 10/10/20 08:22 Metformin 500 Mg Tab PO 500 mg BIDDIAB FLAQUITO Administration Metoclopramide HCl 10 mg 09/24/20 00:53 Metoclopramide 10 Mg/2 Ml Inj IV Q6H PRN Nausea And Vomiting Metoprolol Tartrate 12.5 mg 10/03/20 12:00 10/10/20 09:09 Metoprolol Tartrate 25 Mg Tab PO Not Given BID FLAQUITO Ondansetron HCl 4 mg 09/24/20 00:53 Ondansetron 4 Mg/2 Ml Inj IV Q8H PRN Nausea And Vomiting Oxycodone/Acetaminophen 1 tab 09/24/20 00:53 10/09/20 21:50 Oxycodone /Acetaminophen 5-325mg Tab PO 1 tab Q6H PRN Administration Pain, Moderate (4-6) Sodium Chloride 10 ml 09/24/20 10:00 10/10/20 09:11 Sodium Chloride 0.9% 10 Ml Flush Syringe IV 10 ml BID FLAQUITO Administration Sodium Chloride 10 ml 09/24/20 00:53 10/03/20 06:24 Sodium Chloride 0.9% 10 Ml Flush Syringe IV 10 ml PRN PRN Administration LINE FLUSH Nutrition/Malnutrition Assess - Dietary Evaluation Nutrition/Malnutrition Findings: Nutrition Notes Start: 09/29/20 12:29 Freq: Status: Active Protocol: Document 09/29/20 12:29 LM (Rec: 09/29/20 12:30 LM [id number]) Nutrition Notes Need for Assessment generated from: LOS Initial or Follow up Brief Note Subjective/Other Information Screen for LOS. Pt with 100% intakes per EMR. Nutrition Intervention Revisit per MD consult or patient Sign Off request:
--- NOTE | 2020-10-11 07:29 | Consultation ---
History of Present Illness - Reason for Consult Consult date: 10/11/20 Requesting physician: LORY ARTEAGA - History of Present Illness 65-year-old male with a history of left lower extremity weakness secondary to polio and prior CVA came to the ER with bilateral upper extremity weakness. Recommendation early on from neurology was to transfer the patient to outside hospital with bedside neurology due to complexity of the case. However neurosurgeon was able to evaluate the patient and determined that he had cervical impingement at the C3-4 level as seen on cervical MRI. Patient underwent a C3-4 ACDF on 10/04/2020. Patient recovered well without incident and we were consulted to assess the patient for possibility of acute inpatient rehabilitation stay. Patient appears to have weakness in all 4 limbs worse than prior. He will need acute inpatient rehab but may not be able to regain full function of his limbs and may also require prolonged stay at a subacute rehab after acute rehab. I discussed this with the patient and also explained to him that we would have to receive insurance authorization before we could bring him over. Insurance authorization for acute inpatient rehabilitation has been initiated and is pending. Past History Past Medical History: diabetes, hypertension, hyperlipidemia, other (polio, ?CVA (Fe per pt)) Past Surgical History: CABG, Other (Aortic valve bioprosthetic) Social history: lives with family, full code. denies: smoking (former), alcohol abuse (former) Family history: hypertension Medications and Allergies Allergies Allergy/AdvReac Type Severity Reaction Status Date / Time No Known Allergies Allergy Verified 09/24/20 01:16 Home Medications Medication Instructions Recorded Confirmed Last Taken Type AtorvaSTATin [Lipitor] 40 mg PO QHS 09/23/20 09/23/20 Unknown History Diclofenac Sodium 75 mg PO QDAY 09/23/20 09/23/20 Unknown History HYDROcodone/ACETAMINOPHEN 1 each PO Q6HR PRN 09/23/20 09/23/20 Unknown History [Hydrocodone-Acetamin 5-300 mg] Metformin HCl [metFORMIN] 1,000 mg PO QDAY 09/23/20 09/23/20 Unknown History glipiZIDE [Glucotrol] 5 mg PO QDAY 09/23/20 09/23/20 Unknown History Active Meds: Active Medications Hydrocodone Bitart/Acetaminophen (Hydrocodone/Acetaminophen 5-325 Mg Tab) 1 each PO Q6HR PRN PRN Reason: Pain , Severe (7-10) Last Admin: 10/02/20 13:42 Dose: 1 each Documented by: Aspirin (Aspirin Ec 325 Mg Tab) 325 mg PO QDAY [facility] Atorvastatin Calcium (Atorvastatin 40 Mg Tab) 40 mg PO QHS [facility] Last Admin: 10/10/20 21:24 Dose: 40 mg Documented by: Dextrose (Dextrose 50% In Water (25gm) 50 Ml Syringe) 50 ml IV Q30MIN PRN; Protocol PRN Reason: Hypoglycemia Famotidine (Famotidine 20 Mg Tab) 20 mg PO BID [facility] Last Admin: 10/10/20 21:25 Dose: 20 mg Documented by: Glipizide (Glipizide 5 Mg Tab) 5 mg PO QDDIAB [facility] Last Admin: 10/10/20 08:22 Dose: 5 mg Documented by: Hydromorphone HCl (Hydromorphone 1 Mg/1 Ml Inj) 0.5 mg IV Q3H PRN PRN Reason: Pain , Severe (7-10) Insulin Glargine (Insulin Glargine 100 Units/Ml) 12 units SUB-Q BID [facility] Last Admin: 10/10/20 21:25 Dose: 12 units Documented by: Insulin Human Regular (Insulin Regular, Human 100 Units/1 Ml) 0 units SUB-Q [facility]; Protocol Last Admin: 10/10/20 22:00 Dose: Not Given Documented by: Lisinopril (Lisinopril 5 Mg Tab) 2.5 mg PO QDAY [facility] Last Admin: 10/10/20 09:10 Dose: Not Given Documented by: Metformin HCl (Metformin 500 Mg Tab) 500 mg PO BIDDIAB [facility] Last Admin: 10/10/20 17:14 Dose: 500 mg Documented by: Metoclopramide HCl (Metoclopramide 10 Mg/2 Ml Inj) 10 mg IV Q6H PRN PRN Reason: Nausea And Vomiting Metoprolol Tartrate (Metoprolol Tartrate 25 Mg Tab) 12.5 mg PO BID [facility] Last Admin: 10/10/20 21:24 Dose: 12.5 mg Documented by: Ondansetron HCl (Ondansetron 4 Mg/2 Ml Inj) 4 mg IV Q8H PRN PRN Reason: Nausea And Vomiting Oxycodone/Acetaminophen (Oxycodone /Acetaminophen 5-325mg Tab) 1 tab PO Q6H PRN PRN Reason: Pain, Moderate (4-6) Last Admin: 10/09/20 21:50 Dose: 1 tab Documented by: Sodium Chloride (Sodium Chloride 0.9% 10 Ml Flush Syringe) 10 ml IV BID FLAQUITO Last Admin: 10/10/20 21:25 Dose: 10 ml Documented by: Sodium Chloride (Sodium Chloride 0.9% 10 Ml Flush Syringe) 10 ml IV PRN PRN PRN Reason: LINE FLUSH Last Admin: 10/03/20 06:24 Dose: 10 ml Documented by: Review of Systems All systems: negative (ROS negative for 10 systems except as noted below with pertinent positives and negatives.) Constitutional: no fever, no chills Ears, nose, mouth and throat: no decreased hearing Cardiovascular: no chest pain, no palpitations, no edema Respiratory: cough, no shortness of breath Gastrointestinal: no abdominal pain, no nausea, no vomiting Genitourinary Male: no dysuria Musculoskeletal: limitation of motion, no arthritis Integumentary: wounds, no rash, no pruritis, no redness Neurological: weakness, no tremors Psychiatric: no anxiety Exam - Exam Narrative exam: MUSCULOSKELETAL SPECIALTY EXAM CONSTITUTIONAL: Well developed, well nourished, appropriately groomed LYMPHATIC: No appreciable abnormalities palpable in neck RESPIRATORY: Clear to auscultation bilaterally, no increased work of breathing CARDIOVASCULAR: Regular Rate/ Rhythm, no swelling, edema or tenderness in BUE or BLE. Pulses palpable in all extremities. All extremities warm. GI: + bowel sounds, soft, NTTP, nondistended. INTEGUMENTARY: Normal, no lesion, rash, masses or bruising noted in extremities. Surgical wound clean dry and intact on anterior neck MUSCULOSKELETAL: BUE and BLE normal without defect, crepitus, subluxation, effusion, arthritic changes or TTP. BUE 4-/5, decreased ROM, with normal tone. BLE 2/5 decreased ROM, with normal tone NEURO: CN 2-12 grossly intact. Sensation intact in all extremities. Reflexes 3+ bila terally at biceps, brachioradialis and 2+ at patella. No clonus at ankles. Coordination impaired in BUE. No tremor noted in 4 extremities. POSTURE and GAIT: Sitting posture good. Balance and gait deferred until seen with therapy. PSYCH: Alert, oriented x3, affect appears normal. Insight appears intact. - Constitutional Vitals: Vital Signs - 12hr 10/10/20 10/10/20 10/10/20 19:33 21:24 22:00 Temperature 97.5 F L Pulse Rate 67 67 Respiratory 20 20 Rate Blood Pressure 110/67 110/67 O2 Sat by Pulse 100 Oximetry 10/10/20 10/11/20 23:53 04:18 Temperature 97.8 F 97.6 F Pulse Rate 58 L 52 L Respiratory 20 20 Rate Blood Pressure 122/61 108/62 O2 Sat by Pulse 100 96 Oximetry - Allied health notes Allied health notes reviewed: nursing, PT, OT - Labs CBC & Chem 7: 10/06/20 04:37 10/06/20 04:37 Labs: Laboratory Results - last 72 hr 10/08/20 10/08/20 10/08/20 08:02 12:10 16:32 POC Glucose 216 H 314 H 285 H 10/08/20 10/09/20 10/09/20 20:29 07:30 11:05 POC Glucose 287 H 247 H 285 H 10/09/20 10/09/20 10/10/20 15:34 21:31 07:57 POC Glucose 182 H 154 H 124 H 10/10/20 10/10/20 10/10/20 12:15 17:02 20:33 POC Glucose 135 H 132 H 117 H Assessment and Plan Patient was assessed and evaluated for Acute Inpatient Rehab Unit. Due to the patients above-mentioned medical complexity, along with decreased fu nctional mobility and self care, this patient is appropriate for a comprehensive, multidisciplinary [id number] rehabilitation program. These needs cannot be met in an outpatient or other less intensive setting. The patient would benefit from skilled therapy intervention for at least 3 hours per day, five days a week, with techniques specific to the needs of the patient to improve function, activities of daily living, and reintegration into the community. With such a program, there is a reasonable certainty that the goals individualized for this patient can be achieved within the specified length of stay. Cervical impingement at C3/4 with myelopathy: Status post ACDF. Cervical collar on when out of bed. Further surgical management per neurosurgery. 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 Hypertension, diabetes per primary team. ADL dysfunction: OT will work on improving ability to perform ADLs (including assistive devices) to increase independence and decrease caregiver burden and improve functional transfers and mobility training. Difficulty walking: PT will work on gait training and proper use of assistive devices and advance as appropriate to use of stairs and outside ambulation on uneven surfaces. Unsteadiness on feet: PT will work on improving static and dynamic sitting and standing balance as well as proper use of assistive devices to decrease risk of falls. Abnormality of gait: PT will work to improve safety and efficiency of gait through neuromotor training and gait training along with instruction on proper use of assistive devices. Muscle weakness: PT & OT will work on strengthening exercises to improve functional strength including mixture of closed and open kinetic chain exercises. Debility: PT & OT will work on improving overall functional status to improve participation with ADLs, mobility and social involvement. Fatigue: PT & OT will work on improving endurance through aerobic exercises and therapeutic activity while monitoring patients tolerance for activity and vital signs as needed. DVT ppx: Per primary team, has been cleared for Lovenox Pain: Continue physical modalities in therapy and pain medications as needed to achieve functional pain control. Sleep: Monitor and address as needed. Bowel: Monitor and address as needed. Appetite: Monitor and address as needed. Restrictions/ Precautions: Falls, cervical collar WB status: FWB Patient is appropriate for inpatient rehab, insurance authorization has been initiated and is pending. Recommendations: may discharge to Acute Inpatient Rehab Unit pending bed availability
[2020-10-11] MEDS: INSULIN REGULAR, HUMAN 100 UNITS/1 ML SUB-Q SCH ×4 (09:11→21:23)
[2020-10-11] MEDS: metFORMIN 500 MG TAB PO SCH ×2 (09:52→16:51)
[2020-10-11] MEDS: ASPIRIN EC 325 MG TAB PO SCH (09:52)
[2020-10-11] MEDS: FAMOTIDINE 20 MG TAB PO SCH ×2 (09:52→21:25)
[2020-10-11] MEDS: LISINOPRIL 5 MG TAB PO SCH (09:52)
[2020-10-11] MEDS: glipiZIDE 5 MG TAB PO SCH (09:52)
[2020-10-11] MEDS: METOPROLOL TARTRATE 25 MG TAB PO SCH ×2 (09:55→21:25)
[2020-10-11] MEDS: INSULIN GLARGINE 100 UNITS/ML SUB-Q SCH ×2 (10:22→21:24)
--- NOTE | 2020-10-11 17:38 | Progress Note ---
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 Physical therapy occupational therapy acute inpatient rehabilitation Patient received 2 units platelets prior to and after surgery as rec by NSG --Concern about purulent drainage around the drain site, now resolved Patient received 3 days of Ancef. --Hypertension; well controlled Continue current antihypertensives --Type 2 diabetes mellitus; uncontrolled Probably due to steroid use, increase Lantus dose to 12 units subcu twice daily Accu-Chek sliding scale coverage ADA diet, A1c 7.6 Will DC steroids --DVT prophylaxis; SCD We will add Lovenox subcu --Obesity BMI 32.7 patient may need weight reduction when medically stable Closely monitor the patient and adjust the management as needed Plan of care reviewed with patient's nurse, I discussed with the family member at the bedside. Physical therapy occupational therapy IRU placement when patient is stable. And when bed is available Brief history and daily hospital course: 65 y/o Male patient presented to [facility] 1 week ago with complaints of acute onset arm and leg weakness. He has chronic left hemiparesis due to polio, but was ambulatory with a walker. He reports weakness, which equally affected both arms and legs since last Friday night. Upon arrival, a CT was performed, which was negative for acute changes. He was started on ASA and Plavix due to concern for CVA. MRI was negative for acute changes. Neurology was consulted, recommended MRI Cervical spine. Which was was performed 09/28/2020, revealing severe cord compression at C3-4 due to broad based disc osteophyte formation and thickened ligamentum flavum. There is focal T2 hyperintensity in the substance of the spinal cord at C3-4. Presently, he denies significant improvement in his symptoms. He is not presently able to walk. Neurosurgeon evaluated s/p C3-C4 ACDF on 10/04/2020. Patient tolerated the procedure well. Postop care per neurosurgery 09/24/20 Patient is 65 yo presented with right sided weakness. CT Head revealed infarct left basal ganglia. He was admitted with acute stroke. Patient started on Aspirin, Lipitor. MRI ordered, not done yet. Neurology consulted. F/U MRI Brain, CT Angio Head, CT Angio Neck 09/25/20. F/U CTA head and neck. PT/OT 09/26/20. MRI of brain negative. CT head and neck reveals occluded Left MCA M1 segment with collateralization. F/U ECHO. Cont. ASA and lipitor. PT recommends acute rehab 09/27/2020. Left ventricle mildly dilated. Left ventricular systolic function is moderately decreased. LVEF is 35 to 40%. Mild to moderate concentric left ventricular hypertrophy. Mild aortic stenosis. Carotid ultrasound negative. Await rehab placement. 09/28/2020. Neurology recommends b12, tsh, rpr, ck, esr, crp, mri cervical spine w/ wo contrast. Consider transfer to hospital with bedside neurology 09/29/2020. MRI cervical spine reveals significant degenerative changes of the cervical spine involving C3-C4 through C5-C6. There appears to be cord impingement at C3-C4. 09/30/2020. MRI C-spine no severe C-spine stenosis especially at C3-C4 level with mild cord edema. Continue Decadron 4 mg IV every 6 hours. Neurosurgery consultation. Patient with elevated BG given the addition of steroids. We will start Lantus 8 units at bedtime. SSRI and Accu-Cheks 10/01/2020. MRI of thoracic and lumbar spine without contrast pending per surgery recommendations. Continue to hold aspirin. Cardiology consultation for cardiac clearance prior to surgery. 10/02/2020. Follow-up MRI of thoracic and lumbar spine without contrast. Continue to hold aspirin. Cardiology consultation for cardiac clearance prior to surgery. Neurosurgery following and plans for surgical intervention later this week. Continue Decadron. 10/03/2020; neurosurgery scheduled for C3-C4 Anterior Cervical Discectomy and Fusion [C3-C4 ACDF] on 10/05/2020, arrangements made for 2 units of platelet transfusion prior to surgery on 10/05/2020, and 2 units platelet transfusion post surgery.Patient will be n.p.o. midnight 10/05/2020, will check coags on the day of surgery Plan of care reviewed with the patient, family member at the bedside and his nurse. I discussed with neurosurgeon Dr. Myers 10/04/2020; patient underwent C3-C4 ACDF surgery today. Tolerated the procedure well, postop care per neurosurgery 10/05/2020; follow PT and OT recommendations Swallow eval if needed Continue current management 10/06/2020; patient is able to swallow without difficulty No evidence of dysphagia, continue Ancef per NSG Patient will be transferred to acute inpatient rehab in stable when bed is available 10/07/2020; patient feels better, no new complaints Lower extremity weakness significantly improved Tolerating PTOT, Awaiting inpatient rehab placement when bed is available We will resume aspirin 81 mg on postop day 5[10/09/2020] And aspirin 325 mg on postop day 7[10/11/2020] per neurosurgery 10/08/2020; patient feels slightly better, tolerating PT Awaiting IRU placement 10/09/2020; patient is stable for discharge to IRU Pending placement 10/10/2020; awaiting IRU placement DC planning per case management 10/11/2020; pending placement/pending insurance authorization History Interval history: I have seen and examined the patient at the bedside this morning during our morning rounds Patient has no new complaints, some pain in the neck and some discomfort sometimes Lower and upper extremity weakness gradually improving Vital signs noted Awaiting inpatient rehab unit [IRU ]admission Pending insurance authorization Hospitalist Physical - Constitutional Vitals: Temp Pulse Resp BP Pulse Ox 98.2 F 70 18 123/71 100 10/11/20 07:52 10/11/20 07:52 10/11/20 07:52 10/11/20 07:52 10/11/20 07:52 General appearance: Present: no acute distress, well-nourished, obese - EENT Eyes: Present: PERRL, EOM intact - Neck Neck: Present: supple, normal ROM - Respiratory Respiratory effort: normal Respiratory: bilateral: diminished, negative: rales, rhonchi, wheezing - Cardiovascular Rhythm: regular Heart Sounds: Present: S1 & S2 - Extremities Extremities: no ischemia, No edema - Abdominal General gastrointestinal: soft, non-tender, non-distended, normal bowel sounds - Integumentary Integumentary: Present: clear, warm - Psychiatric Psychiatric: appropriate mood/affect, cooperative - Neurologic Neurologic: CNII-XII intact, moves all extremities HEART Score - HEART Score Troponin: Troponin T < 0.010 ng/mL (0.00-0.029) 10/03/20 04:42 Results - Labs CBC & Chem 7: 10/06/20 04:37 10/06/20 04:37 Labs: Laboratory Last Values WBC 9.4 K/mm3 (4.5-11.0) 10/06/20 04:37 RBC 4.32 M/mm3 (3.65-5.03) 10/06/20 04:37 Hgb 12.7 gm/dl (11.8-15.2) 10/06/20 04:37 Hct 37.4 % (35.5-45.6) 10/06/20 04:37 MCV 87 fl (84-94) 10/06/20 04:37 MCH 29 pg (28-32) 10/06/20 04:37 MCHC 34 % (32-34) 10/06/20 04:37 RDW 13.6 % (13.2-15.2) 10/06/20 04:37 Plt Count 316 K/mm3 (140-440) 10/06/20 04:37 Lymph % (Auto) 6.8 % (13.4-35.0) L 10/06/20 04:37 [place] % (Auto) 7.6 % (0.0-7.3) H 10/06/20 04:37 Eos % (Auto) 0.0 % (0.0-4.3) 10/06/20 04:37 Baso % (Auto) 0.2 % (0.0-1.8) 10/06/20 04:37 Lymph # (Auto) 0.6 K/mm3 (1.2-5.4) L 10/06/20 04:37 [place] # (Auto) 0.7 K/mm3 (0.0-0.8) 10/06/20 04:37 Eos # (Auto) 0.0 K/mm3 (0.0-0.4) 10/06/20 04:37 Baso # (Auto) 0.0 K/mm3 (0.0-0.1) 10/06/20 04:37 Seg Neutrophils % 85.4 % (40.0-70.0) H 10/06/20 04:37 Seg Neutrophils # 8.0 K/mm3 (1.8-7.7) H 10/06/20 04:37 PT 13.2 Sec. (12.2-14.9) 10/04/20 03:07 INR 0.94 (0.87-1.13) 10/04/20 03:07 APTT 29.9 Sec. (24.2-36.6) 10/04/20 03:07 Sodium 134 mmol/L (137-145) L 10/06/20 04:37 Potassium 4.2 mmol/L (3.6-5.0) 10/06/20 04:37 Chloride 97.7 mmol/L (98-107) L 10/06/20 04:37 Carbon Dioxide 25 mmol/L (22-30) 10/06/20 04:37 Anion Gap 16 mmol/L 10/06/20 04:37 BUN 19 mg/dL (9-20) 10/06/20 04:37 Creatinine 0.7 mg/dL (0.8-1.3) L 10/06/20 04:37 Estimated GFR > 60 ml/min 10/06/20 04:37 BUN/Creatinine Ratio 27 % 10/06/20 04:37 Glucose 162 mg/dL (75-100) H 10/06/20 04:37 POC Glucose 173 mg/dL (70-105) H 10/11/20 16:24 Hemoglobin A1c 7.6 % (4-6) H 09/24/20 05:49 Calcium 8.7 mg/dL (8.4-10.2) 10/06/20 04:37 Phosphorus 3.40 mg/dL (2.5-4.5) D 10/05/20 05:42 Magnesium 2.10 mg/dL (1.7-2.3) 10/05/20 05:42 Total Bilirubin 0.60 mg/dL (0.1-1.2) 10/05/20 05:42 Direct Bilirubin < 0.2 mg/dL (0-0.2) 09/23/20 12:11 Indirect Bilirubin 0.3 mg/dL 09/23/20 12:11 AST 17 units/L (5-40) 10/05/20 05:42 ALT 19 units/L (7-56) 10/05/20 05:42 Alkaline Phosphatase 69 units/L (35-129) 10/05/20 05:42 Total Creatine Kinase 2477 units/L (55-170) H 09/28/20 08:42 Troponin T < 0.010 ng/mL (0.00-0.029) 10/03/20 04:42 C-Reactive Protein 2.40 mg/dL (0.00-1.30) H 09/28/20 08:42 Total Protein 6.2 g/dL (6.3-8.2) L 10/05/20 05:42 Albumin 3.2 g/dL (3.9-5) L 10/05/20 05:42 Albumin/Globulin Ratio 1.1 % 10/05/20 05:42 Triglycerides 83 mg/dL (2-149) 09/25/20 04:49 Cholesterol 177 mg/dL (50-199) 09/25/20 04:49 LDL Cholesterol Direct 126 mg/dL (50-130) 09/25/20 04:49 HDL Cholesterol 50 mg/dL (40-59) 09/25/20 04:49 Cholesterol/HDL Ratio 3.54 % 09/25/20 04:49 Vitamin B12 400.3 pg/mL (211-911) 09/28/20 08:42 TSH 1.380 mlU/mL (0.270-4.200) 09/28/20 08:42 Urine Color Yellow (Yellow) 09/23/20 12:14 Urine Turbidity Clear (Clear) 09/23/20 12:14 Urine pH 6.0 (5.0-7.0) 09/23/20 12:14 Ur Specific [place] 1.020 (1.003-1.030) 09/23/20 12:14 Urine Protein 30 mg/dl mg/dL (Negative) 09/23/20 12:14 Urine Glucose (UA) Neg mg/dL (Negative) 09/23/20 12:14 Urine Ketones Neg mg/dL (Negative) 09/23/20 12:14 Urine Blood Neg (Negative) 09/23/20 12:14 Urine Nitrite Neg (Negative) 09/23/20 12:14 Urine Bilirubin Neg (Negative) 09/23/20 12:14 Urine Urobilinogen 4.0 mg/dL (<2.0) 09/23/20 12:14 Ur Leukocyte Esterase Neg (Negative) 09/23/20 12:14 Urine WBC (Auto) 1.0 /HPF (0.0-6.0) 09/23/20 12:14 Urine RBC (Auto) 3.0 /HPF (0.0-6.0) 09/23/20 12:14 U Epithel Cells (Auto) < 1.0 /HPF (0-13.0) 09/23/20 12:14 Urine Mucus Few /HPF 09/23/20 12:14 Coronavirus (PCR) Negative (Negative) 09/25/20 Unknown Blood Type AB POSITIVE 10/03/20 18:00 Antibody Screen Negative 10/03/20 18:00 Riley/IV: Voiding Method Condom Catheter Active Medications - Current Medications Current Medications: Generic Name Dose Route Start Last Admin Trade Name Freq PRN Reason Stop Dose Admin Hydrocodone Bitart/Acetaminophen 1 each 09/24/20 00:38 10/02/20 13:42 Hydrocodone/Acetaminophen 5-325 Mg Tab PO 1 each Q6HR PRN Administration Pain , Severe (7-10) Aspirin 325 mg 10/11/20 10:00 10/11/20 09:52 Aspirin Ec 325 Mg Tab PO 325 mg QDAY FLAQUITO Administration Atorvastatin Calcium 40 mg 09/24/20 22:00 10/10/20 21:24 Atorvastatin 40 Mg Tab PO 40 mg QHS FLAQUITO Administration Dextrose 50 ml 09/30/20 10:26 Dextrose 50% In Water (25gm) 50 Ml Syringe IV Q30MIN PRN Hypoglycemia Protocol Famotidine 20 mg 09/25/20 10:00 10/11/20 09:52 Famotidine 20 Mg Tab PO 20 mg BID FLAQUITO Administration Glipizide 5 mg 10/04/20 08:00 10/11/20 09:52 Glipizide 5 Mg Tab PO 5 mg QDDIAB FLAQUITO Administration Hydromorphone HCl 0.5 mg 09/24/20 00:53 Hydromorphone 1 Mg/1 Ml Inj IV Q3H PRN Pain , Severe (7-10) Insulin Glargine 12 units 10/08/20 22:00 10/11/20 10:22 Insulin Glargine 100 Units/Ml SUB-Q 12 units BID FLAQUITO Administration Insulin Human Regular 0 units 09/30/20 11:30 10/11/20 17:24 Insulin Regular, Human 100 Units/1 Ml SUB-Q 2 units ACHS FLAQUITO Administration Protocol Lisinopril 2.5 mg 10/04/20 10:00 10/11/20 09:52 Lisinopril 5 Mg Tab PO 2.5 mg QDAY FLAQUITO Administration Metformin HCl 500 mg 10/07/20 17:00 10/11/20 16:51 Metformin 500 Mg Tab PO 500 mg BIDDIAB FLAQUITO Administration Metoclopramide HCl 10 mg 09/24/20 00:53 Metoclopramide 10 Mg/2 Ml Inj IV Q6H PRN Nausea And Vomiting Metoprolol Tartrate 12.5 mg 10/03/20 12:00 10/11/20 09:55 Metoprolol Tartrate 25 Mg Tab PO 12.5 mg BID FLAQUITO Administration Ondansetron HCl 4 mg 09/24/20 00:53 Ondansetron 4 Mg/2 Ml Inj IV Q8H PRN Nausea And Vomiting Oxycodone/Acetaminophen 1 tab 09/24/20 00:53 10/09/20 21:50 Oxycodone /Acetaminophen 5-325mg Tab PO 1 tab Q6H PRN Administration Pain, Moderate (4-6) Sodium Chloride 10 ml 09/24/20 10:00 10/11/20 09:52 Sodium Chloride 0.9% 10 Ml Flush Syringe IV 10 ml BID FLAQUITO Administration Sodium Chloride 10 ml 09/24/20 00:53 10/03/20 06:24 Sodium Chloride 0.9% 10 Ml Flush Syringe IV 10 ml PRN PRN Administration LINE FLUSH Nutrition/Malnutrition Assess - Dietary Evaluation Nutrition/Malnutrition Findings: Nutrition Notes Start: 09/29/20 12:29 Freq: Status: Active Protocol: Document 09/29/20 12:29 LM (Rec: 09/29/20 12:30 LM [id number]) Nutrition Notes Need for Assessment generated from: LOS Initial or Follow up Brief Note Subjective/Other Information Screen for LOS. Pt with 100% intakes per EMR. Nutrition Intervention Revisit per MD consult or patient Sign Off request:
[2020-10-12] MEDS: INSULIN REGULAR, HUMAN 100 UNITS/1 ML SUB-Q SCH ×4 (08:14→22:43)
[2020-10-12] MEDS: HYDROmorphone 1 MG/1 ML INJ IV PRN ×4 (08:45→17:50)
[2020-10-12] MEDS: metFORMIN 500 MG TAB PO SCH ×2 (08:50→18:24)
[2020-10-12] MEDS: glipiZIDE 5 MG TAB PO SCH (08:50)
[2020-10-12] MEDS: METOPROLOL TARTRATE 25 MG TAB PO SCH ×2 (09:27→22:40)
[2020-10-12] MEDS: LISINOPRIL 5 MG TAB PO SCH (09:27)
[2020-10-12] MEDS: ASPIRIN EC 325 MG TAB PO SCH (09:27)
[2020-10-12] MEDS: FAMOTIDINE 20 MG TAB PO SCH ×2 (09:27→22:41)
[2020-10-12] MEDS: INSULIN GLARGINE 100 UNITS/ML SUB-Q SCH ×2 (09:28→22:42)
--- NOTE | 2020-10-12 17:46 | Progress Note ---
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 Physical therapy occupational therapy acute inpatient rehabilitation Patient received 2 units platelets prior to and after surgery as rec by NSG --Concern about purulent drainage around the drain site, now resolved Patient received 3 days of Ancef. --Hypertension; well controlled Continue current antihypertensives --Type 2 diabetes mellitus; uncontrolled Probably due to steroid use, increase Lantus dose to 12 units subcu twice daily Accu-Chek sliding scale coverage ADA diet, A1c 7.6 Will DC steroids --DVT prophylaxis; SCD We will add Lovenox subcu --Obesity BMI 32.7 patient may need weight reduction when medically stable Closely monitor the patient and adjust the management as needed Plan of care reviewed with patient's nurse, I discussed with the family member at the bedside. Physical therapy occupational therapy IRU placement when patient is stable. And when bed is available Brief history and daily hospital course: 65 y/o Male patient presented to [facility] 1 week ago with complaints of acute onset arm and leg weakness. He has chronic left hemiparesis due to polio, but was ambulatory with a walker. He reports weakness, which equally affected both arms and legs since last Friday night. Upon arrival, a CT was performed, which was negative for acute changes. He was started on ASA and Plavix due to concern for CVA. MRI was negative for acute changes. Neurology was consulted, recommended MRI Cervical spine. Which was was performed 09/28/2020, revealing severe cord compression at C3-4 due to broad based disc osteophyte formation and thickened ligamentum flavum. There is focal T2 hyperintensity in the substance of the spinal cord at C3-4. Presently, he denies significant improvement in his symptoms. He is not presently able to walk. Neurosurgeon evaluated s/p C3-C4 ACDF on 10/04/2020. Patient tolerated the procedure well. Postop care per neurosurgery 09/24/20 Patient is 65 yo presented with right sided weakness. CT Head revealed infarct left basal ganglia. He was admitted with acute stroke. Patient started on Aspirin, Lipitor. MRI ordered, not done yet. Neurology consulted. F/U MRI Brain, CT Angio Head, CT Angio Neck 09/25/20. F/U CTA head and neck. PT/OT 09/26/20. MRI of brain negative. CT head and neck reveals occluded Left MCA M1 segment with collateralization. F/U ECHO. Cont. ASA and lipitor. PT recommends acute rehab 09/27/2020. Left ventricle mildly dilated. Left ventricular systolic function is moderately decreased. LVEF is 35 to 40%. Mild to moderate concentric left ventricular hypertrophy. Mild aortic stenosis. Carotid ultrasound negative. Await rehab placement. 09/28/2020. Neurology recommends b12, tsh, rpr, ck, esr, crp, mri cervical spine w/ wo contrast. Consider transfer to hospital with bedside neurology 09/29/2020. MRI cervical spine reveals significant degenerative changes of the cervical spine involving C3-C4 through C5-C6. There appears to be cord impingement at C3-C4. 09/30/2020. MRI C-spine no severe C-spine stenosis especially at C3-C4 level with mild cord edema. Continue Decadron 4 mg IV every 6 hours. Neurosurgery consultation. Patient with elevated BG given the addition of steroids. We will start Lantus 8 units at bedtime. SSRI and Accu-Cheks 10/01/2020. MRI of thoracic and lumbar spine without contrast pending per surgery recommendations. Continue to hold aspirin. Cardiology consultation for cardiac clearance prior to surgery. 10/02/2020. Follow-up MRI of thoracic and lumbar spine without contrast. Continue to hold aspirin. Cardiology consultation for cardiac clearance prior to surgery. Neurosurgery following and plans for surgical intervention later this week. Continue Decadron. 10/03/2020; neurosurgery scheduled for C3-C4 Anterior Cervical Discectomy and Fusion [C3-C4 ACDF] on 10/05/2020, arrangements made for 2 units of platelet transfusion prior to surgery on 10/05/2020, and 2 units platelet transfusion post surgery.Patient will be n.p.o. midnight 10/05/2020, will check coags on the day of surgery Plan of care reviewed with the patient, family member at the bedside and his nurse. I discussed with neurosurgeon Dr. Myers 10/04/2020; patient underwent C3-C4 ACDF surgery today. Tolerated the procedure well, postop care per neurosurgery 10/05/2020; follow PT and OT recommendations Swallow eval if needed Continue current management 10/06/2020; patient is able to swallow without difficulty No evidence of dysphagia, continue Ancef per NSG Patient will be transferred to acute inpatient rehab in stable when bed is available 10/07/2020; patient feels better, no new complaints Lower extremity weakness significantly improved Tolerating PTOT, Awaiting inpatient rehab placement when bed is available We will resume aspirin 81 mg on postop day 5[10/09/2020] And aspirin 325 mg on postop day 7[10/11/2020] per neurosurgery 10/08/2020; patient feels slightly better, tolerating PT Awaiting IRU placement 10/09/2020; patient is stable for discharge to IRU Pending placement 10/10/2020; awaiting IRU placement DC planning per case management 10/11/2020; pending placement/pending insurance authorization 10/12/2020; Patient is clinically stable for discharge to inpatient rehab unit[IRU] Pending insurance authorization History Interval history: I have seen and examined the patient at the bedside this morning during morning rounds Patient's chart and records reviewed No new complaints some discomfort in the neck Vital signs noted Pending IRU admission Hospitalist Physical - Constitutional Vitals: Temp Pulse Resp BP Pulse Ox 98.4 F 71 18 103/59 100 10/12/20 16:44 10/12/20 16:44 10/12/20 16:44 10/12/20 16:44 10/12/20 16:44 General appearance: Present: no acute distress, well-nourished, obese - EENT Eyes: Present: PERRL, EOM intact - Neck Neck: Present: supple, other (Postop state mild restriction of movements) - Respiratory Respiratory effort: normal Respiratory: bilateral: diminished, negative: rales, rhonchi, wheezing - Cardiovascular Rhythm: regular Heart Sounds: Present: S1 & S2 - Extremities Extremities: no ischemia, No edema - Abdominal General gastrointestinal: soft, non-tender, non-distended, normal bowel sounds - Integumentary Integumentary: Present: clear, warm - Psychiatric Psychiatric: appropriate mood/affect, cooperative - Neurologic Neurologic: CNII-XII intact, moves all extremities HEART Score - HEART Score Troponin: Troponin T < 0.010 ng/mL (0.00-0.029) 10/03/20 04:42 Results - Labs CBC & Chem 7: 10/06/20 04:37 10/06/20 04:37 Labs: Laboratory Last Values WBC 9.4 K/mm3 (4.5-11.0) 10/06/20 04:37 RBC 4.32 M/mm3 (3.65-5.03) 10/06/20 04:37 Hgb 12.7 gm/dl (11.8-15.2) 10/06/20 04:37 Hct 37.4 % (35.5-45.6) 10/06/20 04:37 MCV 87 fl (84-94) 10/06/20 04:37 MCH 29 pg (28-32) 10/06/20 04:37 MCHC 34 % (32-34) 10/06/20 04:37 RDW 13.6 % (13.2-15.2) 10/06/20 04:37 Plt Count 316 K/mm3 (140-440) 10/06/20 04:37 Lymph % (Auto) 6.8 % (13.4-35.0) L 10/06/20 04:37 [place] % (Auto) 7.6 % (0.0-7.3) H 10/06/20 04:37 Eos % (Auto) 0.0 % (0.0-4.3) 10/06/20 04:37 Baso % (Auto) 0.2 % (0.0-1.8) 10/06/20 04:37 Lymph # (Auto) 0.6 K/mm3 (1.2-5.4) L 10/06/20 04:37 [place] # (Auto) 0.7 K/mm3 (0.0-0.8) 10/06/20 04:37 Eos # (Auto) 0.0 K/mm3 (0.0-0.4) 10/06/20 04:37 Baso # (Auto) 0.0 K/mm3 (0.0-0.1) 10/06/20 04:37 Seg Neutrophils % 85.4 % (40.0-70.0) H 10/06/20 04:37 Seg Neutrophils # 8.0 K/mm3 (1.8-7.7) H 10/06/20 04:37 PT 13.2 Sec. (12.2-14.9) 10/04/20 03:07 INR 0.94 (0.87-1.13) 10/04/20 03:07 APTT 29.9 Sec. (24.2-36.6) 10/04/20 03:07 Sodium 134 mmol/L (137-145) L 10/06/20 04:37 Potassium 4.2 mmol/L (3.6-5.0) 10/06/20 04:37 Chloride 97.7 mmol/L (98-107) L 10/06/20 04:37 Carbon Dioxide 25 mmol/L (22-30) 10/06/20 04:37 Anion Gap 16 mmol/L 10/06/20 04:37 BUN 19 mg/dL (9-20) 10/06/20 04:37 Creatinine 0.7 mg/dL (0.8-1.3) L 10/06/20 04:37 Estimated GFR > 60 ml/min 10/06/20 04:37 BUN/Creatinine Ratio 27 % 10/06/20 04:37 Glucose 162 mg/dL (75-100) H 10/06/20 04:37 POC Glucose 94 mg/dL (70-105) 10/12/20 16:43 Hemoglobin A1c 7.6 % (4-6) H 09/24/20 05:49 Calcium 8.7 mg/dL (8.4-10.2) 10/06/20 04:37 Phosphorus 3.40 mg/dL (2.5-4.5) D 10/05/20 05:42 Magnesium 2.10 mg/dL (1.7-2.3) 10/05/20 05:42 Total Bilirubin 0.60 mg/dL (0.1-1.2) 10/05/20 05:42 Direct Bilirubin < 0.2 mg/dL (0-0.2) 09/23/20 12:11 Indirect Bilirubin 0.3 mg/dL 09/23/20 12:11 AST 17 units/L (5-40) 10/05/20 05:42 ALT 19 units/L (7-56) 10/05/20 05:42 Alkaline Phosphatase 69 units/L (35-129) 10/05/20 05:42 Total Creatine Kinase 2477 units/L (55-170) H 09/28/20 08:42 Troponin T < 0.010 ng/mL (0.00-0.029) 10/03/20 04:42 C-Reactive Protein 2.40 mg/dL (0.00-1.30) H 09/28/20 08:42 Total Protein 6.2 g/dL (6.3-8.2) L 10/05/20 05:42 Albumin 3.2 g/dL (3.9-5) L 10/05/20 05:42 Albumin/Globulin Ratio 1.1 % 10/05/20 05:42 Triglycerides 83 mg/dL (2-149) 09/25/20 04:49 Cholesterol 177 mg/dL (50-199) 09/25/20 04:49 LDL Cholesterol Direct 126 mg/dL (50-130) 09/25/20 04:49 HDL Cholesterol 50 mg/dL (40-59) 09/25/20 04:49 Cholesterol/HDL Ratio 3.54 % 09/25/20 04:49 Vitamin B12 400.3 pg/mL (211-911) 09/28/20 08:42 TSH 1.380 mlU/mL (0.270-4.200) 09/28/20 08:42 Urine Color Yellow (Yellow) 09/23/20 12:14 Urine Turbidity Clear (Clear) 09/23/20 12:14 Urine pH 6.0 (5.0-7.0) 09/23/20 12:14 Ur Specific [place] 1.020 (1.003-1.030) 09/23/20 12:14 Urine Protein 30 mg/dl mg/dL (Negative) 09/23/20 12:14 Urine Glucose (UA) Neg mg/dL (Negative) 09/23/20 12:14 Urine Ketones Neg mg/dL (Negative) 09/23/20 12:14 Urine Blood Neg (Negative) 09/23/20 12:14 Urine Nitrite Neg (Negative) 09/23/20 12:14 Urine Bilirubin Neg (Negative) 09/23/20 12:14 Urine Urobilinogen 4.0 mg/dL (<2.0) 09/23/20 12:14 Ur Leukocyte Esterase Neg (Negative) 09/23/20 12:14 Urine WBC (Auto) 1.0 /HPF (0.0-6.0) 09/23/20 12:14 Urine RBC (Auto) 3.0 /HPF (0.0-6.0) 09/23/20 12:14 U Epithel Cells (Auto) < 1.0 /HPF (0-13.0) 09/23/20 12:14 Urine Mucus Few /HPF 09/23/20 12:14 Coronavirus (PCR) Negative (Negative) 09/25/20 Unknown Blood Type AB POSITIVE 10/03/20 18:00 Antibody Screen Negative 10/03/20 18:00 Riley/IV: Voiding Method Condom Catheter Active Medications - Current Medications Current Medications: Generic Name Dose Route Start Last Admin Trade Name Freq PRN Reason Stop Dose Admin Hydrocodone Bitart/Acetaminophen 1 each 09/24/20 00:38 10/02/20 13:42 Hydrocodone/Acetaminophen 5-325 Mg Tab PO 1 each Q6HR PRN Administration Pain , Severe (7-10) Aspirin 325 mg 10/11/20 10:00 10/12/20 09:27 Aspirin Ec 325 Mg Tab PO 325 mg QDAY FLAQUITO Administration Atorvastatin Calcium 40 mg 09/24/20 22:00 10/11/20 21:25 Atorvastatin 40 Mg Tab PO 40 mg QHS FLAQUITO Administration Dextrose 50 ml 09/30/20 10:26 Dextrose 50% In Water (25gm) 50 Ml Syringe IV Q30MIN PRN Hypoglycemia Protocol Famotidine 20 mg 09/25/20 10:00 10/12/20 09:27 Famotidine 20 Mg Tab PO 20 mg BID FLAQUITO Administration Glipizide 5 mg 10/04/20 08:00 10/12/20 08:50 Glipizide 5 Mg Tab PO 5 mg QDDIAB FLAQUITO Administration Hydromorphone HCl 0.5 mg 09/24/20 00:53 10/12/20 08:45 Hydromorphone 1 Mg/1 Ml Inj IV 0.5 mg Q3H PRN Administration Pain , Severe (7-10) Insulin Glargine 12 units 10/08/20 22:00 10/12/20 09:28 Insulin Glargine 100 Units/Ml SUB-Q 12 units BID FLAQUITO Administration Insulin Human Regular 0 units 09/30/20 11:30 10/12/20 17:39 Insulin Regular, Human 100 Units/1 Ml SUB-Q Not Given [facility] Protocol Lisinopril 2.5 mg 10/04/20 10:00 10/12/20 09:27 Lisinopril 5 Mg Tab PO 2.5 mg QDAY FLAQUITO Administration Metformin HCl 500 mg 10/07/20 17:00 10/12/20 08:50 Metformin 500 Mg Tab PO 500 mg BIDDIAB FLAQUITO Administration Metoclopramide HCl 10 mg 09/24/20 00:53 Metoclopramide 10 Mg/2 Ml Inj IV Q6H PRN Nausea And Vomiting Metoprolol Tartrate 12.5 mg 10/03/20 12:00 10/12/20 09:27 Metoprolol Tartrate 25 Mg Tab PO 12.5 mg BID FLAQUITO Administration Ondansetron HCl 4 mg 09/24/20 00:53 Ondansetron 4 Mg/2 Ml Inj IV Q8H PRN Nausea And Vomiting Oxycodone/Acetaminophen 1 tab 09/24/20 00:53 10/09/20 21:50 Oxycodone /Acetaminophen 5-325mg Tab PO 1 tab Q6H PRN Administration Pain, Moderate (4-6) Sodium Chloride 10 ml 09/24/20 10:00 10/12/20 09:28 Sodium Chloride 0.9% 10 Ml Flush Syringe IV 10 ml BID FLAQUITO Administration Sodium Chloride 10 ml 09/24/20 00:53 10/03/20 06:24 Sodium Chloride 0.9% 10 Ml Flush Syringe IV 10 ml PRN PRN Administration LINE FLUSH Nutrition/Malnutrition Assess - Dietary Evaluation Nutrition/Malnutrition Findings: Nutrition Notes Start: 09/29/20 12:29 Freq: Status: Active Protocol: Document 09/29/20 12:29 LM (Rec: 09/29/20 12:30 LM [id number]) Nutrition Notes Need for Assessment generated from: LOS Initial or Follow up Brief Note Subjective/Other Information Screen for LOS. Pt with 100% intakes per EMR. Nutrition Intervention Revisit per MD consult or patient Sign Off request:
[2020-10-13 05:19] LABS: Blood Urea Nitrogen 20 mg/dL (9-20); Calcium 8.7 mg/dL (8.4-10.2); Hemolysis Index 10
[2020-10-13 05:20] LABS: BUN/Creatinine Ratio 29
[2020-10-13 05:29] LABS: Hematocrit 40.8 % (35.5-45.6); Hemoglobin 13.7 gm/dl (11.8-15.2)
[2020-10-13] MEDS: metFORMIN 500 MG TAB PO SCH ×2 (08:52→18:28)
[2020-10-13] MEDS: glipiZIDE 5 MG TAB PO SCH (08:52)
[2020-10-13] MEDS: FAMOTIDINE 20 MG TAB PO SCH ×2 (09:00→21:04)
[2020-10-13] MEDS: METOPROLOL TARTRATE 25 MG TAB PO SCH ×2 (09:00→21:05)
[2020-10-13] MEDS: ASPIRIN EC 325 MG TAB PO SCH (09:00)
[2020-10-13] MEDS: INSULIN REGULAR, HUMAN 100 UNITS/1 ML SUB-Q SCH ×4 (09:00→21:31)
[2020-10-13] MEDS: INSULIN GLARGINE 100 UNITS/ML SUB-Q SCH ×2 (09:00→21:33)
[2020-10-13] MEDS: LISINOPRIL 5 MG TAB PO SCH (09:03)
--- NOTE | 2020-10-13 09:29 | Progress Note ---
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 Physical therapy occupational therapy acute inpatient rehabilitation --Concern about purulent drainage around the drain site, patient received 3 days of Ancef, resolved --Hypertension; well controlled ,Continue current antihypertensives --Type 2 diabetes mellitus; uncontrolled Steroids were discontinued, blood sugar better controlled Continue Accu-Chek sliding scale coverage ADA diet, A1c 7.6 --DVT prophylaxis; SCD Lovenox subcu --Obesity BMI 32.7 patient may need weight reduction when medically stable Closely monitor the patient and adjust the management as needed Plan of care reviewed with patient's nurse, I discussed with the family member at the bedside. Physical therapy occupational therapy IRU placement when patient is stable. And when bed is available Brief history and daily hospital course: 65 y/o Male patient presented to [facility] 1 week ago with complaints of acute onset arm and leg weakness. He has chronic left hemiparesis due to polio, but was ambulatory with a walker. He reports weakness, which equally affected both arms and legs since last Friday night. Upon arrival, a CT was performed, which was negative for acute changes. He was started on ASA and Plavix due to concern for CVA. MRI was negative for acute changes. Neurology was consulted, recommended MRI Cervical spine. Which was was performed 09/28/2020, revealing severe cord compression at C3-4 due to broad based disc osteophyte formation and thickened ligamentum flavum. There is focal T2 hyperintensity in the substance of the spi nal cord at C3-4. Presently, he denies significant improvement in his symptoms. He is not presently able to walk. Neurosurgeon evaluated s/p C3-C4 ACDF on 10/04/2020. Patient tolerated the procedure well. Postop care per neurosurgery. Patient received physical therapy occupational therapy, therapist recommended acute inpatient rehab placement, patient is awaiting placement. Insurance authorization 09/24/20 Patient is 65 yo presented with right sided weakness. CT Head revealed infarct left basal ganglia. He was admitted with acute stroke. Patient started on Aspirin, Lipitor. MRI ordered, not done yet. Neurology consulted. F/U MRI Brain, CT Angio Head, CT Angio Neck 09/25/20. F/U CTA head and neck. PT/OT 09/26/20. MRI of brain negative. CT head and neck reveals occluded Left MCA M1 segment with collateralization. F/U ECHO. Cont. ASA and lipitor. PT nida mmends acute rehab 09/27/2020. Left ventricle mildly dilated. Left ventricular systolic function i s moderately decreased. LVEF is 35 to 40%. Mild to moderate concentric left ventricular hypertrophy. Mild aortic stenosis. Carotid ultrasound negative. Await rehab placement. 09/28/2020. Neurology recommends b12, tsh, rpr, ck, esr, crp, mri cervical spine w/ wo contrast. Consider transfer to hospital with bedside neurology 09/29/2020. MRI cervical spine reveals significant degenerative changes of the cervical spine involving C3-C4 through C5-C6. There appears to be cord impingement at C3-C4. 09/30/2020. MRI C-spine no severe C-spine stenosis especially at C3-C4 level with mild cord edema. Continue Decadron 4 mg IV every 6 hours. Neurosurgery consultation. Patient with elevated BG given the addition of steroids. We will start Lantus 8 units at bedtime. SSRI and Accu-Cheks 10/01/2020. MRI of thoracic and lumbar spine without contrast pending per surgery recommendations. Continue to hold aspirin. Cardiology consultation for cardiac clearance prior to surgery. 10/02/2020. Follow-up MRI of thoracic and lumbar spine without contrast. Continue to hold aspirin. Cardiology consultation for cardiac clearance prior to surgery. Neurosurgery following and plans for surgical intervention later this week. Continue Decadron. 10/03/2020; neurosurgery scheduled for C3-C4 Anterior Cervical Discectomy and Fusion [C3-C4 ACDF] on 10/05/2020, arrangements made for 2 units of platelet transfusion prior to surgery on 10/05/2020, and 2 units platelet transfusion post surgery.Patient will be n.p.o. midnight 10/05/2020, will check coags on the day of surgery Plan of care reviewed with the patient, family member at the bedside and his nurse. I discussed with neurosurgeon Dr. Myers 10/04/2020; patient underwent C3-C4 ACDF surgery today. Tolerated the procedure well, postop care per neurosurgery 10/05/2020; follow PT and OT recommendations Swallow eval if needed Continue current management 10/06/2020; patient is able to swallow without difficulty No evidence of dysphagia, continue Ancef per NSG Patient will be transferred to acute inpatient rehab in stable when bed is available 10/07/2020; patient feels better, no new complaints Lower extremity weakness significantly improved Tolerating PTOT, Awaiting inpatient rehab placement when bed is available We will resume aspirin 81 mg on postop day 5[10/09/2020] And aspirin 325 mg on postop day 7[10/11/2020] per neurosurgery 10/08/2020; patient feels slightly better, tolerating PT Awaiting IRU placement 10/09/2020; patient is stable for discharge to IRU Pending placement 10/10/2020; awaiting IRU placement DC planning per case management 10/11/2020; pending placement/pending insurance authorization 10/12/2020; Patient is clinically stable for discharge to inpatient rehab unit[IRU] Pending insurance authorization 10/13/2020 awaiting inpatient rehab placement; History Interval history: I have seen and examined the patient at the bedside, Patient's chart and medications reviewed Patient feels better no new complaints Awaiting inpatient rehab unit placement Vital signs noted Hospitalist Physical - Constitutional Vitals: Temp Pulse Resp BP Pulse Ox 98.0 F 72 18 111/71 100 10/13/20 07:26 10/13/20 09:03 10/13/20 07:26 10/13/20 09:03 10/13/20 07:26 General appearance: Present: no acute distress, well-nourished, obese - EENT Eyes: Present: PERRL, EOM intact - Neck Neck: Present: supple, normal ROM - Respiratory Respiratory effort: normal Respiratory: bilateral: diminished, negative: rales, rhonchi, wheezing - Cardiovascular Rhythm: regular Heart Sounds: Present: S1 & S2 - Extremities Extremities: no ischemia, No edema - Abdominal General gastrointestinal: soft, non-tender, non-distended, normal bowel sounds - Integumentary Integumentary: Present: clear, warm - Psychiatric Psychiatric: appropriate mood/affect, cooperative - Neurologic Neurologic: CNII-XII intact, moves all extremities HEART Score - HEART Score Troponin: Troponin T < 0.010 ng/mL (0.00-0.029) 10/03/20 04:42 Results - Labs CBC & Chem 7: 10/13/20 04:32 10/13/20 04:32 Labs: Laboratory Last Values WBC 9.4 K/mm3 (4.5-11.0) 10/06/20 04:37 RBC 4.32 M/mm3 (3.65-5.03) 10/06/20 04:37 Hgb 13.7 gm/dl (11.8-15.2) 10/13/20 04:32 Hct 40.8 % (35.5-45.6) 10/13/20 04:32 MCV 87 fl (84-94) 10/06/20 04:37 MCH 29 pg (28-32) 10/06/20 04:37 MCHC 34 % (32-34) 10/06/20 04:37 RDW 13.6 % (13.2-15.2) 10/06/20 04:37 Plt Count 316 K/mm3 (140-440) 10/06/20 04:37 Lymph % (Auto) 6.8 % (13.4-35.0) L 10/06/20 04:37 [place] % (Auto) 7.6 % (0.0-7.3) H 10/06/20 04:37 Eos % (Auto) 0.0 % (0.0-4.3) 10/06/20 04:37 Baso % (Auto) 0.2 % (0.0-1.8) 10/06/20 04:37 Lymph # (Auto) 0.6 K/mm3 (1.2-5.4) L 10/06/20 04:37 [place] # (Auto) 0.7 K/mm3 (0.0-0.8) 10/06/20 04:37 Eos # (Auto) 0.0 K/mm3 (0.0-0.4) 10/06/20 04:37 Baso # (Auto) 0.0 K/mm3 (0.0-0.1) 10/06/20 04:37 Seg Neutrophils % 85.4 % (40.0-70.0) H 10/06/20 04:37 Seg Neutrophils # 8.0 K/mm3 (1.8-7.7) H 10/06/20 04:37 PT 13.2 Sec. (12.2-14.9) 10/04/20 03:07 INR 0.94 (0.87-1.13) 10/04/20 03:07 APTT 29.9 Sec. (24.2-36.6) 10/04/20 03:07 Sodium 127 mmol/L (137-145) L 10/13/20 04:32 Potassium 4.5 mmol/L (3.6-5.0) 10/13/20 04:32 Chloride 92.9 mmol/L (98-107) L 10/13/20 04:32 Carbon Dioxide 22 mmol/L (22-30) 10/13/20 04:32 Anion Gap 17 mmol/L 10/13/20 04:32 BUN 20 mg/dL (9-20) 10/13/20 04:32 Creatinine 0.7 mg/dL (0.8-1.3) L 10/13/20 04:32 Estimated GFR > 60 ml/min 10/13/20 04:32 BUN/Creatinine Ratio 29 % 10/13/20 04:32 Glucose 143 mg/dL (75-100) H 10/13/20 04:32 POC Glucose 135 mg/dL (70-105) H 10/13/20 07:23 Hemoglobin A1c 7.6 % (4-6) H 09/24/20 05:49 Calcium 8.7 mg/dL (8.4-10.2) 10/13/20 04:32 Phosphorus 3.40 mg/dL (2.5-4.5) D 10/05/20 05:42 Magnesium 1.80 mg/dL (1.7-2.3) 10/13/20 04:32 Total Bilirubin 0.60 mg/dL (0.1-1.2) 10/05/20 05:42 Direct Bilirubin < 0.2 mg/dL (0-0.2) 09/23/20 12:11 Indirect Bilirubin 0.3 mg/dL 09/23/20 12:11 AST 17 units/L (5-40) 10/05/20 05:42 ALT 19 units/L (7-56) 10/05/20 05:42 Alkaline Phosphatase 69 units/L (35-129) 10/05/20 05:42 Total Creatine Kinase 2477 units/L (55-170) H 09/28/20 08:42 Troponin T < 0.010 ng/mL (0.00-0.029) 10/03/20 04:42 C-Reactive Protein 2.40 mg/dL (0.00-1.30) H 09/28/20 08:42 Total Protein 6.2 g/dL (6.3-8.2) L 10/05/20 05:42 Albumin 3.2 g/dL (3.9-5) L 10/05/20 05:42 Albumin/Globulin Ratio 1.1 % 10/05/20 05:42 Triglycerides 83 mg/dL (2-149) 09/25/20 04:49 Cholesterol 177 mg/dL (50-199) 09/25/20 04:49 LDL Cholesterol Direct 126 mg/dL (50-130) 09/25/20 04:49 HDL Cholesterol 50 mg/dL (40-59) 09/25/20 04:49 Cholesterol/HDL Ratio 3.54 % 09/25/20 04:49 Vitamin B12 400.3 pg/mL (211-911) 09/28/20 08:42 TSH 1.380 mlU/mL (0.270-4.200) 09/28/20 08:42 Urine Color Yellow (Yellow) 09/23/20 12:14 Urine Turbidity Clear (Clear) 09/23/20 12:14 Urine pH 6.0 (5.0-7.0) 09/23/20 12:14 Ur Specific [place] 1.020 (1.003-1.030) 09/23/20 12:14 Urine Protein 30 mg/dl mg/dL (Negative) 09/23/20 12:14 Urine Glucose (UA) Neg mg/dL (Negative) 09/23/20 12:14 Urine Ketones Neg mg/dL (Negative) 09/23/20 12:14 Urine Blood Neg (Negative) 09/23/20 12:14 Urine Nitrite Neg (Negative) 09/23/20 12:14 Urine Bilirubin Neg (Negative) 09/23/20 12:14 Urine Urobilinogen 4.0 mg/dL (<2.0) 09/23/20 12:14 Ur Leukocyte Esterase Neg (Negative) 09/23/20 12:14 Urine WBC (Auto) 1.0 /HPF (0.0-6.0) 09/23/20 12:14 Urine RBC (Auto) 3.0 /HPF (0.0-6.0) 09/23/20 12:14 U Epithel Cells (Auto) < 1.0 /HPF (0-13.0) 09/23/20 12:14 Urine Mucus Few /HPF 09/23/20 12:14 Coronavirus (PCR) Negative (Negative) 09/25/20 Unknown Blood Type AB POSITIVE 10/03/20 18:00 Antibody Screen Negative 10/03/20 18:00 Riley/IV: Voiding Method Condom Catheter Active Medications - Current Medications Current Medications: Generic Name Dose Route Start Last Admin Trade Name Freq PRN Reason Stop Dose Admin Hydrocodone Bitart/Acetaminophen 1 each 09/24/20 00:38 10/02/20 13:42 Hydrocodone/Acetaminophen 5-325 Mg Tab PO 1 each Q6HR PRN Administration Pain , Severe (7-10) Aspirin 325 mg 10/11/20 10:00 10/13/20 09:00 Aspirin Ec 325 Mg Tab PO 325 mg QDAY FLAQUITO Administration Atorvastatin Calcium 40 mg 09/24/20 22:00 10/12/20 22:41 Atorvastatin 40 Mg Tab PO 40 mg QHS FLAQUITO Administration Dextrose 50 ml 09/30/20 10:26 Dextrose 50% In Water (25gm) 50 Ml Syringe IV Q30MIN PRN Hypoglycemia Protocol Famotidine 20 mg 09/25/20 10:00 10/13/20 09:00 Famotidine 20 Mg Tab PO 20 mg BID FLAQUITO Administration Glipizide 5 mg 10/04/20 08:00 10/13/20 08:52 Glipizide 5 Mg Tab PO 5 mg QDDIAB FLAQUITO Administration Hydromorphone HCl 0.5 mg 09/24/20 00:53 10/12/20 17:50 Hydromorphone 1 Mg/1 Ml Inj IV 0.5 mg Q3H PRN Administration Pain , Severe (7-10) Insulin Glargine 12 units 10/08/20 22:00 10/13/20 09:00 Insulin Glargine 100 Units/Ml SUB-Q 12 units BID FLAQUITO Administration Insulin Human Regular 0 units 09/30/20 11:30 10/13/20 09:00 Insulin Regular, Human 100 Units/1 Ml SUB-Q Not Given ACHS ON LICENSE OF [facility] Protocol Lisinopril 2.5 mg 10/04/20 10:00 10/13/20 09:03 Lisinopril 5 Mg Tab PO 2.5 mg QDAY FLAQUITO Administration Metformin HCl 500 mg 10/07/20 17:00 10/13/20 08:52 Metformin 500 Mg Tab PO 500 mg BIDDIAB FLAQUITO Administration Metoclopramide HCl 10 mg 09/24/20 00:53 Metoclopramide 10 Mg/2 Ml Inj IV Q6H PRN Nausea And Vomiting Metoprolol Tartrate 12.5 mg 10/03/20 12:00 10/13/20 09:00 Metoprolol Tartrate 25 Mg Tab PO 12.5 mg BID FLAQUITO Administration Ondansetron HCl 4 mg 09/24/20 00:53 Ondansetron 4 Mg/2 Ml Inj IV Q8H PRN Nausea And Vomiting Oxycodone/Acetaminophen 1 tab 09/24/20 00:53 10/09/20 21:50 Oxycodone /Acetaminophen 5-325mg Tab PO 1 tab Q6H PRN Administration Pain, Moderate (4-6) Sodium Chloride 10 ml 09/24/20 10:00 10/13/20 09:00 Sodium Chloride 0.9% 10 Ml Flush Syringe IV 10 ml BID FLAQUITO Administration Sodium Chloride 10 ml 09/24/20 00:53 10/03/20 06:24 Sodium Chloride 0.9% 10 Ml Flush Syringe IV 10 ml PRN PRN Administration LINE FLUSH Sodium Chloride 1 gm 10/13/20 10:00 Sodium Chloride 1 Gm Tab PO BID FLAQUITO Nutrition/Malnutrition Assess - Dietary Evaluation Nutrition/Malnutrition Findings: Nutrition Notes Start: 09/29/20 12:29 Freq: Status: Active Protocol: Document 09/29/20 12:29 LM (Rec: 09/29/20 12:30 LM [id number]) Nutrition Notes Need for Assessment generated from: LOS Initial or Follow up Brief Note Subjective/Other Information Screen for LOS. Pt with 100% intakes per EMR. Nutrition Intervention Revisit per MD consult or patient Sign Off request:
[2020-10-13] MEDS: SODIUM CHLORIDE 1 GM TAB PO SCH ×2 (11:55→21:08)
[2020-10-13] MEDS: oxyCODONE /ACETAMINOPHEN 5-325MG TAB PO PRN (21:03)
[2020-10-14 06:39] LABS: Blood Urea Nitrogen 21 mg/dL (9-20); Calcium 8.5 mg/dL (8.4-10.2); Hemolysis Index 26
[2020-10-14 06:40] LABS: BUN/Creatinine Ratio 30
[2020-10-14] MEDS: INSULIN GLARGINE 100 UNITS/ML SUB-Q SCH ×2 (10:10→22:10)
[2020-10-14] MEDS: metFORMIN 500 MG TAB PO SCH ×2 (10:11→16:34)
[2020-10-14] MEDS: ASPIRIN EC 325 MG TAB PO SCH (10:11)
[2020-10-14] MEDS: glipiZIDE 5 MG TAB PO SCH (10:11)
[2020-10-14] MEDS: METOPROLOL TARTRATE 25 MG TAB PO SCH ×2 (10:11→21:33)
[2020-10-14] MEDS: LISINOPRIL 5 MG TAB PO SCH (10:12)
[2020-10-14] MEDS: SODIUM CHLORIDE 1 GM TAB PO SCH ×2 (10:12→21:33)
[2020-10-14] MEDS: FAMOTIDINE 20 MG TAB PO SCH ×2 (10:12→21:33)
[2020-10-14] MEDS: INSULIN REGULAR, HUMAN 100 UNITS/1 ML SUB-Q SCH ×4 (10:13→22:10)
[2020-10-14] MEDS: oxyCODONE /ACETAMINOPHEN 5-325MG TAB PO PRN (21:34)
[2020-10-15] MEDS: INSULIN GLARGINE 100 UNITS/ML SUB-Q SCH ×2 (10:24→23:04)
[2020-10-15] MEDS: FAMOTIDINE 20 MG TAB PO SCH ×2 (10:24→23:04)
[2020-10-15] MEDS: INSULIN REGULAR, HUMAN 100 UNITS/1 ML SUB-Q SCH ×4 (10:24→23:05)
[2020-10-15] MEDS: ASPIRIN EC 325 MG TAB PO SCH (10:25)
[2020-10-15] MEDS: METOPROLOL TARTRATE 25 MG TAB PO SCH ×2 (10:25→23:05)
[2020-10-15] MEDS: LISINOPRIL 5 MG TAB PO SCH (10:25)
[2020-10-15] MEDS: SODIUM CHLORIDE 1 GM TAB PO SCH ×2 (10:25→23:04)
[2020-10-15] MEDS: glipiZIDE 5 MG TAB PO SCH (10:27)
[2020-10-15] MEDS: metFORMIN 500 MG TAB PO SCH ×2 (10:27→17:20)
--- NOTE | 2020-10-15 17:15 | Progress Note ---
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 Physical therapy occupational therapy acute inpatient rehabilitation --Concern about purulent drainage around the drain site, patient received 3 days of Ancef, resolved --Hypertension; well controlled ,Continue current antihypertensives --Type 2 diabetes mellitus; uncontrolled Steroids were discontinued, blood sugar better controlled Continue Accu-Chek sliding scale coverage ADA diet, A1c 7.6 --DVT prophylaxis; SCD Lovenox subcu --Obesity BMI 32.7 patient may need weight reduction when medically stable Closely monitor the patient and adjust the management as needed Plan of care reviewed with patient's nurse, I discussed with the family member at the bedside. Physical therapy occupational therapy IRU placement when patient is stable. And when bed is available Subjective Date of service: 10/14/20 Principal diagnosis: C3-4 Cord Compression Interval history: Brief history and daily hospital course: 65 y/o Male patient presented to [facility] 1 week ago with complaints of acute onset arm and leg weakness. He has chronic left hemiparesis due to polio, but was ambulatory with a walker. He reports weakness, which equally affected both arms and legs since last Friday night. Upon arrival, a CT was performed, which was negative for acute changes. He was started on ASA and Plavix due to concern for CVA. MRI was negative for acute changes. Neurology was consulted, recommended MRI Cervical spine. Which was was performed 09/28/2020, revealing severe cord compression at C3-4 due to broad based disc osteophyte formation and thickened ligamentum flavum. There is focal T2 hyperintensity in the substance of the spinal cord at C3-4. Presently, he denies significant improvement in his symptom s. He is not presently able to walk. Neurosurgeon evaluated s/p C3-C4 ACDF on 10/04/2020. Patient tolerated the procedure well. Postop care per neurosurgery. Patient received physical therapy occupational therapy, therapist recommended acute inpatient rehab placement, patient is awaiting placement. Insurance authorization 09/24/20 Patient is 65 yo presented with right sided weakness. CT Head revealed infarct left basal ganglia. He was admitted with acute stroke. Patient started on Aspirin, Lipitor. MRI ordered, not done yet. Neurology consulted. F/U MRI Brain, CT Angio Head, CT Angio Neck 09/25/20. F/U CTA head and neck. PT/OT 09/26/20. MRI of brain negative. CT head and neck reveals occluded Left MCA M1 segment with collateralization. F/U ECHO. Cont. ASA and lipitor. PT recommends acute rehab 09/27/2020. Left ventricle mildly dilated. Left ventricular systolic function is moderately decreased. LVEF is 35 to 40%. Mild to moderate concentric left ventricular hypertrophy. Mild aortic stenosis. Carotid ultrasound negative. Await rehab placement. 09/28/2020. Neurology recommends b12, tsh, rpr, ck, esr, crp, mri cervical spine w/ wo contrast. Consider transfer to hospital with bedside neurology 09/29/2020. MRI cervical spine reveals significant degenerative changes of the cervical spine involving C3-C4 through C5-C6. There appears to be cord impingement at C3-C4. 09/30/2020. MRI C-spine no severe C-spine stenosis especially at C3-C4 level with mild cord edema. Continue Decadron 4 mg IV every 6 hours. Neurosurgery consultation. Patient with elevated BG given the addition of steroids. We will start Lantus 8 units at bedtime. SSRI and Accu-Cheks 10/01/2020. MRI of thoracic and lumbar spine without contrast pending per surge ry recommendations. Continue to hold aspirin. Cardiology consultation for cardiac clearance prior to surgery. 10/02/2020. Follow-up MRI of thoracic and lumbar spine without contrast. Continue to hold aspirin. Cardiology consultation for cardiac clearance prior to surgery. Neurosurgery following and plans for surgical intervention later this week. Continue Decadron. 10/03/2020; neurosurgery scheduled for C3-C4 Anterior Cervical Discectomy and Fusion [C3-C4 ACDF] on 10/05/2020, arrangements made for 2 units of platelet transfusion prior to surgery on 10/05/2020, and 2 units platelet transfusion post surgery.Patient will be n.p.o. midnight 10/05/2020, will check coags on the day of surgery Plan of care reviewed with the patient, family member at the bedside and his nurse. I discussed with neurosurgeon Dr. Myers 10/04/2020; patient underwent C3-C4 ACDF surgery today. Tolerated the procedure well, postop care per neurosurgery 10/05/2020; follow PT and OT recommendations Swallow eval if needed Continue current management 10/06/2020; patient is able to swallow without difficulty No evidence of dysphagia, continue Ancef per NSG Patient will be transferred to acute inpatient rehab in stable when bed is available 10/07/2020; patient feels better, no new complaints Lower extremity weakness significantly improved Tolerating PTOT, Awaiting inpatient rehab placement when bed is available We will resume aspirin 81 mg on postop day 5[10/09/2020] And aspirin 325 mg on postop day 7[10/11/2020] per neurosurgery 10/08/2020; patient feels slightly better, tolerating PT Awaiting IRU placement 10/09/2020; patient is stable for discharge to IRU Pending placement 10/10/2020; awaiting IRU placement DC planning per case management 10/11/2020; pending placement/pending insurance authorization 10/12/2020; Patient is clinically stable for discharge to inpatient rehab unit[IRU] Pending insurance authorization 10/13/2020 awaiting inpatient rehab placement; 10/14 rehab placement Objective - Constitutional Vitals: Vital Signs - 12hr 10/15/20 10/15/20 08:55 12:04 Temperature 98.0 F 97.8 F Pulse Rate 67 69 Respiratory 18 18 Rate Blood Pressure 124/67 123/69 O2 Sat by Pulse 99 100 Oximetry General appearance: Present: no acute distress, well-nourished - EENT Eyes: PERRL, EOM intact ENT: hearing intact, clear oral mucosa Ears: bilateral: normal - Neck Neck: supple, normal ROM - Respiratory Respiratory effort: normal Respiratory: bilateral: CTA - Breasts Breasts: normal - Cardiovascular Heart rate: 88 Rhythm: regular Heart Sounds: Present: S1 & S2. Absent: gallop, rub Extremities: pulses intact, No edema, normal color, Full ROM - Gastrointestinal General gastrointestinal: Present: soft, non-tender, non-distended, normal bowel sounds - Genitourinary Male genitourinary: normal - Integumentary Integumentary: clear, warm, dry - Musculoskeletal Musculoskeletal: generalized weakness (Quadriparesis improving) - Neurologic Neurologic: moves all extremities - Psychiatric Psychiatric: memory intact, appropriate mood/affect, intact judgment & insight - Labs CBC & Chem 7: 10/13/20 04:32 10/14/20 05:27 Labs: Abnormal lab results 10/15/20 10/15/20 Range/Units 08:34 11:34 POC Glucose 125 H 162 H (70-105) mg/dL HEART Score - HEART Score Troponin: Troponin T < 0.010 ng/mL (0.00-0.029) 10/03/20 04:42
--- NOTE | 2020-10-15 17:16 | Progress Note ---
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 Physical therapy occupational therapy acute inpatient rehabilitation --Concern about purulent drainage around the drain site, patient received 3 days of Ancef, resolved --Hypertension; well controlled ,Continue current antihypertensives --Type 2 diabetes mellitus; uncontrolled Steroids were discontinued, blood sugar better controlled Continue Accu-Chek sliding scale coverage ADA diet, A1c 7.6 --DVT prophylaxis; SCD Lovenox subcu --Obesity BMI 32.7 patient may need weight reduction when medically stable IRU placement when patient is stable. And when bed is available Subjective Date of service: 10/15/20 Principal diagnosis: C3-4 Cord Compression Interval history: Brief history and daily hospital course: 65 y/o Male patient presented to [facility] 1 week ago with complaints of acute onset arm and leg weakness. He has chronic left hemiparesis due to polio, but was ambulatory with a walker. He reports weakness, which equally affected both arms and legs since last Friday night. Upon arrival, a CT was performed, which was negative for acute changes. He was started on ASA and Plavix due to concern for CVA. MRI was negative for acute changes. Neurology was consulted, recommended MRI Cervical spine. Which was was performed 09/28/2020, revealing severe cord compression at C3-4 due to broad based disc osteophyte formation and thickened ligamentum flavum. There is focal T2 hyperintensity in the substance of the spinal cord at C3-4. Presently, he denies significant improvement in his symp toms. He is not presently able to walk. Neurosurgeon evaluated s/p C3-C4 ACDF on 10/04/2020. Patient tolerated the procedure well. Postop care per neurosurgery. Patient received physical therapy occupational therapy, therapist recommended acute inpatient rehab placement, patient is awaiting placement. Insurance authorization 09/24/20 Patient is 65 yo presented with right sided weakness. CT Head revealed infarct left basal ganglia. He was admitted with acute stroke. Patient started on Aspirin, Lipitor. MRI ordered, not done yet. Neurology consulted. F/U MRI Brain, CT Angio Head, CT Angio Neck 09/25/20. F/U CTA head and neck. PT/OT 09/26/20. MRI of brain negative. CT head and neck reveals occluded Left MCA M1 segment with collateralization. F/U ECHO. Cont. ASA and lipitor. PT recommends acute rehab 09/27/2020. Left ventricle mildly dilated. Left ventricular systolic function is moderately decreased. LVEF is 35 to 40%. Mild to moderate concentric left ventricular hypertrophy. Mild aortic stenosis. Carotid ultrasound negative. Await rehab placement. 09/28/2020. Neurology recommends b12, tsh, rpr, ck, esr, crp, mri cervical spine w/ wo contrast. Consider transfer to hospital with bedside neurology 09/29/2020. MRI cervical spine reveals significant degenerative changes of the cervical spine involving C3-C4 through C5-C6. There appears to be cord impingement at C3-C4. 09/30/2020. MRI C-spine no severe C-spine stenosis especially at C3-C4 level with mild cord edema. Continue Decadron 4 mg IV every 6 hours. Neurosurgery consultation. Patient with elevated BG given the addition of steroids. We will start Lantus 8 units at bedtime. SSRI and Accu-Cheks 10/01/2020. MRI of thoracic and lumbar spine without contrast pending per cassandra desouza recommendations. Continue to hold aspirin. Cardiology consultation for cardiac clearance prior to surgery. 10/02/2020. Follow-up MRI of thoracic and lumbar spine without contrast. Continue to hold aspirin. Cardiology consultation for cardiac clearance prior to surgery. Neurosurgery following and plans for surgical intervention later this week. Continue Decadron. 10/03/2020; neurosurgery scheduled for C3-C4 Anterior Cervical Discectomy and Fusion [C3-C4 ACDF] on 10/05/2020, arrangements made for 2 units of platelet transfusion prior to surgery on 10/05/2020, and 2 units platelet transfusion post surgery.Patient will be n.p.o. midnight 10/05/2020, will check coags on the day of surgery Plan of care reviewed with the patient, family member at the bedside and his nurse. I discussed with neurosurgeon Dr. Myers 10/04/2020; patient underwent C3-C4 ACDF surgery today. Tolerated the procedure well, postop care per neurosurgery 10/05/2020; follow PT and OT recommendations Swallow eval if needed Continue current management 10/06/2020; patient is able to swallow without difficulty No evidence of dysphagia, continue Ancef per NSG Patient will be transferred to acute inpatient rehab in stable when bed is available 10/07/2020; patient feels better, no new complaints Lower extremity weakness significantly improved Tolerating PTOT, Awaiting inpatient rehab placement when bed is available We will resume aspirin 81 mg on postop day 5[10/09/2020] And aspirin 325 mg on postop day 7[10/11/2020] per neurosurgery 10/08/2020; patient feels slightly better, tolerating PT Awaiting IRU placement 10/09/2020; patient is stable for discharge to IRU Pending placement 10/10/2020; awaiting IRU placement DC planning per case management 10/11/2020; pending placement/pending insurance authorization 10/12/2020; Patient is clinically stable for discharge to inpatient rehab unit[IRU] Pending insurance authorization 10/13/2020 awaiting inpatient rehab placement; 10/14 rehab placement 10/15 Doing well Able to move all 4 extremities 4/5 power Objective - Constitutional Vitals: Vital Signs - 12hr 10/15/20 10/15/20 08:55 12:04 Temperature 98.0 F 97.8 F Pulse Rate 67 69 Respiratory 18 18 Rate Blood Pressure 124/67 123/69 O2 Sat by Pulse 99 100 Oximetry General appearance: Present: no acute distress, well-nourished - EENT Eyes: PERRL, EOM intact ENT: hearing intact, clear oral mucosa Ears: bilateral: normal - Neck Neck: supple, normal ROM - Respiratory Respiratory effort: normal Respiratory: bilateral: CTA - Breasts Breasts: normal - Cardiovascular Heart rate: 78 Rhythm: regular Heart Sounds: Present: S1 & S2. Absent: gallop, rub Extremities: pulses intact, No edema, normal color, Full ROM - Gastrointestinal General gastrointestinal: Present: soft, non-tender, non-distended, normal bowel sounds - Genitourinary Male genitourinary: normal - Integumentary Integumentary: clear, warm, dry - Musculoskeletal Musculoskeletal: 1, strength equal bilaterally - Neurologic Neurologic: moves all extremities - Psychiatric Psychiatric: memory intact, appropriate mood/affect, intact judgment & insight - Allied health notes Allied health notes reviewed: nursing, case management - Labs CBC & Chem 7: 10/13/20 04:32 10/14/20 05:27 Labs: Abnormal lab results 10/15/20 10/15/20 Range/Units 08:34 11:34 POC Glucose 125 H 162 H (70-105) mg/dL HEART Score - HEART Score Troponin: Troponin T < 0.010 ng/mL (0.00-0.029) 10/03/20 04:42
[2020-10-16] MEDS: metFORMIN 500 MG TAB PO SCH ×2 (08:18→16:03)
[2020-10-16] MEDS: glipiZIDE 5 MG TAB PO SCH (08:18)
[2020-10-16] MEDS: INSULIN REGULAR, HUMAN 100 UNITS/1 ML SUB-Q SCH ×4 (09:51→22:32)
[2020-10-16] MEDS: FAMOTIDINE 20 MG TAB PO SCH ×2 (09:52→22:31)
[2020-10-16] MEDS: METOPROLOL TARTRATE 25 MG TAB PO SCH ×2 (09:52→22:30)
[2020-10-16] MEDS: ASPIRIN EC 325 MG TAB PO SCH (09:52)
[2020-10-16] MEDS: INSULIN GLARGINE 100 UNITS/ML SUB-Q SCH ×2 (09:53→22:33)
[2020-10-16] MEDS: LISINOPRIL 5 MG TAB PO SCH (09:53)
[2020-10-16] MEDS: SODIUM CHLORIDE 1 GM TAB PO SCH ×2 (10:09→22:30)
--- NOTE | 2020-10-16 15:47 | Progress Note ---
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 Physical therapy occupational therapy acute inpatient rehabilitation --Concern about purulent drainage around the drain site, patient received 3 days of Ancef, resolved --Hypertension; well controlled ,Continue current antihypertensives --Type 2 diabetes mellitus; uncontrolled Steroids were discontinued, blood sugar better controlled Continue Accu-Chek sliding scale coverage ADA diet, A1c 7.6 --DVT prophylaxis; SCD Lovenox subcu --Obesity BMI 32.7 patient may need weight reduction when medically stable IRU placement when bed is available Subjective Date of service: 10/16/20 Principal diagnosis: C3-4 Cord Compression Interval history: Brief history and daily hospital course: 65 y/o Male patient presented to [facility] 1 week ago with complaints of acute onset arm and leg weakness. He has chronic left hemiparesis due to polio, but was ambulatory with a walker. He reports weakness, which equally affected both arms and legs since last Friday night. Upon arrival, a CT was performed, which was negative for acute changes. He was started on ASA and Plavix due to concern for CVA. MRI was negative for acute changes. Neurology was consulted, recommended MRI Cervical spine. Which was was performed 09/28/2020, revealing severe cord compression at C3-4 due to broad based disc osteophyte formation and thickened ligamentum flavum. There is focal T2 hyperintensity in the substance of the spinal cord at C3-4. Presently, he denies significant improvement in his symptoms. He is not presently able to walk. Neurosurgeon evaluated s/p C3-C4 ACDF on 10/04/2020. Patient tolerated the procedure well. Postop care per neurosurgery. Patient received physical therapy occupational therapy, therapist recommended acute inpatient rehab placement, patient is awaiting placement. Insurance authorization 09/24/20 Patient is 65 yo presented with right sided weakness. CT Head revealed infarct left basal ganglia. He was admitted with acute stroke. Patient started on Aspirin, Lipitor. MRI ordered, not done yet. Neurology consulted. F/U MRI Brain, CT Angio Head, CT Angio Neck 09/25/20. F/U CTA head and neck. PT/OT 09/26/20. MRI of brain negative. CT head and neck reveals occluded Left MCA M1 segment with collateralization. F/U ECHO. Cont. ASA and lipitor. PT recomm ends acute rehab 09/27/2020. Left ventricle mildly dilated. Left ventricular systolic function is moderately decreased. LVEF is 35 to 40%. Mild to moderate concentric left ventricular hypertrophy. Mild aortic stenosis. Carotid ultrasound negative. Await rehab placement. 09/28/2020. Neurology recommends b12, tsh, rpr, ck, esr, crp, mri cervical spine w/ wo contrast. Consider transfer to hospital with bedside neurology 09/29/2020. MRI cervical spine reveals significant degenerative changes of the cervical spine involving C3-C4 through C5-C6. There appears to be cord impingement at C3-C4. 09/30/2020. MRI C-spine no severe C-spine stenosis especially at C3-C4 level with mild cord edema. Continue Decadron 4 mg IV every 6 hours. Neurosurgery consultation. Patient with elevated BG given the addition of steroids. We will start Lantus 8 units at bedtime. SSRI and Accu-Cheks 10/01/2020. MRI of thoracic and lumbar spine without contrast pending per surgery recommendations. Continue to hold aspirin. Cardiology consultation for cardiac clearance prior to surgery. 10/02/2020. Follow-up MRI of thoracic and lumbar spine without contrast. Continue to hold aspirin. Cardiology consultation for cardiac clearance prior to surgery. Neurosurgery following and plans for surgical intervention later this week. Continue Decadron. 10/03/2020; neurosurgery scheduled for C3-C4 Anterior Cervical Discectomy and Fusion [C3-C4 ACDF] on 10/05/2020, arrangements made for 2 units of platelet transfusion prior to surgery on 10/05/2020, and 2 units platelet transfusion post surgery.Patient will be n.p.o. midnight 10/05/2020, will check coags on the day of surgery Plan of care reviewed with the patient, family member at the bedside and his nurse. I discussed with neurosurgeon Dr. Myers 10/04/2020; patient underwent C3-C4 ACDF surgery today. Tolerated the procedure well, postop care per neurosurgery 10/05/2020; follow PT and OT recommendations Swallow eval if needed Continue current management 10/06/2020; patient is able to swallow without difficulty No evidence of dysphagia, continue Ancef per NSG Patient will be transferred to acute inpatient rehab in stable when bed is available 10/07/2020; patient feels better, no new complaints Lower extremity weakness significantly improved Tolerating PTOT, Awaiting inpatient rehab placement when bed is available We will resume aspirin 81 mg on postop day 5[10/09/2020] And aspirin 325 mg on postop day 7[10/11/2020] per neurosurgery 10/08/2020; patient feels slightly better, tolerating PT Awaiting IRU placement 10/09/2020; patient is stable for discharge to IRU Pending placement 10/10/2020; awaiting IRU placement DC planning per case management 10/11/2020; pending placement/pending insurance authorization 10/12/2020; Patient is clinically stable for discharge to inpatient rehab unit[IRU] Pending insurance authorization 10/13/2020 awaiting inpatient rehab placement; 10/14 rehab placement 10/15 Doing well Able to move all 4 extremities 07/10 power 10/16 [place]; [facility] [;navneet,emt peri at bedside Objective - Constitutional Vitals: Vital Signs - 12hr 10/16/20 10/16/20 10/16/20 03:57 07:39 08:56 Temperature 98.0 F 97.9 F Pulse Rate 65 65 Respiratory 18 20 16 Rate Blood Pressure 104/59 99/59 O2 Sat by Pulse 95 98 Oximetry 10/16/20 10/16/20 10/16/20 09:52 09:53 11:59 Temperature 97.2 F L Pulse Rate 65 65 72 Respiratory 18 Rate Blood Pressure 99/59 99/59 110/65 O2 Sat by Pulse 97 Oximetry General appearance: Present: no acute distress, well-nourished - EENT Eyes: PERRL, EOM intact ENT: hearing intact, clear oral mucosa Ears: bilateral: normal - Neck Neck: supple, normal ROM - Respiratory Respiratory effort: normal Respiratory: bilateral: CTA - Breasts Breasts: normal - Cardiovascular Rhythm: regular Heart Sounds: Present: S1 & S2. Absent: gallop, rub Extremities: pulses intact, No edema, normal color, Full ROM - Gastrointestinal General gastrointestinal: Present: soft, non-tender, non-distended, normal bowel sounds - Genitourinary Male genitourinary: normal - Integumentary Integumentary: clear, warm, dry - Musculoskeletal Musculoskeletal: generalized weakness - Neurologic Neurologic: focal deficits (4/5 power all 4 extremities), moves all extremities - Psychiatric Psychiatric: memory intact, appropriate mood/affect, intact judgment & insight - Labs CBC & Chem 7: 10/13/20 04:32 10/14/20 05:27 Labs: Abnormal lab results 10/15/20 10/15/20 10/16/20 Range/Units 17:17 20:35 12:00 POC Glucose 181 H 202 H 106 H (70-105) mg/dL 10/16/20 Range/Units 15:32 POC Glucose 124 H (70-105) mg/dL HEART Score - HEART Score Troponin: Troponin T < 0.010 ng/mL (0.00-0.029) 10/03/20 04:42
[2020-10-17] MEDS: INSULIN REGULAR, HUMAN 100 UNITS/1 ML SUB-Q SCH ×2 (08:38→11:56)
[2020-10-17] MEDS: glipiZIDE 5 MG TAB PO SCH (09:07)
[2020-10-17] MEDS: metFORMIN 500 MG TAB PO SCH (09:07)
[2020-10-17] MEDS: METOPROLOL TARTRATE 25 MG TAB PO SCH (09:07)
[2020-10-17] MEDS: FAMOTIDINE 20 MG TAB PO SCH (09:08)
[2020-10-17] MEDS: ASPIRIN EC 325 MG TAB PO SCH (09:08)
[2020-10-17] MEDS: LISINOPRIL 5 MG TAB PO SCH (09:08)
[2020-10-17] MEDS: SODIUM CHLORIDE 1 GM TAB PO SCH (09:09)
[2020-10-17] MEDS: INSULIN GLARGINE 100 UNITS/ML SUB-Q SCH (09:17)
[2020-10-17 11:20] VITALS: BP 123/76
--- NOTE | 2020-10-17 12:41 | Progress Note ---
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 Physical therapy occupational therapy acute inpatient rehabilitation --Concern about purulent drainage around the drain site, patient received 3 days of Ancef, resolved --Hypertension; well controlled ,Continue current antihypertensives --Type 2 diabetes mellitus; uncontrolled Steroids were discontinued, blood sugar better controlled Continue Accu-Chek sliding scale coverage ADA diet, A1c 7.6 --DVT prophylaxis; SCD Lovenox subcu --Obesity BMI 32.7 patient may need weight reduction when medically stable IRU placement when bed is available Hospitalist Physical - Constitutional Vitals: Temp Pulse Resp BP Pulse Ox 98.9 F 67 18 123/76 99 10/17/20 11:15 10/17/20 11:15 10/17/20 11:15 10/17/20 11:15 10/17/20 11:15 General appearance: Present: no acute distress, well-nourished HEART Score - HEART Score Troponin: Troponin T < 0.010 ng/mL (0.00-0.029) 10/03/20 04:42 Results - Labs CBC & Chem 7: 10/13/20 04:32 10/14/20 05:27 Labs: Laboratory Last Values WBC 9.4 K/mm3 (4.5-11.0) 10/06/20 04:37 RBC 4.32 M/mm3 (3.65-5.03) 10/06/20 04:37 Hgb 13.7 gm/dl (11.8-15.2) 10/13/20 04:32 Hct 40.8 % (35.5-45.6) 10/13/20 04:32 MCV 87 fl (84-94) 10/06/20 04:37 MCH 29 pg (28-32) 10/06/20 04:37 MCHC 34 % (32-34) 10/06/20 04:37 RDW 13.6 % (13.2-15.2) 10/06/20 04:37 Plt Count 316 K/mm3 (140-440) 10/06/20 04:37 Lymph % (Auto) 6.8 % (13.4-35.0) L 10/06/20 04:37 [place] % (Auto) 7.6 % (0.0-7.3) H 10/06/20 04:37 Eos % (Auto) 0.0 % (0.0-4.3) 10/06/20 04:37 Baso % (Auto) 0.2 % (0.0-1.8) 10/06/20 04:37 Lymph # (Auto) 0.6 K/mm3 (1.2-5.4) L 10/06/20 04:37 [place] # (Auto) 0.7 K/mm3 (0.0-0.8) 10/06/20 04:37 Eos # (Auto) 0.0 K/mm3 (0.0-0.4) 10/06/20 04:37 Baso # (Auto) 0.0 K/mm3 (0.0-0.1) 10/06/20 04:37 Seg Neutrophils % 85.4 % (40.0-70.0) H 10/06/20 04:37 Seg Neutrophils # 8.0 K/mm3 (1.8-7.7) H 10/06/20 04:37 PT 13.2 Sec. (12.2-14.9) 10/04/20 03:07 INR 0.94 (0.87-1.13) 10/04/20 03:07 APTT 29.9 Sec. (24.2-36.6) 10/04/20 03:07 Sodium 127 mmol/L (137-145) L 10/14/20 05:27 Potassium 4.5 mmol/L (3.6-5.0) 10/14/20 05:27 Chloride 93.9 mmol/L (98-107) L 10/14/20 05:27 Carbon Dioxide 22 mmol/L (22-30) 10/14/20 05:27 Anion Gap 16 mmol/L 10/14/20 05:27 BUN 21 mg/dL (9-20) H 10/14/20 05:27 Creatinine 0.7 mg/dL (0.8-1.3) L 10/14/20 05:27 Estimated GFR > 60 ml/min 10/14/20 05:27 BUN/Creatinine Ratio 30 % 10/14/20 05:27 Glucose 120 mg/dL (75-100) H 10/14/20 05:27 POC Glucose 178 mg/dL (70-105) H 10/17/20 11:14 Hemoglobin A1c 7.6 % (4-6) H 09/24/20 05:49 Calcium 8.5 mg/dL (8.4-10.2) 10/14/20 05:27 Phosphorus 2.80 mg/dL (2.5-4.5) 10/14/20 05:27 Magnesium 1.90 mg/dL (1.7-2.3) 10/14/20 05:27 Total Bilirubin 0.60 mg/dL (0.1-1.2) 10/05/20 05:42 Direct Bilirubin < 0.2 mg/dL (0-0.2) 09/23/20 12:11 Indirect Bilirubin 0.3 mg/dL 09/23/20 12:11 AST 17 units/L (5-40) 10/05/20 05:42 ALT 19 units/L (7-56) 10/05/20 05:42 Alkaline Phosphatase 69 units/L (35-129) 10/05/20 05:42 Total Creatine Kinase 2477 units/L (55-170) H 09/28/20 08:42 Troponin T < 0.010 ng/mL (0.00-0.029) 10/03/20 04:42 C-Reactive Protein 2.40 mg/dL (0.00-1.30) H 09/28/20 08:42 Total Protein 6.2 g/dL (6.3-8.2) L 10/05/20 05:42 Albumin 3.2 g/dL (3.9-5) L 10/05/20 05:42 Albumin/Globulin Ratio 1.1 % 10/05/20 05:42 Triglycerides 83 mg/dL (2-149) 09/25/20 04:49 Cholesterol 177 mg/dL (50-199) 09/25/20 04:49 LDL Cholesterol Direct 126 mg/dL (50-130) 09/25/20 04:49 HDL Cholesterol 50 mg/dL (40-59) 09/25/20 04:49 Cholesterol/HDL Ratio 3.54 % 09/25/20 04:49 Vitamin B12 400.3 pg/mL (211-911) 09/28/20 08:42 TSH 1.380 mlU/mL (0.270-4.200) 09/28/20 08:42 Urine Color Yellow (Yellow) 09/23/20 12:14 Urine Turbidity Clear (Clear) 09/23/20 12:14 Urine pH 6.0 (5.0-7.0) 09/23/20 12:14 Ur Specific [place] 1.020 (1.003-1.030) 09/23/20 12:14 Urine Protein 30 mg/dl mg/dL (Negative) 09/23/20 12:14 Urine Glucose (UA) Neg mg/dL (Negative) 09/23/20 12:14 Urine Ketones Neg mg/dL (Negative) 09/23/20 12:14 Urine Blood Neg (Negative) 09/23/20 12:14 Urine Nitrite Neg (Negative) 09/23/20 12:14 Urine Bilirubin Neg (Negative) 09/23/20 12:14 Urine Urobilinogen 4.0 mg/dL (<2.0) 09/23/20 12:14 Ur Leukocyte Esterase Neg (Negative) 09/23/20 12:14 Urine WBC (Auto) 1.0 /HPF (0.0-6.0) 09/23/20 12:14 Urine RBC (Auto) 3.0 /HPF (0.0-6.0) 09/23/20 12:14 U Epithel Cells (Auto) < 1.0 /HPF (0-13.0) 09/23/20 12:14 Urine Mucus Few /HPF 09/23/20 12:14 Coronavirus (PCR) Negative (Negative) 09/25/20 Unknown Blood Type AB POSITIVE 10/03/20 18:00 Antibody Screen Negative 10/03/20 18:00 Riley/IV: Voiding Method Condom Catheter Active Medications - Current Medications Current Medications: Generic Name Dose Route Start Last Admin Trade Name Freq PRN Reason Stop Dose Admin Hydrocodone Bitart/Acetaminophen 1 each 09/24/20 00:38 10/02/20 13:42 Hydrocodone/Acetaminophen 5-325 Mg Tab PO 1 each Q6HR PRN Administration Pain , Severe (7-10) Aspirin 325 mg 10/11/20 10:00 10/17/20 09:08 Aspirin Ec 325 Mg Tab PO 325 mg QDAY FLAQUITO Administration Atorvastatin Calcium 40 mg 09/24/20 22:00 10/16/20 22:32 Atorvastatin 40 Mg Tab PO 40 mg QHS FLAQUITO Administration Dextrose 50 ml 09/30/20 10:26 Dextrose 50% In Water (25gm) 50 Ml Syringe IV Q30MIN PRN Hypoglycemia Protocol Famotidine 20 mg 09/25/20 10:00 10/17/20 09:08 Famotidine 20 Mg Tab PO 20 mg BID FLAQUITO Administration Glipizide 5 mg 10/04/20 08:00 10/17/20 09:07 Glipizide 5 Mg Tab PO 5 mg QDDIAB FLAQUITO Administration Hydromorphone HCl 0.5 mg 09/24/20 00:53 10/12/20 17:50 Hydromorphone 1 Mg/1 Ml Inj IV 0.5 mg Q3H PRN Administration Pain , Severe (7-10) Insulin Glargine 12 units 10/08/20 22:00 10/17/20 09:17 Insulin Glargine 100 Units/Ml SUB-Q 12 units BID FLAQUITO Administration Insulin Human Regular 0 units 09/30/20 11:30 10/17/20 11:56 Insulin Regular, Human 100 Units/1 Ml SUB-Q 2 units ACHS FLAQUITO Administration Protocol Lisinopril 2.5 mg 10/04/20 10:00 10/17/20 09:08 Lisinopril 5 Mg Tab PO 2.5 mg QDAY FLAQUITO Administration Metformin HCl 500 mg 10/07/20 17:00 10/17/20 09:07 Metformin 500 Mg Tab PO 500 mg BIDDIAB FLAQUITO Administration Metoclopramide HCl 10 mg 09/24/20 00:53 Metoclopramide 10 Mg/2 Ml Inj IV Q6H PRN Nausea And Vomiting Metoprolol Tartrate 12.5 mg 10/03/20 12:00 10/17/20 09:07 Metoprolol Tartrate 25 Mg Tab PO 12.5 mg BID FLAQUITO Administration Ondansetron HCl 4 mg 09/24/20 00:53 Ondansetron 4 Mg/2 Ml Inj IV Q8H PRN Nausea And Vomiting Oxycodone/Acetaminophen 1 tab 09/24/20 00:53 10/14/20 21:34 Oxycodone /Acetaminophen 5-325mg Tab PO 1 tab Q6H PRN Administration Pain, Moderate (4-6) Sodium Chloride 10 ml 09/24/20 10:00 10/17/20 09:09 Sodium Chloride 0.9% 10 Ml Flush Syringe IV 10 ml BID FLAQUITO Administration Sodium Chloride 10 ml 09/24/20 00:53 10/03/20 06:24 Sodium Chloride 0.9% 10 Ml Flush Syringe IV 10 ml PRN PRN Administration LINE FLUSH Sodium Chloride 1 gm 10/13/20 10:00 10/17/20 09:09 Sodium Chloride 1 Gm Tab PO 1 gm BID FLAQUITO Administration Nutrition/Malnutrition Assess - Dietary Evaluation Nutrition/Malnutrition Findings: Nutrition Notes Start: 09/29/20 12:29 Freq: Status: Active Protocol: Document 09/29/20 12:29 LM (Rec: 09/29/20 12:30 LM [id number]) Nutrition Notes Need for Assessment generated from: LOS Initial or Follow up Brief Note Subjective/Other Information Screen for LOS. Pt with 100% intakes per EMR. Nutrition Intervention Revisit per MD consult or patient Sign Off request:
--- NOTE | 2020-10-17 15:11 | Discharge Summary ---
Providers - Providers Date of Admission: 09/23/20 16:06 Date of discharge: 10/17/20 Attending physician: LORY ARTEAGA 09/24/20 00:53 Consult to Physician [CONS] Routine Comment: Consulting Provider: SONI LUCAS Physician Instructions: Reason For Exam: Acute CVA 09/24/20 00:55 Occupational Therapy Evaluate and Treat [CONS] Routine Comment: Reason For Exam: Neuro deficits Physical Therapy Evaluation and Treat [CONS] Routine Comment: Reason For Exam: Neuro deficits 09/27/20 07:26 Consult to Physician [CONS] Routine Comment: Consulting Provider: KAITLIN DURAN Physician Instructions: Reason For Exam: cva 09/30/20 08:53 Consult to Physician [CONS] Routine Comment: Consulting Provider: OSMANY BUTCHER II Physician Instructions: Reason For Exam: C3-C4 cord inpingement 10/01/20 09:13 Consult to Physician [CONS] Routine Comment: Consulting Provider: RYAN CEVALLOS Physician Instructions: Reason For Exam: Cardiac clearance 10/05/20 12:16 Speech Therapy Evaluation and Treat [CONS] Stat Reason For Exam: swallowing impaired 10/10/20 09:56 Consult Acute Rehabilitation [CONS] Routine Consulting Provider: LESLY HERNANDEZ III Physician Instructions: Reason For Exam: IRU Evaluation Primary care physician: [facility] Hospitalization Reason for admission: Lower extremity weakness/severe cervical spondylosis Condition: Stable Pertinent studies: CT head without contrast Chest x-ray Carotid Doppler Echocardiogram MRI brain CTA head CTA neck MRI thoracic spine MRI cervical spine MRI lumbar spine Cervical spine x-ray Procedures: Stress test Neurosurgical procedure Diagnosis cervical spondylotic myelopathy Procedure; C3-C4 anterior cervical discectomy Placement of C3-C4 intervertebral biopsy mechanical device Application of anterior cervical plate Use of intraoperative monitoring Use of intraoperative micro scope next application of aspirin collar Hospital course: 65-year-old -[place] male patient with significant past medical history of lower extremity weakness secondary to polio was admitted through emergency room with right lower extremity weakness and right upper extremity weakness of 1 day duration patient was admitted appropriately managed subsequently evaluated by neurologist and had extensive neuro work-up noted to have severe cervical spondylosis subsequently evaluated by neurosurgeon in consultation and later underwent extensive cervical spine surgery as mentioned above patient received physical therapy occupational therapy, who recommended acute rehabilitation acute rehab team has evaluated the patient and accepted for acute rehab and [facility] rehab [facility] today patient feels slightly better still has significant weakness and debility however hemodynamically and clinically stable at discharge please refer to the medical records for all the other details. 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 Physical therapy occupational therapy acute inpatient rehabilitation --Concern about purulent drainage around the drain site, patient received 3 days of Ancef, resolved --Hypertension; well controlled ,Continue current antihypertensives --MRI brain negative for acute abnormality; acute CVA ruled out --Type 2 diabetes mellitus; uncontrolled Steroids were discontinued, blood sugar better controlled Continue Accu-Chek sliding scale coverage ADA diet, A1c 7.6 --DVT prophylaxis; SCD Lovenox subcu --Obesity BMI 32.7 patient may need weight reduction when medically stable Patient is being transferred to acute rehab facility for rehabilitation Disposition: [facility] Final Discharge Diagnosis (Prints w/discharge instructions): Cervical spondylotic myelopathy. C3-C4 compression with quadriparesis. s/p C3-C4 ACDF[anterior cervical disc fusion]. Hypertension. Type 2 diabetes mellitus. Obesity BMI 32.7 Time spent for discharge: 35 min Core Measure Documentation - Palliative Care Palliative Care/ Comfort Measures: Not Applicable - Core Measures Any of the following diagnoses?: none Exam - Constitutional Vitals: Temp Pulse Resp BP Pulse Ox 98.9 F 67 18 123/76 99 10/17/20 11:15 10/17/20 11:15 10/17/20 11:15 10/17/20 11:15 10/17/20 11:15 General appearance: Present: no acute distress, well-nourished - EENT Eyes: Present: PERRL, EOM intact - Neck Neck: Present: supple, normal ROM - Respiratory Respiratory effort: normal Respiratory: bilateral: diminished, negative: rales, rhonchi, wheezing - Cardiovascular Rhythm: regular Heart Sounds: Present: S1 & S2 - Extremities Extremities: no ischemia, No edema - Abdominal General gastrointestinal: Present: soft, non-tender, non-distended, normal bowel sounds - Integumentary Integumentary: Present: clear, warm - Musculoskeletal Musculoskeletal: strength equal bilaterally, generalized weakness - Psychiatric Psychiatric: appropriate mood/affect, cooperative - Neurologic Neurologic: moves all extremities Plan Activity: advance as tolerated, fall precautions Diet: diabetic Special Instructions: physical therapy, occupational therapy Additional Instructions: Fall precautions. Physical therapy occupational therapy rehabilitation per rehab unit protocols Follow up with: PRIMARY CAREMD [Primary Care Provider] - 3-5 Days OSMANY BUTCHER II, MD [Staff Physician] - 14 Days PARIS RAYGOZA MD [Staff Physician] - 14 Days
== END 2020-10-17 18:17 | DRG 471 ==
LOC: ED 10:12 → 4A 16:06
PROVIDERS: ADMIT Internal Medicine; ATTEND Internal Medicine
PROC: 0RG10A0 Fusion of Cervical Vertebral Joint with Interbody Fusion Device, Anterior Approach, Anterior Column, Open Approach (ICD-10-PCS; principal; 2020-10-04)
PROC: 30230R1 Transfusion of Nonautologous Platelets into Peripheral Vein, Open Approach (ICD-10-PCS; 2020-10-04)
PROC: 0RB30ZZ Excision of Cervical Vertebral Disc, Open Approach (ICD-10-PCS; 2020-10-04)
PROC: 4A11X4G Monitoring of Peripheral Nervous Electrical Activity, Intraoperative, External Approach (ICD-10-PCS; 2020-10-04)
PROC: 00NW0ZZ Release Cervical Spinal Cord, Open Approach (ICD-10-PCS; 2020-10-04)
DX: M47.13 Other spondylosis with myelopathy, cervicothoracic region (principal); G82.50 Quadriplegia, unspecified; M50.01 Cervical disc disorder with myelopathy, high cervical region; I47.2 Ventricular tachycardia; I42.9 Cardiomyopathy, unspecified; I47.1 Supraventricular tachycardia; G81.91 Hemiplegia, unspecified affecting right dominant side; I10 Essential (primary) hypertension; Z79.84 Long term (current) use of oral hypoglycemic drugs; M19.90 Unspecified osteoarthritis, unspecified site; E66.9 Obesity, unspecified; Z68.32 Body mass index [BMI] 32.0-32.9, adult; I25.10 Atherosclerotic heart disease of native coronary artery without angina pectoris; Z20.822 Contact with and (suspected) exposure to COVID-19; E11.9 Type 2 diabetes mellitus without complications; E78.5 Hyperlipidemia, unspecified; Z82.49 Family history of ischemic heart disease and other diseases of the circulatory system; Z95.1 Presence of aortocoronary bypass graft
CPT/HCPCS: 36415; 70450; 70496; 70498; 70551; 71045; 72040; 72146; 72148; 72156; 78452; 80048; 80053; 80061; 80076; 81001; 82550; 82607; 82962; 83036; 83735; 84100; 84443; 84484; 85014; 85018; 85025; 85610; 85730; 86140; 86850; 86900; 86901; 93005; 93017; 93306; 93880; 96360; G0378; A4649; A9270-GY; A9502; A9575; C1713; J0330; J0690; J1100; J1170; J1815; J2001; J2370; J2405; J2704; J2710; J2785; J3475; J3490; J7030; J7050; P9035; Q9967; U0003

== ENCOUNTER 2020-10-17 13:34 | Inpatient (IN) | payer OTHER ==
[2020-10-17] MEDS ORDERED: ACETAMINOPHEN 325 MG TAB PO PRN (14:04)
[2020-10-17] MEDS ORDERED: DEXTROSE 50% IN WATER (25GM) 50 ML SYRINGE IV PRN (14:04)
[2020-10-17] MEDS ORDERED: HYDROcodone/ACETAMINOPHEN 5-325 MG TAB PO PRN (14:04)
[2020-10-17] MEDS ORDERED: ALBUTEROL 2.5 MG/3 ML NEBU IH PRN (14:15)
[2020-10-17] MEDS ORDERED: POLYETHYLENE GLYCOL 3350 17 GM POWDER PO PRN (14:15)
[2020-10-17] MEDS ORDERED: METOCLOPRAMIDE 10 MG TAB PO PRN (14:15)
[2020-10-17] MEDS ORDERED: hydrALAZINE 20 MG/1 ML INJ IV PRN (14:15)
[2020-10-17] MEDS: INSULIN REGULAR, HUMAN 100 UNITS/1 ML SUB-Q SCH ×2 (17:11→22:16)
[2020-10-17] MEDS: metFORMIN 500 MG TAB PO SCH (17:24)
[2020-10-17] MEDS: FAMOTIDINE 20 MG TAB PO SCH (22:16)
[2020-10-17] MEDS: INSULIN GLARGINE 100 UNITS/ML SUB-Q SCH (22:17)
[2020-10-18 05:24] LABS: Basophils % (Auto) 0.4 % (0.0-1.8); Eosinophils # (Auto) 0.2 K/mm3 (0.0-0.4); Eosinophils % (Auto) 2.9 % (0.0-4.3); Hematocrit 38.1 % (35.5-45.6); Hemoglobin 13.1 gm/dl (11.8-15.2); Lymphocytes # (Auto) 1.2 K/mm3 (1.2-5.4); Lymphocytes % (Auto) 19.8 % (13.4-35.0); Mean Corpuscular HGB Conc 34 % (32-34); Mean Corpuscular Volume 86 fl (84-94); Monocytes # (Auto) 0.7 K/mm3 (0.0-0.8); Monocytes % (Auto) 11.4 % (0.0-7.3); Platelet Count 226 K/mm3 (140-440); Red Blood Count 4.41 M/mm3 (3.65-5.03); Red Cell Distribution Width 13.6 % (13.2-15.2)
[2020-10-18 07:04] LABS: Alanine Aminotransferase 21 units/L (7-56); Albumin 3.2 g/dL (3.9-5); Blood Urea Nitrogen 14 mg/dL (9-20); Calcium 8.7 mg/dL (8.4-10.2); Hemolysis Index 3
[2020-10-18 07:13] LABS: BUN/Creatinine Ratio 23
[2020-10-18] MEDS: INSULIN REGULAR, HUMAN 100 UNITS/1 ML SUB-Q SCH ×4 (09:13→21:11)
[2020-10-18] MEDS: ENOXAPARIN 40 MG/0.4 ML INJ SUB-Q SCH (09:18)
[2020-10-18] MEDS: glipiZIDE 5 MG TAB PO SCH (09:19)
[2020-10-18] MEDS: LISINOPRIL 5 MG TAB PO SCH (09:19)
[2020-10-18] MEDS: FAMOTIDINE 20 MG TAB PO SCH ×2 (09:19→21:11)
[2020-10-18] MEDS: metFORMIN 500 MG TAB PO SCH ×2 (09:19→17:55)
[2020-10-18] MEDS: ASPIRIN EC 325 MG TAB PO SCH (09:19)
[2020-10-18] MEDS: INSULIN GLARGINE 100 UNITS/ML SUB-Q SCH ×2 (09:20→21:12)
--- NOTE | 2020-10-18 13:56 | History and Physical Report ---
History of Present Illness Date: 10/18/20 Date of admission: 10/17/20 15:01 Chief Complaint: Cervical myelopathy status post C3-4 ACDF History of present illness: 65-year-old male with a history of left lower extremity weakness secondary to polio and prior CVA came to the ER with bilateral upper extremity weakness.Recommendation early on from neurology was to transfer the patient to outside hospital with bedside neurology due to complexity of the case. However neurosurgeon was able to evaluate the patient and determined that he had cervical impingement at the C3-4 level as seen on cervical MRI. Patient underwent a C3-4 ACDF on 10/04/2020. Patient recovered well without incident and we were consulted approximately 1 week ago to assess the patient for possibility of acute inpatient rehabilitation stay. After our initial consult, we determined that the patient would be a good candidate for acute inpatient rehab if insurance would approve him. We did finally receive insurance approval and have now transferred him over to the acute rehab side. Vital signs and labs have been fairly stable since our initial consult on 10/11. Patient continue to work with therapy in order to improve his ability to increase function. Patient did not have any further procedures or imaging done prior to being transferred. Brain MRI performed on 09/25/2020 showed chronic encephalomalacia in the anterior left temporal lobe but no acute changes. 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 Nuclear stress test was negative for ischemia. Since initial evaluation of the patient for rehab, speech therapy has discharged the patient and he no longer has speech therapy needs. After the patient was medically stabilized they were transferred for further lazaro abilitation. All available medical records have been reviewed. Plan of care was discussed with patient. Past History Past Medical History: diabetes, hypertension, hyperlipidemia, stroke (May per patient), other (Polio) Past Surgical History: CABG, Other (Bioprosthetic aortic valve) Social history: lives with family, full code. denies: smoking (Former smoker), alcohol abuse (Former alcohol use) Family history: hypertension Medications and Allergies Allergies Allergy/AdvReac Type Severity Reaction Status Date / Time No Known Allergies Allergy Verified 09/24/20 01:16 Home Medications Medication Instructions Recorded Confirmed Last Taken Type AtorvaSTATin [Lipitor] 40 mg PO QHS 09/23/20 10/17/20 Unknown History Diclofenac Sodium 75 mg PO QDAY 09/23/20 10/17/20 Unknown History HYDROcodone/ACETAMINOPHEN 1 each PO Q6HR PRN 09/23/20 10/17/20 Unknown History [Hydrocodone-Acetamin 5-300 mg] Metformin HCl [metFORMIN] 1,000 mg PO QDAY 09/23/20 10/17/20 Unknown History glipiZIDE [Glucotrol] 5 mg PO QDAY 09/23/20 10/17/20 Unknown History Aspirin EC [Ecotrin] 325 mg PO QDAY tablet 10/17/20 10/17/20 Unknown Rx Famotidine [Pepcid] 20 mg PO BID tablet 10/17/20 10/17/20 Unknown Rx Insulin Glargine [Lantus VIAL] 12 units SUB-Q BID units 10/17/20 10/17/20 Unknown Rx Insulin Regular, Human [HumuLIN R] 0 units SUB-Q ACHS units 10/17/20 10/17/20 Unknown Rx Metoprolol [Lopressor TAB] 12.5 mg PO BID tablet 10/17/20 10/17/20 Unknown Rx lisinopriL [Zestril TAB] 2.5 mg PO QDAY tablet 10/17/20 10/17/20 Unknown Rx metFORMIN [Glucophage] 500 mg PO BIDDIAB tablet 10/17/20 10/17/20 Unknown Rx Active Meds: Active Medications Acetaminophen (Acetaminophen 325 Mg Tab) 650 mg PO Q6H PRN PRN Reason: Pain MILD(1-3)/Fever >100.5/NICHOLSON Albuterol (Albuterol 2.5 Mg/3 Ml Nebu) 2.5 mg IH Q4HRT PRN PRN Reason: Shortness Of Breath Aspirin (Aspirin Ec 325 Mg Tab) 325 mg PO QDAY [facility] Last Admin: 10/18/20 09:19 Dose: 325 mg Documented by: Atorvastatin Calcium (Atorvastatin 40 Mg Tab) 40 mg PO QHS [facility] Last Admin: 10/17/20 22:16 Dose: 40 mg Documented by: Bisacodyl (Bisacodyl 10 Mg Rect Supp) 10 mg WI QDAY PRN PRN Reason: Constipation Dextrose (Dextrose 50% In Water (25gm) 50 Ml Syringe) 50 ml IV Q30MIN PRN; Protocol PRN Reason: Hypoglycemia Enoxaparin Sodium (Enoxaparin 40 Mg/0.4 Ml Inj) 40 mg SUB-Q QDAY [facility] Last Admin: 10/18/20 09:18 Dose: 40 mg Documented by: Famotidine (Famotidine 20 Mg Tab) 20 mg PO BID [facility] Last Admin: 10/18/20 09:19 Dose: 20 mg Documented by: Glipizide (Glipizide 5 Mg Tab) 5 mg PO QDDIAB [facility] Last Admin: 10/18/20 09:19 Dose: 5 mg Documented by: Hydralazine HCl (Hydralazine 20 Mg/1 Ml Inj) 10 mg IV Q4HR PRN PRN Reason: Hypertension Insulin Glargine (Insulin Glargine 100 Units/Ml) 12 units SUB-Q BID [facility] Last Admin: 10/18/20 09:20 Dose: 12 units Documented by: Insulin Human Regular (Insulin Regular, Human 100 Units/1 Ml) 0 units SUB-Q ACHS [facility]; Protocol Last Admin: 10/18/20 09:13 Dose: Not Given Documented by: Lisinopril (Lisinopril 5 Mg Tab) 2.5 mg PO QDAY [facility] Last Admin: 10/18/20 09:19 Dose: 2.5 mg Documented by: Metformin HCl (Metformin 500 Mg Tab) 500 mg PO BIDDIAB [facility] Last Admin: 10/18/20 09:19 Dose: 500 mg Documented by: Metoclopramide HCl (Metoclopramide 10 Mg Tab) 10 mg PO Q6H PRN PRN Reason: Nausea And Vomiting Oxycodone/Acetaminophen (Oxycodone /Acetaminophen 5-325mg Tab) 1 tab PO Q6H PRN PRN Reason: Pain, Moderate (4-6) Polyethylene Glycol (Polyethylene Glycol 3350 17 Gm Powder) 17 gm PO QDAY PRN PRN Reason: Constipation Review of Systems All systems: negative (ROS negative for 10 systems except as noted below with pertinent positives and negatives.) Constitutional: weakness, no fever, no chills Ears, nose, mouth and throat: no decreased hearing Cardiovascular: no chest pain, no palpitations, no edema Respiratory: cough, no shortness of breath Gastrointestinal: no abdominal pain, no nausea, no vomiting, no diarrhea, no constipation Genitourinary Male: no dysuria, no flank pain Musculoskeletal: limitation of motion, gait dysfunction Integumentary: no rash, no pruritis, no redness Neurological: weakness, no parathesias, no numbness, no tremors Psychiatric: no anxiety, no insomnia Exam - Exam Narrative exam: MUSCULOSKELETAL SPECIALTY EXAM CONSTITUTIONAL: Well developed, well nourished, appropriately groomed LYMPHATIC: No appreciable abnormalities palpable in neck RESPIRATORY: Clear to auscultation bilaterally, no increased work of breathing CARDIOVASCULAR: Regular Rate/ Rhythm, no swelling, edema or tenderness in BUE or BLE. Pulses palpable in all extremities. All extremities warm. GI: + bowel sounds, soft, NTTP, nondistended. INTEGUMENTARY: Normal, no lesion, rash, masses or bruising noted in extremities. Surgical wound clean dry and intact on anterior neck MUSCULOSKELETAL: BUE and BLE normal without defect, crepitus, subluxation, effusion, arthritic changes or TTP. BUE 4/5, decreased ROM, with normal tone strength in the upper extremities has improved since prior exam LLE 2/5 decreased ROM, with normal tone, RLE 3/5 with decreased range of motion and normal tone NEURO: CN 2-12 grossly intact. Sensation intact in all extremities. Reflexes 3+ bilaterally at biceps, brachioradialis and 2+ at patella. No clonus at ankles. Coordination impaired but improved in BUE. No tremor noted in 4 extremities. POSTURE and GAIT: Sitting posture good. Balance and gait deferred until seen with therapy. PSYCH: Alert, oriented x3, affect appears normal. Insight appears intact. - Constitutional Vitals: Vital Signs - 12hr 10/18/20 10/18/20 09:19 12:16 Temperature 97.8 F Pulse Rate 80 113 H Respiratory 16 Rate Blood Pressure 115/71 120/74 O2 Sat by Pulse 98 Oximetry - Labs CBC & Chem 7: 10/18/20 04:27 10/18/20 04:27 Labs: Laboratory Results - last 72 hr 10/18/20 10/18/20 10/18/20 04:27 04:27 07:22 WBC 6.0 RBC 4.41 Hgb 13.1 Hct 38.1 MCV 86 MCH 30 MCHC 34 RDW 13.6 Plt Count 226 Lymph % (Auto) 19.8 Sharp % (Auto) 11.4 H Eos % (Auto) 2.9 Baso % (Auto) 0.4 Lymph # (Auto) 1.2 Sharp # (Auto) 0.7 Eos # (Auto) 0.2 Baso # (Auto) 0.0 Seg Neutrophils % 65.5 Seg Neutrophils # 4.0 Sodium 131 L Potassium 4.4 Chloride 95.4 L Carbon Dioxide 26 Anion Gap 14 BUN 14 Creatinine 0.6 L Estimated GFR > 60 BUN/Creatinine Ratio 23 Glucose 114 H POC Glucose 117 H Calcium 8.7 Total Bilirubin 0.40 AST 21 ALT 21 Alkaline Phosphatase 103 Total Protein 6.6 Albumin 3.2 L Albumin/Globulin Ratio 0.9 10/18/20 12:19 WBC RBC Hgb Hct MCV MCH MCHC RDW Plt Count Lymph % (Auto) Sharp % (Auto) Eos % (Auto) Baso % (Auto) Lymph # (Auto) Sharp # (Auto) Eos # (Auto) Baso # (Auto) Seg Neutrophils % Seg Neutrophils # Sodium Potassium Chloride Carbon Dioxide Anion Gap BUN Creatinine Estimated GFR BUN/Creatinine Ratio Glucose POC Glucose 129 H Calcium Total Bilirubin AST ALT Alkaline Phosphatase Total Protein Albumin Albumin/Globulin Ratio Assessment and Plan Assessment and plan: Patient was assessed and evaluated for Acute Inpatient Rehab Unit. Due to the patients above-mentioned medical complexity, along with decreased functional mobility and self care, this patient continues to require and be appropriate for a comprehensive, multidisciplinary [id number] rehabilitation program. These needs cannot be met in an outpatient or other les s intensive setting. The patient would continue to benefit from skilled therapy intervention for at least 3 hours per day, five days a week, with techniques specific to the needs of the patient to improve function, activities of daily living, and reintegration into the community. The patient continues to require: -- OT to improve ROM, self-care, and learn use of adaptive equipment -- PT to improve strength and balance, functional transfers, and ambulation with energy conservation techniques to improve functional mobility -- 24 hour RN to ensure and prevent skin breakdown, promote progressive independence while ensuring safety, ensure education regarding medications, and incorporation of the rehabilitation at the bedside -- 24 hour Institutional Research Coordinator to coordinate this interdisciplinary program, and to manage/prevent complications as a result of the patients medical comorbidities. -Plan of care by day 4 -Weekly team conferences With such a program, there is a reasonable certainty that the goals individualized for this patient can be achieved within the specified length of stay. Cervical impingement at C3/4 with myelopathy: Status post ACDF. Cervical collar on when out of bed. Further surgical management per neurosurgery. 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 Hypertension: Continue medication. Monitor blood pressure. Adjust medications as needed for normotension. Hold for hypotension. Goal SBP <140. Diabetes: Continue carb controlled diet, medications as needed along with sliding scale. Adjust medications as necessary in order to maintain euglycemia. ADL dysfunction: OT will work on improving ability to perform ADLs (including assistive devices) to increase independence and decrease caregiver burden and improve functional transfers and mobility training. Difficulty walking: PT will work on gait training and proper use of assistive devices and advance as appropriate to use of stairs and outside ambulation on un even surfaces. Unsteadiness on feet: PT will work on improving static and dynamic sitting and standing balance as well as proper use of assistive devices to decrease risk of falls. Abnormality of gait: PT will work to improve safety and efficiency of gait through neuromotor training and gait training along with instruction on proper use of assistive devices. Muscle weakness: PT & OT will work on strengthening exercises to improve functional strength including mixture of closed and open kinetic chain exercises. Debility: PT & OT will work on improving overall functional status to improve pa rticipation with ADLs, mobility and social involvement. Fatigue: PT & OT will work on improving endurance through aerobic exercises and therapeutic activity while monitoring patients tolerance for activity and vital signs as needed. DVT ppx: Lovenox Pain: Continue physical modalities in therapy and pain medications as needed to achieve functional pain control. Sleep: Monitor and address as needed. Bowel: Monitor and address as needed. Appetite: Monitor and address as needed. Discharge planning: Pending therapy progress and care plan meeting. Will continue discussion with therapy team, SW, patient and family. Restrictions/ Precautions: Falls, cervical collar when out of bed WB status: FWB Functional Hx: ADLs: Independent Cognition: Independent Mobility: No AD Barriers to Discharge: Decreased mobility and ability to perform self care, balance deficits, weakness Estimated Length of Stay: 1418 days Discharge Destination: Home with family POST ADMISSION PHYSICIAN EVALUATION I have examined the patient and find that functional status, medical condition and appropriateness for IRF admission are essentially unchanged from those described in the preadmission screening. Will monitor for worsening myelopathy, further neurologic abnormalities, surgical site infection or dehiscence, DVT/PE, bowel and bladder complications and complications due to hypertension, diabetes and electrolyte abnormalities. Will attempt to avoid occurrence of these issues or treat them if they present themselves.
[2020-10-18] MEDS: oxyCODONE /ACETAMINOPHEN 5-325MG TAB PO PRN (15:38)
[2020-10-19] MEDS: INSULIN REGULAR, HUMAN 100 UNITS/1 ML SUB-Q SCH ×4 (07:36→22:19)
--- NOTE | 2020-10-19 08:57 | Progress Note ---
Subjective Date of service: 10/19/20 Principal diagnosis: Cervical myelopathy status post C3-4 ACDF Interval history: 65-year-old male with a history of left lower extremity weakness secondary to polio and prior CVA came to the ER with bilateral upper extremity weakness.Recommendation early on from neurology was to transfer the patient to outside hospital with bedside neurology due to complexity of the case. However neurosurgeon was able to evaluate the patient and determined that he had ce rvical impingement at the C3-4 level as seen on cervical MRI. Patient underwent a C3-4 ACDF on 10/04/2020. Patient recovered well without incident and we were consulted approximately 1 week ago to assess the patient for possibility of acute inpatient rehabilitation stay. After our initial consult, we determined that the patient would be a good candidate for acute inpatient rehab if insurance would approve him. We did finally receive insurance approval and have now transferred him over to the acute rehab side. Vital signs and labs have been fairly stable since our initial consult on 10/11. Patient continue to work with therapy in order to improve his ability to increase function. Patient did not have any further procedures or imaging done prior to being transferred. Brain MRI performed on 09/25/2020 showed chronic encephalomalacia in the anterior left temporal lobe but no acute changes. 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 Nuclear stress test was negative for ischemia. Since initial evaluation of the patient for rehab, speech therapy has discharged the patient and he no longer has speech therapy needs. Interval History: Patient is participating in therapy and making reasonable progress. Taking rest breaks as needed. +BM. Denies pain, palpitations, dyspnea, cough, N/V, or joint pain. Cervical impingement at C3/4 with myelopathy: Continue to monitor surgical wound site for healing. Continue therapy to improve ability to ambulate and provide self-care. Monitor for any worsening symptoms of weakness or neurologic changes. Hypertension: Fairly well controlled on current medications. Goal blood pressure less than 140/90. Diabetes: Fairly well controlled on carb controlled diet and current regimen. Glucose levels have been below 150 for the most part so far. Continue medications and adjust for euglycemia ADL dysfunction: Improving as strength improves, will need to work on safety awareness, ADLs from the standing level if possible and fine motor control. Mobility dysfunction: Continue to work to improve balance, gait and mobility. Currently has functional left foot drop and may end up needing AFO prior to discharge. We will continue to monitor and see how he improves over the next few weeks. Left foot drop: Continue to work to improve strengthening and mobility. AFO as needed. Will assess as we get closer to a discharge date as to whether or not the patient will need to go home with an AFO or if he is able to regain enough strength to not need it. All records, vitals, labs and medications were reviewed. No other issues per patient, nursing or therapy. Objective - Exam Narrative Exam: MUSCULOSKELETAL SPECIALTY EXAM CONSTITUTIONAL: Well developed, well nourished, appropriately groomed RESPIRATORY: Clear to auscultation bilaterally, no increased work of breathing CARDIOVASCULAR: Regular Rate/ Rhythm, no swelling, edema or tenderness in BUE or BLE. All extremities warm. GI: + bowel sounds, soft, NTTP, nondistended. INTEGUMENTARY: Normal, no lesion, rash, masses or bruising noted in extremities. Surgical wound clean dry and intact on anterior neck MUSCULOSKELETAL: BUE and BLE normal without defect, crepitus, subluxation, effusion, arthritic changes or TTP. BUE 4/5, decreased ROM, with normal tone strength in the upper extremities has improved since prior exam LLE 2/5 decreased ROM, with normal tone, RLE 3/5 with decreased range of motion and normal tone NEURO: CN 2-12 grossly intact. Sensation intact in all extremities. No clonus at ankles. Coordination impaired but improved in BUE. No tremor noted in 4 extremities. POSTURE and GAIT: Sitting posture good. Balance and gait deferred until seen with therapy. PSYCH: Alert, oriented x3, affect appears normal. Insight appears intact. - Constitutional Vitals: Vital Signs - 12hr 10/18/20 10/18/20 10/18/20 23:39 23:43 23:55 Temperature 98.4 F 100.0 F H 99 F Pulse Rate 72 91 H 89 Respiratory 18 18 Rate Blood Pressure 113/70 138/83 O2 Sat by Pulse 99 96 Oximetry 10/19/20 04:47 Temperature 98.3 F Pulse Rate 81 Respiratory 18 Rate Blood Pressure 119/73 O2 Sat by Pulse 99 Oximetry - Allied health notes Allied health notes reviewed: nursing, PT, OT FIMS assessment as documented by PT/OT/ST: Grooming Patient cleans teeth/dentures: No: teeth/dentures present Patient [place]/brushes hair: Yes Patient washes, rinses and Yes dries face: Patient washes, rinses and Yes dries hands: Patient shaves: No Patient performs (no make-up/ 07/09 (100%) shaving): Grooming FIM Score 5. Supervision ([place] applies toothpaste or opens containers.) Social interaction/Memory/Problem solving Social Interaction FIM Score 6. Mod. [place] (Mostly appropriate. May need meds. No supv.) Memory FIM Score 5. Supervision (Needs cueing <10%, stressful/ unfamiliar situations.) Problem Solving FIM Score 5. Supervision (Needs cueing <10% to solve routine problems.) Transfers Patient transferred to: Shower Shower Transfers FIM Score 3. Moderate Assistance (Patient = 50% or more. Some lifting.) Locomotion- walk/wheelchair Ambulation Distance 6 Eating Eating FIM Score 5. Supervision/Set-Up (Needs help w/ containers, cutting meat, etc.) Dressing-Upper body Patient retrieves clothing No items: Patient applies/removes UE n/a prosthesis or orthosis: Upper Body Dressing FIM Score 4. Minimal Assistance (Patient = 75% or more. Needs touching.) Dressing-lower body Patient retrieves clothing Yes items: Patient applies/removes LE n/a prosthesis or orthosis: Lower Body Dressing FIM Score 2. Maximal Assistance (Patient = 25% or more) - Labs CBC & Chem 7: 10/18/20 04:27 10/18/20 04:27 Labs: Laboratory Results - last 72 hr 10/18/20 10/18/20 10/18/20 04:27 04:27 07:22 WBC 6.0 RBC 4.41 Hgb 13.1 Hct 38.1 MCV 86 MCH 30 MCHC 34 RDW 13.6 Plt Count 226 Lymph % (Auto) 19.8 [place] % (Auto) 11.4 H Eos % (Auto) 2.9 Baso % (Auto) 0.4 Lymph # (Auto) 1.2 [place] # (Auto) 0.7 Eos # (Auto) 0.2 Baso # (Auto) 0.0 Seg Neutrophils % 65.5 Seg Neutrophils # 4.0 Sodium 131 L Potassium 4.4 Chloride 95.4 L Carbon Dioxide 26 Anion Gap 14 BUN 14 Creatinine 0.6 L Estimated GFR > 60 BUN/Creatinine Ratio 23 Glucose 114 H POC Glucose 117 H Calcium 8.7 Total Bilirubin 0.40 AST 21 ALT 21 Alkaline Phosphatase 103 Total Protein 6.6 Albumin 3.2 L Albumin/Globulin Ratio 0.9 10/18/20 10/18/20 10/18/20 12:19 16:29 20:24 WBC RBC Hgb Hct MCV MCH MCHC RDW Plt Count Lymph % (Auto) [place] % (Auto) Eos % (Auto) Baso % (Auto) Lymph # (Auto) [place] # (Auto) Eos # (Auto) Baso # (Auto) Seg Neutrophils % Seg Neutrophils # Sodium Potassium Chloride Carbon Dioxide Anion Gap BUN Creatinine Estimated GFR BUN/Creatinine Ratio Glucose POC Glucose 129 H 161 H 127 H Calcium Total Bilirubin AST ALT Alkaline Phosphatase Total Protein Albumin Albumin/Globulin Ratio 10/19/20 07:33 WBC RBC Hgb Hct MCV MCH MCHC RDW Plt Count Lymph % (Auto) [place] % (Auto) Eos % (Auto) Baso % (Auto) Lymph # (Auto) [place] # (Auto) Eos # (Auto) Baso # (Auto) Seg Neutrophils % Seg Neutrophils # Sodium Potassium Chloride Carbon Dioxide Anion Gap BUN Creatinine Estimated GFR BUN/Creatinine Ratio Glucose POC Glucose 107 H Calcium Total Bilirubin AST ALT Alkaline Phosphatase Total Protein Albumin Albumin/Globulin Ratio Assessment and Plan Cervical impingement at C3/4 with myelopathy: Status post ACDF. Cervical collar on when out of bed. Further surgical management per neurosurgery. 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 Hypertension: Continue medication. Monitor blood pressure. Adjust medications as needed for normotension. Hold for hypotension. Goal SBP <140. Diabetes: Continue carb controlled diet, medications as needed along with sliding scale. Adjust medications as necessary in order to maintain euglycemia. Left foot drop: Continue to utilize AFO with therapy and monitor for improvement with strengthening and control over the left foot. We will continue to assess as we move forward for the need to discharge patient with an AFO and consult orthotics if we see that he will need the AFO going home. ADL dysfunction: OT will work on improving ability to perform ADLs (including assistive devices) to increase independence and decrease caregiver burden and i mprove functional transfers and mobility training. Difficulty walking: PT will work on gait training and proper use of assistive devices and advance as appropriate to use of stairs and outside ambulation on uneven surfaces. Unsteadiness on feet: PT will work on improving static and dynamic sitting and standing balance as well as proper use of assistive devices to decrease risk of falls. Abnormality of gait: PT will work to improve safety and efficiency of gait through neuromotor training and gait training along with instruction on proper use of assistive devices. Muscle weakness: PT & OT will work on strengthening exercises to improve functional strength including mixture of closed and open kinetic chain exercises. Debility: PT & OT will work on improving overall functional status to improve participation with ADLs, mobility and social involvement. Fatigue: PT & OT will work on improving endurance through aerobic exercises and therapeutic activity while monitoring patients tolerance for activity and vital signs as needed. DVT ppx: Lovenox Pain: Continue physical modalities in therapy and pain medications as needed to achieve functional pain control. Sleep: Monitor and address as needed. Bowel: Monitor and address as needed. Appetite: Monitor and address as needed. Discharge planning: Pending therapy progress and care plan meeting. Will continue discussion with therapy team, SW, patient and family. Restrictions/ Precautions: Falls, cervical collar when out of bed WB status: FWB Functional Hx: ADLs: Independent Cognition: Independent Mobility: No AD Barriers to Discharge: Decreased mobility and ability to perform self care, balance deficits, weakness. Patient may need to go home at the wheelchair level based on his level of recovery and safety while performing ADLs. We will continue to monitor and assess as we move forward Estimated Length of Stay: 1418 days Discharge Destination: Home with family
[2020-10-19] MEDS: INSULIN GLARGINE 100 UNITS/ML SUB-Q SCH ×2 (10:20→22:15)
[2020-10-19] MEDS: metFORMIN 500 MG TAB PO SCH ×2 (11:32→18:57)
[2020-10-19] MEDS: ENOXAPARIN 40 MG/0.4 ML INJ SUB-Q SCH (11:32)
[2020-10-19] MEDS: ASPIRIN EC 325 MG TAB PO SCH (11:32)
[2020-10-19] MEDS: FAMOTIDINE 20 MG TAB PO SCH ×2 (11:32→22:15)
[2020-10-19] MEDS: LISINOPRIL 5 MG TAB PO SCH (11:33)
[2020-10-19] MEDS: glipiZIDE 5 MG TAB PO SCH (11:33)
[2020-10-20] MEDS: ENOXAPARIN 40 MG/0.4 ML INJ SUB-Q SCH (09:35)
[2020-10-20] MEDS: INSULIN REGULAR, HUMAN 100 UNITS/1 ML SUB-Q SCH ×4 (09:35→21:49)
[2020-10-20] MEDS: glipiZIDE 5 MG TAB PO SCH (09:35)
[2020-10-20] MEDS: metFORMIN 500 MG TAB PO SCH ×2 (09:35→17:00)
[2020-10-20] MEDS: FAMOTIDINE 20 MG TAB PO SCH ×2 (09:35→21:48)
[2020-10-20] MEDS: INSULIN GLARGINE 100 UNITS/ML SUB-Q SCH ×2 (09:35→21:48)
[2020-10-20] MEDS: ASPIRIN EC 325 MG TAB PO SCH (09:35)
[2020-10-20] MEDS: LISINOPRIL 5 MG TAB PO SCH (09:49)
--- NOTE | 2020-10-20 13:06 | Progress Note ---
Subjective Date of service: 10/20/20 Principal diagnosis: Cervical myelopathy status post C3-4 ACDF Interval history: 65-year-old male with a history of left lower extremity weakness secondary to polio and prior CVA came to the ER with bilateral upper extremity weakness.Recommendation early on from neurology was to transfer the patient to outside hospital with bedside neurology due to complexity of the case. However neurosurgeon was able to evaluate the patient and determined that he had ce rvical impingement at the C3-4 level as seen on cervical MRI. Patient underwent a C3-4 ACDF on 10/04/2020. Patient recovered well without incident and we were consulted approximately 1 week ago to assess the patient for possibility of acute inpatient rehabilitation stay. After our initial consult, we determined that the patient would be a good candidate for acute inpatient rehab if insurance would approve him. We did finally receive insurance approval and have now transferred him over to the acute rehab side. Vital signs and labs have been fairly stable since our initial consult on 10/11. Patient continue to work with therapy in order to improve his ability to increase function. Patient did not have any further procedures or imaging done prior to being transferred. Brain MRI performed on 09/25/2020 showed chronic encephalomalacia in the anterior left temporal lobe but no acute changes. 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 Nuclear stress test was negative for ischemia. Since initial evaluation of the patient for rehab, speech therapy has discharged the patient and he no longer has speech therapy needs. Interval History: Patient is participating in therapy and making reasonable progress. Taking rest breaks as needed. +BM. Denies pain, palpitations, dyspnea, cough, N/V, or joint pain. Discussed with the patient that at some point we may need to disch arge him at the wheelchair level if he does not have any functional return in the left lower extremity to enable him to utilize it for ambulation and then as time goes on he does regain functional use of the left lower extremity we can consider converting him either to an outpatient setting or back for a short stay in the IRU for gait training. We will continue to monitor his progress and functional gains and make a decision over the coming days. Cervical impingement at C3/4 with myelopathy: Continue to monitor surgical wound site for healing. Continue therapy to improve ability to ambulate and provide self-care. Monitor for any worsening symptoms of weakness or neurologic changes. Hypertension: Fairly well controlled on current medications. Goal blood pressure less than 140/90. Diabetes: Fairly well controlled on carb controlled diet and current regimen. Glucose levels have been below 150 for the most part so far. Continue medications and adjust for euglycemia ADL dysfunction: Improving as strength improves, will need to work on safety awareness, ADLs from the standing level if possible and fine motor control. Mobility dysfunction: Continue to work to improve balance, gait and mobility. Currently has functional left foot drop and may end up needing AFO prior to discharge. We will continue to monitor and see how he improves over the next few weeks. Left foot drop: Continue to work to improve strengthening and mobility. AFO as needed. Will assess as we get closer to a discharge date as to whether or not the patient will need to go home with an AFO or if he is able to regain enough strength to not need it. Still having difficulty with walking from a standpoint of advancing the left lower extremity. All records, vitals, labs and medications were reviewed. No other issues per patient, nursing or therapy. Objective - Exam Narrative Exam: MUSCULOSKELETAL SPECIALTY EXAM CONSTITUTIONAL: Well developed, well nourished, appropriately groomed RESPIRATORY: Clear to auscultation bilaterally, no increased work of breathing CARDIOVASCULAR: Regular Rate/ Rhythm, no swelling, edema or tenderness in BUE or BLE. All extremities warm. GI: + bowel sounds, soft, NTTP, nondistended. INTEGUMENTARY: Normal, no lesion, rash, masses or bruising noted in extremities. Surgical wound clean dry and intact on anterior neck MUSCULOSKELETAL: BUE and BLE normal without defect, crepitus, subluxation, effusion, arthritic changes or TTP. BUE 4/5, decreased ROM, with normal tone strength in the upper extremities has improved since prior exam LLE 2/5 decreased ROM, with normal tone, RLE 3/5 with decreased range of motion and normal tone NEURO: CN 2-12 grossly intact. Sensation intact in all extremities. No clonus at ankles. Coordination impaired but improved in BUE. No tremor noted in 4 extremities. POSTURE and GAIT: Sitting posture good but dynamic sitting is weak. Balance and gait deferred until seen with therapy. PSYCH: Alert, oriented x3, affect appears normal. Insight appears intact. - Constitutional Vitals: Vital Signs - 12hr 0710/20/20 10/20/20 05:03 07:30 12:45 Temperature 98.2 F 98 F 98.1 F Pulse Rate 80 78 95 H Respiratory 18 18 20 Rate Blood Pressure 115/68 Blood Pressure 118/75 107/68 [Left] O2 Sat by Pulse 98 99 99 Oximetry - Allied health notes Allied health notes reviewed: nursing, PT, OT FIMS assessment as documented by PT/OT/ST: Grooming Patient cleans teeth/dentures: No: teeth/dentures present Patient [place]/brushes hair: Yes Patient washes, rinses and Yes dries face: Patient washes, rinses and Yes dries hands: Patient shaves: No Patient performs (no make-up/ 07/09 (100%) shaving): Grooming FIM Score 5. Supervision ([place] applies toothpaste or opens containers.) Social interaction/Memory/Problem solving Social Interaction FIM Score 5. Supervision (Needs supv. <10%. Needs encouragement to participate.) Memory FIM Score 3. Moderate Assistance (Recognizes and remembers 50-74%.) Problem Solving FIM Score 5. Supervision (Needs cueing <10% to solve routine problems.) Transfers Patient transferred to: Shower Shower Transfers FIM Score 3. Moderate Assistance (Patient = 50% or more. Some lifting.) Locomotion- walk/wheelchair Most Frequent Mode of Wheelchair Locomotion: Ambulation Distance 6 Eating Eating Device Adapted Utensil Eating FIM Score 4. Minimal Assistance (Patient = 75% or more) Dressing-Upper body Patient retrieves clothing No items: Patient applies/removes UE n/a prosthesis or orthosis: Upper Body Dressing FIM Score 4. Minimal Assistance (Patient = 75% or more. Needs touching.) Dressing-lower body Patient retrieves clothing Yes items: Patient applies/removes LE n/a prosthesis or orthosis: Lower Body Dressing FIM Score 2. Maximal Assistance (Patient = 25% or more) - Labs CBC & Chem 7: 10/18/20 04:27 10/18/20 04:27 Labs: Laboratory Results - last 72 hr 10/18/20 10/18/20 10/18/20 04:27 04:27 07:22 WBC 6.0 RBC 4.41 Hgb 13.1 Hct 38.1 MCV 86 MCH 30 MCHC 34 RDW 13.6 Plt Count 226 Lymph % (Auto) 19.8 [place] % (Auto) 11.4 H Eos % (Auto) 2.9 Baso % (Auto) 0.4 Lymph # (Auto) 1.2 [place] # (Auto) 0.7 Eos # (Auto) 0.2 Baso # (Auto) 0.0 Seg Neutrophils % 65.5 Seg Neutrophils # 4.0 Sodium 131 L Potassium 4.4 Chloride 95.4 L Carbon Dioxide 26 Anion Gap 14 BUN 14 Creatinine 0.6 L Estimated GFR > 60 BUN/Creatinine Ratio 23 Glucose 114 H POC Glucose 117 H Calcium 8.7 Total Bilirubin 0.40 AST 21 ALT 21 Alkaline Phosphatase 103 Total Protein 6.6 Albumin 3.2 L Albumin/Globulin Ratio 0.9 10/18/20 10/18/20 10/18/20 12:19 16:29 20:24 WBC RBC Hgb Hct MCV MCH MCHC RDW Plt Count Lymph % (Auto) [place] % (Auto) Eos % (Auto) Baso % (Auto) Lymph # (Auto) [place] # (Auto) Eos # (Auto) Baso # (Auto) Seg Neutrophils % Seg Neutrophils # Sodium Potassium Chloride Carbon Dioxide Anion Gap BUN Creatinine Estimated GFR BUN/Creatinine Ratio Glucose POC Glucose 129 H 161 H 127 H Calcium Total Bilirubin AST ALT Alkaline Phosphatase Total Protein Albumin Albumin/Globulin Ratio 10/19/20 10/19/20 10/19/20 07:33 12:02 16:30 WBC RBC Hgb Hct MCV MCH MCHC RDW Plt Count Lymph % (Auto) [place] % (Auto) Eos % (Auto) Baso % (Auto) Lymph # (Auto) [place] # (Auto) Eos # (Auto) Baso # (Auto) Seg Neutrophils % Seg Neutrophils # Sodium Potassium Chloride Carbon Dioxide Anion Gap BUN Creatinine Estimated GFR BUN/Creatinine Ratio Glucose POC Glucose 107 H 123 H 210 H Calcium Total Bilirubin AST ALT Alkaline Phosphatase Total Protein Albumin Albumin/Globulin Ratio 10/19/20 10/20/20 10/20/20 20:57 07:41 12:39 WBC RBC Hgb Hct MCV MCH MCHC RDW Plt Count Lymph % (Auto) [place] % (Auto) Eos % (Auto) Baso % (Auto) Lymph # (Auto) [place] # (Auto) Eos # (Auto) Baso # (Auto) Seg Neutrophils % Seg Neutrophils # Sodium Potassium Chloride Carbon Dioxide Anion Gap BUN Creatinine Estimated GFR BUN/Creatinine Ratio Glucose POC Glucose 154 H 79 57 L Calcium Total Bilirubin AST ALT Alkaline Phosphatase Total Protein Albumin Albumin/Globulin Ratio Assessment and Plan Cervical impingement at C3/4 with myelopathy: Status post ACDF. Cervical collar on when out of bed. Further surgical management per neurosurgery. 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 Lower extremities are affected more so than upper extremities at this point, left lower extremity is still not returning enough for functional use. Hypertension: Continue medication. Monitor blood pressure. Adjust medications as needed for normotension. Hold for hypotension. Goal SBP <140. Diabetes: Continue carb controlled diet, medications as needed along with sliding scale. Adjust medications as necessary in order to maintain euglycemia. Left foot drop: Continue to utilize AFO with therapy and monitor for improvement with strengthening and control over the left foot. We will continue to assess as we move forward for the need to discharge patient with an AFO and consult orthotics if we see that he will need the AFO going home. ADL dysfunction: OT will work on improving ability to perform ADLs (including assistive devices) to increase independence and decrease caregiver burden and im prove functional transfers and mobility training. Difficulty walking: PT will work on gait training and proper use of assistive devices and advance as appropriate to use of stairs and outside ambulation on uneven surfaces. Unsteadiness on feet: PT will work on improving static and dynamic sitting and standing balance as well as proper use of assistive devices to decrease risk of falls. Abnormality of gait: PT will work to improve safety and efficiency of gait through neuromotor training and gait training along with instruction on proper use of assistive devices. Muscle weakness: PT & OT will work on strengthening exercises to improve functional strength including mixture of closed and open kinetic chain exercises. Debility: PT & OT will work on improving overall functional status to improve participation with ADLs, mobility and social involvement. Fatigue: PT & OT will work on improving endurance through aerobic exercises and therapeutic activity while monitoring patients tolerance for activity and vital signs as needed. DVT ppx: Lovenox Pain: Continue physical modalities in therapy and pain medications as needed to achieve functional pain control. Sleep: Monitor and address as needed. Bowel: Monitor and address as needed. Appetite: Monitor and address as needed. Discharge planning: Pending therapy progress and care plan meeting. Will continue discussion with therapy team, SW, patient and family. Depending on the patient's level of recovery by the time that we approach discharge, he may be a reasonable candidate for a period of continued home health therapy followed by a return to either IRU or outpatient rehab once he gains more left lower extremity function. Restrictions/ Precautions: Falls, cervical collar when out of bed WB status: FWB Functional Hx: ADLs: Independent Cognition: Independent Mobility: No AD Barriers to Discharge: Decreased mobility and ability to perform self care, balance deficits, weakness. Patient may need to go home at the wheelchair level based on his level of recovery and safety while performing ADLs. We will continue to monitor and assess as we move forward Estimated Length of Stay: 1418 days Discharge Destination: Home with family
--- NOTE | 2020-10-20 20:42 | IRU Plan of Care ---
Interdisciplinary Plan of Care - [facility] IRU INTERDISCIPLINARY PLAN: [facility] Inpatient Rehab Unit Plan of Care IRU Interdisciplinary Care Plan Start: 10/17/20 15:10 Freq: Admission then PRN Status: Active Protocol: Document 10/20/20 19:41 TH (Rec: 10/20/20 19:48 TH [id number]) Interdisciplinary Problem List Interdisciplinary Problem List Interdisciplinary Problem List Impaired Bathing/Grooming, Query Text:Answers will Trigger Problems Impaired Dressing,Impaired and Outcomes on Worklist. Mobility,Impaired Transfers, Impaired Toileting,Impaired Comprehension,Impaired Problem Solving,Impaired Skin/Tissue Integrity,Discharge Concerns, Impaired Safety,Diabetes Education,Impaired Cardiovascular System IRU Interdisciplinary Care Plan Therapy Services Therapy Services Will Include: Physical Therapy,Occupational Query Text:Patient will be seen for a Therapy minimum of 3 hours of daily therapy 5 out of 7 days a week. Therapy intensity may be adjusted within a 7 consecutive day period to effectively serve the individual needs of the patient. Treatment Frequency/Intensity/Duration Treatment Frequency 5x per week Treatment Intensity 3 hours per day Treatment Duration 10-14 days Problem Area: Eating/Swallowing Eating/Swallowing Outcomes Feed Self Eating/Swallowing Interventions Use of Assistive Devices, Compensatory Strategies, Neuromuscular Re-Education,ADL Training,Patient/Caregiver Education Problem Area: Bathing/Grooming Bathing/Grooming Outcomes Improve [place] w/ Grooming,Improve [place] w/ Bathing Bathing/Grooming Interventions ADL Training,Use of Assistive Devices,Therapeutic Exercise, Therapeutic Activity, Neuromuscular Re-Education, Balance Work,Activity Tolerance Work,Patient/ Caregiver Education Problem Area: Dressing Dressing Outcomes Improve [place] w/ UB Dressing,Improve [place] w/ LB Dressing Dressing Interventions ADL Training,Use of Assistive Devices,Neuromuscular Re- Education,Therapeutic Exercise ,Balance Work,Modalities, Patient/Caregiver Education Problem Area: Mobility Mobility Outcomes Improve [place] w/ Bed Mobility,Improve [place] w/ Ambulation,Improve [place] w/ Stairs/Curb, Improve [place] w/ Wheelchair Mobility Interventions Therapeutic Exercise, Neuromuscular Re-Ed.,Activity Tolerance Work,Use of Assistive Devices,Patient/ Caregiver Education,Bed Mobility Work,Gait Training,W/ C Mobility Work Problem Area: Transfers Transfers Outcomes Improve [place] w/ Bed Transfers,Improve [place] w/ Toilet Transfers,Improve [place] w/ Tub/Shower Transfers,Improve [place] w/ Car Transfers Transfers Interventions Transfer Training,Therapeutic Exercise,Neuromuscular Re- Education,Visual/Perceptual Training,Activity Tolerance Work,Modalities,Use of Assistive Devices,Patient/ Caregiver Education Problem Area: Bowel/Bladder Managment Bowel/Bladder Outcomes Bowel/Bladder Interventions Problem Area: Toileting Toileting Outcomes Improve [place] w/ Toileting Toileting Interventions ADL Training,Balance Work,Use of Assistive Devices,Patient/ Caregiver Education Problem Area: Nutrition Nutrition Outcomes Nutrition Interventions Problem Area: Comprehension Comprehension Outcomes Comprehension Interventions Problem Area: Expression Expression Outcomes Expression Interventions Problem Area: Problem Solving Problem Solving Outcomes Problem Solving Interventions Problem Area: Memory Memory Outcomes Memory Interventions Problem Area: Pain Management Pain Management Outcomes Pain Management Interventions Problem Area: Knowledge Deficits Knowledge Deficits Outcomes Demonstrate Ability to Manage Blood Glucose,Verbalize Understanding of S/S of Stroke Knowledge Deficits Interventions Disease/Injury/Sx. Intervention Education,Disease Management Education Problem Area: Skin/Tissue Integrity Skin/Tissue Integrity Outcomes Skin/Tissue Integrity Interventions Problem Area: Social Interaction Social Interaction Outcomes Social Interaction Interventions Problem Area: Adjustment to Disability Adjustment to Disability Outcomes Adjustment to Disability Interventions Problem Area: Discharge Concerns Discharge Concerns Outcomes Discharge w/ Necessary Equipment,Have Home Health/ Outpatient Services Discharge Concerns Interventions Discharge Planning,Equipment Assessment, Acquisition and Placement,Family/Caregiver Training Problem Area: Community Reintegration Community Reintegration Outcomes Community Reintegration Interventions Problem Area: Home Management Home Management Outcomes Home Management Interventions Problem Area: Safety Safety Outcomes Provide Safe Environment, Perform Selfcare Safely, Demonstrate Good Safety w/ Transfers/Mobility Safety Interventions Identify Fall Risk,[place] Pt. to Environment,Reduce Environmental Hazards,Neuro Check Assessment,Implement Mechanical Devices, i.e. Chair Alarm (Post Fall Update),Re- Educate Patient/Caregiver for Safety (Post Fall Update) Problem Area: Medication Education Medication Education Outcomes Medication Education Interventions Problem Area: Diabetes Education Diabetes Education Outcomes Demonstrate Knowledge of Resources Availlable in Diabetic Ed. Folder Diabetes Education Interventions Give Pt. Diabetes Education Folder,Discuss Pathophysiology of Diabetes Problem Area: Oxygenation Oxygenation Outcomes Oxygenation Interventions Problem Area: Cardiovascular Cardiovascular Outcomes Maintain or Improve Cardiovascular Status Cardiovascular Interventions Assess Vital Signs at least Every 4 hours Physician Only Medical Prognosis and Rehabilitation Good rehab potential, good med ical prognosis Potential (Completed by Physician) This plan of care has been developed based on the findings from the pre- admission assessment, post admission physician evaluation, information gathered from the assessments from all therapy disciplines and other pertinent clinicians. The plan of care has been reviewed and discussed in collaboration with the interdisciplinary team. The plan of care will be reviewed and updated at least weekly.
[2020-10-21] MEDS: glipiZIDE 5 MG TAB PO SCH (08:16)
[2020-10-21] MEDS: FAMOTIDINE 20 MG TAB PO SCH ×2 (08:16→21:35)
[2020-10-21] MEDS: metFORMIN 500 MG TAB PO SCH ×2 (08:16→16:06)
[2020-10-21] MEDS: ENOXAPARIN 40 MG/0.4 ML INJ SUB-Q SCH (08:16)
[2020-10-21] MEDS: ASPIRIN EC 325 MG TAB PO SCH (08:16)
[2020-10-21] MEDS: LISINOPRIL 5 MG TAB PO SCH (08:17)
[2020-10-21] MEDS: INSULIN REGULAR, HUMAN 100 UNITS/1 ML SUB-Q SCH ×4 (08:17→21:37)
[2020-10-21] MEDS: INSULIN GLARGINE 100 UNITS/ML SUB-Q SCH ×2 (08:19→21:37)
[2020-10-22] MEDS: INSULIN REGULAR, HUMAN 100 UNITS/1 ML SUB-Q SCH ×4 (07:53→22:04)
[2020-10-22] MEDS: metFORMIN 500 MG TAB PO SCH ×2 (08:44→18:17)
[2020-10-22] MEDS: glipiZIDE 5 MG TAB PO SCH (08:44)
[2020-10-22] MEDS: ASPIRIN EC 325 MG TAB PO SCH (08:44)
[2020-10-22] MEDS: FAMOTIDINE 20 MG TAB PO SCH ×2 (08:44→22:03)
[2020-10-22] MEDS: ENOXAPARIN 40 MG/0.4 ML INJ SUB-Q SCH (08:44)
[2020-10-22] MEDS: INSULIN GLARGINE 100 UNITS/ML SUB-Q SCH ×2 (08:44→22:03)
[2020-10-22] MEDS: LISINOPRIL 5 MG TAB PO SCH (08:47)
[2020-10-22] MEDS: oxyCODONE /ACETAMINOPHEN 5-325MG TAB PO PRN (12:13)
[2020-10-23] MEDS: INSULIN REGULAR, HUMAN 100 UNITS/1 ML SUB-Q SCH ×4 (07:38→21:57)
[2020-10-23 08:16] LABS: Hematocrit 37.5 % (35.5-45.6); Mean Corpuscular HGB Conc 32 % (32-34); Mean Corpuscular Volume 87 fl (84-94); Platelet Count 287 K/mm3 (140-440); Red Blood Count 4.32 M/mm3 (3.65-5.03); Red Cell Distribution Width 14.1 % (13.2-15.2)
[2020-10-23] MEDS: INSULIN GLARGINE 100 UNITS/ML SUB-Q SCH ×2 (08:20→21:56)
[2020-10-23] MEDS: ENOXAPARIN 40 MG/0.4 ML INJ SUB-Q SCH (08:21)
[2020-10-23] MEDS: LISINOPRIL 5 MG TAB PO SCH (08:21)
[2020-10-23] MEDS: FAMOTIDINE 20 MG TAB PO SCH ×2 (08:21→21:56)
[2020-10-23] MEDS: ASPIRIN EC 325 MG TAB PO SCH (08:21)
[2020-10-23] MEDS: metFORMIN 500 MG TAB PO SCH ×3 (08:21→21:56)
[2020-10-23] MEDS: glipiZIDE 5 MG TAB PO SCH (08:21)
[2020-10-23 08:28] LABS: Blood Urea Nitrogen 8 mg/dL (9-20); Calcium 9.2 mg/dL (8.4-10.2); Hemolysis Index 3
[2020-10-23 08:46] LABS: BUN/Creatinine Ratio 16
--- NOTE | 2020-10-23 09:35 | Progress Note ---
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 However neurosurgeon was able to evaluate the patient and determined that he had ce rvical impingement at the C3-4 level as seen on cervical MRI. Patient underwent a C3-4 ACDF on 10/04/2020. Patient recovered well without incident and we were consulted approximately 1 week ago to assess the patient for possibility of acute inpatient rehabilitation stay. After our initial consult, we determined that the patient would be a good candidate for acute inpatient rehab if insurance would approve him. We did finally receive insurance approval and have now transferred him over to the acute rehab side. Vital signs and labs have been fairly stable since our initial consult on 10/11. Patient continue to work with therapy in order to improve his ability to increase function. Patient did not have any further procedures or imaging done prior to being transferred. Brain MRI performed on 09/25/2020 showed chronic encephalomalacia in the anterior left temporal lobe but no acute changes. 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 Nuclear stress test was negative for ischemia. Since initial evaluation of the patient for rehab, speech therapy has discharged the patient and he no longer has speech therapy needs. Interval History: Patient is participating in therapy and making reasonable progress. Taking rest breaks as needed. +BM. Denies pain, palpitations, dyspnea, cough, N/V, or joint pain. Discussed with the patient that at some point we may need to disch arge him at the wheelchair level if he does not have any functional return in the left lower extremity. Cervical impingement at C3/4 with myelopathy: Continue to monitor surgical wound site for healing. Continue therapy to improve ability to ambulate and provide self-care. Monitor for any worsening symptoms of weakness or neurologic changes. Left lower extremity still very weak Hypertension: Fairly well controlled on current medications. Goal blood pressure less than 140/90. Diabetes: Fairly well controlled on carb controlled diet and current regimen. Glucose levels have been below 150 for the most part so far. Continue medications and adjust for euglycemia ADL dysfunction: Improving as strength improves, will need to work on safety awareness, ADLs from the standing level if possible and fine motor control. Mobility dysfunction: Continue to work to improve balance, gait and mobility. Currently has functional left foot drop and may end up needing AFO prior to discharge. We will continue to monitor and see how he improves over the next few weeks. Left foot drop: Continue to work to improve strengthening and mobility. AFO as needed. Will assess as we get closer to a discharge date as to whether or not the patient will need to go home with an AFO or if he is able to regain enough strength to not need it. Still having difficulty with walking from a standpoint of advancing the left lower extremity. All records, vitals, labs and medications were reviewed. No other issues per patient, nursing or therapy. Objective - Exam Narrative Exam: MUSCULOSKELETAL SPECIALTY EXAM CONSTITUTIONAL: Well developed, well nourished, appropriately groomed RESPIRATORY: Clear to auscultation bilaterally, no increased work of breathing CARDIOVASCULAR: Regular Rate/ Rhythm, no swelling, edema or tenderness in BUE or BLE. All extremities warm. GI: + bowel sounds, soft, NTTP, nondistended. INTEGUMENTARY: Normal, no lesion, rash, masses or bruising noted in extremities. Surgical wound clean dry and intact on anterior neck MUSCULOSKELETAL: BUE and BLE normal without defect, crepitus, subluxation, effusion, arthritic changes or TTP. BUE 4/5, decreased ROM, with normal tone strength in the upper extremities has improved since prior exam LLE 2/5 decreased ROM, with normal tone, RLE 3/5 with decreased range of motion and normal tone NEURO: CN 2-12 grossly intact. Sensation intact in all extremities. No clonus at ankles. Coordination impaired but improved in BUE. No tremor noted in 4 extremit ies. POSTURE and GAIT: Sitting posture good but dynamic sitting is weak. PSYCH: Alert, oriented x3, affect appears normal. Insight appears intact. - Constitutional Vitals: Vital Signs - 12hr 10/23/ 07:34 Temperature 98.1 F Respiratory 18 Rate Blood Pressure 130/73 - Allied health notes Allied health notes reviewed: nursing, PT, OT FIMS assessment as documented by PT/OT/ST: Grooming Patient cleans teeth/dentures: No: teeth/dentures present Patient [place]/brushes hair: Yes Patient washes, rinses and Yes dries face: Patient washes, rinses and Yes dries hands: Patient shaves: No Patient performs (no make-up/ 07/09 (100%) shaving): Grooming FIM Score 5. Supervision ([place] applies toothpaste or opens containers.) Toileting Toileting Device Commode over Toilet Patient able to: Clean self Patient able to perform: 1/3 (33%) Toileting FIM Score 2. Maximal Assistance (Patient = 25% or more) Social interaction/Memory/Problem solving Social Interaction FIM Score 5. Supervision (Needs supv. <10%. Needs encouragement to participate.) Memory FIM Score 3. Moderate Assistance (Recognizes and remembers 50-74%.) Problem Solving FIM Score 5. Supervision (Needs cueing <10% to solve routine problems.) Transfers Mode of Locomotion: Wheelchair Bed/Chair/Wheelchair Transfers 3. Moderate Assistance (Patient = 50% or more. FIM Score Some lifting.) Patient transferred to: Shower Shower Transfers FIM Score 3. Moderate Assistance (Patient = 50% or more. Some lifting.) Locomotion- walk/wheelchair Most Frequent Mode of Wheelchair Locomotion: Ambulation Distance 6 Eating Eating Device Adapted Utensil Eating FIM Score 4. Minimal Assistance (Patient = 75% or more) Dressing-Upper body Patient retrieves clothing No items: Patient applies/removes UE n/a prosthesis or orthosis: Upper Body Dressing FIM Score 4. Minimal Assistance (Patient = 75% or more. Needs touching.) Dressing-lower body Patient retrieves clothing No items: Patient applies/removes LE Yes: seated lateral weight shifting to doff/don prosthesis or orthosis: Lower Body Dressing FIM Score 3. Moderate Assistance (Patient = 50% or more) - Labs CBC & Chem 7: 10/23/20 07:41 10/23/20 07:41 Labs: Laboratory Results - last 72 hr 10/20/20 10/20/20 10/20/20 12:39 16:13 20:15 WBC RBC Hgb Hct MCV MCH MCHC RDW Plt Count Sodium Potassium Chloride Carbon Dioxide Anion Gap BUN Creatinine Estimated GFR BUN/Creatinine Ratio Glucose POC Glucose 57 L 60 L 116 H Calcium 10/21/20 10/21/20 10/21/20 07:13 11:29 16:15 WBC RBC Hgb Hct MCV MCH MCHC RDW Plt Count Sodium Potassium Chloride Carbon Dioxide Anion Gap BUN Creatinine Estimated GFR BUN/Creatinine Ratio Glucose POC Glucose 140 H 162 H 119 H Calcium 10/21/20 10/22/20 10/22/20 21:27 07:11 11:17 WBC RBC Hgb Hct MCV MCH MCHC RDW Plt Count Sodium Potassium Chloride Carbon Dioxide Anion Gap BUN Creatinine Estimated GFR BUN/Creatinine Ratio Glucose POC Glucose 109 H 117 H 169 H Calcium 10/22/20 10/22/20 10/23/20 16:19 21:19 07:32 WBC RBC Hgb Hct MCV MCH MCHC RDW Plt Count Sodium Potassium Chloride Carbon Dioxide Anion Gap BUN Creatinine Estimated GFR BUN/Creatinine Ratio Glucose POC Glucose 115 H 135 H 114 H Calcium 10/23/20 10/23/20 07:41 07:41 WBC 3.6 L RBC 4.32 Hgb 12.0 Hct 37.5 MCV 87 MCH 28 MCHC 32 RDW 14.1 Plt Count 287 Sodium 132 L Potassium 4.3 Chloride 95.7 L Carbon Dioxide 30 Anion Gap 11 BUN 8 L Creatinine 0.5 L Estimated GFR > 60 BUN/Creatinine Ratio 16 Glucose 121 H POC Glucose Calcium 9.2 Assessment and Plan Cervical impingement at C3/4 with myelopathy: Status post ACDF. Cervical collar on when out of bed. Further surgical management per neurosurgery. Furnace L[place] remains weak with decreased range of motion and strength in all 4 limbs but he has improved. Lower extremities are affected more so than upper extremities at this point, left lower extremity is still not returning enough for functional use. Hypertension: Continue medication. Monitor blood pressure. Adjust medications as needed for normotension. Hold for hypotension. Goal SBP <140. Diabetes: Continue carb controlled diet, medications as needed along with sliding scale. Adjust medications as necessary in order to maintain euglycemia. Left foot drop: Continue to utilize AFO with therapy and monitor for improvement with strengthening and control over the left foot. We will continue to assess as we move forward for the need to discharge patient with an AFO and consult orthotics if we see that he will need the AFO going home. ADL dysfunction: OT will work on improving ability to perform ADLs (including assistive devices) to increase independence and decrease caregiver burden and improve functional transfers and mobility training. Difficulty walking: PT will work on gait training and proper use of assistive devices and advance as appropriate to use of stairs and outside ambulation on uneven surfaces. Unsteadiness on feet: PT will work on improving static and dynamic sitting and standing balance as well as proper use of assistive devices to decrease risk of falls. Abnormality of gait: PT will work to improve safety and efficiency of gait through neuromotor training and gait training along with instruction on proper use of assistive devices. Muscle weakness: PT & OT will work on strengthening exercises to improve functional strength including mixture of closed and open kinetic chain exercises. Debility: PT & OT will work on improving overall functional status to improve participation with ADLs, mobility and social involvement. Fatigue: PT & OT will work on improving endurance through aerobic exercises and therapeutic activity while monitoring patients tolerance for activity and vital signs as needed. DVT ppx: Lovenox Pain: Continue physical modalities in therapy and pain medications as needed to achieve functional pain control. Sleep: Monitor and address as needed. Bowel: Monitor and address as needed. Appetite: Monitor and address as needed. Discharge planning: Pending therapy progress and care plan meeting. Will continue discussion with therapy team, SW, patient and family. Depending on the patient's level of recovery by the time that we approach discharge, he may be a reasonable candidate for a period of continued home health therapy followed by a return to either IRU or outpatient rehab once he gains more left lower extremity function. Restrictions/ Precautions: Falls, cervical collar when out of bed WB status: FWB Functional Hx: ADLs: Independent Cognition: Independent Mobility: No AD Barriers to Discharge: Decreased mobility and ability to perform self care, balance deficits, weakness. Patient may need to go home at the wheelchair level based on his level of recovery and safety while performing ADLs. We will c joan to monitor and assess as we move forward Estimated Length of Stay: 1418 days Discharge Destination: Home with family
[2020-10-23] MEDS: oxyCODONE /ACETAMINOPHEN 5-325MG TAB PO PRN (19:48)
[2020-10-24] MEDS: INSULIN GLARGINE 100 UNITS/ML SUB-Q SCH ×2 (09:28→21:22)
[2020-10-24] MEDS: FAMOTIDINE 20 MG TAB PO SCH ×2 (09:28→21:19)
[2020-10-24] MEDS: metFORMIN 500 MG TAB PO SCH ×2 (09:28→16:43)
[2020-10-24] MEDS: ASPIRIN EC 325 MG TAB PO SCH (09:28)
[2020-10-24] MEDS: ENOXAPARIN 40 MG/0.4 ML INJ SUB-Q SCH (09:28)
[2020-10-24] MEDS: glipiZIDE 5 MG TAB PO SCH (09:29)
[2020-10-24] MEDS: LISINOPRIL 5 MG TAB PO SCH (09:29)
--- NOTE | 2020-10-24 10:31 | Progress Note ---
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 However neurosurgeon was able to evaluate the patient and determined that he had ce rvical impingement at the C3-4 level as seen on cervical MRI. Patient underwent a C3-4 ACDF on 10/04/2020. Patient recovered well without incident and we were consulted approximately 1 week ago to assess the patient for possibility of acute inpatient rehabilitation stay. After our initial consult, we determined that the patient would be a good candidate for acute inpatient rehab if insurance would approve him. We did finally receive insurance approval and have now transferred him over to the acute rehab side. Vital signs and labs have been fairly stable since our initial consult on 10/11. Patient continue to work with therapy in order to improve his ability to increase function. Patient did not have any further procedures or imaging done prior to being transferred. Brain MRI performed on 09/25/2020 showed chronic encephalomalacia in the anterior left temporal lobe but no acute changes. 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 Nuclear stress test was negative for ischemia. Since initial evaluation of the patient for rehab, speech therapy has discharged the patient and he no longer has speech therapy needs. Interval History: Patient is participating in therapy and making reasonable progress. Taking rest breaks as needed. +BM. Denies pain, palpitations, dyspnea, cough, N/V, or joint pain. Discussed with the patient that at some point we may need to disch arge him at the wheelchair level if he does not have any functional return in the left lower extremity. Patient did express that he is currently experiencing a cough with increased mucus production, does state that he has had a cough on and off since he stopped smoking in 2018. Cervical impingement at C3/4 with myelopathy: Continue to monitor surgical wound site for healing. Continue therapy to improve ability to ambulate and provide self-care. Monitor for any worsening symptoms of weakness or neurologic changes. Left lower extremity still very weak Cough with phlegm production: Chest x-ray and possible nebulizer treatments. Patient has been afebrile and O2 sats have been within normal limits. Rule out atelectasis versus pneumonia Hypertension: Fairly well controlled on current medications. Goal blood pressure less than 140/90. Diabetes: Fairly well controlled on carb controlled diet and current regimen. Glucose levels have been below 150 for the most part so far. Continue medications and adjust for euglycemia ADL dysfunction: Improving as strength improves, will need to work on safety awareness, ADLs from the standing level if possible and fine motor control. Mobility dysfunction: Continue to work to improve balance, gait and mobility. Currently has functional left foot drop and may end up needing AFO prior to discharge. We will continue to monitor and see how he improves over the next few weeks. Left foot drop: Continue to work to improve strengthening and mobility. AFO as needed. Will assess as we get closer to a discharge date as to whether or not the patient will need to go home with an AFO or if he is able to regain enough strength to not need it. Still having difficulty with walking from a standpoint of advancing the left lower extremity. All records, vitals, labs and medications were reviewed. No other issues per patient, nursing or therapy. Patient discussed during team conference this morning. We will look to discharge on 11/01/20. He is making slow progress with the lower extremities and as I have discussed with him in the past this may be pretty slow to return. Currently max assist to walk less than 10 feet with a rolling walker. ADL velarde he is doing fairly reasonable given his limitations. Will need to discharge patient with a high-back wheelchair, sliding board, removable armrests, leg rest, 3 and 1. Will bring the family in for family training starting this week or possibly next week. At this point, when he discharges home he will be more appropriate for home health therapy until he starts getting more function back in the lower extremities. Objective - Exam Narrative Exam: MUSCULOSKELETAL SPECIALTY EXAM CONSTITUTIONAL: Well developed, well nourished, appropriately groomed RESPIRATORY: Clear to auscultation bilaterally, no increased work of breathing CARDIOVASCULAR: Regular Rate/ Rhythm, no swelling, edema or tenderness in BUE or BLE. All extremities warm. GI: + bowel sounds, soft, NTTP, nondistended. INTEGUMENTARY: Normal, no lesion, rash, masses or bruising noted in extremities. Surgical wound clean dry and intact on anterior neck MUSCULOSKELETAL: BUE and BLE normal without defect, crepitus, subluxation, effusion, arthritic changes or TTP. BUE 4/5, decreased ROM, with normal tone strength in the upper extremities has improved since prior exam LLE 2/5 decreased ROM, with normal tone, RLE 3/5 with decreased range of motion and normal tone NEURO: CN 2-12 grossly intact. Sensation intact in all extremities. Coordination impaired but improved in BUE. No tremor noted in 4 extremities. POSTURE and GAIT: Sitting posture good but dynamic sitting is weak. Standing is weak PSYCH: Alert, oriented x3, affect appears normal. Insight appears intact. - Constitutional Vitals: Vital Signs - 12hr 10/24/20 10/24/20 10/24/20 06:03 07:32 09:29 Temperature 98.6 F 97.8 F Pulse Rate 81 82 82 Respiratory 18 16 Rate Blood Pressure 123/69 123/69 Blood Pressure 130/76 [Left] O2 Sat by Pulse 96 98 Oximetry - Allied health notes Allied health notes reviewed: nursing, PT, OT FIMS assessment as documented by PT/OT/ST: Grooming Patient cleans teeth/dentures: Yes Patient [place]/brushes hair: Yes Patient washes, rinses and Yes dries face: Patient washes, rinses and Yes dries hands: Patient shaves: No Patient performs (no make-up/ 07/09 (100%) shaving): Grooming FIM Score 5. Supervision ([place] applies toothpaste or opens containers.) Toileting Toileting Device Commode over Toilet Patient able to: Clean self Patient able to perform: 1/3 (33%) Toileting FIM Score 2. Maximal Assistance (Patient = 25% or more) Social interaction/Memory/Problem solving Social Interaction FIM Score 5. Supervision (Needs supv. <10%. Needs encouragement to participate.) Memory FIM Score 5. Supervision (Needs cueing <10%, stressful/ unfamiliar situations.) Problem Solving FIM Score 5. Supervision (Needs cueing <10% to solve routine problems.) Transfers Mode of Locomotion: Wheelchair Bed/Chair/Wheelchair Transfers 2. Maximal Assistance (Patient = 25% or more) FIM Score Patient transferred to: Shower Shower Transfers FIM Score 3. Moderate Assistance (Patient = 50% or more. Some lifting.) Locomotion- walk/wheelchair Most Frequent Mode of Wheelchair Locomotion: Ambulation Distance 6 Eating Eating Device Adapted Utensil Eating FIM Score 5. Supervision/Set-Up (Needs help w/ containers, cutting meat, etc.) Dressing-Upper body Patient retrieves clothing No items: Patient applies/removes UE n/a prosthesis or orthosis: Upper Body Dressing FIM Score 2. Maximal Assistance (Patient = 25% or more) Dressing-lower body Patient retrieves clothing No items: Patient applies/removes LE Yes: seated lateral weight shifting to doff/don prosthesis or orthosis: Lower Body Dressing FIM Score 2. Maximal Assistance (Patient = 25% or more) - Labs CBC & Chem 7: 10/23/20 07:41 10/23/20 07:41 Labs: Laboratory Results - last 72 hr 10/21/20 10/21/20 10/21/20 11:29 16:15 21:27 WBC RBC Hgb Hct MCV MCH MCHC RDW Plt Count Sodium Potassium Chloride Carbon Dioxide Anion Gap BUN Creatinine Estimated GFR BUN/Creatinine Ratio Glucose POC Glucose 162 H 119 H 109 H Calcium 10/22/20 10/22/20 10/22/20 07:11 11:17 16:19 WBC RBC Hgb Hct MCV MCH MCHC RDW Plt Count Sodium Potassium Chloride Carbon Dioxide Anion Gap BUN Creatinine Estimated GFR BUN/Creatinine Ratio Glucose POC Glucose 117 H 169 H 115 H Calcium 10/22/20 10/23/20 10/23/20 21:19 07:32 07:41 WBC 3.6 L RBC 4.32 Hgb 12.0 Hct 37.5 MCV 87 MCH 28 MCHC 32 RDW 14.1 Plt Count 287 Sodium Potassium Chloride Carbon Dioxide Anion Gap BUN Creatinine Estimated GFR BUN/Creatinine Ratio Glucose POC Glucose 135 H 114 H Calcium 10/23/20 10/23/20 10/23/20 07:41 11:22 16:05 WBC RBC Hgb Hct MCV MCH MCHC RDW Plt Count Sodium 132 L Potassium 4.3 Chloride 95.7 L Carbon Dioxide 30 Anion Gap 11 BUN 8 L Creatinine 0.5 L Estimated GFR > 60 BUN/Creatinine Ratio 16 Glucose 121 H POC Glucose 94 82 Calcium 9.2 10/23/20 10/24/20 20:44 07:33 WBC RBC Hgb Hct MCV MCH MCHC RDW Plt Count Sodium Potassium Chloride Carbon Dioxide Anion Gap BUN Creatinine Estimated GFR BUN/Creatinine Ratio Glucose POC Glucose 150 H 142 H Calcium Assessment and Plan Cervical impingement at C3/4 with myelopathy: Status post ACDF. Cervical collar on when out of bed. Further surgical management per neurosurgery. Damper Maker remains weak with decreased range of motion and strength in all 4 limbs but he has improved. Lower extremities are affected more so than upper extremities at this point, left lower extremity is still not returning enough for functional use. Hypertension: Continue medication. Monitor blood pressure. Adjust medications as needed for normotension. Hold for hypotension. Goal SBP <140. Cough: Chest x-ray ordered to rule out atelectasis versus pneumonia. Symptomatic treatment otherwise. Escalate to antibiotics if warranted Diabetes: Continue carb controlled diet, medications as needed along with sliding scale. Adjust medications as necessary in order to maintain euglycemia. Left foot drop: Continue to utilize AFO with therapy and monitor for improvement with strengthening and control over the left foot. We will continue to assess as we move forward for the need to discharge patient with an AFO and consult orthotics if we see that he will need the AFO going home. ADL dysfunction: OT will work on improving ability to perform ADLs (including assistive devices) to increase independence and decrease caregiver burden and improve functional transfers and mobility training. Difficulty walking: PT will work on gait training and proper use of assistive devices and advance as appropriate to use of stairs and outside ambulation on uneven surfaces. Unsteadiness on feet: PT will work on improving static and dynamic sitting and standing balance as well as proper use of assistive devices to decrease risk of falls. Abnormality of gait: PT will work to improve safety and efficiency of gait through neuromotor training and gait training along with instruction on proper use of assistive devices. Muscle weakness: PT & OT will work on strengthening exercises to improve functional strength including mixture of closed and open kinetic chain exercises. Debility: PT & OT will work on improving overall functional status to improve participation with ADLs, mobility and social involvement. Fatigue: PT & OT will work on improving endurance through aerobic exercises and therapeutic activity while monitoring patients tolerance for activity and vital signs as needed. DVT ppx: Lovenox Pain: Continue physical modalities in therapy and pain medications as needed to achieve functional pain control. Sleep: Monitor and address as needed. Bowel: Monitor and address as needed. Appetite: Monitor and address as needed. Discharge planning: Pending therapy progress and care plan meeting. Will con tinue discussion with therapy team, SW, patient and family. Depending on the patient's level of recovery by the time that we approach discharge, he may be a reasonable candidate for a period of continued home health therapy followed by a return to either IRU or outpatient rehab once he gains more left lower extremity function. Restrictions/ Precautions: Falls, cervical collar when out of bed WB status: FWB Functional Hx: ADLs: Independent Cognition: Independent Mobility: No AD Barriers to Discharge: Decreased mobility and ability to perform self care, balance deficits, weakness. Patient may need to go home at the wheelchair level based on his level of recovery and safety while performing ADLs. We will continue to monitor and assess as we move forward Estimated Length of Stay: 1418 days Discharge Destination: Home with family Patient has suffered a cervical impingement due to's myelopathy with significant weakness in the bilateral lower extremities is unable to ambulate safely. Currently he is only ambulating approximately 6 feet with maximum assistance utilizing a rolling walker but is unable to perform any mobility related ADLs. He also has poor trunk control due to the myelopathy and has difficulty maintaining a seated posture for prolonged period. These mobility limitations significantly impairs ability precipitate and MR ADLs. Mobility limitation cannot be sufficiently resolved with the use of an appropriate fitted walker or cane as the patient cannot use those safely. His home provides adequate access for maneuvering of a manual wheelchair. Use the wheelchair with significantly improve the patient's ability participate in MR ADLs and he will use it on a regular basis at home. He has not expressed an unwillingness to use the wheelchair in the home. As he has demonstrated on the acute rehab unit he is able to self pro wheelchair. Wheelchair will need to have a high back, removable armrest, and leg rest along with a seat cushion. He will also need a 3 in 1 and a sliding board in order to be able to perform transfers to and from the wheelchair.
[2020-10-24] MEDS: INSULIN REGULAR, HUMAN 100 UNITS/1 ML SUB-Q SCH ×4 (10:44→21:22)
--- NOTE | 2020-10-24 15:39 | XRay Report ---
CHEST 2 VIEWS INDICATION / CLINICAL INFORMATION: cough. COMPARISON: None available. FINDINGS: SUPPORT DEVICES: None. HEART / MEDIASTINUM: Heart is within normal limits in terms of size. Median sternotomy changes with v alvular prosthesis is noted. LUNGS / PLEURA: No significant pulmonary or pleural abnormality. No pneumothorax. ADDITIONAL FINDINGS: No significant additional findings. IMPRESSION: 1. No acute findings. Signer Name: Santiago Samaniego MD Signed: 10/24/2020 3:35 PM Workstation Name: [id number]
--- NOTE | 2020-10-25 08:18 | Progress Note ---
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 However neurosurgeon was able to evaluate the patient and determined that he had ce rvical impingement at the C3-4 level as seen on cervical MRI. Patient underwent a C3-4 ACDF on 10/04/2020. Patient recovered well without incident and we were consulted approximately 1 week ago to assess the patient for possibility of acute inpatient rehabilitation stay. After our initial consult, we determined that the patient would be a good candidate for acute inpatient rehab if insurance would approve him. We did finally receive insurance approval and have now transferred him over to the acute rehab side. Vital signs and labs have been fairly stable since our initial consult on 10/11. Patient continue to work with therapy in order to improve his ability to increase function. Patient did not have any further procedures or imaging done prior to being transferred. Brain MRI performed on 09/25/2020 showed chronic encephalomalacia in the anterior left temporal lobe but no acute changes. 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 Nuclear stress test was negative for ischemia. Since initial evaluation of the patient for rehab, speech therapy has discharged the patient and he no longer has speech therapy needs. Interval History: Patient is participating in therapy and making reasonable progress. Taking rest breaks as needed. +BM. Denies pain, palpitations, dyspnea, cough, N/V, or joint pain. Discussed with the patient that at some point we may need to disch arge him at the wheelchair level if he does not have any functional return in the left lower extremity. New report of increased pain in the gluteal cleft from an apparent skin shear/breakdown, does not appear to be consistent with pressure wound. Cervical impingement at C3/4 with myelopathy: Continue to monitor surgical wound site for healing. Continue therapy to improve ability to ambulate and provide self-care. Monitor for any worsening symptoms of weakness or neurologic changes. Left lower extremity still very weak Cough with phlegm production: Chest x-ray reviewed and is negative for any acute issues. Cough seems to be improved this morning. Patient has been afebrile and O2 sats have been within normal limits. We will start as needed nebs for short period Skin breakdown in the gluteal cleft: Continue barrier cream and dressing. Since this is starting to cause the patient more discomfort, will consult wound nurse. Hypertension: Fairly well controlled on current medications. Goal blood pressure less than 140/90. Diabetes: Fairly well controlled on carb controlled diet and current regimen. Glucose levels have been below 150 for the most part so far. Continue medica tions and adjust for euglycemia ADL dysfunction: Improving as strength improves, will need to work on safety awareness, ADLs from the standing level if possible and fine motor control. Mobility dysfunction: Continue to work to improve balance, gait and mobility. Currently has functional left foot drop and may end up needing AFO prior to discharge. We will continue to monitor and see how he improves over the next few weeks. Left foot drop: Continue to work to improve strengthening and mobility. AFO as needed. Will assess as we get closer to a discharge date as to whether or not the patient will need to go home with an AFO or if he is able to regain enough strength to not need it. Still having difficulty with walking from a standpoint of advancing the left lower extremity. All records, vitals, labs and medications were reviewed. No other issues per patient, nursing or therapy. Objective - Exam Narrative Exam: MUSCULOSKELETAL SPECIALTY EXAM CONSTITUTIONAL: Well developed, well nourished, appropriately groomed RESPIRATORY: Clear to auscultation bilaterally, no increased work of breathing CARDIOVASCULAR: Regular Rate/ Rhythm, no swelling, edema or tenderness in BUE or BLE. All extremities warm. GI: + bowel sounds, soft, NTTP, nondistended. INTEGUMENTARY: Normal, no lesion, rash, masses or bruising noted in extremities. Surgical wound clean dry and intact on anterior neck. Gluteal cleft skin breakdown consistent with shear MUSCULOSKELETAL: BUE and BLE normal without defect, crepitus, subluxation, effusion, arthritic changes or TTP. BUE 4/5, decreased ROM, with normal tone strength in the upper extremities has improved since prior exam LLE 2/5 decreased ROM, with normal tone, RLE 3/5 with decreased range of motion and normal tone NEURO: CN 2-12 grossly intact. Sensation intact in all extremities. Coordination impaired but improved in BUE. No tremor noted in 4 extremities. POSTURE and GAIT: Sitting posture good but dynamic sitting is weak. Standing is weak PSYCH: Alert, oriented x3, affect appears normal. Insight appears intact. - Constitutional Vitals: Vital Signs - 12hr 10/25/20 10/25/20 10/25/20 05:53 06:04 07:06 Temperature 98.5 F 97.8 F 98.0 F Pulse Rate 92 H 63 81 Respiratory 18 16 16 Rate Blood Pressure 134/80 150/72 112/70 O2 Sat by Pulse 97 97 97 Oximetry - Allied health notes Allied health notes reviewed: nursing, PT, OT FIMS assessment as documented by PT/OT/ST: Grooming Patient cleans teeth/dentures: Yes Patient [place]/brushes hair: Yes Patient washes, rinses and Yes dries face: Patient washes, rinses and Yes dries hands: Patient shaves: No Patient performs (no make-up/ 07/09 (100%) shaving): Grooming FIM Score 5. Supervision ([place] applies toothpaste or opens containers.) Toileting Toileting Device Commode over Toilet Patient able to: Clean self Patient able to perform: 1/3 (33%) Toileting FIM Score 2. Maximal Assistance (Patient = 25% or more) Social interaction/Memory/Problem solving Social Interaction FIM Score 5. Supervision (Needs supv. <10%. Needs encouragement to participate.) Memory FIM Score 5. Supervision (Needs cueing <10%, stressful/ unfamiliar situations.) Problem Solving FIM Score 5. Supervision (Needs cueing <10% to solve routine problems.) Transfers Mode of Locomotion: Wheelchair Bed/Chair/Wheelchair Transfers 2. Maximal Assistance (Patient = 25% or more) FIM Score Patient transferred to: Shower Shower Transfers FIM Score 3. Moderate Assistance (Patient = 50% or more. Some lifting.) Locomotion- walk/wheelchair Most Frequent Mode of Wheelchair Locomotion: Ambulation Distance 6 Eating Eating Device Adapted Utensil Eating FIM Score 3. Moderate Assistance (Patient = 50% or more) Dressing-Upper body Patient retrieves clothing No items: Patient applies/removes UE n/a prosthesis or orthosis: Upper Body Dressing FIM Score 4. Minimal Assistance (Patient = 75% or more. Needs touching.) Dressing-lower body Patient retrieves clothing No items: Patient applies/removes LE Yes: seated lateral weight shifting to doff/don prosthesis or orthosis: Lower Body Dressing FIM Score 2. Maximal Assistance (Patient = 25% or more) - Labs CBC & Chem 7: 10/23/20 07:41 10/23/20 07:41 Labs: Laboratory Results - last 72 hr 10/22/20 10/22/20 10/22/20 11:17 16:19 21:19 WBC RBC Hgb Hct MCV MCH MCHC RDW Plt Count Sodium Potassium Chloride Carbon Dioxide Anion Gap BUN Creatinine Estimated GFR BUN/Creatinine Ratio Glucose POC Glucose 169 H 115 H 135 H Calcium 10/23/20 10/23/20 10/23/20 07:32 07:41 07:41 WBC 3.6 L RBC 4.32 Hgb 12.0 Hct 37.5 MCV 87 MCH 28 MCHC 32 RDW 14.1 Plt Count 287 Sodium 132 L Potassium 4.3 Chloride 95.7 L Carbon Dioxide 30 Anion Gap 11 BUN 8 L Creatinine 0.5 L Estimated GFR > 60 BUN/Creatinine Ratio 16 Glucose 121 H POC Glucose 114 H Calcium 9.2 10/23/20 10/23/20 10/23/20 11:22 16:05 20:44 WBC RBC Hgb Hct MCV MCH MCHC RDW Plt Count Sodium Potassium Chloride Carbon Dioxide Anion Gap BUN Creatinine Estimated GFR BUN/Creatinine Ratio Glucose POC Glucose 94 82 150 H Calcium 10/24/20 10/24/20 10/24/20 07:33 11:49 14:46 WBC RBC Hgb Hct MCV MCH MCHC RDW Plt Count Sodium Potassium Chloride Carbon Dioxide Anion Gap BUN Creatinine Estimated GFR BUN/Creatinine Ratio Glucose POC Glucose 142 H 108 H 63 L Calcium 10/24/20 10/24/20 10/25/20 16:41 20:43 07:04 WBC RBC Hgb Hct MCV MCH MCHC RDW Plt Count Sodium Potassium Chloride Carbon Dioxide Anion Gap BUN Creatinine Estimated GFR BUN/Creatinine Ratio Glucose POC Glucose 72 107 H 127 H Calcium - Imaging and cardiology Chest x-ray: report reviewed, image reviewed Assessment and Plan Cervical impingement at C3/4 with myelopathy: Status post ACDF. Cervical collar on when out of bed. Further surgical management per neurosurgery. 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 Lower extremities are affected more so than upper extremities at this point, left lower extremity is still not returning enough for functional use. Hypertension: Continue medication. Monitor blood pressure. Adjust medications as needed for normotension. Hold for hypotension. Goal SBP <140. Cough: Chest x-ray reviewed and is negative for any acute abnormalities. Symptomatic treatment otherwise. As needed nebs Skin breakdown in gluteal cleft: Continue dressing, offloading and barrier cream. Wound consult Diabetes: Continue carb controlled diet, medications as needed along with sliding scale. Adjust medications as necessary in order to maintain euglycemia. Left foot drop: Continue to utilize AFO with therapy and monitor for improvement with strengthening and control over the left foot. We will continue to assess as we move forward for the need to discharge patient with an AFO and consult orthotics if we see that he will need the AFO going home. ADL dysfunction: OT will work on improving ability to perform ADLs (including assistive devices) to increase independence and decrease caregiver burden and improve functional transfers and mobility training. Difficulty walking: PT will work on gait training and proper use of assistive devices and advance as appropriate to use of stairs and outside ambulation on uneven surfaces. Unsteadiness on feet: PT will work on improving static and dynamic sitting and standing balance as well as proper use of assistive devices to decrease risk of falls. Abnormality of gait: PT will work to improve safety and efficiency of gait through neuromotor training and gait training along with instruction on proper use of assistive devices. Muscle weakness: PT & OT will work on strengthening exercises to improve funct ional strength including mixture of closed and open kinetic chain exercises. Debility: PT & OT will work on improving overall functional status to improve participation with ADLs, mobility and social involvement. Fatigue: PT & OT will work on improving endurance through aerobic exercises and therapeutic activity while monitoring patients tolerance for activity and vital signs as needed. DVT ppx: Lovenox Pain: Continue physical modalities in therapy and pain medications as needed to achieve functional pain control. Sleep: Monitor and address as needed. Bowel: Monitor and address as needed. Appetite: Monitor and address as needed. Discharge planning: Pending therapy progress and care plan meeting. Will continue discussion with therapy team, SW, patient and family. Depending on the patient's level of recovery by the time that we approach discharge, he may be a reasonable candidate for a period of continued home health therapy followed by a return to either IRU or outpatient rehab once he gains more left lower extremity function. Restrictions/ Precautions: Falls, cervical collar when out of bed WB status: FWB Functional Hx: ADLs: Independent Cognition: Independent Mobility: No AD Barriers to Discharge: Decreased mobility and ability to perform self care, balance deficits, weakness. Patient may need to go home at the wheelchair level based on his level of recovery and safety while performing ADLs. We will continue to monitor and assess as we move forward Estimated Length of Stay: 1418 days Discharge Destination: Home with family Patient has suffered a cervical impingement due to's myelopathy with significant weakness in the bilateral lower extremities is unable to ambulate safely. Currently he is only ambulating approximately 6 feet with maximum assistance utilizing a rolling walker but is unable to perform any mobility related ADLs. He also has poor trunk control due to the myelopathy and has difficulty maintaining a seated posture for prolonged period. These mobility limitations significantly impairs ability precipitate and MR ADLs. Mobility limitation cannot be sufficiently resolved with the use of an appropriate fitted walker or cane as the patient cannot use those safely. His home provides adequate access for maneuvering of a manual wheelchair. Use the wheelchair with significantly improve the patient's ability participate in MR ADLs and he will use it on a regular basis at home. He has not expressed an unwillingness to use the wheelchair in the home. As he has demonstrated on the acute rehab unit he is able to self pro wheelchair. Wheelchair will need to have a high back, removable armrest, and leg rest along with a seat cushion. He will also need a 3 in 1 and a sliding board in order to be able to perform transfers to and from the wheelchair.
[2020-10-25] MEDS: INSULIN REGULAR, HUMAN 100 UNITS/1 ML SUB-Q SCH ×4 (08:23→21:30)
[2020-10-25] MEDS: FAMOTIDINE 20 MG TAB PO SCH ×2 (08:23→21:16)
[2020-10-25] MEDS: glipiZIDE 5 MG TAB PO SCH (08:23)
[2020-10-25] MEDS: ASPIRIN EC 325 MG TAB PO SCH (08:23)
[2020-10-25] MEDS: ENOXAPARIN 40 MG/0.4 ML INJ SUB-Q SCH (08:23)
[2020-10-25] MEDS: LISINOPRIL 5 MG TAB PO SCH (08:23)
[2020-10-25] MEDS: metFORMIN 500 MG TAB PO SCH ×2 (08:23→16:53)
[2020-10-25] MEDS: INSULIN GLARGINE 100 UNITS/ML SUB-Q SCH ×2 (08:23→21:30)
[2020-10-25] MEDS: oxyCODONE /ACETAMINOPHEN 5-325MG TAB PO PRN (21:16)
[2020-10-26] MEDS: ASPIRIN EC 325 MG TAB PO SCH (08:09)
[2020-10-26] MEDS: metFORMIN 500 MG TAB PO SCH ×2 (08:09→16:14)
[2020-10-26] MEDS: ENOXAPARIN 40 MG/0.4 ML INJ SUB-Q SCH (08:09)
[2020-10-26] MEDS: INSULIN GLARGINE 100 UNITS/ML SUB-Q SCH (08:09)
[2020-10-26] MEDS: LISINOPRIL 5 MG TAB PO SCH (08:09)
[2020-10-26] MEDS: glipiZIDE 5 MG TAB PO SCH (08:10)
[2020-10-26] MEDS: INSULIN REGULAR, HUMAN 100 UNITS/1 ML SUB-Q SCH ×3 (08:10→16:03)
[2020-10-26] MEDS: FAMOTIDINE 20 MG TAB PO SCH ×2 (08:10→22:14)
--- NOTE | 2020-10-26 10:39 | Progress Note ---
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 However neurosurgeon was able to evaluate the patient and determined that he had ce rvical impingement at the C3-4 level as seen on cervical MRI. Patient underwent a C3-4 ACDF on 10/04/2020. Patient recovered well without incident and we were consulted approximately 1 week ago to assess the patient for possibility of acute inpatient rehabilitation stay. After our initial consult, we determined that the patient would be a good candidate for acute inpatient rehab if insurance would approve him. We did finally receive insurance approval and have now transferred him over to the acute rehab side. Vital signs and labs have been fairly stable since our initial consult on 10/11. Patient continue to work with therapy in order to improve his ability to increase function. Patient did not have any further procedures or imaging done prior to being transferred. Brain MRI performed on 09/25/2020 showed chronic encephalomalacia in the anterior left temporal lobe but no acute changes. 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 Nuclear stress test was negative for ischemia. Since initial evaluation of the patient for rehab, speech therapy has discharged the patient and he no longer has speech therapy needs. Interval History: Patient is participating in therapy and making reasonable progress. Taking rest breaks as needed. +BM. Denies pain, palpitations, dyspnea, cough, N/V, or joint pain. Discussed with the patient that at some point we may need to disch arge him at the wheelchair level if he does not have any functional return in the left lower extremity. Had a discussion with the patient today for approximately 15 minutes concerning prognosis for recovery and issues that we need to be concerned about since he has not regained function in his lower extremities yet. Discussed weight shifting, wheelchair push-ups, and further therapy after discharge that he will need to undergo while we are anticipating return of function in the lower extremities. Cervical impingement at C3/4 with myelopathy: Continue to monitor surgical wound site for healing. Continue therapy to improve ability to ambulate and provide self-care. Monitor for any worsening symptoms of weakness or neurologic changes. Left lower extremity still very weak Cough with phlegm production: Chest x-ray reviewed and is negative for any acute issues. Cough seems to be improved this morning. Patient has been afebrile and O2 sats have been within normal limits. We will start as needed nebs for short period Skin breakdown in the gluteal cleft: Continue barrier cream and dressing. Since this is starting to cause the patient more discomfort, will consult wound nurse. Based on review of records, this skin wound in the gluteal cleft was seen previously at admission. We will continue addressing wound care and keeping the area clean. Have also instructed therapy to start working with patient on more appropriate transfer techniques to avoid sliding injuries to his skin and to work on wheelchair push-ups/weight shifting since it does appear like he is going to be going home at the wheelchair level. Hypertension: Fairly well controlled on current medications. Goal blood pressure less than 140/90. Diabetes: Fairly well controlled on carb controlled diet and current regimen. Glucose levels have been below 150 for the most part so far. Continue medications and adjust for euglycemia ADL dysfunction: Improving as strength improves, will need to work on safety awareness, ADLs from the standing level if possible and fine motor control. Mobility dysfunction: Continue to work to improve balance, gait and mobility. Currently has functional left foot drop and may end up needing AFO prior to discharge. We will continue to monitor and see how he improves over the next few weeks. Left foot drop: Continue to work to improve strengthening and mobility. AFO as needed. Will assess as we get closer to a discharge date as to whether or not the patient will need to go home with an AFO or if he is able to regain enough strength to not need it. Still having difficulty with walking from a standpoint of advancing the left lower extremity. All records, vitals, labs and medications were reviewed. No other issues per patient, nursing or therapy. Objective - Exam Narrative Exam: MUSCULOSKELETAL SPECIALTY EXAM CONSTITUTIONAL: Well developed, well nourished, appropriately groomed RESPIRATORY: Clear to auscultation bilaterally, no increased work of breathing CARDIOVASCULAR: Regular Rate/ Rhythm, no swelling, edema or tenderness in BUE or BLE. All extremities warm. GI: + bowel sounds, soft, NTTP, nondistended. INTEGUMENTARY: Normal, no lesion, rash, masses or bruising noted in extremities. Surgical wound clean dry and intact on anterior neck. Gluteal cleft skin breakdown consistent with shear MUSCULOSKELETAL: BUE and BLE normal without defect, crepitus, subluxation, effusion, arthritic changes or TTP. BUE 4/5, decreased ROM, with normal tone strength in the upper extremities has improved since prior exam LLE 2/5 decreased ROM, with normal tone, RLE 3/5 with decreased range of motion and normal tone NEURO: CN 2-12 grossly intact. Sensation intact in all extremities. Coordination impaired but improved in BUE. No tremor noted in 4 extremities. POSTURE and GAIT: Sitting posture good but dynamic sitting is weak. Standing is weak PSYCH: Alert, oriented x3, affect appears normal. Insight appears intact. - Constitutional Vitals: Vital Signs - 12hr 10/26/20 10/26/20 10/26/20 05:17 06:58 08:00 Temperature 97.8 F 98.5 F Pulse Rate 94 H 81 Respiratory 20 18 18 Rate Blood Pressure 150/76 120/68 O2 Sat by Pulse 95 98 Oximetry - Allied health notes Allied health notes reviewed: nursing, PT, OT FIMS assessment as documented by PT/OT/ST: Grooming Patient cleans teeth/dentures: Yes Patient [place]/brushes hair: Yes Patient washes, rinses and Yes dries face: Patient washes, rinses and Yes dries hands: Patient shaves: No Patient performs (no make-up/ 4/4 (100%) shaving): Grooming FIM Score 5. Supervision ([place] applies toothpaste or opens containers.) Toileting Toileting Device Commode over Toilet Patient able to: Adjust clothes before Patient able to perform: 1/3 (33%) Toileting FIM Score 3. Moderate Assistance (Patient = 50% or more. Some lifting.) Social interaction/Memory/Problem solving Social Interaction FIM Score 6. Mod. [place] (Mostly appropriate. May need meds. No supv.) Memory FIM Score 5. Supervision (Needs cueing <10%, stressful/ unfamiliar situations.) Problem Solving FIM Score 5. Supervision (Needs cueing <10% to solve routine problems.) Transfers Mode of Locomotion: Wheelchair Bed/Chair/Wheelchair Transfers 2. Maximal Assistance (Patient = 25% or more) FIM Score Toilet Transfers FIM Score 2. Maximal Assistance (Patient = 25% or more) Patient transferred to: Shower Shower Transfers FIM Score 3. Moderate Assistance (Patient = 50% or more. Some lifting.) Locomotion- walk/wheelchair Most Frequent Mode of Wheelchair Locomotion: Ambulation Distance 6 Eating Eating Device Adapted Utensil Eating FIM Score 3. Moderate Assistance (Patient = 50% or more) Dressing-Upper body Patient retrieves clothing No items: Patient applies/removes UE n/a prosthesis or orthosis: Upper Body Dressing FIM Score 4. Minimal Assistance (Patient = 75% or more. Needs touching.) Dressing-lower body Patient retrieves clothing No items: Patient applies/removes LE Yes: seated lateral weight shifting to doff/don prosthesis or orthosis: Lower Body Dressing FIM Score 2. Maximal Assistance (Patient = 25% or more) - Labs CBC & Chem 7: 10/23/20 07:41 10/23/20 07:41 Labs: Laboratory Results - last 72 hr 10/23/20 10/23/20 10/23/20 11:22 16:05 20:44 POC Glucose 94 82 150 H 10/24/20 10/24/20 10/24/20 07:33 11:49 14:46 POC Glucose 142 H 108 H 63 L 10/24/20 10/24/20 10/25/20 16:41 20:43 07:04 POC Glucose 72 107 H 127 H 10/25/20 10/25/20 10/25/20 11:44 16:04 21:29 POC Glucose 77 137 H 134 H 10/26/20 06:57 POC Glucose 152 H Assessment and Plan Cervical impingement at C3/4 with myelopathy: Status post ACDF. Cervical collar on when out of bed. Further surgical management per neurosurgery. Cushion Padder remains weak with decreased range of motion and strength in all 4 limbs but he has improved. Lower extremities are affected more so than upper extremities at this point, left lower extremity is still not returning enough for functional use. Training the patient on wheelchair push-ups and weight shifting/offloading. Hypertension: Continue medication. Monitor blood pressure. Adjust medications as needed for normotension. Hold for hypotension. Goal SBP <140. Cough: Chest x-ray reviewed and is negative for any acute abnormalities. Symptomatic treatment otherwise. As needed nebs Skin breakdown in gluteal cleft: Continue dressing, offloading and barrier c ream. Wound consult Diabetes: Continue carb controlled diet, medications as needed along with slid ing scale. Adjust medications as necessary in order to maintain euglycemia. Left foot drop: Continue to utilize AFO with therapy and monitor for improvement with strengthening and control over the left foot. We will continue to assess as we move forward for the need to discharge patient with an AFO and consult orthotics if we see that he will need the AFO going home. ADL dysfunction: OT will work on improving ability to perform ADLs (including assistive devices) to increase independence and decrease caregiver burden and improve functional transfers and mobility training. Difficulty walking: PT will work on gait training and proper use of assistive devices and advance as appropriate to use of stairs and outside ambulation on uneven surfaces. Unsteadiness on feet: PT will work on improving static and dynamic sitting and standing balance as well as proper use of assistive devices to decrease risk of falls. Abnormality of gait: PT will work to improve safety and efficiency of gait t hrough neuromotor training and gait training along with instruction on proper use of assistive devices. Muscle weakness: PT & OT will work on strengthening exercises to improve functional strength including mixture of closed and open kinetic chain exercises. Debility: PT & OT will work on improving overall functional status to improve participation with ADLs, mobility and social involvement. Fatigue: PT & OT will work on improving endurance through aerobic exercises and therapeutic activity while monitoring patients tolerance for activity and vital signs as needed. DVT ppx: Lovenox Pain: Continue physical modalities in therapy and pain medications as needed to achieve functional pain control. Sleep: Monitor and address as needed. Bowel: Monitor and address as needed. Appetite: Monitor and address as needed. Discharge planning: Pending therapy progress and care plan meeting. Will continue discussion with therapy team, SW, patient and family. Depending on the patient's level of recovery by the time that we approach discharge, he may be a reasonable candidate for a period of continued home health therapy followed by a return to either IRU or outpatient rehab once he gains more left lower extremity function. Restrictions/ Precautions: Falls, cervical collar when out of bed WB status: FWB Functional Hx: ADLs: Independent Cognition: Independent Mobility: No AD Barriers to Discharge: Decreased mobility and ability to perform self care, balance deficits, weakness. Patient may need to go home at the wheelchair level based on his level of recovery and safety while performing ADLs. We will continue to monitor and assess as we move forward Estimated Length of Stay: 1418 days Discharge Destination: Home with family Patient has suffered a cervical impingement due to's myelopathy with significant weakness in the bilateral lower extremities is unable to ambulate safely. Currently he is only ambulating approximately 6 feet with maximum assistance utilizing a rolling walker but is unable to perform any mobility related ADLs. He also has poor trunk control due to the myelopathy and has difficulty maintaining a seated posture for prolonged period. These mobility limitations significantly impairs ability precipitate and MR ADLs. Mobility limitation cannot be sufficiently resolved with the use of an appropriate fitted walker or cane as the patient cannot use those safely. His home provides adequate access for maneuvering of a manual wheelchair. Use the wheelchair with significantly improve the patient's ability participate in MR ADLs and he will use it on a regular basis at home. He has not expressed an unwillingness to use the whee lchair in the home. As he has demonstrated on the acute rehab unit he is able to self pro wheelchair. Wheelchair will need to have a high back, removable armrest, and leg rest along with a seat cushion. He will also need a 3 in 1 and a sliding board in order to be able to perform transfers to and from the wheelchair.
[2020-10-26] MEDS: oxyCODONE /ACETAMINOPHEN 5-325MG TAB PO PRN (13:29)
[2020-10-27] MEDS: INSULIN REGULAR, HUMAN 100 UNITS/1 ML SUB-Q SCH ×5 (04:48→23:28)
[2020-10-27] MEDS: INSULIN GLARGINE 100 UNITS/ML SUB-Q SCH ×3 (04:49→23:17)
--- NOTE | 2020-10-27 08:14 | Progress Note ---
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 However neurosurgeon was able to evaluate the patient and determined that he had ce rvical impingement at the C3-4 level as seen on cervical MRI. Patient underwent a C3-4 ACDF on 10/04/2020. Patient recovered well without incident and we were consulted approximately 1 week ago to assess the patient for possibility of acute inpatient rehabilitation stay. After our initial consult, we determined that the patient would be a good candidate for acute inpatient rehab if insurance would approve him. We did finally receive insurance approval and have now transferred him over to the acute rehab side. Vital signs and labs have been fairly stable since our initial consult on 10/11. Patient continue to work with therapy in order to improve his ability to increase function. Patient did not have any further procedures or imaging done prior to being transferred. Brain MRI performed on 09/25/2020 showed chronic encephalomalacia in the anterior left temporal lobe but no acute changes. 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 Nuclear stress test was negative for ischemia. Since initial evaluation of the patient for rehab, speech therapy has discharged the patient and he no longer has speech therapy needs. Interval History: Patient is participating in therapy and making reasonable progress. Taking rest breaks as needed. +BM. Denies pain, palpitations, dyspnea, cough, N/V, or joint pain. Cervical impingement at C3/4 with myelopathy: Continue to monitor surgical wound site for healing. Continue therapy to improve ability to ambulate and provide self-care. Monitor for any worsening symptoms of weakness or neurologic changes. Left lower extremity still very weak. Still utilizes cervical collar when up Cough with phlegm production: No cough reported today. Patient has been afebrile and O2 sats have been within normal limits. Skin breakdown in the gluteal cleft: Continue barrier cream and dressing. Since this is starting to cause the patient more discomfort, will consult wound nurse. Based on review of records, this skin wound in the gluteal cleft was seen previously at admission. We will continue addressing wound care and keeping the area clean. Have also instructed therapy to start working with patient on more appropriate transfer techniques to avoid sliding injuries to his skin and to work on wheelchair push-ups/weight shifting since it does appear like he is going to be going home at the wheelchair level. Hypertension: Fairly well controlled on current medications. Goal blood pressure less than 140/90. Diabetes: Fairly well controlled on carb controlled diet and current regimen. Glucose levels have been below 150 for the most part so far. Continue medications and adjust for euglycemia ADL dysfunction: Improving as strength improves, will need to work on safety awareness, ADLs from the standing level if possible and fine motor control. Mobility dysfunction: Continue to work to improve balance, gait and mobility. Concentrating on improving wheelchair mobility at this point, patient is having difficulty with uneven surfaces. Tolerance for walking has not not improved enough to be able to return home safely at a level outside of wheelchair. Left foot drop: Continue to work to improve strengthening and mobility. AFO as needed. Will assess as we get closer to a discharge date as to whether or not the patient will need to go home with an AFO or if he is able to regain enough strength to not need it. Still having difficulty with walking from a standpoint of advancing the left lower extremity. All records, vitals, labs and medications were reviewed. No other issues per patient, nursing or therapy. Objective - Exam Narrative Exam: MUSCULOSKELETAL SPECIALTY EXAM CONSTITUTIONAL: Well developed, well nourished, appropriately groomed RESPIRATORY: Clear to auscultation bilaterally, no increased work of breathing CARDIOVASCULAR: Regular Rate/ Rhythm, no swelling, edema or tenderness in BUE or BLE. All extremities warm. GI: + bowel sounds, soft, NTTP, nondistended. INTEGUMENTARY: Normal, no lesion, rash, masses or bruising noted in extremities. Surgical wound clean dry and intact on anterior neck. Gluteal cleft skin breakdown consistent with shear MUSCULOSKELETAL: BUE and BLE normal without defect, crepitus, subluxation, effusion, arthritic changes or TTP. BUE 4/5, decreased ROM, with normal tone strength in the upper extremities has improved since prior exam LLE 2/5 decreased ROM, with normal tone, RLE 3/5 with decreased range of motion and normal tone NEURO: CN 2-12 grossly intact. Sensation intact in all extremities. Coordination impaired but improved in BUE. No tremor noted in 4 extremities. POSTURE and GAIT: Sitting posture good but dynamic sitting is weak. Standing is weak but he is improving duration PSYCH: Alert, oriented x3, affect appears normal. Insight appears intact. - Constitutional Vitals: Vital Signs - 12hr 10/26/20 10/27/20 10/27/20 20:50 05:17 07:36 Temperature 98.4 F Pulse Rate 80 77 Respiratory 18 Rate Respiratory 17 Rate [Bilateral Arm] Blood Pressure 127/72 O2 Sat by Pulse 100 98 Oximetry - Allied health notes Allied health notes reviewed: nursing, PT, OT FIMS assessment as documented by PT/OT/ST: Grooming Patient cleans teeth/dentures: Yes Patient [place]/brushes hair: Yes Patient washes, rinses and Yes dries face: Patient washes, rinses and Yes dries hands: Patient shaves: No Patient performs (no make-up/ 07/09 (100%) shaving): Grooming FIM Score 5. Supervision ([place] applies toothpaste or opens containers.) Toileting Toileting Device Commode over Toilet,Grab Bar Patient able to: Clean self Patient able to perform: 1/3 (33%) Toileting FIM Score 2. Maximal Assistance (Patient = 25% or more) Social interaction/Memory/Problem solving Social Interaction FIM Score 7. Complete [place] (Interacts appropriately. Controls temper.) Memory FIM Score 7. Complete [place] (Remembers people and routines.) Problem Solving FIM Score 6. Mod. [place] (Mild difficulty or needs more time w/ complex.) Transfers Mode of Locomotion: Wheelchair Bed/Chair/Wheelchair Transfers 2. Maximal Assistance (Patient = 25% or more) FIM Score Toilet Transfers FIM Score 2. Maximal Assistance (Patient = 25% or more) Patient transferred to: Shower Shower Transfers FIM Score 3. Moderate Assistance (Patient = 50% or more. Some lifting.) Locomotion- walk/wheelchair Most Frequent Mode of Wheelchair Locomotion: Ambulation Distance 6 Eating Eating Device Adapted Utensil Eating FIM Score 3. Moderate Assistance (Patient = 50% or more) Dressing-Upper body Patient retrieves clothing No items: Patient applies/removes UE n/a prosthesis or orthosis: Upper Body Dressing FIM Score 4. Minimal Assistance (Patient = 75% or more. Needs touching.) Dressing-lower body Patient retrieves clothing No items: Patient applies/removes LE Yes: seated lateral weight shifting to doff/don prosthesis or orthosis: Lower Body Dressing FIM Score 2. Maximal Assistance (Patient = 25% or more) - Labs CBC & Chem 7: 10/23/20 07:41 10/23/20 07:41 Labs: Laboratory Results - last 72 hr 10/24/20 10/24/20 10/24/20 11:49 14:46 16:41 POC Glucose 108 H 63 L 72 10/24/20 10/25/20 10/25/20 20:43 07:04 11:44 POC Glucose 107 H 127 H 77 10/25/20 10/25/20 10/26/20 16:04 21:29 06:57 POC Glucose 137 H 134 H 152 H 10/26/20 10/26/20 10/26/20 11:38 15:56 20:21 POC Glucose 147 H 103 115 H 10/27/20 07:37 POC Glucose 135 H Assessment and Plan Cervical impingement at C3/4 with myelopathy: Status post ACDF. Cervical collar on when out of bed. Further surgical management per neurosurgery. 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 Lower extremities are affected more so than upper extremities at this point, left lower extremity is still not returning enough for functional use. Training the patient on wheelchair push-ups and weight shifting/offloading. Hypertension: Continue medication. Monitor blood pressure. Adjust medications as needed for normotension. Hold for hypotension. Goal SBP <140. Cough: Chest x-ray reviewed and is negative for any acute abnormalities. Symptomatic treatment otherwise. As needed nebs Skin breakdown in gluteal cleft: Continue dressing, offloading and barrier cream. Wound consult Diabetes: Continue carb controlled diet, medications as needed along with sliding scale. Adjust medications as necessary in order to maintain euglycemia. Left foot drop: Continue to utilize AFO with therapy and monitor for improvement with strengthening and control over the left foot. We will continue to assess as we move forward for the need to discharge patient with an AFO and consult orthotics if we see that he will need the AFO going home. ADL dysfunction: OT will work on improving ability to perform ADLs (including assistive devices) to increase independence and decrease caregiver burden and improve functional transfers and mobility training. Difficulty walking: PT will work on gait training and proper use of assistive devices and advance as appropriate to use of stairs and outside ambulation on uneven surfaces. Unsteadiness on feet: PT will work on improving static and dynamic sitting and standing balance as well as proper use of assistive devices to decrease risk of falls. Abnormality of gait: PT will work to improve safety and efficiency of gait through neuromotor training and gait training along with instruction on proper use of assistive devices. Muscle weakness: PT & OT will work on strengthening exercises to improve functional strength including mixture of closed and open kinetic chain exercises. Debility: PT & OT will work on improving overall functional status to improve participation with ADLs, mobility and social involvement. Fatigue: PT & OT will work on improving endurance through aerobic exercises and therapeutic activity while monitoring patients tolerance for activity and vital signs as needed. DVT ppx: Lovenox Pain: Continue physical modalities in therapy and pain medications as needed to achieve functional pain control. Sleep: Monitor and address as needed. Bowel: Monitor and address as needed. Appetite: Monitor and address as needed. Discharge planning: Pending therapy progress and care plan meeting. Will continue discussion with therapy team, SW, patient and family. Depending on the patient's level of recovery by the time that we approach discharge, he may be a reasonable candidate for a period of continued home health therapy followed by a return to either IRU or outpatient rehab once he gains more left lower extremity function. Restrictions/ Precautions: Falls, cervical collar when out of bed WB status: FWB Functional Hx: ADLs: Independent Cognition: Independent Mobility: No AD Barriers to Discharge: Decreased mobility and ability to perform self care, balance deficits, weakness. Patient may need to go home at the wheelchair level based on his level of recovery and safety while performing ADLs. We will continue to monitor and assess as we move forward Estimated Length of Stay: 1418 days Discharge Destination: Home with family Patient has suffered a cervical impingement due to's myelopathy with significant weakness in the bilateral lower extremities is unable to ambulate safely. Currently he is only ambulating approximately 6 feet with maximum assistance utilizing a rolling walker but is unable to perform any mobility related ADLs. He also has poor trunk control due to the myelopathy and has difficulty maintaining a seated posture for prolonged period. These mobility limitations significantly impairs ability precipitate and MR ADLs. Mobility limitation cannot be sufficiently resolved with the use of an appropriate fitted walker or cane as the patient cannot use those safely. His home provides adequate access for maneuvering of a manual wheelchair. Use the wheelchair with significantly improve the patient's ability participate in MR ADLs and he will use it on a regular basis at home. He has not expressed an unwillingness to use the wheelchair in the home. As he has demonstrated on the acute rehab unit he is able to self pro wheelchair. Wheelchair will need to have a high back, removable armrest, and leg rest along with a seat cushion. He will also need a 3 in 1 and a sliding board in order to be able to perform transfers to and from the wheelchair.
[2020-10-27] MEDS: metFORMIN 500 MG TAB PO SCH ×2 (09:45→18:19)
[2020-10-27] MEDS: glipiZIDE 5 MG TAB PO SCH (09:45)
[2020-10-27] MEDS: ENOXAPARIN 40 MG/0.4 ML INJ SUB-Q SCH (09:47)
[2020-10-27] MEDS: FAMOTIDINE 20 MG TAB PO SCH ×2 (10:45→23:14)
[2020-10-27] MEDS: ASPIRIN EC 325 MG TAB PO SCH (10:46)
[2020-10-27] MEDS: LISINOPRIL 5 MG TAB PO SCH (10:46)
[2020-10-28] MEDS: INSULIN REGULAR, HUMAN 100 UNITS/1 ML SUB-Q SCH ×4 (08:43→21:04)
[2020-10-28] MEDS: glipiZIDE 5 MG TAB PO SCH (08:54)
[2020-10-28] MEDS: INSULIN GLARGINE 100 UNITS/ML SUB-Q SCH ×2 (08:54→21:58)
[2020-10-28] MEDS: ENOXAPARIN 40 MG/0.4 ML INJ SUB-Q SCH (08:54)
[2020-10-28] MEDS: ASPIRIN EC 325 MG TAB PO SCH (08:55)
[2020-10-28] MEDS: LISINOPRIL 5 MG TAB PO SCH (08:55)
[2020-10-28] MEDS: FAMOTIDINE 20 MG TAB PO SCH ×2 (08:55→21:59)
[2020-10-28] MEDS: metFORMIN 500 MG TAB PO SCH ×2 (08:55→18:25)
[2020-10-29] MEDS: INSULIN REGULAR, HUMAN 100 UNITS/1 ML SUB-Q SCH ×4 (07:23→21:47)
[2020-10-29] MEDS: FAMOTIDINE 20 MG TAB PO SCH ×2 (08:33→21:48)
[2020-10-29] MEDS: INSULIN GLARGINE 100 UNITS/ML SUB-Q SCH ×2 (08:33→21:50)
[2020-10-29] MEDS: ASPIRIN EC 325 MG TAB PO SCH (08:33)
[2020-10-29] MEDS: metFORMIN 500 MG TAB PO SCH ×2 (08:33→17:41)
[2020-10-29] MEDS: LISINOPRIL 5 MG TAB PO SCH (08:34)
[2020-10-29] MEDS: glipiZIDE 5 MG TAB PO SCH (08:34)
[2020-10-29] MEDS: ENOXAPARIN 40 MG/0.4 ML INJ SUB-Q SCH (08:34)
[2020-10-30] MEDS: LISINOPRIL 5 MG TAB PO SCH (08:20)
[2020-10-30] MEDS: INSULIN REGULAR, HUMAN 100 UNITS/1 ML SUB-Q SCH ×4 (08:20→22:09)
[2020-10-30] MEDS: FAMOTIDINE 20 MG TAB PO SCH ×2 (08:20→22:05)
[2020-10-30] MEDS: metFORMIN 500 MG TAB PO SCH ×2 (08:20→17:02)
[2020-10-30] MEDS: ASPIRIN EC 325 MG TAB PO SCH (08:20)
[2020-10-30] MEDS: glipiZIDE 5 MG TAB PO SCH (08:20)
[2020-10-30] MEDS: ENOXAPARIN 40 MG/0.4 ML INJ SUB-Q SCH (08:20)
[2020-10-30] MEDS: INSULIN GLARGINE 100 UNITS/ML SUB-Q SCH ×2 (08:21→22:09)
--- NOTE | 2020-10-30 09:10 | Progress Note ---
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 However neurosurgeon was able to evaluate the patient and determined that he had ce rvical impingement at the C3-4 level as seen on cervical MRI. Patient underwent a C3-4 ACDF on 10/04/2020. Patient recovered well without incident and we were consulted approximately 1 week ago to assess the patient for possibility of acute inpatient rehabilitation stay. After our initial consult, we determined that the patient would be a good candidate for acute inpatient rehab if insurance would approve him. We did finally receive insurance approval and have now transferred him over to the acute rehab side. Vital signs and labs have been fairly stable since our initial consult on 10/11. Patient continue to work with therapy in order to improve his ability to increase function. Patient did not have any further procedures or imaging done prior to being transferred. Brain MRI performed on 09/25/2020 showed chronic encephalomalacia in the anterior left temporal lobe but no acute changes. 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 Nuclear stress test was negative for ischemia. Since initial evaluation of the patient for rehab, speech therapy has discharged the patient and he no longer has speech therapy needs. Interval History: Patient is participating in therapy and making reasonable progress. Taking rest breaks as needed. +BM. Denies pain, palpitations, dyspnea, cough, N/V, or joint pain. Patient notify me today that he has a family member who has a nurse home health business that he wants to use at home. I tried to determine if the nurse was more of a [employer] or sitter or if she actually had a true home health practice where he had access to physical therapy and Occupational Therapy. Details are a little unclear. At discharge on Friday we will recommend home health nursing, physical therapy, occupational therapy. If the patient decides that he wants to utilize a extra nurse on top of the care that he is receiving from the home health agency that is fine or if the person he is referring actually does have a true home health agency we can utilize them. Awaiting further details. Cervical impingement at C3/4 with myelopathy: Continue to monitor surgical wound site for healing. Continue therapy to improve ability to ambulate and provide self-care. Monitor for any worsening symptoms of weakness or neurologic changes. Left lower extremity still very weak. Still utilizes cervical collar when up Cough with phlegm production: No cough reported today. Patient has been afebrile and O2 sats have been within normal limits. Skin breakdown in the gluteal cleft: Continue barrier cream and dressing. Since this is starting to cause the patient more discomfort, will consult wound nurse. Based on review of records, this skin wound in the gluteal cleft was seen previously at admission. We will continue addressing wound care and keeping the area clean. Have also instructed therapy to start working with patient on more appropriate transfer techniques to avoid sliding injuries to his skin and to work on wheelchair push-ups/weight shifting since it does appear like he is going to be going home at the wheelchair level. Hypertension: Fairly well controlled on current medications. Goal blood pressure less than 140/90. Diabetes: Fairly well controlled on carb controlled diet and current regimen. Glucose levels have been below 150 for the most part so far. Continue medications and adjust for euglycemia ADL dysfunction: Improving as strength improves, will need to work on safety awareness, ADLs from the standing level if possible and fine motor control. Mobility dysfunction: Continue to work to improve balance, gait and mobility. Concentrating on improving wheelchair mobility at this point, patient is having difficulty with uneven surfaces. Tolerance for walking has not not improved enough to be able to return home safely at a level outside of wheelchair. Left foot drop: Continue to work to improve strengthening and mobility. AFO as needed. Will assess as we get closer to a discharge date as to whether or not the patient will need to go home with an AFO or if he is able to regain enough strength to not need it. Still having difficulty with walking from a standpoint of advancing the left lower extremity. All records, vitals, labs and medications were reviewed. No other issues per patient, nursing or therapy. Objective - Exam Narrative Exam: MUSCULOSKELETAL SPECIALTY EXAM CONSTITUTIONAL: Well developed, well nourished, appropriately groomed RESPIRATORY: Clear to auscultation bilaterally, no increased work of breathing CARDIOVASCULAR: Regular Rate/ Rhythm, no swelling, edema or tenderness in BUE or BLE. All extremities warm. GI: + bowel sounds, soft, NTTP, nondistended. INTEGUMENTARY: Normal, no lesion, rash, masses or bruising noted in extremities. Surgical wound clean dry and intact on anterior neck. Gluteal cleft skin breakdown consistent with shear MUSCULOSKELETAL: BUE and BLE normal without defect, crepitus, subluxation, effusion, arthritic changes or TTP. BUE 4/5, decreased ROM, with normal tone strength in the upper extremities has improved since prior exam LLE 2/5 decreased ROM, with normal tone, RLE 3/5 with decreased range of motion and normal tone NEURO: CN 2-12 grossly intact. Sensation intact in all extremities. Coordination impaired but improved in BUE. No tremor noted in 4 extremities. POSTURE and GAIT: Sitting posture good but dynamic sitting is weak. Standing is weak but he is improving duration PSYCH: Alert, oriented x3, affect appears normal. Insight appears intact. - Constitutional Vitals: Vital Signs - 12hr 10/30/20 10/30/20 04:56 07:20 Temperature 97.9 F Pulse Rate 84 82 Respiratory 18 Rate Blood Pressure 127/76 O2 Sat by Pulse 100 97 Oximetry - Allied health notes Allied health notes reviewed: nursing, PT, OT FIMS assessment as documented by PT/OT/ST: Grooming Patient cleans teeth/dentures: Yes Patient [place]/brushes hair: Yes Patient washes, rinses and Yes dries face: Patient washes, rinses and Yes dries hands: Patient shaves: No Patient performs (no make-up/ / (100%) shaving): Grooming FIM Score 5. Supervision ([place] applies toothpaste or opens containers.) Toileting Toileting Device Commode over Toilet Patient able to: Adjust clothes before Patient able to perform: 1/3 (33%) Toileting FIM Score 4. Minimal Assistance (Patient = 75% or more. Needs touching.) Social interaction/Memory/Problem solving Social Interaction FIM Score 7. Complete [place] (Interacts appropriately. Controls temper.) Memory FIM Score 6. Modified [place](Mild difficulty remembering people/routines.) Problem Solving FIM Score 6. Mod. [place] (Mild difficulty or needs more time w/ complex.) Transfers Mode of Locomotion: Wheelchair Bed/Chair/Wheelchair Transfers 4. Minimal Assistance (Patient = 75% or more. FIM Score Needs touching.) Toilet Transfers FIM Score 4. Minimal Assistance (Patient = 75% or more. Needs touching.) Patient transferred to: Shower Shower Transfers FIM Score 3. Moderate Assistance (Patient = 50% or more. Some lifting.) Locomotion- walk/wheelchair Most Frequent Mode of Wheelchair Locomotion: Ambulation Distance 6 Eating Eating Device Adapted Utensil Eating FIM Score 5. Supervision/Set-Up (Needs help w/ con tainers, cutting meat, etc.) Dressing-Upper body Patient retrieves clothing No items: Patient applies/removes UE n/a prosthesis or orthosis: Upper Body Dressing FIM Score 4. Minimal Assistance (Patient = 75% or more. Needs touching.) Dressing-lower body Patient retrieves clothing No items: Patient applies/removes LE Yes: seated lateral weight shifting to doff/don prosthesis or orthosis: Lower Body Dressing FIM Score 2. Maximal Assistance (Patient = 25% or more) - Labs CBC & Chem 7: 10/23/20 07:41 10/23/20 07:41 Labs: Laboratory Results - last 72 hr 10/27/20 10/27/20 10/27/20 11:20 16:27 21:46 POC Glucose 163 H 203 H 142 H 10/28/20 10/28/20 10/28/20 07:39 11:01 16:00 POC Glucose 138 H 173 H 58 L 10/28/20 10/28/20 10/29/20 17:45 20:26 07:10 POC Glucose 120 H 99 102 10/29/20 10/29/20 10/29/20 11:17 15:59 20:08 POC Glucose 149 H 125 H 133 H 10/30/20 07:21 POC Glucose 129 H Assessment and Plan Cervical impingement at C3/4 with myelopathy: Status post ACDF. Cervical collar on when out of bed. Further surgical management per neurosurgery. 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 Lower extremities are affected more so than upper extremities at this point, left lower extremity is still not returning enough for functional use. Training the patient on wheelchair push-ups and weight shifting/offloading. Hypertension: Continue medication. Monitor blood pressure. Adjust medications as needed for normotension. Hold for hypotension. Goal SBP <140. Cough: Chest x-ray reviewed and is negative for any acute abnormalities. Symptomatic treatment otherwise. As needed nebs Skin breakdown in gluteal cleft: Continue dressing, offloading and barrier cream. Wound consult Diabetes: Continue carb controlled diet, medications as needed along with sliding scale. Adjust medications as necessary in order to maintain euglycemia. Left foot drop: Continue to utilize AFO with therapy and monitor for improvement with strengthening and control over the left foot. We will continue to assess as we move forward for the need to discharge patient with an AFO and consult orthotics if we see that he will need the AFO going home. ADL dysfunction: OT will work on improving ability to perform ADLs (including assistive devices) to increase independence and decrease caregiver burden and improve functional transfers and mobility training. Difficulty walking: PT will work on gait training and proper use of assistive devices and advance as appropriate to use of stairs and outside ambulation on uneven surfaces. Unsteadiness on feet: PT will work on improving static and dynamic sitting and standing balance as well as proper use of assistive devices to decrease risk of falls. Abnormality of gait: PT will work to improve safety and efficiency of gait through neuromotor training and gait training along with instruction on proper use of assistive devices. Muscle weakness: PT & OT will work on strengthening exercises to improve functional strength including mixture of closed and open kinetic chain exercises. Debility: PT & OT will work on improving overall functional status to improve participation with ADLs, mobility and social involvement. Fatigue: PT & OT will work on improving endurance through aerobic exercises and therapeutic activity while monitoring patients tolerance for activity and vital signs as needed. DVT ppx: Lovenox Pain: Continue physical modalities in therapy and pain medications as needed to achieve functional pain control. Sleep: Monitor and address as needed. Bowel: Monitor and address as needed. Appetite: Monitor and address as needed. Discharge planning: Pending therapy progress and care plan meeting. Will continue discussion with therapy team, SW, patient and family. Depending on the patient's level of recovery by the time that we approach discharge, he may be a reasonable candidate for a period of continued home health therapy followed by a return to either IRU or outpatient rehab once he gains more left lower extremity function. Restrictions/ Precautions: Falls, cervical collar when out of bed WB status: FWB Functional Hx: ADLs: Independent Cognition: Independent Mobility: No AD Barriers to Discharge: Decreased mobility and ability to perform self care, balance deficits, weakness. Patient may need to go home at the wheelchair level based on his level of recovery and safety while performing ADLs. We will continue to monitor and assess as we move forward Estimated Length of Stay: 1418 days Discharge Destination: Home with family Patient has suffered a cervical impingement due to's myelopathy with significant weakness in the bilateral lower extremities is unable to ambulate safely. Currently he is only ambulating approximately 6 feet with maximum assistance utilizing a rolling walker but is unable to perform any mobility related ADLs. He also has poor trunk control due to the myelopathy and has difficulty maintaining a seated posture for prolonged period. These mobility limitations significantly impairs ability precipitate and MR ADLs. Mobility limitation cannot be sufficiently resolved with the use of an appropriate fitted walker or cane as the patient cannot use those safely. His home provides adequate access for maneuvering of a manual wheelchair. Use the wheelchair with significantly improve the patient's ability participate in MR ADLs and he will use it on a regular basis at home. He has not expressed an unwillingness to use the wheelchair in the home. As he has demonstrated on the acute rehab unit he is able to self pro wheelchair. Wheelchair will need to have a high back, removable armrest, and leg rest along with a seat cushion. He will also need a 3 in 1 and a sliding board in order to be able to perform transfers to and from the wheelchair.
[2020-10-30] MEDS: oxyCODONE /ACETAMINOPHEN 5-325MG TAB PO PRN (13:45)
--- NOTE | 2020-10-31 08:15 | Progress Note ---
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 However neurosurgeon was able to evaluate the patient and determined that he had ce rvical impingement at the C3-4 level as seen on cervical MRI. Patient underwent a C3-4 ACDF on 10/04/2020. Patient recovered well without incident and we were consulted approximately 1 week ago to assess the patient for possibility of acute inpatient rehabilitation stay. After our initial consult, we determined that the patient would be a good candidate for acute inpatient rehab if insurance would approve him. We did finally receive insurance approval and have now transferred him over to the acute rehab side. Vital signs and labs have been fairly stable since our initial consult on 10/11. Patient continue to work with therapy in order to improve his ability to increase function. Patient did not have any further procedures or imaging done prior to being transferred. Brain MRI performed on 09/25/2020 showed chronic encephalomalacia in the anterior left temporal lobe but no acute changes. 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 Nuclear stress test was negative for ischemia. Since initial evaluation of the patient for rehab, speech therapy has discharged the patient and he no longer has speech therapy needs. Interval History: Patient is participating in therapy and making reasonable progress. Taking rest breaks as needed. +BM. Denies pain, palpitations, dyspnea, cough, N/V, or joint pain. Patient doing fairly well but progress has plateaued. Look to disch arge patient tomorrow with home health. Cervical impingement at C3/4 with myelopathy: Continue to monitor surgical wound site for healing. Continue therapy to improve ability to ambulate and provide self-care. Monitor for any worsening symptoms of weakness or neurologic changes. Left lower extremity still very weak. Still utilizes cervical collar when up Cough with phlegm production: No cough reported today. Patient has been afebrile and O2 sats have been within normal limits. Skin breakdown in the gluteal cleft and on buttock: Continue barrier cream and dressing. We will continue addressing wound care and keeping the area clean. Have also instructed therapy to start working with patient on more appropriate transfer techniques to avoid sliding injuries to his skin and to work on wheelchair push-ups/weight shifting. Hypertension: Fairly well controlled on current medications. Goal blood pressure less than 140/90. Diabetes: Fairly well controlled on carb controlled diet and current regimen. Glucose levels have been below 150 for the most part so far. Continue medicati ons and adjust for euglycemia ADL dysfunction: Improving as strength improves, will need to work on safety awareness, ADLs from the standing level if possible and fine motor control. Mobility dysfunction: Continue to work to improve balance, gait and mobility. Concentrating on improving wheelchair mobility at this point, patient is having difficulty with uneven surfaces. Tolerance for walking has not not improved enough to be able to return home safely at a level outside of wheelchair. Left foot drop: Continue to work to improve strengthening and mobility. AFO as needed. Will assess as we get closer to a discharge date as to whether or not the patient will need to go home with an AFO or if he is able to regain enough strength to not need it. Still having difficulty with walking from a standpoint of advancing the left lower extremity. All records, vitals, labs and medications were reviewed. No other issues per patient, nursing or therapy. Patient discussed during team conference. Therapy progress has plateaued. Patient will need further time at home to determine if he will continue to have any functional recovery from the cervical myelopathy. Patient is stable medically. Home health and equipment have been ordered. Objective - Exam Narrative Exam: MUSCULOSKELETAL SPECIALTY EXAM CONSTITUTIONAL: Well developed, well nourished, appropriately groomed RESPIRATORY: Clear to auscultation bilaterally, no increased work of breathing CARDIOVASCULAR: Regular Rate/ Rhythm, no swelling, edema or tenderness in BUE or BLE. All extremities warm. GI: + bowel sounds, soft, NTTP, nondistended. INTEGUMENTARY: Normal, no lesion, rash, masses or bruising noted in extremities. Surgical wound clean dry and intact on anterior neck. Gluteal skin breakdown consistent with shear MUSCULOSKELETAL: BUE and BLE normal without defect, crepitus, subluxation, effusion, arthritic changes or TTP. BUE 4/5, decreased ROM, with normal tone strength in the upper extremities has improved since prior exam LLE 2/5 decreased ROM, with normal tone, RLE 3/5 with decreased range of motion and normal tone NEURO: CN 2-12 grossly intact. Sensation intact in all extremities. Coordination impaired but improved in BUE. No tremor noted in 4 extremities. POSTURE and GAIT: Sitting posture good but dynamic sitting is weak. Standing is weak but he is improving duration PSYCH: Alert, oriented x3, affect appears normal. Insight appears intact. - Constitutional Vitals: Vital Signs - 12hr 10/30/20 22:00 Respiratory 17 Rate Respiratory 17 Rate [Bilateral Arm] O2 Sat by Pulse 96 Oximetry - Allied health notes Allied health notes reviewed: nursing, PT, OT FIMS assessment as documented by PT/OT/ST: Grooming Patient cleans teeth/dentures: Yes Patient [place]/brushes hair: Yes Patient washes, rinses and Yes dries face: Patient washes, rinses and Yes dries hands: Patient shaves: No Patient performs (no make-up/ /4 (100%) shaving): Grooming FIM Score 5. Supervision ([place] applies toothpaste or opens containers.) Toileting Toileting Device Commode over Toilet Patient able to: Adjust clothes before Patient able to perform: 1/3 (33%) Toileting FIM Score 2. Maximal Assistance (Patient = 25% or more) Social interaction/Memory/Problem solving Social Interaction FIM Score 6. Mod. [place] (Mostly appropriate. May need meds. No supv.) Memory FIM Score 6. Modified [place](Mild difficulty remembering people/routines.) Problem Solving FIM Score 6. Mod. [place] (Mild difficulty or needs more time w/ complex.) Transfers Mode of Locomotion: Wheelchair Bed/Chair/Wheelchair Transfers 3. Moderate Assistance (Patient = 50% or more. FIM Score Some lifting.) Toilet Transfers FIM Score 4. Minimal Assistance (Patient = 75% or more. Needs touching.) Patient transferred to: Shower Shower Transfers FIM Score 3. Moderate Assistance (Patient = 50% or more. Some lifting.) Locomotion- walk/wheelchair Most Frequent Mode of Wheelchair Locomotion: Ambulation Distance 6 Eating Eating Device Adapted Utensil Eating FIM Score 5. Supervision/Set-Up (Needs help w/ containers, cutting meat, etc.) Dressing-Upper body Patient retrieves clothing No items: Patient applies/removes UE n/a prosthesis or orthosis: Upper Body Dressing FIM Score 3. Moderate Assistance (Patient = 50% or more) Dressing-lower body Patient retrieves clothing No items: Patient applies/removes LE Yes: seated lateral weight shifting to doff/don prosthesis or orthosis: Lower Body Dressing FIM Score 3. Moderate Assistance (Patient = 50% or more) - Labs CBC & Chem 7: 10/23/20 07:41 10/23/20 07:41 Labs: Laboratory Results - last 72 hr 10/28/20 10/28/20 10/28/20 11:01 16:00 17:45 POC Glucose 173 H 58 L 120 H 10/28/20 10/29/20 10/29/20 20:26 07:10 11:17 POC Glucose 99 102 149 H 10/29/20 10/29/20 10/30/20 15:59 20:08 07:21 POC Glucose 125 H 133 H 129 H 10/30/20 10/30/20 10/30/20 11:34 16:01 20:57 POC Glucose 137 H 155 H 156 H Assessment and Plan Cervical impingement at C3/4 with myelopathy: Status post ACDF. Cervical collar on when out of bed. Further surgical management per neurosurgery. 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 Lower extremities are affected more so than upper extremities at this point, left lower extremity is still not returning enough for functional use. Training the patient on wheelchair push-ups and weight shifting/offloading. Hypertension: Continue medication. Monitor blood pressure. Adjust medications as needed for normotension. Hold for hypotension. Goal SBP <140. Cough: Chest x-ray reviewed and is negative for any acute abnormalities. Symptomatic treatment otherwise. As needed nebs Skin breakdown in gluteal cleft: Continue dressing, offloading and barrier cream. Wound consult Diabetes: Continue carb controlled diet, medications as needed along with sliding scale. Adjust medications as necessary in order to maintain euglycemia. Left foot drop: Continue to utilize AFO with therapy and monitor for improvement with strengthening and control over the left foot. We will continue to assess as we move forward for the need to discharge patient with an AFO and consult orthotics if we see that he will need the AFO going home. ADL dysfunction: OT will work on improving ability to perform ADLs (including assistive devices) to increase independence and decrease caregiver burden and improve functional transfers and mobility training. Difficulty walking: PT will work on gait training and proper use of assistive devices and advance as appropriate to use of stairs and outside ambulation on uneven surfaces. Unsteadiness on feet: PT will work on improving static and dynamic sitting and standing balance as well as proper use of assistive devices to decrease risk of falls. Abnormality of gait: PT will work to improve safety and efficiency of gait through neuromotor training and gait training along with instruction on proper use of assistive devices. Muscle weakness: PT & OT will work on strengthening exercises to improve fun ctional strength including mixture of closed and open kinetic chain exercises. Debility: PT & OT will work on improving overall functional status to improve participation with ADLs, mobility and social involvement. Fatigue: PT & OT will work on improving endurance through aerobic exercises and therapeutic activity while monitoring patients tolerance for activity and vital signs as needed. DVT ppx: Lovenox Pain: Continue physical modalities in therapy and pain medications as needed to achieve functional pain control. Sleep: Monitor and address as needed. Bowel: Monitor and address as needed. Appetite: Monitor and address as needed. Discharge planning: Pending therapy progress and care plan meeting. Will continue discussion with therapy team, SW, patient and family. Depending on the patient's level of recovery by the time that we approach discharge, he may be a reasonable candidate for a period of continued home health therapy followed by a return to either IRU or outpatient rehab once he gains more left lower extremity function. Look to discharge patient on 11/01 with home health Restrictions/ Precautions: Falls, cervical collar when out of bed WB status: FWB Functional Hx: ADLs: Independent Cognition: Independent Mobility: No AD Barriers to Discharge: Decreased mobility and ability to perform self care, balance deficits, weakness. Patient may need to go home at the wheelchair level based on his level of recovery and safety while performing ADLs. We will cont inue to monitor and assess as we move forward Estimated Length of Stay: 1418 days Discharge Destination: Home with family Patient has suffered a cervical impingement due to's myelopathy with significant weakness in the bilateral lower extremities is unable to ambulate safely. Currently he is only ambulating approximately 6 feet with maximum assistance utilizing a rolling walker but is unable to perform any mobility related ADLs. He also has poor trunk control due to the myelopathy and has difficulty maintaining a seated posture for prolonged period. These mobility limitations significantly impairs ability precipitate and MR ADLs. Mobility limitation cannot be sufficiently resolved with the use of an appropriate fitted walker or cane as the patient cannot use those safely. His home provides adequate access for maneuvering of a manual wheelchair. Use the wheelchair with significantly improve the patient's ability participate in MR ADLs and he will use it on a regular basis at home. He has not expressed an unwillingness to use the wheelchair in the home. As he has demonstrated on the acute rehab unit he is able to self pro wheelchair. Wheelchair will need to have a high back, removable armrest, and leg rest along with a seat cushion. He will also need a 3 in 1 and a sliding board in order to be able to perform transfers to and from the wheelchair.
[2020-10-31] MEDS: metFORMIN 500 MG TAB PO SCH ×2 (09:41→18:26)
[2020-10-31] MEDS: LISINOPRIL 5 MG TAB PO SCH (09:41)
[2020-10-31] MEDS: FAMOTIDINE 20 MG TAB PO SCH ×2 (09:42→21:51)
[2020-10-31] MEDS: ENOXAPARIN 40 MG/0.4 ML INJ SUB-Q SCH (09:42)
[2020-10-31] MEDS: INSULIN GLARGINE 100 UNITS/ML SUB-Q SCH ×2 (09:42→21:51)
[2020-10-31] MEDS: glipiZIDE 5 MG TAB PO SCH (09:42)
[2020-10-31] MEDS: ASPIRIN EC 325 MG TAB PO SCH (09:42)
[2020-10-31] MEDS: INSULIN REGULAR, HUMAN 100 UNITS/1 ML SUB-Q SCH ×4 (09:43→23:04)
[2020-10-31 12:18] LABS: Hemoglobin 13.7 gm/dl (11.8-15.2); Mean Corpuscular HGB Conc 34 % (32-34); Mean Corpuscular Volume 87 fl (84-94); Platelet Count 381 K/mm3 (140-440); Red Blood Count 4.62 M/mm3 (3.65-5.03)
[2020-10-31 12:32] LABS: BUN/Creatinine Ratio 22; Blood Urea Nitrogen 11 mg/dL (9-20); Calcium 9.9 mg/dL (8.4-10.2); Hemolysis Index 4
[2020-11-01] MEDS: INSULIN REGULAR, HUMAN 100 UNITS/1 ML SUB-Q SCH (08:03)
[2020-11-01 08:15] VITALS: BP 116/72
[2020-11-01] MEDS: ENOXAPARIN 40 MG/0.4 ML INJ SUB-Q SCH (08:43)
[2020-11-01] MEDS: INSULIN GLARGINE 100 UNITS/ML SUB-Q SCH (08:43)
[2020-11-01] MEDS: glipiZIDE 5 MG TAB PO SCH (08:43)
[2020-11-01] MEDS: ASPIRIN EC 325 MG TAB PO SCH (08:43)
[2020-11-01] MEDS: FAMOTIDINE 20 MG TAB PO SCH (08:43)
[2020-11-01] MEDS: metFORMIN 500 MG TAB PO SCH (08:43)
[2020-11-01] MEDS: LISINOPRIL 5 MG TAB PO SCH (08:43)
--- NOTE | 2020-11-01 09:09 | Discharge Summary ---
Providers - Providers Date of Admission: 10/17/20 15:01 Date of discharge: 11/01/20 Attending physician: LESLY HERNANDEZ III, MD 10/17/20 14:04 Occupational Therapy Evaluate and Treat [CONS] Routine Comment: Reason For Exam: ADL dysfunction Physical Therapy Evaluation and Treat [CONS] Routine Comment: Reason For Exam: Mobility Dysfunction 10/17/20 14:15 Consult to Case Management [CONS] Routine Services Needed at Discharge: Home Health Services Notified:: cm notified 10/25/20 08:21 Consult to Wound/ET Nurse [CONS] Routine Reason For Exam: wound eval, gluteal cleft breakdown, not pressure Primary care physician: WELLNESS GUIDE Hospitalization Reason for admission: Cervical myelopathy Condition: Good Hospital course: 65-year-old male with a history of left lower extremity weakness secondary to polio and prior CVA came to the ER with bilateral upper extremity weakness.Recommendation early on from neurology was to transfer the patient to outside hospital with bedside neurology due to complexity of the case. However neurosurgeon was able to evaluate the patient and determined that he had cervical impingement at the C3-4 level as seen on cervical MRI. Patient underwent a C3-4 ACDF on 10/04/2020. Patient recovered well without incident and we were consulted approximately 1 week ago to assess the patient for possibility of acute inpatient rehabilitation stay. After our initial consult, we determined that the patient would be a good candidate for acute inpatient rehab if insurance would approve him. We did finally receive insurance approval and have now transferred him over to the acute rehab side. Vital signs and labs have been fairly stable since our initial consult on 10/11. Patient continue to work with therapy in order to improve his ability to increase function. Patient did not have any further procedures or imaging done prior to being transferred. Brain MRI performed on 09/25/2020 showed chronic encephalomalacia in the anterior left temporal lobe but no acute changes. 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 Nuclear stress test was negative for ischemia. Since initial evaluation of the patient for rehab, speech therapy has discharged the patient and he no longer has speech therapy needs. Interval History: Patient will be discharged home with home health nursing, PT and OT. Cervical impingement at C3/4 with myelopathy: Surgical site well-healed. Continue therapy to improve ability to ambulate and provide self-care. Monitor for any worsening symptoms of weakness or neurologic changes. Left lower extremity still very weak. Gross motor strength in upper extremities has improved but fine motor control still poor. Cervical collar on when up. Discussed prognosis with the patient. Recovery is uncertain and we will need to give him time to heal to see how much functional recovery he does regain. Cough with phlegm production: Improved, resolved. Patient has been afebrile and O2 sats have been within normal limits. Chest x-ray was negative for any acute process. Skin breakdown in the gluteal cleft and on buttock: Consistent with shear/friction injury. Continue cleaning, barrier cream and dressing. Patient worked with therapy on weight shifting and wheelchair push-ups to decrease any chance of worsening of the skin breakdown. Have also discussed this with the patient personally. Hypertension: Fairly well controlled on current medications. Goal blood pressure less than 140/90. Diabetes: Fairly well controlled on carb controlled diet and current regimen. Glucose levels have been below 150 for the most part so far. Continue medications and adjust for euglycemia. Patient did refuse basal insulin frequently. ADL dysfunction: Improving as strength improves, will need to work on safety awareness, ADLs from the standing level if possible and fine motor control. Mobility dysfunction: Continue to work to improve balance, gait and mobility. Concentrating on improving wheelchair mobility at this point, patient is having difficulty with uneven surfaces. Tolerance for walking has not not improved enough to be able to return home safely at a level outside of wheelchair. Left foot drop: Continue to work to improve strengthening and mobility. Still having difficulty with walking from a standpoint of advancing the left lower extremity. Since the patient is not quite able to walk yet, will defer ordering AFO until his ability to advance left lower extremity improves and he is walking. Disposition: [id number] HOME UNDER [facility] Final Discharge Diagnosis (Prints w/discharge instructions): Cervical myelopathy, hypertension, diabetes, left foot drop, gluteal skin breakdown, ADL dysfunction, mobility dysfunction Time spent for discharge: >30 mins Core Measure Documentation - Palliative Care Palliative Care/ Comfort Measures: Not Applicable - Core Measures Any of the following diagnoses?: none Exam - Physical Exam Narrative exam: MUSCULOSKELETAL SPECIALTY EXAM CONSTITUTIONAL: Well developed, well nourished, appropriately groomed RESPIRATORY: Clear to auscultation bilaterally, no increased work of breathing CARDIOVASCULAR: Regular Rate/ Rhythm, no swelling, edema or tenderness in BUE or BLE. All extremities warm. GI: + bowel sounds, soft, NTTP, nondistended. INTEGUMENTARY: Normal, no lesion, rash, masses or bruising noted in extremities. Surgical wound healed on anterior neck. Gluteal skin breakdown consistent with shear/f riction MUSCULOSKELETAL: BUE and BLE normal without defect, crepitus, subluxation, effusion, arthritic changes or TTP. BUE 4/5, decreased ROM, with normal tone strength in the upper extremities has improved since prior exam, fine motor control still poor. LLE 2/5 decreased ROM, with normal tone, RLE 3/5 with decreased range of motion and normal tone NEURO: CN 2-12 grossly intact. Sensation intact in all extremities. Coordination impaired but improved in BUE. No tremor noted in 4 extremities. POSTURE and GAIT: Sitting posture good but dynamic sitting is weak. Standing is weak but he is improving duration PSYCH: Alert, oriented x3, affect appears normal. Insight appears intact. - Constitutional Vitals: Temp Pulse Resp BP Pulse Ox 98.1 F 90 18 116/72 97 11/01/20 07:39 11/01/20 07:39 11/01/20 07:39 11/01/20 07:39 11/01/20 07:39 - Allied Health Allied health notes reviewed: nursing, PT, OT Plan Activity: no driving until cleared by PCP, up only with assistance, fall precautions Weight Bearing Status: Full Weight Bearing Diet: diabetic (Cardiac / Diabetic diet) Wound: open to air (Surgical wound may be left open to air, well healed at this point), keep clean and dry (Gluteal skin breakdown consistent with shear/friction should be kept clean and dry, barrier cream and dressing daily/as needed) Special Instructions: record daily BP diary, record blood sugar diary, physical therapy, occupational therapy, home health RN Durable Medical Equipment Needed Upon Discharge: Wheelchair, Bedside Commode Care Plan Goals: Patient will need to follow-up with PCP after discharge for continued monitoring of chronic medical conditions including hypertension and diabetes. During his stay, patient has refused basal insulin on several occasions. Despite this his glucose levels have remained fairly well controlled. Patient will also need to follow-up with Dr. Myers (neurosurgery) for further postsurgical care and monitoring. At some point in the future once the patient is able to safely ambulate and if he still has left foot drop, patient would benefit from a left AFO. At this point, he is unable to ambulate effectively or safely and we have deferred ordering the AFO currently. As his strength and function in the left lower extremity returns, he may not need the AFO and so we opted to avoid ordering it prematurely. Would recommend that therapy continue to work on core strengthening, balance, pregait, tolerance to weightbearing and dynamic balance while standing, transfers. Once these continue to improve and strength returns to allow him to advance his left lower extremity, would recommend transitioning to improving transfers and adding in gait training with eventual inclusion of stairs, uneven surfaces and fall recovery. As for upper extremities, would recommend therapy continue to work on improvement in fine motor control while still working to improve gross motor. Follow up with: PRIMARY CAREMD [Primary Care Provider] - 7 Days OSMANY MYERS II, MD [Staff Physician] - 7 Days Prescriptions: AtorvaSTATin [Lipitor] 40 mg PO QHS #30 tablet Aspirin EC [Ecotrin] 325 mg PO QDAY #30 tablet metFORMIN [Glucophage] 500 mg PO BIDDIAB #60 tablet glipiZIDE [Glucotrol] 5 mg PO QDDIAB #30 tablet Famotidine [Pepcid] 20 mg PO BID #60 tablet lisinopriL [Zestril TAB] 2.5 mg PO QDAY #15 tablet
== END 2020-11-01 12:23 | disposition home or self-care (01) | DRG 552 ==
LOC: UNDOADMIN 13:34 → 3A 13:34 → 3B 15:01
PROVIDERS: ADMIT Physical Medicine & Rehabilitation; ATTEND Physical Medicine & Rehabilitation
DX: M47.12 Other spondylosis with myelopathy, cervical region (principal); R53.81 Other malaise; I10 Essential (primary) hypertension; E11.9 Type 2 diabetes mellitus without complications; M21.372 Foot drop, left foot; R26.9 Unspecified abnormalities of gait and mobility; M25.80 Other specified joint disorders, unspecified joint; Z82.3 Family history of stroke; Z79.899 Other long term (current) drug therapy; Z95.1 Presence of aortocoronary bypass graft; Z82.49 Family history of ischemic heart disease and other diseases of the circulatory system; Z95.4 Presence of other heart-valve replacement; Z86.73 Personal history of transient ischemic attack (TIA), and cerebral infarction without residual deficits; Z95.2 Presence of prosthetic heart valve; Z79.82 Long term (current) use of aspirin; Z79.4 Long term (current) use of insulin
CPT/HCPCS: 36415; 71046; 80048; 80053; 82962; 85025; 85027; 94640; G0378; A9270-GY; J1650; J1815

== ENCOUNTER 2021-02-06 11:53 | Outpatient (CLI) | payer OTHER ==
--- NOTE | 2021-02-06 14:51 | XRay Report ---
CERVICAL SPINE, 3 VIEWS INDICATION / CLINICAL INFORMATION: STATUS POST CERVICAL SPINAL FUSION. COMPARISON: Intraoperative radiographs, 10/04/2020 FINDINGS: Anterior cervical fusion is present at C3-C4. Hardware is intact. Alignment is normal. Prominent ante rior osteophytes are seen throughout the remainder of the cervical spine. Incidental note is made of excessive calcific plaque within both carotid arteries especially on the l eft. IMPRESSION: Anterior cervical fusion at C3-C4 is present and without obvious abnormality. Alignment i s normal. Signer Name: Meaghan Dias MD Signed: 02/06/2021 2:46 PM Workstation Name: [id number]
== END 2021-02-06 11:54 | disposition home or self-care (01) ==
LOC: XRAY 11:53
PROVIDERS: ATTEND Psychiatry & Neurology Neurology
DX: M43.22 Fusion of spine, cervical region (principal); M25.78 Osteophyte, vertebrae; I65.22 Occlusion and stenosis of left carotid artery; Z98.1 Arthrodesis status
CPT/HCPCS: 72040